=== PATIENT | male | born 1945 | race Caucasian/White ===

== ENCOUNTER 2017-06-05 05:41 | Outpatient (CLI) | payer MEDICARE ==
[~2017-06-05] VITALS: Ht 180.3 cm; Wt 142.9 kg
[2017-06-05] MEDS ORDERED: ALBU5SOL6 IH (14:58)
[2017-06-05] MEDS ORDERED: CYAN100088 PO (14:58)
[2017-06-05] MEDS ORDERED: ACET325T49 PO (14:58)
[2017-06-05] MEDS ORDERED: HYDR-3812 PO (14:58)
[2017-06-05] MEDS ORDERED: SENN8.6T68 PO (14:58)
[2017-06-05] MEDS ORDERED: FURO40TA4 PO (14:58)
[2017-06-05] MEDS ORDERED: AMLO1CAP PO (14:58)
[2017-06-05] MEDS ORDERED: FLUO10TA PO (14:58)
[2017-06-05] MEDS ORDERED: BISA10SU20 RC (14:58)
[2017-06-05] MEDS ORDERED: ATOR20TA66 PO (14:58)
[2017-06-05] MEDS ORDERED: GABA-488 PO (14:58)
[2017-06-05] MEDS ORDERED: METF1000 PO (14:58)
[2017-06-05] MEDS ORDERED: TAMS0.4C98 PO (14:58)
[2017-06-05] MEDS ORDERED: FINA5TAB6 PO (14:58)
[2017-06-05] MEDS ORDERED: GUAI600T43 PO (14:58)
[2017-06-05] MEDS ORDERED: FEXO-45 PO (14:58)
[2017-06-05] MEDS ORDERED: LUBI24CA6 PO (14:58)
[2017-06-05] MEDS ORDERED: BISA5TAB8 PO (14:58)
[2017-06-05] MEDS ORDERED: HYOS0.1281 PO (14:58)
== END 2017-06-05 14:59 ==
LOC: PREOP 05:41
PROVIDERS: ATTEND Urology
DX: Z01.818 Encounter for other preprocedural examination (principal); N40.1 Benign prostatic hyperplasia with lower urinary tract symptoms; R33.9 Retention of urine, unspecified

== ENCOUNTER 2017-06-10 07:20 | Day surgery (SDC) | payer MEDICARE, BC ==
[~2017-06-10] VITALS: Ht 180.3 cm; Wt 142.9 kg
[~2017-06-10 07:20] MED LIST: ACET325T49 PO; ALBU5SOL6 IH; AMLO1CAP PO; ATOR20TA66 PO; BISA10SU20 RC; BISA5TAB8 PO; CYAN100088 PO; FEXO-45 PO; FINA5TAB6 PO; FLUO10TA PO; FURO40TA4 PO; GABA-488 PO; GUAI600T43 PO; HYDR-3812 PO; HYOS0.1281 PO; LUBI24CA6 PO; METF1000 PO; SENN8.6T68 PO; TAMS0.4C98 PO
--- NOTE | 2017-06-10 07:20 | Progress Note-Pre Operative ---
Pre-Operative Progress Note H&P Reviewed The H&P was reviewed, patient examined and no changes noted. Date Seen by Provider: Jun 10, 2017 Time Seen by Provider: 08:30 Date H&P Reviewed: Jun 10, 2017 Time H&P Reviewed: :30 Pre-Operative Diagnosis: NEUROGENIC BLADDER WITH URINE RETENTION MICHELLE DU MD Jun 10, 2017 7:20 am
--- OUTSIDE RECORDS SUMMARY | 2017-06-10 07:24 | XMS REPORT | Clinical Summary ---
Demographics Home Phone Preferred Language Unknown Marital Status Unknown Baptism Affiliation Unknown Race Unknown Ethnic Group Unknown Author Author Admin, [facility] Organization [facility] Address Unknown Phone Unavailable Allergies, Adverse Reactions, Alerts Allergy Name Reaction Description Start Date Severity Status Provider No Known Allergies Allyson Curtis MA Conditions or Problems Problem Name Problem Code Onset Date Status Entry Date Provider Comment Standard Description Annotate Problems Unknown Active Medication List Medication Instructions Start Date Stop Date Generic Name NDC Status Provider Patient Instruction FLOMAX 0.4 MG ORAL CAPS BID per Dr. Mata. TAMSULOSIN HCL 07572991911 Active Allyson Curtis MA Active SENNOSIDES 8.6 MG ORAL TABS Take 1 tab orally daily at bedtime. SENNOSIDES 90115730144 Active Allyson Curtis MA Active FINASTERIDE 5 MG ORAL TABS Take 5 mg orally daily. FINASTERIDE 53455314494 Active Allyson Curtis MA Active [facility] VITAMIN B-12 1000 MCG ORAL TABS Take 1,000 mcg orally daily. CYANOCOBALAMIN 29224451246 Active Allyson Curtis MA Active ASPIRIN ADULT LOW STRENGTH CHEW Take 1 81 mg chewable Asprin daily. ASPIRIN CHEW 57875168774 Active Allyson Curtis MA Active GABAPENTIN 300 MG ORAL CAPS Take 1 capsule TID a day. GABAPENTIN 03234586491 Active Allyson Curtis MA Active AMITIZA 24 MCG ORAL CAPS Take 1 capsule twice a day with meals. LUBIPROSTONE 28884891538 Active Allyson Curtis MA Active METFORMIN HCL 1000 MG ORAL TABS Take 1 tab orally 2 times daily with meals. METFORMIN HCL 99679546534 Active Allyson Curtis MA Active AMLODIPINE BESY-BENAZEPRIL HCL 10-40 MG ORAL CAPS Take 1 capsule daily. 05/31 AMLODIPINE BESY-BENAZEPRIL HCL 27626193286 Active Allyson Curtis MA Active ATORVASTATIN CALCIUM 20 MG ORAL TABS Take 1 tab orally daily, LATE. ATORVASTATIN CALCIUM 64001041057 Active Allyson Curtis MA Active NAPROXEN 500 MG ORAL TABS Take 1 tab orally BID daily. NAPROXEN 49524736305 Active Allyson Curtis MA Active FUROSEMIDE 40 MG ORAL TABS Take 1 tab qd. FUROSEMIDE 66717071603 Active Allyson Curtis MA Active FEXOFENADINE HCL 60 MG ORAL TABS Take 2 tab in the am and in the pm. FEXOFENADINE HCL 85322325561 Active Allyson Curtis MA Active FLUTICASONE PROPIONATE 50 MCG/ACT NASAL SUSP Administer 2 sprays in each nostril daily. FLUTICASONE PROPIONATE 69056462295 Active Allyson Curtis MA Active
--- OUTSIDE RECORDS SUMMARY | 2017-06-10 07:24 | XMS REPORT | Continuity of Care Document ---
Demographics x Preferred Language Unknown Marital Status Unknown Quaker Affiliation Unknown Race Unknown Ethnic Group Unknown Author Author [facility] Organization [facility] Address Unknown Phone Unavailable Allergies There is no data. Medications There is no data. Problems There is no data. Procedures There is no data. Results There is no data. Encounters ACCT No. Visit Date/Time Discharge Status Pt. Type Provider Facility Loc./Unit Complaint [id number] 06/06/2016 17:54:00 ACT Unknown
--- OUTSIDE RECORDS SUMMARY | 2017-06-10 07:24 | XMS REPORT | Clinical Summary ---
Demographics Home Phone Preferred Language Unknown Marital Status Unknown Temple Affiliation Unknown Race Unknown Ethnic Group Unknown Author Author Admin, [facility] Organization [facility] Address Unknown Phone Unavailable Allergies, Adverse Reactions, [...] CAPS BID per Dr. Mata. TAMSULOSIN HCL 72417270010 Active Allyson Curtis MA Active SENNOSIDES 8.6 MG ORAL TABS Take 1 tab orally daily at bedtime. SENNOSIDES 17965603582 Active Allyson Curtis MA Active FINASTERIDE 5 MG ORAL TABS Take 5 mg orally daily. FINASTERIDE 17661478198 Active Allyson Curtis MA Active [facility] VITAMIN B-12 1000 MCG ORAL TABS Take 1,000 mcg orally daily. CYANOCOBALAMIN 46023799831 Active Allyson Curtis MA Active ASPIRIN ADULT LOW STRENGTH CHEW Take 1 81 mg chewable Asprin daily. ASPIRIN CHEW 90585867928 Active Allyson Curtis MA Active GABAPENTIN 300 MG ORAL CAPS Take 1 capsule TID a day. GABAPENTIN 69883793163 Active Allyson Curtis MA Active AMITIZA 24 MCG ORAL CAPS Take 1 capsule twice a day with meals. LUBIPROSTONE 70114319425 Active Allyson Curtis MA Active METFORMIN HCL 1000 MG ORAL TABS Take 1 tab orally 2 times daily with meals. METFORMIN HCL 21101119763 Active Allyson Crutis MA Active AMLODIPINE BESY-BENAZEPRIL HCL 10-40 MG ORAL CAPS Take 1 capsule daily. 05/31 AMLODIPINE BESY-BENAZEPRIL HCL 52866546566 Active Allyson Curtis MA Active ATORVASTATIN CALCIUM 20 MG ORAL TABS Take 1 tab orally daily, LATE. ATORVASTATIN CALCIUM 24741545540 Active Allyson Curtis MA Active NAPROXEN 500 MG ORAL TABS Take 1 tab orally BID daily. NAPROXEN 31240879793 Active Allyson Curtis MA Active FUROSEMIDE 40 MG ORAL TABS Take 1 tab qd. FUROSEMIDE 25672233741 Active Allyson Curtis MA Active FEXOFENADINE HCL 60 MG ORAL TABS Take 2 tab in the am and in the pm. FEXOFENADINE HCL 38904643006 Active Allyson Curtis MA Active FLUTICASONE PROPIONATE 50 MCG/ACT NASAL SUSP Administer 2 sprays in each nostril daily. FLUTICASONE PROPIONATE 71071530830 Active Allyson Curtis MA Active
[2017-06-10] MEDS ORDERED: cefTRIAXone INJECTION 1,000 MG in NS (IVPB) 50 ML IV ONE (07:30)
[2017-06-10] MEDS: LACTATED RINGERS 1,000 ML IV PRN ×2 (07:45→10:26)
[2017-06-10 07:58] VITALS: BP 122/77
[2017-06-10] MEDS ORDERED: FAMOTIDINE 20MG/2ML IV (PEPCID) IV ONE (08:00)
[2017-06-10] MEDS ORDERED: CATHETER FLUSH 10 ML SYR IV PRN (08:00)
[2017-06-10] MEDS ORDERED: MIDAZOLAM 2 MG/2 ML (VERSED) VIAL ONE (08:49)
[2017-06-10] MEDS ORDERED: LIDOCAINE JELLY 2% (XYLOCAINE) 5 ML TUBE ONE (08:49)
[2017-06-10] MEDS ORDERED: proPOfol 200 MG/20 ML (DIPRIVAN) VIAL IV ONE (08:49)
[2017-06-10] MEDS ORDERED: LIDOCAINE PF 2% 5 ML (XYLOCAINE) VIAL ONE (08:49)
[2017-06-10] MEDS ORDERED: ROCURONIUM 50 MG/5 ML (ZEMURON) VIAL IV ONE (08:49)
[2017-06-10] MEDS ORDERED: LACTATED RINGERS 0 ML IV ONE (08:49)
[2017-06-10] MEDS ORDERED: ONDANSETRON 4 MG/2 ML (SDV) Z0FRAN ONE (08:49)
[2017-06-10] MEDS ORDERED: fentaNYL INJECTION 100 MCG/2 ML AMP ONE (08:51)
[2017-06-10] MEDS ORDERED: GENTAMICIN 40 MG/ML 2 ML INJ SDV ONE (09:05)
[2017-06-10] MEDS ORDERED: LIDOCAINE 1% INJ 20 ML (XYLOCAINE) VIAL ONE (09:17)
--- NOTE | 2017-06-10 09:22 | Progress Note-Post Operative ---
Post-Operative Progess Note Surgeon (s)/Banjo Repairer (s) Surgeon MICHELLE DU MD Banjo Repairer: SADE Pre-Operative Diagnosis NEUROGENIC BLADDER WITH URINE RETENTION Post-Operative Diagnosis SAME Procedure & Operative Findings Date of Procedure 06/10/17 Procedure Performed/Findings SUPRAPUBIC CYSTOSTOMY TUBE PLACEMENT Anesthesia Type GENERAL Estimated Blood Loss Estimated blood loss (mL): NEGLIGIBLE Specimens/Packing Specimens Removed N/A Packing: N/A MICHELLE DU MD Jun 10, 2017 9:22 am
[2017-06-10] MEDS ORDERED: SUCCINYLCHOLINE INJ 100 MG/5 ML SYR ONE (10:24)
[2017-06-10] MEDS ORDERED: SEVOFLURANE (ULTANE) 15 ML INHAL SOLN ONE (10:31)
[2017-06-10] MEDS ORDERED: GLYCOPYRROLATE 0.2 MG/ML (ROBINUL) 2 ML VIAL ONE (10:37)
[2017-06-10] MEDS ORDERED: NEOSTIGMINE (BLOXIVERZ ) 1 MG/1ML 10 ML VIAL ONE (10:37)
--- NOTE | 2017-06-10 10:51 | Discharge Inst-Urology ---
Discharge Inst-Urology Discharge Medications New, Converted, or Re-newed RX: RX on Chart Patient Instructions/Follow Up Plan Patient to see me in [facility] 06/26 at 8:30am. Rest till then. DC shiraz and silk suture around SP tube in 2 weeks. Secure SP tube at all times Increase oral fluids for 48 hours and then as needed If questions or concerns contact your physician Or seek help at emergency department. MICHELLE DU MD Jun 10, 2017 10:51 am
[2017-06-10] MEDS ORDERED: morphine INJ 10 MG/ML 1ML (SYR OR VIAL) IVP PRN (11:00)
[2017-06-10] MEDS ORDERED: fentaNYL INJECTION 100 MCG/2 ML AMP IVP PRN (11:00)
[2017-06-10 11:55] VITALS: BP 130/79
[2017-06-10 12:25] VITALS: BP 163/96
[2017-06-10 12:34] VITALS: BP 163/96
--- NOTE | 2017-06-10 16:00 | OPERATIVE REPORT ---
DATE OF SERVICE: 06/10/2017 PREOPERATIVE DIAGNOSIS: Neurogenic bladder with retention. POSTOPERATIVE DIAGNOSIS: Neurogenic bladder with retention. OPERATION PERFORMED: Suprapubic cystostomy tube placement. SURGEON: Michelle Du MD ANESTHESIA: General. COMPLICATIONS: None. PROCEDURE: Under satisfactory general anesthesia, the patient in supine position, genitalia were prepped and draped in the usual sterile fashion including adequate abdominal prep. Before doing so, the bladder was filled with 500 mL of antibiotic solution through the ureteral catheter, which was clamped. An incision was made in the midline, carried from the symphysis pubis over the umbilicus for few centimeters. It was carried through skin, subcutaneous tissue and fascia. The fascia was incised. The midline was identified and retracted laterally. The retropubic space was developed. The bladder was identified and confirmed by suctioning fluids with a syringe and needle. Self-retaining retractor was applied. Stab wound was made in the anterior wall of the bladder through which a 22 Trinidadian 2-way 10 mL balloon catheter was inserted. The balloon was inflated with 15 mL. One stitch of 2-0 chromic was put to make the opening around the catheter watertight. There was no leakage, no need for drain. Closure was performed in layers, the fascia with interrupted 0 Vicryl, subcutaneous tissue and Celestino's fascia with an interrupted 3-0 plain and the skin with shiraz. The suprapubic tube was secured in position with a 0 silk suture. Needle, sponge, instrument counts were correct x2. Estimated blood loss was negligible, none of which was replaced. The patient tolerated the procedure and anesthesia well and was sent to recovery room in stable condition after applying the dressing. Job ID: [id number] DocumentID: [id number] Dictated Date: 06/10/2017 10:46:21 Vp Of Marketing Date: 06/10/2017 15:59:25 Dictated By: MICHELLE DU MD
== END 2017-06-10 12:34 | disposition home or self-care (01) ==
LOC: SDC 07:20
PROVIDERS: ATTEND Urology
DX: N31.9 Neuromuscular dysfunction of bladder, unspecified (principal); R33.9 Retention of urine, unspecified; I25.10 Atherosclerotic heart disease of native coronary artery without angina pectoris; I10 Essential (primary) hypertension; E11.9 Type 2 diabetes mellitus without complications; F17.210 Nicotine dependence, cigarettes, uncomplicated; G47.33 Obstructive sleep apnea (adult) (pediatric); F32.9 Major depressive disorder, single episode, unspecified; K21.9 Gastro-esophageal reflux disease without esophagitis; E66.01 Morbid (severe) obesity due to excess calories; Z68.41 Body mass index [BMI] 40.0-44.9, adult; Z79.84 Long term (current) use of oral hypoglycemic drugs; Z79.899 Other long term (current) drug therapy
CPT/HCPCS: 82962; 87081

== ENCOUNTER → 2018-10-19 | Outpatient (CLI) | payer MEDICARE, BC ==
[~2018-10-19] MED LIST changes: +BISA10SU RC; -BISA10SU20 RC; +METF-399 PO; -METF1000 PO
--- NOTE | 2018-10-19 11:25 | Diagnostic Imaging Report ---
INDICATION: Right hip pain. Three views were obtained. FINDINGS: There are moderate degenerative changes in the right hip. There is no definite fracture or dislocation. Soft tissues are unremarkable. IMPRESSION: Moderate degenerative changes in the right hip. No definite fracture or dislocation although the examination is somewhat limited due to underpenetration and lack of a frog-leg or lateral view. If clinical correlation warranted, followup with CT. Dictated by: Dictated on workstation # [id number]
== END ==
LOC: RAD FS 10:29
PROVIDERS: ATTEND Nurse Practitioner
DX: M16.11 Unilateral primary osteoarthritis, right hip (principal)
CPT/HCPCS: 73502

== ENCOUNTER → 2019-08-27 | Outpatient (CLI) | payer MEDICARE, BC ==
[~2019-08-27] MED LIST changes: +ACHD5005 PO; -HYDR-3812 PO; -TAMS0.4C98 PO; +TMSL.4C PO
[2019-08-27 21:12] LABS: CLARITY,URINE TURBID; COLOR,URINE YELLOW; GLUCOSE, URINE (UA) 2+ (NEGATIVE); PH,URINE 6.5 (5-9); PROTEIN,URINE 1+ (NEGATIVE)
[2019-08-27 21:13] LABS: BACTERIA,URINE LARGE /HPF; BILIRUBIN,URINE NEGATIVE (NEGATIVE); KETONES,URINE NEGATIVE (NEGATIVE); LEUKOCYTE ESTERASE ,URINE 3+ (NEGATIVE); NITRITE,URINE POSITIVE (NEGATIVE); RBC,URINE 25-50 /HPF; WBC,URINE >100 /HPF
== END ==
LOC: LAB FS 18:01
PROVIDERS: ATTEND Family Medicine
DX: N40.0 Benign prostatic hyperplasia without lower urinary tract symptoms (principal); R30.0 Dysuria
CPT/HCPCS: 81000; 87077; 87088

== ENCOUNTER → 2019-09-22 | Outpatient (CLI) | payer MEDICARE, BC | LOC: LAB FS 14:30 | PROVIDERS: ATTEND Family Medicine | DX: Z43.5 Encounter for attention to cystostomy (principal); N40.0 Benign prostatic hyperplasia without lower urinary tract symptoms | CPT/HCPCS: 87088 ==

== ENCOUNTER 2019-11-18 21:06 | Emergency (ER) | payer MEDICARE, BC ==
[~2019-11-18] VITALS: Ht 180.3 cm; Wt 153.3 kg
[2019-11-18 21:09] VITALS: BP 177/92
--- NOTE | 2019-11-18 21:38 | ED GU-Male ---
General Chief Complaint: - Urinary Stated Complaint: CATHETER ISSUES Nursing Triage Note: Patient arrived via POV due to his suprapubic catheter not draining. Home health changed the catheter at approximately 1400 todays date. No urine has drained since. Source: patient History of Present Illness Date Seen by Provider: Nov 18, 2019 Time Seen by Provider: 21:08 Initial Comments 74 yo male presenting with suprapubic catheter not draining since it was changed by home health around 1400 today. He has tried flushing the catheter at home without success. He has pain and pressure in his bladder. There is some pink and bloody colored drainage present in the tubing for his catheter and he has some clear and pink drainage from around his catheter coming from his suprapubic catheter site. Allergies and Home Medications Allergies Coded Allergies: No Known Drug Allergies (Unverified , 06/05/17) Home Medications Acetaminophen 325 Mg Tablet, 650 MG PO Q4H PRN for PAIN-MILD, (Reported) take 2 (325mg) tabs Albuterol Sulfate 5 Mg/1 Ml Solution, 5 MG IH Q4H PRN for SHORTNESS OF BREATH, (Reported) Amlodipine Besylate/Benazepril 1 Each Capsule, 1 EACH PO DAILY, (Reported) Atorvastatin Calcium 20 Mg Tablet, 20 MG PO DAILY, (Reported) Bisacodyl 5 Mg Tablet.dr, 5 MG PO DAILY, (Reported) Bisacodyl 10 Mg Supp.rect, 10 MG RC DAILY PRN for CONSTIPATION-1ST LINE, (Reported) Cyanocobalamin (Vitamin B-12) 1,000 Mcg Tablet, 1,000 MCG PO DAILY, (Reported) Fexofenadine HCl 60 Mg Tablet, 60 MG PO DAILY, (Reported) Fluoxetine HCl 10 Mg Tablet, 10 MG PO DAILY, (Reported) Furosemide 40 Mg Tablet, 40 MG PO DAILY, (Reported) Gabapentin 300 Mg Capsule, 300 MG PO TID, (Reported) Guaifenesin 600 Mg Tab.er.12h, 600 MG PO DAILY, (Reported) Hydrocodone Bit/Acetaminophen 1 Each Tablet, 1 EACH PO Q4H PRN for PAIN-MILD TO MODERATE, (Reported) Hyoscyamine Sulfate 0.125 Mg Tablet, 0.125 MG PO Q4H PRN for bladder spasms, (Reported) Lubiprostone 24 Mcg Capsule, 24 MCG PO BID, (Reported) Metformin HCl 1,000 Mg Tablet, 1,000 MG PO BID, (Reported) Sennosides 8.6 Mg Tablet, 8.6 MG PO DAILY, (Reported) Patient Home Medication List Home Medication List Reviewed: Yes Review of Systems Review of Systems Constitutional: No chills, No fever EENTM: no symptoms reported Respiratory: no symptoms reported Cardiovascular: no symptoms reported Gastrointestinal: no symptoms reported Genitourinary: see HPI Musculoskeletal: no symptoms reported Skin: no symptoms reported Past Fazxdhm-Ddwgwb-Szateq Hx Past Med/Social Hx: Reviewed Nursing Past Med/Soc Hx Patient Social History Alcohol Use: Regular Use Alcohol Beverage of Choice: Whiskey Recreational Drug Use: No Smoking Status: Current Everyday Smoker Type Used: Cigarettes Recent Foreign Travel: No Contact w/Someone Who Travel: No Recent Infectious Disease Expo: No Recent Hopitalizations: No Physical Abuse: No Sexual Abuse: No Mistreated: No Fear: No Immunizations Up To Date Date of Pneumonia Vaccine: Jun 05, 2014 Date of Influenza Vaccine: Feb 04, 2017 Seasonal Allergies Seasonal Allergies: No Past Medical History Surgeries: Yes (bilat CTR, oral sx) Eye Surgery Respiratory: No Cardiac: Yes High Cholesterol, Hypertension Neurological: No Benign Prostatic Hyperpl, Renal Failure Gastrointestinal: No Chronic Constipation Musculoskeletal: Yes (obese) Endocrine: Yes Cancer: No Psychosocial: Yes Depression Integumentary: No Blood Disorders: No Physical Exam Vital Signs Vital Signs - First Documented 11/18/19 21:09 Temp 36.7 Pulse 83 Resp 19 B/P (MAP) 177/92 (120) Pulse Ox 92 O2 Delivery Room Air Capillary Refill : Less Than 3 Seconds Height, Weight, BMI Height: 5'11.00" Weight: 315lbs. 0.0oz. 142.105819zy; 47.00 BMI Method: General Appearance: WD/WN, obese Gastrointestinal: normal bowel sounds, other (obese abdomen with tenderness over his suprapubic area and some clear to pink colored drainage from around the catheter in his suprapubic site) Neurologic/Psychiatric: alert, oriented x 3 Skin: normal color, warm/dry Progress/Results/Core Measures Suspected Sepsis Recent Fever Within 48 Hours: No Infection Criteria Present: None New/Unexplained Altered Menta: No Sepsis Screen: No Definite Risk SIRS Temperature: Pulse: 83 Respiratory Rate: 19 Blood Pressure 177 /92 Mean: 120 Results/Orders My Orders Orders - JAIR KNOTT MD Bladder Scan (11/18/19 21:32) Armstrong Cath (11/18/19 21:32) Urinary Catheter: Hand Irrigat (11/18/19 21:32) Vital Signs/I&O 11/18/19 21:09 Temp 36.7 Pulse 83 Resp 19 B/P (MAP) 177/92 (120) Pulse Ox 92 O2 Delivery Room Air Capillary Refill : Less Than 3 Seconds Blood Pressure Mean: 120 Progress Note : Progress Note the suprapubic catheter was changed out with a 20 Fr catheter and 10 mL of saline used to inflate the balloon of the new catheter. He had some clot and urine come out of the catheter. It was then attached to the existing tubing and armstrong bag he had. A bladder scan performed after placement of the new catheter confirmed he had only about 50-60 mL of urine present in the bladder. He was also more comfortable. Will monitor for a few minutes to confirm he is having no complications and then discharge to home. Departure Impression Primary Impression: Complication, suprapubic catheter obstruction Qualified Codes: T83.090A - Other mechanical complication of cystostomy catheter, initial encounter Disposition: 01 HOME, SELF-CARE Condition: Stable Departure-Patient Inst. Decision time for Depature: 21:55 Referrals: SELFLAINEY MD (PCP/Family) Primary Care Physician Patient Instructions: How to Care for Your Suprapubic Urinary Catheter Add. Discharge Instructions: Follow up with Clinic and Home health for continued concerns All discharge instructions reviewed with patient and/or family. Voiced understanding. JAIR KNOTT MD Nov 18, 2019 21:38
== END 2019-11-18 21:58 | disposition home or self-care (01) ==
LOC: EDUNIT# 21:06 → ER FS 21:07
DX: T83.090A Other mechanical complication of cystostomy catheter, initial encounter (principal); I10 Essential (primary) hypertension; E78.00 Pure hypercholesterolemia, unspecified; F32.9 Major depressive disorder, single episode, unspecified; K59.09 Other constipation; F17.210 Nicotine dependence, cigarettes, uncomplicated; Z79.84 Long term (current) use of oral hypoglycemic drugs
CPT/HCPCS: 51702

== ENCOUNTER → 2019-11-19 | Outpatient (CLI) | payer MEDICARE, BC ==
[~2019-11-19] MED LIST changes: +AMLO2.5T2 PO; +ASPI-999 PO; +BENA20TA7 PO; +CEFD300C3 PO; +FEXO-14 PO; +GABA300C PO; +HYDR-3812 PO; -HYOS0.1281 PO; +HYOS0.1281 SL; +RT-ALBUINH IH; +SENN1TAB33 PO; +TIZA4TAB4 PO; +TRAM50TA3 PO
[2019-11-19 21:09] LABS: CLARITY,URINE TURBID; COLOR,URINE YELLOW; GLUCOSE, URINE (UA) NEGATIVE (NEGATIVE); PROTEIN,URINE 3+ (NEGATIVE)
[2019-11-19 21:10] LABS: KETONES,URINE NEGATIVE (NEGATIVE); NITRITE,URINE POSITIVE (NEGATIVE)
[2019-11-19 21:11] LABS: BACTERIA,URINE MODERATE /HPF; BILIRUBIN,URINE 1+ (NEGATIVE); LEUKOCYTE ESTERASE ,URINE 3+ (NEGATIVE); WBC,URINE >100 /HPF
[2019-11-19 21:12] LABS: SQUAMOUS EPITHELIAL CELL,UR RARE /HPF
== END ==
LOC: LAB FS 20:34
PROVIDERS: ATTEND Family Medicine
DX: R30.0 Dysuria (principal)
CPT/HCPCS: 81000; 87077; 87088; 87186

== ENCOUNTER 2019-12-28 14:37 | Inpatient (IN) | payer BC, MEDICARE ==
[~2019-12-28] VITALS: Ht 181 cm; Wt 140.1 kg
[~2019-12-28 14:37] MED LIST changes: -HYDR-3812 PO
[2019-12-28] MEDS ORDERED: NS IV 1000 ML 1,000 ML IV SCH ×4 (14:44→16:11)
[2019-12-28] MEDS ORDERED: CEFEPIME INJECTION 1,000 MG in WATER (STERILE) FOR INJECTION 10 ML IV ONE (14:45)
--- NOTE | 2019-12-28 14:55 | ED General ---
General Chief Complaint: - Urinary Stated Complaint: URINARY INFECTION Source of Information: Patient Exam Limitations: No Limitations History of Present Illness Date Seen by Provider: Dec 28, 2019 Time Seen by Provider: 14:36 Initial Comments Patient presents ER by [facility] with chief complaint that he was being transferred from the [facility] back to his assisted living and could not get up out of the van to go in and so they called an ambulance. EMS said he had a fever 101 and milk chocolate-colored urine in his urinary catheter. He has finasteride on his med list but cannot tell me why he has a armstrong catheter. He is a poor historian. EMS started a liter of saline. Allergies and Home Medications Allergies Coded Allergies: No Known Drug Allergies (Unverified , 06/05/17) Home Medications Acetaminophen 325 Mg Tablet, 650 MG PO Q4H PRN for PAIN-MILD, (Reported) take 2 (325mg) tabs Albuterol Sulfate 1 Puff Puff, 2 PUFF IH Q6H PRN for WHEEZING, (Reported) Amlodipine Besylate 2.5 Mg Tablet, 2.5 MG PO HS, (Reported) Aspirin 81 Mg Tab.chew, 81 MG PO DAILY, (Reported) Atorvastatin Calcium 20 Mg Tablet, 20 MG PO 1700, (Reported) Benazepril HCl 20 Mg Tablet, 40 MG PO DAILY, (Reported) TAKES 2 (20MG) TABS - TAKE WITH AMLODIPINE Bisacodyl 10 Mg Supp.rect, 10 MG RC DAILY PRN for CONSTIPATION-4TH LINE, (Reported) Bisacodyl 5 Mg Tablet.dr, 5 MG PO DAILY PRN for CONSTIPATION-4TH LINE, (Reported) Cefdinir 300 Mg Capsule, 300 MG PO BID, (Reported) FILLED 11-20-2019 #14/ 7 DAYS SUPPLY Cyanocobalamin (Vitamin B-12) 1,000 Mcg Tablet, 1,000 MCG PO 1700, (Reported) Fexofenadine HCl 60 Mg Tablet, 60 MG PO 0800,1700, (Reported) Finasteride 5 Mg Tablet, 5 MG PO DAILY, (Reported) Fluoxetine HCl 10 Mg Tablet, 10 MG PO DAILY, (Reported) Furosemide 40 Mg Tablet, 40 MG PO DAILY, (Reported) Gabapentin 300 Mg Capsule, 300 MG PO 0800,1200,1700, (Reported) TAKES THREE TIMES DAILY (0800,1200,1700) Guaifenesin 600 Mg Tab.er.12h, 600 MG PO 1700, (Reported) Hydrocodone/Acetaminophen 1 Each Tablet, 1-2 EACH PO Q4H PRN for PAIN-MODERATE (5-7), (Reported) Hyoscyamine Sulfate 0.125 Mg Tablet, 0.125 MG SL Q4H PRN for SPASMS, (Reported) Lubiprostone 24 Mcg Capsule, 24 MCG PO 0800,1700, (Reported) Metformin HCl 1,000 Mg Tablet, 1,000 MG PO BID WITH MEALS, (Reported) Sennosides/Docusate Sodium 1 Each Tablet, 1 EACH PO DAILY, (Reported) Tamsulosin HCl 0.4 Mg Cap, 0.4 MG PO 0800,1700, (Reported) Tizanidine HCl 4 Mg Tablet, 4 MG PO 0800,1700, (Reported) Tramadol HCl 50 Mg Tablet, 50-100 MG PO Q6H PRN for PAIN-MODERATE (5-7), (Reported) Patient Home Medication List Home Medication List Reviewed: Yes Review of Systems Review of Systems Constitutional: see HPI (patient gives no meaningful review of symptoms because he is obtunded) Past Kfkkuep-Xzpchk-Lvmmpt Hx Patient Social History Alcohol Use: Occasionally Uses Alcohol Beverage of Choice: Whiskey Recreational Drug Use: No Smoking Status: Current Everyday Smoker Type Used: Cigarettes 2nd Hand Smoke Exposure: No Recent Hopitalizations: No Immunizations Up To Date Date of Pneumonia Vaccine: Jun 05, 2014 Date of Influenza Vaccine: Feb 04, 2017 Seasonal Allergies Seasonal Allergies: No Past Medical History Surgeries: Yes (bilat CTR, oral sx) Eye Surgery Respiratory: No Cardiac: Yes High Cholesterol, Hypertension Neurological: No Benign Prostatic Hyperpl, Renal Failure Gastrointestinal: No Chronic Constipation Musculoskeletal: Yes (obese) Endocrine: Yes Cancer: No Psychosocial: Yes Depression Integumentary: No Blood Disorders: No Family Medical History No Pertinent Family Hx Physical Exam-Suspected Sepsis Physical Exam Vital Signs Vital Signs - First Documented 12/28/19 14:46 Temp 39.1 Pulse 88 Resp 18 B/P (MAP) 93/56 (68) Pulse Ox 100 O2 Delivery Nasal Cannula O2 Flow Rate 2.00 Capillary Refill : Height, Weight, BMI Height: 5'11.00" Weight: 315lbs. 0.0oz. 142.026175to; 44.78 BMI Method: General Appearance: Chronically ill, Obese, Severe Distress Eyes: Bilateral Eye Normal Inspection, Bilateral Eye PERRL, Bilateral Eye EOMI HEENT: PERRL/EOMI, TMs Normal, Normal ENT Inspection; No Moist Mucous Membranes Neck: Full Range of Motion, Normal Inspection Respiratory: Lungs Clear, Normal Breath Sounds, No Accessory Muscle Use, No Respiratory Distress Cardiovascular: Regular Rate, Rhythm, No Edema, Normal Peripheral Pulses Gastrointestinal: Normal Bowel Sounds, Soft, Tenderness (suprapubic) Extremity: No Pedal Edema, Pedal Edema, Slow Capillary Refill, Other (dressed wound without significant erythema or discharge on the right lower extremity) Neurologic/Psychiatric: Alert, Other (oriented to person and place) Skin: normal color, warm/dry Focused Exam Lactate Level 12/28/19 14:45: Lactic Acid Level 2.08*H 12/28/19 16:45: Lactic Acid Level 0.95 Lactic Acid Level Laboratory Tests Test 12/28/19 16:45 Lactic Acid Level 0.95 MMOL/L (0.50-2.00) Procedures/Interventions Lumen: triple Central Line Procedure: betadine prep (chlorhexidine), sterile drapes applied, sterile dressing applied Position: internal jugular (R) Anesthesia: Lidocaine Volume Anesthetic (ccs): 3 Complications: none Post Position: sutured, good blood return, position confirmed w/ CXR Risks, benefits and alternatives were discussed with the patient and he was emergently consented to the procedure. He was positioned in the usual format and using the usual sterile garment and drapes the patient was dressed out. The skin was thoroughly cleaned with the supplied chlorhexidine prep. After the prep and dried a sterile drape was placed. The 20 cm 7 Serbian triple-lumen catheter was flushed with sterile saline. We used ultrasound guidance to pass the introducer needle into the right internal jugular without difficulty. A guidewire was placed easily without difficulty. No ectopy was seen on the monitor. The supplied 11 blade scalpel was used to make a 2 mm incision at the inferior portion of the introducer needle. The introducer needle was replaced with the dilator. The dilator was taken out and the patient had the central lumen of the triple lumen catheter threaded over the guidewire and placed at 14 cm. The guidewire was removed and the triple-lumen catheter was stitched in place using the supplied braided stitch at 2 different points. The catheter withdrew blood and flushed easily. A sterile dressing was placed over the catheter. The patient tolerated the procedure well. A chest x-ray was obtained that demonstrated no pneumothorax and a new interval central catheter over the shadow of the right internal jugular down the superior vena cava and terminating just proximal to the right atria. Progress/Results/Core Measures Suspected Sepsis SIRS Temperature: Pulse: Respiratory Rate: Laboratory Tests 12/28/19 14:45: White Blood Count 20.1H Blood Pressure / Mean: 12/28/19 14:45: Lactic Acid Level 2.08*H 12/28/19 16:45: Lactic Acid Level 0.95 Laboratory Tests 12/28/19 14:45: Creatinine 5.98H, INR Comment 1.4, Platelet Count 329, Total Bilirubin 0.4 Results/Orders Lab Results Laboratory Tests Test 12/28/19 14:44 12/28/19 14:45 12/28/19 16:45 Range/Units Urine Color YELLOW Urine Clarity CLOUDY Urine pH 6.0 5-9 Urine Specific Rossiter 1.015 L 1.016-1.022 Urine Protein 2+ H NEGATIVE Urine Glucose (UA) NEGATIVE NEGATIVE Urine Ketones NEGATIVE NEGATIVE Urine Nitrite NEGATIVE NEGATIVE Urine Bilirubin NEGATIVE NEGATIVE Urine Urobilinogen 0.2 < = 1.0 MG/DL Urine Leukocyte Esterase 3+ H NEGATIVE Urine RBC (Auto) 3+ H NEGATIVE Urine RBC 10-25 H /HPF Urine WBC >100 H /HPF Urine Crystals PRESENT H /LPF Urine Amorphous Sediment FEW CAROL URATES H /LPF Urine Bacteria TRACE /HPF Urine Casts NONE /LPF Urine Mucus NEGATIVE /LPF Urine Culture Indicated YES White Blood Count 20.1 H 4.3-11.0 10^3/uL Red Blood Count 3.39 L 4.35-5.85 10^6/uL Hemoglobin 9.3 L 13.3-17.7 G/DL Hematocrit 30 L 40-54 % Mean Corpuscular Volume 87 80-99 FL Mean Corpuscular Hemoglobin 27 25-34 PG Mean Corpuscular Hemoglobin Concent 32 32-36 G/DL Red Cell Distribution Width 17.5 H 10.0-14.5 % Platelet Count 329 130-400 10^3/uL Mean Platelet Volume 9.2 7.4-10.4 FL Neutrophils (%) (Auto) 87 H 42-75 % Lymphocytes (%) (Auto) 5 L 12-44 % Monocytes (%) (Auto) 8 0-12 % Eosinophils (%) (Auto) 0 0-10 % Basophils (%) (Auto) 0 0-10 % Neutrophils # (Auto) 17.4 H 1.8-7.8 X 10^3 Lymphocytes # (Auto) 1.0 1.0-4.0 X 10^3 Monocytes # (Auto) 1.7 H 0.0-1.0 X 10^3 Eosinophils # (Auto) 0.0 0.0-0.3 10^3/uL Basophils # (Auto) 0.0 0.0-0.1 10^3/uL Neutrophils % (Manual) 88 % Lymphocytes % (Manual) 4 % Monocytes % (Manual) 4 % Band Neutrophils 4 % Anisocytosis MODERATE Macrocytosis SLIGHT Prothrombin Time 17.7 H 12.2-14.7 SEC INR Comment 1.4 0.8-1.4 Activated Partial Thromboplast Time 44 H 24-35 SEC Sodium Level 136 135-145 MMOL/L Potassium Level 2.8 L 3.6-5.0 MMOL/L Chloride Level 105 98-107 MMOL/L Carbon Dioxide Level 19 L 21-32 MMOL/L Anion Gap 12 5-14 MMOL/L Blood Urea Nitrogen 53 H 7-18 MG/DL Creatinine 5.98 H 0.60-1.30 MG/DL Estimat Glomerular Filtration Rate 9 BUN/Creatinine Ratio 9 Glucose Level 173 H 70-105 MG/DL Lactic Acid Level 2.08 *H 0.95 0.50-2.00 MMOL/L Calcium Level 8.3 L 8.5-10.1 MG/DL Corrected Calcium 9.0 8.5-10.1 MG/DL Total Bilirubin 0.4 0.1-1.0 MG/DL Aspartate Amino Transf (AST/SGOT) 21 5-34 U/L Alanine Aminotransferase (ALT/SGPT) 13 0-55 U/L Alkaline Phosphatase 82 40-136 U/L Total Protein 6.7 6.4-8.2 GM/DL Albumin 3.1 L 3.2-4.5 GM/DL My Orders Orders - BETZAIDA BRENNER Cbc With Automated Diff (12/28/19 14:44) Comprehensive Metabolic Panel (12/28/19 14:44) Blood Culture (12/28/19 14:44) Sputum Culture (12/28/19 14:44) Urinalysis (12/28/19 14:44) Urine Culture (12/28/19 14:44) Protime With Inr (12/28/19 14:44) Partial Thromboplastin Time (12/28/19 14:44) Chest 1 View, Ap/Pa Only (12/28/19 14:44) Ed Iv/Invasive Line Start (12/28/19 14:44) Ed Iv/Invasive Line Start (12/28/19 14:44) Vital Signs Adult Sepsis Patie Q15M (12/28/19 14:44) O2 (12/28/19 14:44) Remove Rings In Anticipation O (12/28/19 14:44) Lactic Acid Analyzer (12/28/19 14:44) Ns Iv 1000 Ml (Sodium Chloride 0.9%) (12/28/19 14:44) Cefepime Injection (Maxipime Injection) (12/28/19 14:45) Ed Iv/Invasive Line Start (12/28/19 14:44) Ns Iv 1000 Ml (Sodium Chloride 0.9%) (12/28/19 14:44) Manual Differential (12/28/19 14:45) Acetaminophen Suppository (Tylenol Suppo (12/28/19 15:15) Ed Iv/Invasive Line Start (12/28/19 15:12) Ns Iv 1000 Ml (Sodium Chloride 0.9%) (12/28/19 15:12) Norepinephrine 4 Mg/250 Ml (Norepinephri (12/28/19 15:16) Norepinephrine 4 Mg/250 Ml (Norepinephri (12/28/19 15:45) Vancomycin Injection (Vancomycin Injecti (12/28/19 15:38) Potassium Cl 10meq/50ml Ivpb (Kcl 10 Meq (12/28/19 16:15) Ed Iv/Invasive Line Start (12/28/19 16:11) Ns Iv 1000 Ml (Sodium Chloride 0.9%) (12/28/19 16:11) Urine Culture (12/28/19 14:44) Medications Given in ED Current Medications Medications Dose Ordered Sig/Jacquie Route Start Time Stop Time Status Last Admin Dose Admin Acetaminophen 650 mg ONCE ONCE IA 12/28/19 15:15 12/28/19 15:16 DC 12/28/19 16:16 650 MG Cefepime HCl 1000 mg/Sterile Water 10 ml @ 200 mls/hr ONCE ONCE IV 12/28/19 14:45 12/28/19 14:51 DC 12/28/19 15:00 200 MLS/HR Vancomycin HCl 2000 mg/Sodium Chloride 500 ml @ 260 mls/hr 1538 ONCE IV 12/28/19 15:38 12/28/19 17:33 DC 12/28/19 16:33 260 MLS/HR Vital Signs/I&O 12/28/19 12/28/19 12/28/19 14:46 15:19 16:16 Temp 39.1 39.1 Pulse 88 80 Resp 18 B/P (MAP) 93/56 (68) 51/26 Pulse Ox 100 O2 Delivery Nasal Cannula O2 Flow Rate 2.00 Capillary Refill : Progress Note : Time: 16:13 Progress Note Patient's blood pressure can't. Suspect that perhaps he had bladder retention despite Armstrong catheter based on the creamy chocolatey appearance of his urine. We replaced the Armstrong catheter got a liter out and clamped. We'll continue draining the bladder. This is probably why he has a postobstructive kidney i njury with a creatinine of 5.9 and a profoundly low potassium. 40 mEq of potassium in and some more IV fluids have been ordered. Diagnostic Imaging Diagonstic Imaging: Xray Plain Films/CT/US/NM/MRI: chest Comments [facility], [place] NAME: ROBERT CARREON [facility] REC#: [id number] PT STATUS: REG ER : 1945 PHYSICIAN: BETZAIDA BRENNER MD ADMIT DATE: 12/28/19/ER Signed Date of Exam:12/28/19 CHEST 1 VIEW, AP/PA ONLY INDICATION: Sepsis, line placement. COMPARISON: November 23, 2019. TECHNIQUE: Single radiograph of the chest dated December 28, 2019. FINDINGS: Interval placement of a right IJ central venous catheter with the distal tip overlying the right upper chest, likely within the right jugular vein. The cardiac silhouette is significantly enlarged, though stable from the prior exam. Minimal central pulmonary vascular congestion. The lungs are clear of focal pulmonary opacity. No significant pleural effusion. No pneumothorax. No acute osseous abnormality. IMPRESSION: 1. Placement of a right IJ central venous catheter with the distal tip overlying the expected location of the inferior aspect of the right jugular vein. No pneumothorax. 2. Cardiomegaly with mild central pulmonary vascular congestion without significant pleural effusion. Dictated by: Dictated on workstation # [id number] Dict: 12/28/19 1615 Trans: 12/28/19 1713 [id number] [id number] Interpreted by: DILLON VALENZUELA MD Electronically signed by: DILLON VALENZUELA MD 12/28/19 1713 Reviewed: Reviewed by Vt Critical Care Note Critical Care Start Time: 14:36 Stop Time: 17:20 Total Time (minutes) 104 mins Progress Patient presents in septic shock with milky creamy urine. Armstrong catheter was replaced suspecting that possibly was plugged and this was causing bladder distention which was worsening his hypertension. He was fed was started peripherally as well as he received 4 L total IV fluids. His right internal jugular was plump by the time we got the central line placed. Broad-spectrum antibiotics of vancomycin and cefepime were initiated immediately without regard to blood cultures. Septic workup was done and the patient was dispositioned towards the ICU. His acute kidney injury due to obstructive process which is due to his urinary tract infection. Creatinine should improve after that he has some fluids in his bladder strain. He put out over 3 L of urine or wall he is in the ER and it is all milky white Departure Communication (Admissions) Time/Spoke to Admitting Phy: 18:00 Discussed the case with Dr. Marshall and she agrees with broad-spectrum antibiotics, fluids, pressors, consult to eICU and Dr. Wise. Time/Spoke to Consulting Phy: 17:45 Discussed the case with Dr. Wise and he agrees to consult on the patient. EICU counseled on arrival. Impression Primary Impression: Septic shock Additional Impressions: UTI (urinary tract infection) Qualified Codes: N30.01 - Acute cystitis with hematuria Electrolyte and fluid disorder Acute kidney injury Urinary outflow obstruction Disposition: ADMITTED INPATIENT Condition: Critical Admissions Decision to Admit Reason: Admit from ER (General) Decision to Admit/Date: Dec 28, 2019 Time/Decision to Admit Time: 15:00 Departure-Patient Inst. Referrals: LAINEY BLUE MD (PCP/Family) Primary Care Physician BETZAIDA BRENNER Dec 28, 2019 14:55
[2019-12-28 15:00] LABS: BASOPHILS % (AUTO) 0 % (0-10); EOSINOPHILS % (AUTO) 0 % (0-10); HEMATOCRIT 30 % (40-54); HEMOGLOBIN 9.3 G/DL (13.3-17.7); LYMPHOCYTES % (AUTO) 5 % (12-44); MEAN CORPUSCULAR HEMOGLOBIN 27 PG (25-34); MEAN CORPUSCULAR HGB CONC 32 G/DL (32-36); MEAN CORPUSCULAR VOLUME 87 FL (80-99); MEAN PLATELET VOLUME 9.2 FL (7.4-10.4); MONOCYTES # (AUTO) 1.7 X 10^3 (0.0-1.0); MONOCYTES % (AUTO) 8 % (0-12); NEUTROPHILS # (AUTO) 17.4 X 10^3 (1.8-7.8); NEUTROPHILS % (AUTO) 87 % (42-75); PLATELET COUNT 329 10^3/uL (130-400); WHITE BLOOD COUNT 20.1 10^3/uL (4.3-11.0)
[2019-12-28] MEDS ORDERED: ACETAMINOPHEN 500 MG TAB (TYLENOL) PO ONE (15:00)
[2019-12-28 15:15] LABS: ANISOCYTOSIS MODERATE; BAND NEUTROPHILS 4 %; INR 1.4 (0.8-1.4); LYMPHOCYTES % (MANUAL) 4 %; MONOCYTES % (MANUAL) 4 %; NEUTROPHILS % (MANUAL) 88 %; PROTHROMBIN TIME PATIENT 17.7 SEC (12.2-14.7)
[2019-12-28] MEDS ORDERED: ACETAMINOPHEN 650 MG SUPP (TYLENOL) PR ONE (15:15)
[2019-12-28] MEDS ORDERED: NOREPINEPHRINE 4 MG/250 ML 250 ML IV ONE (15:16)
[2019-12-28 15:17] LABS: ALBUMIN 3.1 GM/DL (3.2-4.5); BILIRUBIN,TOTAL 0.4 MG/DL (0.1-1.0); CALCIUM 8.3 MG/DL (8.5-10.1); CREATININE SERUM 5.98 MG/DL (0.60-1.30); POTASSIUM 2.8 MMOL/L (3.6-5.0); TOTAL PROTEIN 6.7 GM/DL (6.4-8.2)
[2019-12-28] MEDS: NOREPINEPHRINE 4 MG/250 ML 250 ML IV SCH ×2 (15:19→17:55)
--- NOTE | 2019-12-28 15:19 | NUR ---
B/P , DR. BRENNER ADVISES PT WILL NEED A CENTRAL LINE, PT NOT RESPONDING TO QUESTIONS. VERBAL ORDER FOR LEVOPHED STARTED AT .01 MCG/KG/MIN OR 51 MLS/HR
[2019-12-28] MEDS ORDERED: VANCOMYCIN INJECTION 2,000 MG in NS IV 500 ML 500 ML IV ONE (15:38)
--- NOTE | 2019-12-28 15:45 | NUR ---
1 LITER NS STARTED BY EMS IN AT THIS TIME.
--- NOTE | 2019-12-28 15:45 | NUR ---
VERBAL ORDER TO TITRATE LEVOPHED TO KEEP PT'S SYSTOLIC PRESSURE ABOVE 90 AND MAP OF 65
--- NOTE | 2019-12-28 16:21 | Diagnostic Imaging Report ---
INDICATION: Sepsis, line placement. COMPARISON: November 23, 2019. TECHNIQUE: Single radiograph of the chest dated December 28, 2019. FINDINGS: Interval placement of a right IJ central venous catheter with the distal tip overlying the right upper chest, likely within the right jugular vein. The cardiac silhouette is significantly enlarged, though stable from the prior exam. Minimal central pulmonary vascular congestion. The lungs are clear of focal pulmonary opacity. No significant pleural effusion. No pneumothorax. No acute osseous abnormality. IMPRESSION: 1. Placement of a right IJ central venous catheter with the distal tip overlying the expected location of the inferior aspect of the right jugular vein. No pneumothorax. 2. Cardiomegaly with mild central pulmonary vascular congestion without significant pleural effusion. Dictated by: Dictated on workstation # [id number]
[2019-12-28 16:31] LABS: BILIRUBIN,URINE NEGATIVE (NEGATIVE); CLARITY,URINE CLOUDY; COLOR,URINE YELLOW; GLUCOSE, URINE (UA) NEGATIVE (NEGATIVE); KETONES,URINE NEGATIVE (NEGATIVE); LEUKOCYTE ESTERASE ,URINE 3+ (NEGATIVE); NITRITE,URINE NEGATIVE (NEGATIVE); PROTEIN,URINE 2+ (NEGATIVE)
[2019-12-28 16:51] LABS: AMORPHOUS SEDIMENT,UR FEW AMOR URATES /LPF; BACTERIA,URINE TRACE /HPF; WBC,URINE >100 /HPF
[2019-12-28] MEDS: POTASSIUM CL 10MEQ/50ML IVPB 50 ML IV SCH ×4 (16:56→21:11)
--- NOTE | 2019-12-28 17:00 | NUR ---
CALLED DAUGHTER TRINITY TO UPDATE HER ON HER FATHER. TRINITY STATED THAT SHE HAD BEEN IN CONTACT WITH HER SIBLINGS ABOUT HER FATHERS HEALTH. TRINITY SAID THAT THE PT HAD BEEN IN FOR 14 DAYS GETTIING IV ABX FOR AN INFECTION THEN WAS SENT TO [facility] FOR REHAB FOR 20 DAYS. PT HAD BEEN TALKING ALMOST DAILY TO TRINITY AND SEEMED OK BUT RECENTLY HE SEEMED LESS COHERENT IN THE AFTERNOONS THE LAST COUPLE DAYS. TODAY PT WAS BEING TRANSFERED FROM [facility] TO [facility] L[facility] TODAY WHEN PT WAS TOO WEAK TO HELP HIMSELF AND WAS TRANSFERED TO [facility].
[2019-12-28] MEDS ORDERED: NS IV 1000 ML 1,000 ML ONE (19:29)
--- NOTE | 2019-12-28 19:32 | NUR ---
CONTACTED DAUGHTER TRINITY TO INFORM HER OF PT BEING MOVED UP TO [facility]- [phone]
[2019-12-28] MEDS ORDERED: NOREPINEPHRINE 4 MG/250 ML 250 ML IV SCH (19:33)
[2019-12-28] MEDS ORDERED: LACTATED RINGERS 1,000 ML IV SCH (19:33)
[2019-12-28 19:44] VITALS: BP 99/55
[2019-12-28] MEDS ORDERED: EPINEPHrine 1 MG INJECTION 4 MG in NS (IVPB) 248 ML IV SCH (19:45)
[2019-12-28] MEDS ORDERED: POTASSIUM CL 10MEQ/50ML IVPB 100 ML IV ONE (19:45)
--- NOTE | 2019-12-28 19:48 | NUR ---
ANTIBIOTIC DOSING: ADJ BW 99.9 KG, SCr 5.98, CrCl 16 ADJUSTED CEFEPIME TO 1 GM Q 12 HRS VANCOMYCIN DOSIN GM RECEIVED IN ED @ 16:33 MAIN DOSE: 2 GM Q24HR IF CLEARING VANCOMYCIN VANCOMYCIN TROUGH DUE 12/28/2019 @ 15:30 IF TROUGH > 20 HOLD 12/28/2019 16:30 DOSE
[2019-12-28 20:00] VITALS: BP 117/54
[2019-12-28] MEDS ORDERED: ACETAMINOPHEN 650 MG SUPP (TYLENOL) PR PRN ×2 (20:15→22:15)
[2019-12-28] MEDS ORDERED: ONDANSETRON 4 MG/2 ML (SDV) Z0FRAN IV PRN (20:15)
[2019-12-28] MEDS ORDERED: ACETAMINOPHEN 325 MG TABLET PO PRN (20:15)
[2019-12-28 20:33] VITALS: BP 93/56
[2019-12-28] MEDS ORDERED: RT-ALBUTEROL SULF 2.5 MG/3 ML PRE-MIX VIAL INH SCH (20:45)
[2019-12-28 21:00] VITALS: BP 94/49
[2019-12-28] MEDS ORDERED: KCL IV SCH (21:00)
[2019-12-28] MEDS: NOREPINEPHRINE 8 MG in NS (IVPB) 250 ML IV SCH (21:03)
[2019-12-28] MEDS: VASOPRESSIN INJECTION 20 UNIT in NORMAL SALINE 100 ML IV SCH (21:12)
[2019-12-28] MEDS: NS IV 1000 ML 1,000 ML IV SCH (21:13)
[2019-12-28] MEDS: inSUlin ASPART (NovoLOG) 1 UNIT/0.01 ML (CHARGE PER UNIT) SC SCH (21:22)
[2019-12-28 22:00] VITALS: BP 97/81
--- NOTE | 2019-12-28 22:04 | NUR ---
This nurse notified of patients temperature of 38.1, this nurse will administer tylenol suppository per EMAR
[2019-12-28 23:00] VITALS: BP 148/78
[2019-12-29] VITALS (23 sets, daily range): BP systolic 90–148; BP diastolic 59–103
--- NOTE | 2019-12-29 00:15 | NUR ---
0015 temperature is 38.4 degrees celcius tympanic. sheet removed from patient, ice packs placed under arm pits and at groin, cool washcloth to head, fan directed at patient. 0100- temperature is 37.8 degrees celcius, continuing with fan, ice and cool rags. 0225- temperature is 37.2 degrees celcius. Will continue to closely monitor.
[2019-12-29] MEDS: NS IV 1000 ML 1,000 ML IV SCH ×4 (01:15→03:32)
[2019-12-29 03:08] LABS: BASOPHILS % (AUTO) 0 % (0-10); EOSINOPHILS % (AUTO) 0 % (0-10); HEMATOCRIT 27 % (40-54); HEMOGLOBIN 8.6 G/DL (13.3-17.7); LYMPHOCYTES # (AUTO) 1.3 X 10^3 (1.0-4.0); LYMPHOCYTES % (AUTO) 8 % (12-44); MEAN CORPUSCULAR HEMOGLOBIN 28 PG (25-34); MEAN CORPUSCULAR HGB CONC 32 G/DL (32-36); MEAN CORPUSCULAR VOLUME 87 FL (80-99); MEAN PLATELET VOLUME 9.3 FL (7.4-10.4); MONOCYTES # (AUTO) 1.6 X 10^3 (0.0-1.0); MONOCYTES % (AUTO) 9 % (0-12); NEUTROPHILS # (AUTO) 13.8 X 10^3 (1.8-7.8); NEUTROPHILS % (AUTO) 83 % (42-75); PLATELET COUNT 281 10^3/uL (130-400); WHITE BLOOD COUNT 16.6 10^3/uL (4.3-11.0)
[2019-12-29 03:26] LABS: ALBUMIN 2.7 GM/DL (3.2-4.5); BILIRUBIN,TOTAL 0.3 MG/DL (0.1-1.0); CALCIUM 7.6 MG/DL (8.5-10.1); CREATININE SERUM 5.2 MG/DL (0.60-1.30); PHOSPHORUS 3.8 MG/DL (2.3-4.7); TOTAL PROTEIN 5.8 GM/DL (6.4-8.2)
[2019-12-29] MEDS: CEFEPIME INJECTION 1,000 MG in WATER (STERILE) FOR INJECTION 10 ML IV SCH ×2 (03:32→15:01)
[2019-12-29] MEDS: VASOPRESSIN INJECTION 20 UNIT in NORMAL SALINE 100 ML IV SCH ×3 (03:43→19:33)
[2019-12-29] MEDS: POTASSIUM CL 10MEQ/50ML IVPB 50 ML IV SCH ×6 (03:46→07:50)
[2019-12-29] MEDS: KCL 20 MEQ TAB (K-DUR) PO SCH (03:46)
[2019-12-29] MEDS: MAGNESIUM 1 GM/100 ML IVPB 100 ML IV SCH (03:46)
--- NOTE | 2019-12-29 03:47 | Pulmonary Consultation ---
JONY CHAVEZ MED STUDENT 12/29/19 0347: History of Present Illness History of Present Illness Date Seen by Provider: Dec 29, 2019 Time Seen by Provider: 03:45 Date of Admission History of Present Illness Deejay Sanderson is a 74 year old male seen today after being admitted from the ED 12/27, where he was seen due to fever and AMS. ED report states that he was being transferred from the alf back to his assisted living and could not get up out of the van, and that EMS said he had a fever 101 and milk chocolate-colored urine in his urinary catheter. Daughter informed nursing he had been in [facility] For 14 days getting IV antibiotics for an infection and was sent to [facility] for rehab for [address] Valle but is not sure why, past note from Dr. Valle shows he was consulted due to suprapubic tube that was not draining, apparently placed due to severe phimosis and difficult catheterization at his alf. When seen this morning he had no complaints, was falling asleep frequently during history and exam. Allergies and Home Medications Allergies Coded Allergies: No Known Drug Allergies (Unverified , 06/05/17) Home Medications Acetaminophen 325 Mg Tablet, 650 MG PO Q4H PRN for PAIN-MILD, (Reported) take 2 (325mg) tabs Albuterol Sulfate 1 Puff Puff, 2 PUFF IH Q6H PRN for WHEEZING, (Reported) Amlodipine Besylate 2.5 Mg Tablet, 2.5 MG PO HS, (Reported) Aspirin 81 Mg Tab.chew, 81 MG PO DAILY, (Reported) Atorvastatin Calcium 20 Mg Tablet, 20 MG PO 1700, (Reported) Benazepril HCl 20 Mg Tablet, 40 MG PO DAILY, (Reported) TAKES 2 (20MG) TABS - TAKE WITH AMLODIPINE Bisacodyl 10 Mg Supp.rect, 10 MG RC DAILY PRN for CONSTIPATION-4TH LINE, (Rep orted) Bisacodyl 5 Mg Tablet.dr, 5 MG PO DAILY PRN for CONSTIPATION-4TH LINE, (Reported) Cefdinir 300 Mg Capsule, 300 MG PO BID, (Reported) FILLED 11-20-2019 #14/ 7 DAYS SUPPLY Cyanocobalamin (Vitamin B-12) 1,000 Mcg Tablet, 1,000 MCG PO 1700, (Reported) Fexofenadine HCl 60 Mg Tablet, 60 MG PO 0800,1700, (Reported) Finasteride 5 Mg Tablet, 5 MG PO DAILY, (Reported) Fluoxetine HCl 10 Mg Tablet, 10 MG PO DAILY, (Reported) Furosemide 40 Mg Tablet, 40 MG PO DAILY, (Reported) Gabapentin 300 Mg Capsule, 300 MG PO 0800,1200,1700, (Reported) TAKES THREE TIMES DAILY (0800,1200,1700) Guaifenesin 600 Mg Tab.er.12h, 600 MG PO 1700, (Reported) Hydrocodone/Acetaminophen 1 Each Tablet, 1-2 EACH PO Q4H PRN for PAIN-MODERATE (5-7), (Reported) Hyoscyamine Sulfate 0.125 Mg Tablet, 0.125 MG SL Q4H PRN for SPASMS, (Reported) Lubiprostone 24 Mcg Capsule, 24 MCG PO 0800,1700, (Reported) Metformin HCl 1,000 Mg Tablet, 1,000 MG PO BID WITH MEALS, (Reported) Sennosides/Docusate Sodium 1 Each Tablet, 1 EACH PO DAILY, (Reported) Tamsulosin HCl 0.4 Mg Cap, 0.4 MG PO 0800,1700, (Reported) Tizanidine HCl 4 Mg Tablet, 4 MG PO 0800,1700, (Reported) Tramadol HCl 50 Mg Tablet, 50-100 MG PO Q6H PRN for PAIN-MODERATE (5-7), (Reported) Past Famgccv-Kyqxjh-Txlidn Hx Patient Social History Alcohol Use: Occasionally Uses Number of Drinks Today: GG Alcohol Beverage of Choice: Whiskey Recreational Drug Use: No Smoking Status: Current Everyday Smoker Type Used: Cigarettes 2nd Hand Smoke Exposure: No Recent Foreign Travel: No Contact w/Someone Who Travel: No Recent Infectious Disease Expo: No Recent Hopitalizations: No Physical Abuse: No Sexual Abuse: No Mistreated: No Fear: No Immunizations Up To Date Date of Pneumonia Vaccine: Jun 05, 2014 Date of Influenza Vaccine: Feb 04, 2017 Seasonal Allergies Seasonal Allergies: No Past Medical History Surgeries: Yes (bilat CTR, oral sx) Eye Surgery Respiratory: No Cardiac: Yes High Cholesterol, Hypertension Neurological: No Benign Prostatic Hyperpl, Renal Failure Gastrointestinal: No Chronic Constipation Musculoskeletal: Yes (obese) Endocrine: Yes Cancer: No Psychosocial: Yes Depression Integumentary: No Blood Disorders: No Family Medical History No Pertinent Family Hx Review of Systems Constitutional: No: Fever, Chills ENT: No: Nose congestion, Throat pain Respiratory: No: Cough, Shortness of breath Cardiovascular: No: Chest Pain, Palpitations, Edema Gastrointestinal: No: Nausea, Vomiting, Abdominal Pain, Diarrhea, Constipation Genitourinary: No Dysuria, No Frequency, No Retention Neurological: No: Weakness, Numbness Sepsis Event Evaluation Height, Weight, BMI Height: 5'11.00" Weight: 315lbs. 0.0oz. 142.232113yd; 41.00 BMI Method: Exam Exam Vital Signs Date Time Temp Pulse Resp B/P (MAP) Pulse Ox O2 Delivery O2 Flow Rate FiO2 12/29/19 02:25 37.2 12/29/19 01:00 37.8 12/29/19 00:15 38.4 12/29/19 00:00 99 Room Air 12/29/19 00:00 90 17 120/73 (89) 100 Room Air 12/28/19 23:40 99 Room Air 12/28/19 23:00 99 148/78 (101) 100 Nasal Cannula 2.00 12/28/19 22:08 38.1 12/28/19 22:05 38.1 12/28/19 22:00 110 18 97/81 (86) 100 Nasal Cannula 2.00 12/28/19 21:00 98 24 94/49 (64) 97 Nasal Cannula 2.00 12/28/19 20:33 39.1 88 98 28 12/28/19 20:00 96 12 117/54 (75) 95 Nasal Cannula 2.00 12/28/19 19:44 37.6 100 22 99/55 (70) 95 Nasal Cannula 2.00 12/28/19 19:40 105 91/60 12/28/19 19:32 98 12/28/19 19:22 95 Room Air 12/28/19 19:15 39.1 105 18 91/60 (50) 98 Nasal Cannula 2.00 12/28/19 17:55 99 61/44 12/28/19 16:16 39.1 12/28/19 15:19 80 51/26 12/28/19 14:46 39.1 88 18 93/56 (68) 100 Nasal Cannula 2.00 12/28/19 14:40 96 Nasal Cannula 2.00 I & O 12/29/19 07:00 Intake Total 2400 ml Output Total 4950 ml Balance -2550 ml Height & Weight Height: 5'11.00" Weight: 315lbs. 0.0oz. 142.154670id; 41.00 BMI Method: General Appearance: Chronically ill, Obese HEENT: PERRL/EOMI; No Scleral Icterus (L), No Scleral Icterus (R) Neck: Full Range of Motion, Normal Inspection, Non Tender, Supple Respiratory: Lungs Clear, Normal Breath Sounds, No Accessory Muscle Use, No Respiratory Distress Cardiovascular: Regular Rate, Rhythm, No Edema, Normal Peripheral Pulses, Systolic Murmur Extremity: Non Tender, No Calf Tenderness, No Pedal Edema Neurologic/Psychiatric: Alert, Other (oriented to person and place) Results Lab Laboratory Tests 12/28/19 14:45 12/29/19 02:58 Assessment/Plan Assessment/Plan Sepsis - continue IV Fluids, off levophed - vanc and cefepime - T 37.2, HR 90, BP 120/73 Hypokalemia - potassium up to 3.0, continue replacement Renal Failure - BUN 54, Cr 5.2, continue to monitor GAYATRI WISE DO 12/29/19 0556: History of Present Illness History of Present Illness Time Seen by Provider: 05:48 Allergies and Home Medications Allergies Coded Allergies: No Known Drug Allergies (Unverified , 06/05/17) Home Medications Acetaminophen 325 Mg Tablet, 650 MG PO Q4H PRN for PAIN-MILD, (Reported) take 2 (325mg) tabs Albuterol Sulfate 1 Puff Puff, 2 PUFF IH Q6H PRN for WHEEZING, (Reported) Amlodipine Besylate 2.5 Mg Tablet, 2.5 MG PO HS, (Reported) Aspirin 81 Mg Tab.chew, 81 MG PO DAILY, (Reported) Atorvastatin Calcium 20 Mg Tablet, 20 MG PO 1700, (Reported) Benazepril HCl 20 Mg Tablet, 40 MG PO DAILY, (Reported) TAKES 2 (20MG) TABS - TAKE WITH AMLODIPINE Bisacodyl 10 Mg Supp.rect, 10 MG RC DAILY PRN for CONSTIPATION-4TH LINE, (Reported) Bisacodyl 5 Mg Tablet.dr, 5 MG PO DAILY PRN for CONSTIPATION-4TH LINE, (Reported) Cefdinir 300 Mg Capsule, 300 MG PO BID, (Reported) FILLED 11-20-2019 #14/ 7 DAYS SUPPLY Cyanocobalamin (Vitamin B-12) 1,000 Mcg Tablet, 1,000 MCG PO 1700, (Reported) Fexofenadine HCl 60 Mg Tablet, 60 MG PO 0800,1700, (Reported) Finasteride 5 Mg Tablet, 5 MG PO DAILY, (Reported) Fluoxetine HCl 10 Mg Tablet, 10 MG PO DAILY, (Reported) Furosemide 40 Mg Tablet, 40 MG PO DAILY, (Reported) Gabapentin 300 Mg Capsule, 300 MG PO 0800,1200,1700, (Reported) TAKES THREE TIMES DAILY (0800,1200,1700) Guaifenesin 600 Mg Tab.er.12h, 600 MG PO 1700, (Reported) Hydrocodone/Acetaminophen 1 Each Tablet, 1-2 EACH PO Q4H PRN for PAIN-MODERATE (5-7), (Reported) Hyoscyamine Sulfate 0.125 Mg Tablet, 0.125 MG SL Q4H PRN for SPASMS, (Reported) Lubiprostone 24 Mcg Capsule, 24 MCG PO 0800,1700, (Reported) Metformin HCl 1,000 Mg Tablet, 1,000 MG PO BID WITH MEALS, (Reported) Sennosides/Docusate Sodium 1 Each Tablet, 1 EACH PO DAILY, (Reported) Tamsulosin HCl 0.4 Mg Cap, 0.4 MG PO 0800,1700, (Reported) Tizanidine HCl 4 Mg Tablet, 4 MG PO 0800,1700, (Reported) Tramadol HCl 50 Mg Tablet, 50-100 MG PO Q6H PRN for PAIN-MODERATE (5-7), (Reported) Review of Systems Time Seen by Provider: 06:00 Assessment/Plan Assessment/Plan Severe Sepsis with UTI -- hx of pseudomonus UTIs -Continue Vanco and cefepime -LR at 150 -Chonic armstrong -- Was obstructed upon admission. Armstrong was changed while in the ED -Hx of suprapubic catheter. Anemia -Monitor close -Hold anticoagulation for now -Continue SCDs Acute on chronic renal failure -IVF and monitor Supervisory-Addendum Brief Verification & Attestation Participated in pt care: history, MDM, physical Personally performed: exam, history, MDM Care discussed with: Medical Student Procedures: n/a Verification and Attestation of Medical Student E/M Service A medical student performed and documented this service in my presence. I reviewed and verified all information documented by the medical student and made modifications to such information, when appropriate. I personally performed the physical exam and medical decision making. Gayatri Wise, Dec 29, 2019,05:48 JONY CHAVEZ MED STUDENT Dec 29, 2019 03:47 GAYATRI WISE DO Dec 29, 2019 05:56
[2019-12-29] MEDS: NOREPINEPHRINE 8 MG in NS (IVPB) 250 ML IV SCH ×2 (06:10→15:41)
[2019-12-29] MEDS: inSUlin ASPART (NovoLOG) 1 UNIT/0.01 ML (CHARGE PER UNIT) SC SCH ×4 (06:10→20:53)
[2019-12-29] MEDS: LACTATED RINGERS 1,000 ML IV SCH ×4 (06:12→23:52)
[2019-12-29] MEDS: PANTOPRAZOLE 40 MG (PROTONIX) VIAL IV SCH (08:01)
[2019-12-29 10:43] LABS: CALCIUM 7.8 MG/DL (8.5-10.1); CREATININE SERUM 4.77 MG/DL (0.60-1.30); POTASSIUM 3.1 MMOL/L (3.6-5.0)
--- NOTE | 2019-12-29 10:46 | History & Physical-Hospitalist ---
TRINO PIZANO MED STUDENT 12/29/19 1046: History of Present Illness HPI/Chief Complaint CC: UTI, Sepsis HPI: Deejay is a 74yo male admitted for UTI and sepsis. He was taken to the ER when he was unable to get out of the vehicle when transferring from his residential to his assisted living facility. An ambulance was called and he was found to have "milk-chocolate" colored urine in his armstrong bag and a fever of 101. At the time, he complained of profound weakness. Poor historian. Currently, he complains of nausea w/o emesis and "not feeling well". He started feeling weak 2wks ago. He states that the IV line on his neck causes him pain. Source: patient, RN notes reviewed (ER documentation) Exam Limitations: clinical condition (delirium, weakness) Date Seen 12/29/19 Time Seen by a Provider: 11:15 Attending Physician Becka Nails DO PCP Self,Harmeet JONES Referring Physician Date of Admission Dec 28, 2019 at 18:41 Home Medications & Allergies Home Medications Reviewed patient Home Medication Reconciliation performed by pharmacy medication reconciliations machine packaging technician and/or nursing. Patients Allergies have been reviewed. Allergies Allergies Coded Allergies No Known Drug Allergies (Unverified06/05/17) Past Gqzfmxp-Rjttgh-Nojjcj Hx Patient Social History Marrital Status: Number of Children: 5 Number of living children: 5 Living Status: Living facility Employed/Student: retired ([employer]) Alcohol Use: Occasionally Uses Alcohol Beverage of Choice: Whiskey Recreational Drug Use: No Smoking Status: Current Everyday Smoker Cigaretts per day: 15 Type Used: Cigarettes 2nd Hand Smoke Exposure: No Recent Foreign Travel: No Contact w/other who traveled: No Recent Hopitalizations: No Recent Infectious Disease Expo: No Immunizations Up To Date Tetanus Booster (TDap): More than 5yrs Pediatric: Yes Date of Pneumonia Vaccine: Jun 05, 2014 Date of Influenza Vaccine: Feb 04, 2017 Seasonal Allergies Seasonal Allergies: No Past Medical History Surgeries: Adenoidectomy, Eye Surgery, Tonsillectomy Carpal tunnel bilateral Currently Using CPAP: Yes Currently Using BIPAP: No Cardiac: High Cholesterol, Hypertension Reproductive: No Sexually Transmitted Disease: Yes (Hx of unknown STI) HIV/AIDS: No Genitourinary: Benign Prostatic Hyperpl, Renal Failure Gastrointestinal: Chronic Constipation Musculoskeletal: Fractures (Hx of fractured fingers) Endocrine: Diabetes, Insulin dep Are Your Blood Sugars Over 250: No HEENT: Macular Degeneration Loss of Vision: Bilateral Hearing Impairment: Denies Psychosocial: Depression History of Blood Disorders: No Family History No Pertinent Family Hx Denies significant family medical hx Review of Systems Constitutional: chills, fever, weakness Respiratory: cough, orthopnea, phlegm; No short of breath Cardiovascular: No chest pain Gastrointestinal: constipation, nausea Genitourinary: other (Armstrong catheter in place) Musculoskeletal: neck pain (Due to central line placement) Skin: no symptoms reported Psychiatric/Neurological: Depressed Physical Exam Physical Exam Vital Signs Vital Signs - First Documented 12/28/19 12/28/19 12/28/19 14:40 14:46 20:33 Temp 39.1 Pulse 88 Resp 18 B/P (MAP) 93/56 (68) Pulse Ox 96 O2 Delivery Nasal Cannula O2 Flow Rate 2.00 FiO2 28 Capillary Refill : NONE Height, Weight, BMI Height: 5'11.00" Weight: 315lbs. 0.0oz. 142.869658pb; 41.00 BMI Method: General Appearance: Chronically ill, Moderate Distress, Obese Eyes: Bilateral Eye Normal Inspection, Bilateral Eye PERRL, Bilateral Eye EOMI, Bilateral Eye Other (Slow movements) HEENT: PERRL/EOMI, Pharynx Normal Neck: Normal Inspection, Non Tender, Supple, Limited Range of Motion Respiratory: Chest Non Tender, Lungs Clear, Normal Breath Sounds, No Accessory Muscle Use, No Respiratory Distress Cardiovascular: Regular Rate, Rhythm, No Gallop, No Murmur, Normal Peripheral Pulses Gastrointestinal: No Organomegaly, No Pulsatile Mass, Non Tender, Soft, Abnormal Bowel Sounds (Hyperactive), Distended Back: Normal Inspection, No CVA Tenderness, No Vertebral Tenderness Extremity: Normal Capillary Refill, Normal Inspection, Non Tender, No Calf Tenderness, Pedal Edema, Swelling Neurologic/Psychiatric: Alert, No Motor/Sensory Deficits, Normal Mood/Affect, Disoriented (Unable to provide location) Reflexes: 2+ Bicep (R) (tested brachioradialis), 2+ Bicep (L) (tested brachioradialis) Skin: Cool, Ecchymosis Lymphatic: Other (no cervical lymphadenopathy) Comments Reflexes: unable to assess LE reflexes Results Results/Procedures Labs Laboratory Tests 12/28/19 14:45 12/29/19 02:58 12/29/19 10:15 Patient resulted labs reviewed. Assessment/Plan Assessment and Plan ASSESSMENT: 1) Sepsis 2) UTI 3) Diabetes 4) Acute on chronic renal failure 5) Anemia 6) Hypokalemia 7) Hyperchloremia 8) Hypocalcemia 9) Obese 10) Urinary retention 11) Chronic indwelling catheter 12) Depression 13) Smoker 14) Hypercholesterolemia 15) BPH 16) Chronic constipation 17) Edema 18) Impaired mobility 19) Altered mental status 20) Hematurea 21) Cardiomegaly 22) Mild central pulmonary vascular congestion PLAN: Antibiotics Advance diet as tolerated Stabilize electrolytes PT/ OT consult Monitor labs Glucose monitoring Monitor bowel movements Pain management Smoking cessation Clinical Quality Measures DVT/VTE Risk/Contraindication: Risk Factor Score Per Nursin RFS Level Per Nursing on Admit: 4+=Very High BECKA NAILS DO 12/29/192044: History of Present Illness HPI/Chief Complaint CC: Septic shock due to UTI HPI: This is a 74yoWM that had recently discharged from and a few hours later came back into the ER with hypotension and septic shock from UTI, he was admitted to the ICU, placed on broad-spectrum antibiotics and aggressive IV fluid resuscitation, at this current time he denies any pain and overall he has a very poor prognosis given the fact his creatinine is 5.2. Past Gyoozbe-Biyyls-Wujcdq Hx Past Med/Social Hx: Reviewed Nursing Past Med/Soc Hx, Reviewed and Corrections made Review of Systems Constitutional: see HPI Physical Exam Physical Exam General Appearance: No Apparent Distress, Anxious, Chronically ill Respiratory: Lungs Clear Cardiovascular: Regular Rate, Rhythm Neurologic/Psychiatric: Disoriented (Unable to provide location) Assessment/Plan Admission Diagnosis Assessment: Septic shock UTI recurrent and resistant presumed Delirium Debility ARF Plan: ICU Monitor closely DNR Admission Status: Inpatient Order (span 2 midnights) Reason for Inpatient Admission: septic shock Supervisory-Addendum Brief Verification & Attestation Participated in pt care: history, MDM, physical Personally performed: exam, history, MDM, supervision of care Care discussed with: Medical Student Procedures: n/a Results interpretation: Verified all documentation Verification and Attestation of Medical Student E/M Service A medical student performed and documented this service in my presence. I reviewed and verified all information documented by the medical student and made modifications to such information, when appropriate. I personally performed the physical exam and medical decision making. Becka Nails, Dec 29, 2019,20:45 TRINO PIZANO MED STUDENT Dec 29, 2019 10:46 BECKA NAILS DO Dec 29, 2019 20:45
[2019-12-29] MEDS ORDERED: HYDR-3924 PO (11:28)
[2019-12-29] MEDS ORDERED: SIME80TA16 PO (11:28)
[2019-12-29] MEDS ORDERED: MELA3TAB39 PO (11:28)
[2019-12-29] MEDS ORDERED: ONDN4T PO (11:28)
[2019-12-29] MEDS ORDERED: POLY17PO6 PO (11:28)
[2019-12-29] MEDS ORDERED: FEXO-46 PO (11:28)
[2019-12-29] MEDS ORDERED: SNN187T PO (11:28)
[2019-12-29] MEDS ORDERED: POTA-51 PO (11:34)
--- NOTE | 2019-12-29 11:35 | NUR ---
Pastoral care visit.
--- NOTE | 2019-12-29 13:32 | NUR ---
I ENTERED THE MED REC USING THE MAR FROM [facility]. I CAN TELL BY THE NOTES DURING THIS VISIT AND PREVIOUS VISITS THAT HE IS A RESIDENT AT [facility] IN [place] BUT HAS BEEN RESIDING AT [facility] AND WAS PLANNING ON TRANSFERRING BACK TO [facility] YESTERDAY. THERE WERE DISCREPANCIES BETWEEN THE [facility] MED LIST AND THE [facility] MED LIST AND THE FOLLOWING ARE MEDICATIONS THE PT TOOK PRIOR TO [facility] BUT ARE NOT LISTED ON THE MAR FROM [facility]: METFORMIN 1,000MG BID TIZANIDINE 4MG BID TRAMADOL 50MG-100MG Q 6 H PRN NORCO 5/325MG 1-2 TABS Q 4 H PRN THE FOLLOWING MEDICATIONS HAVE BEEN CHANGED FROM [facility] TO [facility]: [facility] FLOMAX 0.4MG- 1 TAB BID1 TAB DAILY ARISTIDES 60MG- 1 TAB [id number] 1 TAB DAILY MUCINEX ER 600MG- 1 TAB [id number] (1 & 600MG) BID AMLODIPINE 2.5MG- 1 TAB HS1 TAB DAILY ATORVASTATIN 20MG- 1 TAB HS1 TAB DAILY MEDICATIONS THAT [facility] HAS ADDED AND THE PT WASNT ON PRIOR TO [facility]: MELATONIN 3MG ZOFRAN 4 MG HYDRALAZINE 50MG SIMETHICONE 80MG MIRALAX POTASSIUM CL ER 20 MEQ
[2019-12-29] MEDS ORDERED: TROUGH ORDER-PHARMACY XX NR (15:30)
[2019-12-29] MEDS ORDERED: VANCOMYCIN 2000 MG/NS 500 ML IVPB IV SCH ×2 (16:30)
--- NOTE | 2019-12-29 22:36 | NUR ---
PT SAID HE CAUGHT HIS CENTRAL LINE WHEN MOVING AND ACCIDENTALLY PULLED IT OUT. CATHETER TIP INTACT, SUTURES REMOVED AND DRESSING PLACED AT THIS TIME.
[2019-12-30] VITALS (24 sets, daily range): BP systolic 103–156; BP diastolic 58–91
[2019-12-30] MEDS: NOREPINEPHRINE 8 MG in NS (IVPB) 250 ML IV SCH ×3 (01:43→20:32)
[2019-12-30] MEDS: CEFEPIME INJECTION 1,000 MG in WATER (STERILE) FOR INJECTION 10 ML IV SCH ×2 (01:49→17:08)
[2019-12-30] MEDS: VASOPRESSIN INJECTION 20 UNIT in NORMAL SALINE 100 ML IV SCH (03:35)
--- NOTE | 2019-12-30 04:09 | NUR ---
THIS RN AND BLACKJACK PIT BOSS WENT IN TO DO AM XRAY. PT REFUSED XRAY. THIS RN EDUCATED PT ON IMPORTANCE OF DAILY XRAY AND ASKED AGAIN AND PT STILL REFUSED.
--- NOTE | 2019-12-30 05:20 | Pulmonary Progress Note ---
JONY CHAVEZ MED STUDENT 12/30/19 0520: Subjective Date Seen by a Provider: Dec 30, 2019 Time Seen by a Provider: 05:05 Subjective/Events-last exam Deejay Sanderson is a 74 year old male seen for sepsis and UTI. Reports feeling improved overall, but has no complaints. Reports having less pain in his feet, and having five or six bowel movements yesterday, denies diarrhea. Denies abdominal pain, n/v, fevers, chills. Review of Systems General: No Chills, No Night Sweats (not feverish) HEENT: No Sinus Congestion, No Sore Throat Pulmonary: No Dyspnea, No Cough Cardiovascular: No: Chest Pain, Palpitations Gastrointestinal: No: Nausea, Vomiting, Abdominal Pain, Diarrhea, Constipation Genitourinary: No Dysuria Sepsis Event Evaluation Height, Weight, BMI Height: 5'11.00" Weight: 315lbs. 0.0oz. 142.928370oy; 41.00 BMI Method: Focused Exam Lactate Level 12/28/19 14:45: Lactic Acid Level 2.08*H 12/28/19 16:45: Lactic Acid Level 0.95 Exam Exam Vital Signs Date Time Temp Pulse Resp B/P (MAP) Pulse Ox O2 Delivery O2 Flow Rate FiO2 12/30/19 03:34 37.3 12/30/19 03:32 99 Room Air 12/30/19 03:00 81 15 124/86 (99) 100 Room Air 12/30/19 02:00 82 16 131/81 (98) 100 Room Air 12/30/19 01:00 84 12/30/19 01:00 84 15 122/58 (79) 100 Room Air 12/30/19 00:00 86 16 140/80 (100) 100 Room Air 12/29/19 23:45 37.4 12/29/19 23:36 99 Room Air 12/29/19 23:00 84 16 90/59 (69) 100 Room Air 12/29/19 22:00 72 16 117/103 (108) 100 Room Air 12/29/19 21:00 83 15 142/74 (96) 100 Room Air 12/29/19 20:00 37.1 12/29/19 20:00 79 14 133/70 (91) 100 Room Air 12/29/19 20:00 99 Room Air 12/29/19 19:00 80 15 124/66 (85) 100 Room Air 12/29/19 19:00 80 12/29/19 18:00 36.7 82 13 107/61 (76) 100 Room Air 2.00 2.00 12/29/19 16:15 82 13 107/61 (76) 100 Room Air 12/29/19 16:00 99 Room Air 12/29/19 16:00 36.7 12/29/19 15:00 87 16 123/66 (85) 100 Room Air 12/29/19 14:00 84 15 129/71 (90) 99 Room Air 12/29/19 13:00 79 7 114/67 (83) 100 Room Air 12/29/19 12:42 80 12/29/19 12:00 100 Room Air 12/29/19 12:00 84 14 130/75 (93) 98 Room Air 12/29/19 11:00 82 11 142/84 (103) 100 Room Air 12/29/19 10:00 75 15 148/72 (97) 100 Room Air 12/29/19 09:00 79 14 125/70 (88) 100 Room Air 12/29/19 08:00 100 Room Air 12/29/19 08:00 80 19 119/77 (91) 99 Room Air 12/29/19 07:00 80 13 103/68 (80) 100 Room Air 12/29/19 06:37 80 12/29/19 06:00 76 12 130/73 (92) 100 Room Air I & O 12/30/19 07:00 Intake Total 4770 ml Output Total 3200 ml Balance 1570 ml Height & Weight Height: 5'11.00" Weight: 315lbs. 0.0oz. 142.122926zr; 41.00 BMI Method: General Appearance: No Apparent Distress, Chronically ill, Obese HEENT: PERRL/EOMI; No Scleral Icterus (L), No Scleral Icterus (R) Neck: Normal Inspection, Supple, Tender Lateral Respiratory: Lungs Clear, Normal Breath Sounds, No Accessory Muscle Use, No Respiratory Distress Cardiovascular: Regular Rate, Rhythm, No Murmur, Normal Peripheral Pulses Capillary Refill: Less Than 3 Seconds Peripheral Pulses: 2+ Dorsalis Pedis (R), 2+ Left Dors-Pedis (L), 2+ Radial Pulses (R), 2+ Radial Pulses (L) Gastrointestinal: normal bowel sounds, non tender, no organomegaly Extremity: Normal Capillary Refill, Normal Inspection, Non Tender, No Calf Tenderness, Pedal Edema Neurologic/Psychiatric: Alert Skin: Normal Color, Cool Lymphatic: Other (no cervical lymphadenopathy) Results Lab Laboratory Tests 12/28/19 14:45 12/29/19 02:58 12/29/19 10:15 Assessment/Plan Assessment/Plan Severe Sepsis with UTI -- hx of pseudomonus UTIs - Continue cefepime - LR at 150 - Chonic armstrong -- Was obstructed upon admission. Armstrong was changed while in the ED - Hx of suprapubic catheter. - C. Diff toxin pending Anemia - Monitor - Hold anticoagulation for now, continue SCDs Acute on chronic renal failure - IVF and monitor Hypokalemia - continue potassium replacement GAYATRI WEINBERG DO 12/30/19 0552: Subjective Time Seen by a Provider: 05:51 Assessment/Plan Assessment/Plan Severe Sepsis with UTI -- hx of pseudomonus UTIs - Continue cefepime - LR at 150 - Chonic armstrong -- Was obstructed upon admission. Armstrong was changed while in the ED - Hx of suprapubic catheter. - C. Diff toxin pending Anemia - Monitor - Hold anticoagulation for now, continue SCDs Acute on chronic renal failure - IVF and monitor Hypokalemia - continue potassium replacement JONY CHAVEZ MED STUDENT Dec 30, 2019 05:20 GAYATRI WEINBERG DO Dec 30, 2019 05:52
[2019-12-30 05:32] LABS: BASOPHILS % (AUTO) 0 % (0-10); EOSINOPHILS # (AUTO) 0.1 10^3/uL (0.0-0.3); EOSINOPHILS % (AUTO) 0 % (0-10); HEMATOCRIT 28 % (40-54); HEMOGLOBIN 8.8 G/DL (13.3-17.7); LYMPHOCYTES # (AUTO) 1.3 X 10^3 (1.0-4.0); LYMPHOCYTES % (AUTO) 9 % (12-44); MEAN CORPUSCULAR HEMOGLOBIN 27 PG (25-34); MEAN CORPUSCULAR HGB CONC 32 G/DL (32-36); MEAN CORPUSCULAR VOLUME 85 FL (80-99); MEAN PLATELET VOLUME 9.6 FL (7.4-10.4); MONOCYTES % (AUTO) 7 % (0-12); NEUTROPHILS # (AUTO) 12.4 X 10^3 (1.8-7.8); NEUTROPHILS % (AUTO) 84 % (42-75); PLATELET COUNT 314 10^3/uL (130-400); WHITE BLOOD COUNT 14.8 10^3/uL (4.3-11.0)
[2019-12-30 05:56] LABS: CREATININE SERUM 3.96 MG/DL (0.60-1.30); MAGNESIUM 1.9 MG/DL (1.6-2.4); PHOSPHORUS 3.3 MG/DL (2.3-4.7)
[2019-12-30 06:01] LABS: POTASSIUM 2.5 MMOL/L (3.6-5.0)
[2019-12-30] MEDS: POTASSIUM CL 10MEQ/50ML IVPB 50 ML IV SCH ×5 (06:06→09:11)
[2019-12-30] MEDS: KCL 20 MEQ TAB (K-DUR) PO SCH (06:06)
[2019-12-30] MEDS: MAGNESIUM 1 GM/100 ML IVPB 100 ML IV SCH (06:06)
[2019-12-30] MEDS: inSUlin ASPART (NovoLOG) 1 UNIT/0.01 ML (CHARGE PER UNIT) SC SCH ×4 (06:07→20:32)
[2019-12-30] MEDS: LACTATED RINGERS 1,000 ML IV SCH ×3 (06:19→20:32)
[2019-12-30] MEDS ORDERED: KCL 20 MEQ TAB (K-DUR) PO ONE (09:00)
[2019-12-30] MEDS: PANTOPRAZOLE 40 MG (PROTONIX) VIAL IV SCH (09:10)
--- NOTE | 2019-12-30 10:55 | Progress Note ---
Progress Note Patient seen at 8:30 am (12/29) by medical students Anthony Jaime and Rafael Pizano Patient was awake/ alert when entering room, but disoriented more than previous visit (12/28). Patient took several seconds to respond following our questions and at times would not respond at all. Denies any pain, headache, nor complains of other symptoms. Patient asks for "directions on how to get to [unintelligible]." Overall difficult to communicate with. Nurse reports that after 3 bowel movements the previous night (12/28) he was tested for C. diff colitis. Test came back positive. Patient is now in isolation protocol. Nurse also describes patient to be more orientated earlier in the morning (~7:30am) and in a "grumpy" mood. RAFAEL PIZANO MED STUDENT Dec 30, 2019 10:55
[2019-12-30] MEDS: VANCOMYCIN 50 MG/ML ORAL SOLN 150 ML PO SCH ×3 (11:07→21:38)
--- NOTE | 2019-12-30 11:08 | Progress Note - Hospitalist ---
RAFAEL PIZANO MED STUDENT 12/30/19 1108: Subjective HPI/CC On Admission Date Seen by Provider: Dec 30, 2019 Time Seen by Provider: 08:55 CC: Septic shock due to UTI HPI: This is a 74yoWM that had recently discharged from and a few hours later came back into the ER with hypotension and septic shock from UTI, he was admitted to the ICU, placed on broad-spectrum antibiotics and aggressive IV fluid resuscitation, at this current time he denies any pain and overall he has a very poor prognosis given the fact his creatinine is 5.2. Subjective/Events-last exam Patient seen at 8:30 am (12/29) by medical students Anthony Jaime and Rafael Pizano * Patient wake/ alert * Acute increase in mental disorientation * Denies pain/ headache/ other symptoms * New diagnosis of C. diff colitis * Nurse states he was more coherent earlier in the morning Review of Systems General: No Chills, No Night Sweats, No Fatigue, No Malaise, No Appetite, No Other HEENT: No Head Aches, No Visual Changes, No Eye Pain, No Ear Pain, No Dysphasia, No Sinus Congestion, No Post Nasal Drip, No Sore Throat, No Other Pulmonary: No Dyspnea, No Cough, No Pleuritic Chest Pain, No Other Cardiovascular: No: Chest Pain, Palpitations, Orthopnea, Paroxysmal Noc. Dyspnea, Edema, Lt Headedness, Other Gastrointestinal: No: Nausea, Vomiting, Abdominal Pain, Diarrhea, Constipation, Melena, Hematochezia, Other Genitourinary: No Dysuria, No Frequency, No Incontinence, No Hematuria, No Retention, No Other Musculoskeletal: No: other, neck pain, shoulder pain, arm pain, back pain, hand pain, leg pain, foot pain Neurological: No: Weakness, Numbness, Incoordination, Change in speech, Confusion, Seizures, Other Focused Exam Lactate Level 12/28/19 14:45: Lactic Acid Level 2.08*H 12/28/19 16:45: Lactic Acid Level 0.95 Respiratory: Chest Non Tender, Lungs Clear, Normal Breath Sounds, No Accessory Muscle Use, No Respiratory Distress Cardiovascular: Regular Rate, Rhythm, No Gallop, No JVD, No Murmur, Other (Edema) Peripheral Pulses: 2+ Radial Pulses (R), 2+ Radial Pulses (L) Objective Exam Vital Signs Vital Signs Date Time Temp Pulse Resp B/P (MAP) Pulse Ox O2 Delivery O2 Flow Rate FiO2 12/30/19 12:00 99 Room Air 12/30/19 11:00 75 10 139/73 (95) 12/30/19 03:34 37.3 12/29/19 18:00 2.00 2.00 12/28/19 20:33 28 Capillary Refill : Less Than 3 Seconds General Appearance: Chronically ill, Mild Distress, Obese Neurologic/Psychiatric: Alert; No Oriented x3 Skin: Normal Color, Warm/Dry Results/Procedures Lab Laboratory Tests 12/30/19 05:15 Patient resulted labs reviewed. Assessment/Plan Assessment and Plan Assess & Plan/Chief Complaint ASSESSMENT: 1) Septic shock 2) UTI 3) C. diff colitis 4) Diabetes 5) Acute on chronic renal failure 6) Altered mental status 7) Hypokalemia 8) Hyperchloremia 9) Hypocalcemia 10) Obese 11) Urinary retention 12) Chronic indwelling catheter 13) Depression 14) Smoker 15) Hypercholesterolemia 16) BPH 17) Chronic constipation 18) Edema 19) Impaired mobility 20) Anemia 21) Hematurea 22) Cardiomegaly 23) Mild central pulmonary vascular congestion PLAN: Start vancomycin for C. diff Advance diet as tolerated Replenish potassium levels Maintain supportive care PT/ OT consult Monitor labs Glucose monitoring Monitor bowel movements Pain management Smoking cessation Clinical Quality Measures DVT/VTE Risk/Contraindication: Risk Factor Score Per Nursin RFS Level Per Nursing on Admit: 4+=Very High BECKA NAILS DO 12/31/19 0522: Subjective Subjective/Events-last exam Pt a bit disoriented today C-diff Colitis diagnosed so treating it with oral Vancomycin Maintained on UTI treatment Creatinine improved at 2.39 but potassium 2.5 Pulled out his central line yesterday and now he has a peripheral line Reviewed the rest of his labs and medications Refused to have a chest X-ray today Supervisory-Addendum Brief Verification & Attestation Participated in pt care: history, MDM, physical Personally performed: exam, history, MDM, supervision of care Care discussed with: Medical Student Procedures: n/a Results interpretation: Verified all documentation Verification and Attestation of Medical Student E/M Service A medical student performed and documented this service in my presence. I reviewed and verified all information documented by the medical student and made modifications to such information, when appropriate. I personally performed the physical exam and medical decision making. Becka Nails, Dec 31, 2019,05:21 RAFAEL PIZANO MED STUDENT Dec 30, 2019 11:08 BECKA NAILS DO Dec 31, 2019 05:22
[2019-12-31] VITALS (16 sets, daily range): BP systolic 111–163; BP diastolic 60–91
[2019-12-31] MEDS: CEFEPIME INJECTION 1,000 MG in WATER (STERILE) FOR INJECTION 10 ML IV SCH ×2 (01:53→14:45)
[2019-12-31] MEDS: VANCOMYCIN 50 MG/ML ORAL SOLN 150 ML PO SCH ×3 (03:00→17:53)
[2019-12-31 03:56] LABS: BASOPHILS % (AUTO) 0 % (0-10); EOSINOPHILS # (AUTO) 0.1 10^3/uL (0.0-0.3); EOSINOPHILS % (AUTO) 1 % (0-10); HEMATOCRIT 27 % (40-54); HEMOGLOBIN 8.7 G/DL (13.3-17.7); LYMPHOCYTES # (AUTO) 1.4 X 10^3 (1.0-4.0); LYMPHOCYTES % (AUTO) 11 % (12-44); MEAN CORPUSCULAR HEMOGLOBIN 27 PG (25-34); MEAN CORPUSCULAR HGB CONC 32 G/DL (32-36); MEAN CORPUSCULAR VOLUME 84 FL (80-99); MEAN PLATELET VOLUME 9.6 FL (7.4-10.4); MONOCYTES # (AUTO) 0.7 X 10^3 (0.0-1.0); MONOCYTES % (AUTO) 5 % (0-12); NEUTROPHILS # (AUTO) 10.5 X 10^3 (1.8-7.8); NEUTROPHILS % (AUTO) 83 % (42-75); PLATELET COUNT 282 10^3/uL (130-400); WHITE BLOOD COUNT 12.7 10^3/uL (4.3-11.0)
[2019-12-31 04:13] LABS: CALCIUM 8.1 MG/DL (8.5-10.1)
[2019-12-31 04:17] LABS: PHOSPHORUS 3.4 MG/DL (2.3-4.7)
[2019-12-31 04:18] LABS: CREATININE SERUM 3.43 MG/DL (0.60-1.30)
[2019-12-31 04:20] LABS: MAGNESIUM 1.8 MG/DL (1.6-2.4)
[2019-12-31 04:32] LABS: POTASSIUM 2.4 MMOL/L (3.6-5.0)
[2019-12-31] MEDS: LACTATED RINGERS 1,000 ML IV SCH ×3 (04:38→18:01)
[2019-12-31] MEDS: POTASSIUM CL 10MEQ/50ML IVPB 50 ML IV SCH ×4 (04:38→08:56)
[2019-12-31] MEDS: MAGNESIUM 1 GM/100 ML IVPB 100 ML IV SCH (04:38)
[2019-12-31] MEDS: KCL 20 MEQ TAB (K-DUR) PO SCH ×3 (04:38→17:52)
[2019-12-31] MEDS ORDERED: KCL 20 MEQ TAB (K-DUR) PO ONE (04:45)
--- NOTE | 2019-12-31 04:49 | Pulmonary Progress Note ---
JONY CHAVEZ MED STUDENT 12/31/19 0449: Subjective Date Seen by a Provider: Dec 31, 2019 Time Seen by a Provider: 04:35 Subjective/Events-last exam Deejay Sanderson is a 74 year old male being seen due to sepsis and UTI, tested positive for C-diff colitis yesterday 12/29 and started PO vancomycin. When seen today he reports feeling much better, has more energy. Denies any abdominal pain, n/v, fevers or chills. Review of Systems General: No Chills; Fatigue (improving) HEENT: No Head Aches, No Sinus Congestion, No Sore Throat Pulmonary: No Dyspnea, No Cough Cardiovascular: No: Chest Pain, Palpitations, Lt Headedness Gastrointestinal: Diarrhea; No: Nausea, Vomiting, Abdominal Pain, Constipation Genitourinary: No Dysuria Neurological: No: Weakness, Numbness Sepsis Event Evaluation Height, Weight, BMI Height: 5'11.00" Weight: 315lbs. 0.0oz. 142.575937hl; 41.00 BMI Method: Focused Exam Lactate Level 12/28/19 14:45: Lactic Acid Level 2.08*H 12/28/19 16:45: Lactic Acid Level 0.95 Exam Exam Vital Signs Date Time Temp Pulse Resp B/P (MAP) Pulse Ox O2 Delivery O2 Flow Rate FiO2 12/31/19 03:03 99 Room Air 12/31/19 03:02 37.3 12/31/19 01:00 80 12/31/19 00:00 79 20 111/62 (78) 96 Room Air 12/30/19 23:26 Room Air 12/30/19 23:12 99 Room Air 12/30/19 23:11 37.5 12/30/19 23:00 75 14 111/72 (85) 97 Room Air 12/30/19 22:00 82 15 111/61 (78) 99 Room Air 12/30/19 21:00 76 20 118/67 (84) 100 Room Air 12/30/19 20:00 99 Room Air 12/30/19 20:00 77 16 133/66 (88) 99 Room Air 12/30/19 19:30 36.8 12/30/19 19:00 80 12/30/19 19:00 78 13 123/77 (92) 99 Room Air 12/30/19 18:00 83 14 125/79 (94) 100 Room Air 12/30/19 17:00 76 23 127/70 (89) 98 Room Air 12/30/19 16:00 75 12 114/67 (83) 92 Room Air 12/30/19 16:00 99 Room Air 12/30/19 15:50 35.9 12/30/19 15:00 75 14 103/64 (77) 95 Room Air 12/30/19 14:00 75 13 129/85 (100) 96 Room Air 12/30/19 13:00 78 21 127/75 (92) 92 Room Air 12/30/19 12:38 78 12/30/19 12:00 99 Room Air 12/30/19 12:00 81 17 120/72 (88) 94 Room Air 12/30/19 11:00 75 10 139/73 (95) 92 Room Air 12/30/19 10:00 80 21 148/80 (102) 100 Room Air 12/30/19 09:00 78 18 145/82 (103) 99 Room Air 12/30/19 08:00 76 8 128/62 (84) 89 Room Air 12/30/19 08:00 100 Room Air 12/30/19 07:00 78 10 113/67 (82) 94 Room Air 12/30/19 06:34 80 12/30/19 06:00 81 16 113/58 (76) 96 Room Air 12/30/19 05:00 82 21 139/91 (107) 100 Room Air I & O 12/31/19 07:00 Intake Total 3200 ml Output Total 2775 ml Balance 425 ml Height & Weight Height: 5'11.00" Weight: 315lbs. 0.0oz. 142.356043fz; 41.00 BMI Method: General Appearance: No Apparent Distress, Chronically ill, Obese HEENT: PERRL/EOMI; No Scleral Icterus (L), No Scleral Icterus (R) Neck: Normal Inspection, Supple, Tender Lateral Respiratory: Chest Non Tender, Lungs Clear, Normal Breath Sounds, No Accessory Muscle Use, No Respiratory Distress Cardiovascular: Regular Rate, Rhythm, No Gallop, No JVD, No Murmur, Normal Peripheral Pulses Capillary Refill: Less Than 3 Seconds Peripheral Pulses: 2+ Dorsalis Pedis (R), 2+ Left Dors-Pedis (L), 2+ Radial P ulses (R), 2+ Radial Pulses (L) Gastrointestinal: normal bowel sounds, non tender, no organomegaly Extremity: Normal Capillary Refill, Normal Inspection, Non Tender, No Calf Tenderness, Pedal Edema Neurologic/Psychiatric: Alert Skin: Normal Color, Warm/Dry Lymphatic: Other (no cervical lymphadenopathy) Results Lab Laboratory Tests 12/29/19 10:15 12/30/19 05:15 12/31/19 03:45 Assessment/Plan Assessment/Plan Severe Sepsis with UTI -- hx of pseudomonus UTIs - Continue cefepime - LR at 150 - Chonic armstrong -- Was obstructed upon admission. Armstrong was changed while in the ED - Hx of suprapubic catheter. CDiff - on Vanc 125 mg PO q6h - IVF Anemia - Monitor - Hold anticoagulation for now, continue SCDs Acute on chronic renal failure - IVF and monitor Hypokalemia - continue potassium replacement DM - continue sliding scale insulin GAYATRI WEINBERG DO 12/31/19 0654: Subjective Time Seen by a Provider: 06:52 Assessment/Plan Assessment/Plan Severe Sepsis with UTI -- hx of pseudomonus UTIs - Continue cefepime - IVF - Chonic armstrong -- Was obstructed upon admission. Armstrong was changed while in the ED - Hx of suprapubic catheter. CDiff - on Vanc 125 mg PO q6h - IVF Anemia - Monitor - Hold anticoagulation for now, continue SCDs Acute on chronic renal failure - IVF and monitor Hypokalemia - continue potassium replacement DM - continue sliding scale insulin JONY CHAVEZ MED STUDENT Dec 31, 2019 04:49 GAYATRI WEINBERG DO Dec 31, 2019 06:54
[2019-12-31] MEDS: inSUlin ASPART (NovoLOG) 1 UNIT/0.01 ML (CHARGE PER UNIT) SC SCH ×4 (05:45→20:23)
[2019-12-31] MEDS: NOREPINEPHRINE 8 MG in NS (IVPB) 250 ML IV SCH (06:53)
[2019-12-31] MEDS: PANTOPRAZOLE 40 MG (PROTONIX) VIAL IV SCH (08:56)
[2019-12-31] MEDS ORDERED: BISACODYL 10 MG SUPP (DULCOLAX) RC PRN (11:00)
[2019-12-31] MEDS ORDERED: BISACODYL 5 MG (DULCOLAX) TABLET PO PRN (11:00)
[2019-12-31] MEDS ORDERED: MELATONIN 3 MG TABLET PO PRN (11:00)
--- NOTE | 2019-12-31 11:35 | NUR ---
PALLIATIVE CARE RN consulted on this patient. I have gone to visit the patient. He is a very large mange. Very round abdomen with report that it has been this way for 7 or 8 months. He is in a gown not from this hospital and it has dried brown stuff all over it. Patient is alert and able to answer questions. He reports that he like it at [facility] and is planning to return to them. He reports that he is able to ambulate with a walker. He is not able to or does not want to talk about his medical history. He reports he had a catheter and agreed he has prostate problems. He has a daughter he says but never gave this RN her name and refused to talk about filling out DPOA paperwork. I have looked through his record and am not finding a clear hospice diagnosis and therefore have not discussed hospice with him as of yet.
--- NOTE | 2019-12-31 11:59 | Progress Note - Hospitalist ---
RAFAEL PIZANO MED STUDENT 12/31/19 1159: Subjective HPI/CC On Admission CC: Septic shock due to UTI HPI: This is a 74yoWM that had recently discharged from and a few hours later came back into the ER with hypotension and septic shock from UTI, he was admitted to the ICU, placed on broad-spectrum antibiotics and aggressive IV fluid resuscitation, at this current time he denies any pain and overall he has a very poor prognosis given the fact his creatinine is 5.2. Subjective/Events-last exam Patient seen at 9:00 am (12/30) by medical student Rafael Pizano * Patient awake/ alert * Sustained mental disorientation * Denies other symptoms * Refused breakfast, not hungry * Nurse reports he refused medication until convinced last night Review of Systems General: No Chills, No Night Sweats, No Fatigue, No Malaise, No Appetite, No Other HEENT: No Head Aches, No Visual Changes, No Eye Pain, No Ear Pain, No Dysphasia, No Sinus Congestion, No Post Nasal Drip, No Sore Throat, No Other Pulmonary: No Dyspnea, No Cough, No Pleuritic Chest Pain, No Other Cardiovascular: No: Chest Pain, Palpitations, Orthopnea, Paroxysmal Noc. Dys pnea, Edema, Lt Headedness, Other Gastrointestinal: No: Nausea, Vomiting, Abdominal Pain, Diarrhea, Constipation, Melena, Hematochezia, Other Genitourinary: No Dysuria, No Frequency, No Incontinence, No Hematuria, No Retention, No Other Musculoskeletal: No: other, neck pain, shoulder pain, arm pain, back pain, hand pain, leg pain, foot pain Neurological: No: Weakness, Numbness, Incoordination, Change in speech, Confusion, Seizures, Other Focused Exam Lactate Level 12/28/19 14:45: Lactic Acid Level 2.08*H 12/28/19 16:45: Lactic Acid Level 0.95 Objective Exam Vital Signs Vital Signs Date Time Temp Pulse Resp B/P (MAP) Pulse Ox O2 Delivery O2 Flow Rate FiO2 12/31/19 10:36 97 Room Air 12/31/19 10:00 78 10 152/91 (111) 12/31/19 08:00 36.2 12/29/19 18:00 2.00 2.00 12/28/19 20:33 28 Capillary Refill : Less Than 3 Seconds General Appearance: No Apparent Distress, Obese Respiratory: Chest Non Tender, Lungs Clear, Normal Breath Sounds, No Accessory Muscle Use, No Respiratory Distress Cardiovascular: Regular Rate, Rhythm, No Gallop, No Murmur, Other (Edematous) Extremity: Pedal Edema Skin: Normal Color, Warm/Dry Results/Procedures Lab Laboratory Tests 12/31/19 03:45 Patient resulted labs reviewed. Assessment/Plan Assessment and Plan Assess & Plan/Chief Complaint ASSESSMENT: 1) Septic shock 2) UTI 3) C. diff colitis 4) Diabetes 5) Acute on chronic renal failure 6) Altered mental status 7) Hypokalemia 8) Hyperchloremia 9) Hypocalcemia 10) Obese 11) Urinary retention 12) Chronic indwelling catheter 13) Depression 14) Smoker 15) Hypercholesterolemia 16) BPH 17) Chronic constipation 18) Edema 19) Impaired mobility 20) Anemia 21) Hematurea 22) Cardiomegaly 23) Mild central pulmonary vascular congestion PLAN: Comfort care Continue vancomycin for C. diff Advance diet as tolerated Replenish potassium levels Maintain supportive care PT/ OT consult Monitor labs Glucose monitoring Monitor bowel movements Pain management Smoking cessation Clinical Quality Measures DVT/VTE Risk/Contraindication: Risk Factor Score Per Nursin RFS Level Per Nursing on Admit: 4+=Very High IDALIA NAILS DO 12/31/192119: Subjective HPI/CC On Admission Date Seen by Provider: Dec 31, 2019 Time Seen by Provider: 10:00 Subjective/Events-last exam Pt more coherent but refusing to eat or take medications I transferred him to fourth floor Palliative care consult Overall prognosis dismal Assessment/Plan Assessment and Plan Assess & Plan/Chief Complaint Tx to 4th Supervisory-Addendum Brief Verification & Attestation Participated in pt care: history, MDM, physical Personally performed: exam, history, MDM, supervision of care Care discussed with: Medical Student Procedures: n/a Results interpretation: Verified all documentation Verification and Attestation of Medical Student E/M Service A medical student performed and documented this service in my presence. I review ed and verified all information documented by the medical student and made modifications to such information, when appropriate. I personally performed the physical exam and medical decision making. Idalia Nails, Dec 31, 2019,21:19 RAFAEL PIZANO MED STUDENT Dec 31, 2019 11:59 IDALIA NAILS DO Dec 31, 2019 21:20
[2019-12-31] MEDS ORDERED: RT-ALBUTEROL SULF 2.5 MG/3 ML PRE-MIX VIAL INH PRN (12:15)
[2019-12-31] MEDS ORDERED: NON-FORMULARY MEDICATION 1 EA EA (Hydralazine HCl 50 MG) PO SCH (13:00)
--- NOTE | 2019-12-31 14:21 | NUR ---
RD ASSESSMENT PMHx: hypercholesterolemia; HTN; BPH; renal failure; chronic diarrhea; DM; c-diff PT INTERACTION: Pt was awake and pleasant during nutrition assessment. Note pt is a poor historian, per chart review. Pt states current appetite is "so-so." Note avg PO intake 25% x2d, per chart review. Pt states following a regular diet at home, and has no issues with chewing/swallowing food. Pt states recent issues with constipation and diarrhea. Note last BM was 12/29 and pt currently on bowel regimen of senna BID; and miralax BID, per chart review. Pt states recent wt gain, but unsure of amount/timeframe. Note recent 7# wt gain x1mon, per chart review. Pt states current DM management is good. Note unable to determine recent HbA1c, per chart review. ABNORMAL NUTRITION-RELATED LAB VALUES LOW: K 2.4; Ca 8.1; HIGH: BUN 42; cr 3.43 Est. kcal needs: 1950 kcal | 25 kcal/kg IBW, based on IBW of 78.2 kg (172#) Est. Pro needs: 78 g Pro | 1.0 g Pro/kg IBW, based on IBW of 78.2 kg (172#) PES STATEMENT: Inadequate oral intake (NI-2.1) related to loss of appetite | constipation | diarrhea as evidenced by pt interview | avg PO intake 25% x2d INTERVENTION: Continue with current diet order of Clear Liquid diet. Pt may benefit from nutrition supplementation if PO intake remains low. Did not offer DM education at this time d/t pt's confused during assessment. May attempt to offer again when family is present. Will continue to follow and reassess as pt needs, intake, and status change. MONITOR/EVALUATE: PO Intake; Plan of Care; Hydration Status; Weight Status; Lab Values Ramirez Bansal, MS, RD, LD
[2019-12-31] MEDS: hydrALAZINE (APRESOLINE) 25 MG TAB PO SCH ×2 (14:44→20:44)
[2019-12-31] MEDS: GABAPENTIN 300 MG (NEURONTIN) CAP PO SCH ×2 (14:44→17:52)
[2019-12-31] MEDS: SIMETHICONE 80 MG (MYLICON) CHEW PO SCH ×3 (14:45→20:44)
[2019-12-31] MEDS: CYANOCOBALAMIN 1,000 MCG (VITAMIN B-12) TABLET PO SCH (17:52)
[2019-12-31] MEDS: LUBIPROSTONE 24 MCG CAP (AMITIZA) NON-FORMULARY PO SCH (19:18)
[2019-12-31] MEDS: polyethylene glycoL POWDER 17 GM (MIRALAX) PACK PO SCH (19:23)
[2019-12-31] MEDS: SENNA W/DOCUSATE (SENOKOT S) TABLET PO SCH (19:24)
[2019-12-31] MEDS: guaiFENesin (MUCINEX) 600 MG TAB PO SCH (20:42)
[2020-01-01] MEDS: VANCOMYCIN 50 MG/ML ORAL SOLN 150 ML PO SCH ×5 (00:30→21:54)
[2020-01-01] MEDS: LACTATED RINGERS 1,000 ML IV SCH ×5 (01:04→15:44)
[2020-01-01] MEDS: CEFEPIME INJECTION 1,000 MG in WATER (STERILE) FOR INJECTION 10 ML IV SCH ×2 (03:39→15:44)
[2020-01-01 04:00] VITALS: BP 146/74
[2020-01-01 05:39] LABS: BASOPHILS % (AUTO) 0 % (0-10); EOSINOPHILS # (AUTO) 0.1 10^3/uL (0.0-0.3); EOSINOPHILS % (AUTO) 1 % (0-10); HEMATOCRIT 28 % (40-54); HEMOGLOBIN 8.8 G/DL (13.3-17.7); LYMPHOCYTES # (AUTO) 1.2 X 10^3 (1.0-4.0); LYMPHOCYTES % (AUTO) 11 % (12-44); MEAN CORPUSCULAR HEMOGLOBIN 27 PG (25-34); MEAN CORPUSCULAR HGB CONC 32 G/DL (32-36); MEAN CORPUSCULAR VOLUME 84 FL (80-99); MEAN PLATELET VOLUME 9.5 FL (7.4-10.4); MONOCYTES # (AUTO) 0.7 X 10^3 (0.0-1.0); MONOCYTES % (AUTO) 7 % (0-12); NEUTROPHILS # (AUTO) 8.8 X 10^3 (1.8-7.8); NEUTROPHILS % (AUTO) 81 % (42-75); PLATELET COUNT 288 10^3/uL (130-400); WHITE BLOOD COUNT 10.9 10^3/uL (4.3-11.0)
[2020-01-01 05:49] LABS: ALBUMIN 2.8 GM/DL (3.2-4.5)
[2020-01-01 05:51] LABS: CALCIUM 8.1 MG/DL (8.5-10.1)
[2020-01-01 05:52] LABS: TOTAL PROTEIN 6.1 GM/DL (6.4-8.2)
[2020-01-01 05:54] LABS: BILIRUBIN,TOTAL 0.3 MG/DL (0.1-1.0)
[2020-01-01 05:55] LABS: CREATININE SERUM 2.9 MG/DL (0.60-1.30)
[2020-01-01] MEDS: inSUlin ASPART (NovoLOG) 1 UNIT/0.01 ML (CHARGE PER UNIT) SC SCH ×4 (06:03→20:43)
[2020-01-01 06:28] LABS: POTASSIUM 2.3 MMOL/L (3.6-5.0)
[2020-01-01 07:50] VITALS: BP 138/78
[2020-01-01] MEDS: KCL 20 MEQ TAB (K-DUR) PO SCH ×5 (08:15→17:31)
[2020-01-01] MEDS: amLODIPine 2.5MG (NORVASC) TAB PO SCH (08:36)
[2020-01-01] MEDS: polyethylene glycoL POWDER 17 GM (MIRALAX) PACK PO SCH ×2 (08:36→20:31)
[2020-01-01] MEDS: GABAPENTIN 300 MG (NEURONTIN) CAP PO SCH ×3 (08:36→17:28)
[2020-01-01] MEDS: PANTOPRAZOLE 40 MG (PROTONIX) VIAL IV SCH (08:36)
[2020-01-01] MEDS: LUBIPROSTONE 24 MCG CAP (AMITIZA) NON-FORMULARY PO SCH ×2 (08:36→17:28)
[2020-01-01] MEDS: ASPIRIN 81 MG CHEW (CHILDREN'S ASA) PO SCH (08:37)
[2020-01-01] MEDS: SIMETHICONE 80 MG (MYLICON) CHEW PO SCH ×4 (08:37→20:31)
[2020-01-01] MEDS: hydrALAZINE (APRESOLINE) 25 MG TAB PO SCH ×3 (08:37→20:32)
[2020-01-01] MEDS: FLUoxetine HCL 10 MG (PROzac) CAPSULE/TABLET PO SCH (08:37)
[2020-01-01] MEDS: LORATADINE (CLARITIN) 10 MG TAB PO SCH (08:37)
[2020-01-01] MEDS: FINASTERIDE (PROSCAR) 5 MG TAB PO SCH (08:37)
[2020-01-01] MEDS: TAMSULOSIN 0.4 MG (FLOMAX) CAP PO SCH (08:37)
[2020-01-01] MEDS: guaiFENesin (MUCINEX) 600 MG TAB PO SCH ×2 (08:38→20:31)
[2020-01-01] MEDS: SENNA W/DOCUSATE (SENOKOT S) TABLET PO SCH ×2 (08:38→20:31)
[2020-01-01] MEDS ORDERED: NON-FORMULARY MEDICATION 1 EA EA (Fexofenadine HCl 180 MG) PO SCH (09:00)
[2020-01-01] MEDS: ACETAMINOPHEN 325 MG TABLET PO PRN ×2 (10:47→15:44)
[2020-01-01 11:17] VITALS: BP 135/72
--- NOTE | 2020-01-01 11:35 | Progress Note - Hospitalist ---
Subjective HPI/CC On Admission Date Seen by Provider: Jan 01, 2020 Time Seen by Provider: 11:30 CC: Septic shock due to UTI HPI: This is a 74yoWM that had recently discharged from and a few hours later came back into the ER with hypotension and septic shock from UTI, he was admitted to the ICU, placed on broad-spectrum antibiotics and aggressive IV fluid resuscitation, at this current time he denies any pain and overall he has a very poor prognosis given the fact his creatinine is 5.2. Subjective/Events-last exam A she reports buttock pain voices no No diarrhea has been documented he but reports minimal appetite with minimal by mouth intake. He denies nausea. Nurse reports a buttock sore from description possible stage II decubitus. Objective Exam Vital Signs Vital Signs Date Time Temp Pulse Resp B/P (MAP) Pulse Ox O2 Delivery O2 Flow Rate FiO2 01/01/20 11:17 37.2 73 18 135/72 (93) 96 Room Air 12/31/19 10:36 21 12/29/19 18:00 2.00 2.00 Capillary Refill : Less Than 3 Seconds General Appearance: Chronically ill, Obese (morbid) Respiratory: Chest Non Tender, Lungs Clear, Normal Breath Sounds, No Accessory Muscle Use, No Respiratory Distress Cardiovascular: Regular Rate, Rhythm, No Edema, No Gallop, No JVD, No Murmur Gastrointestinal: Non Tender, Abnormal Bowel Sounds (high-pitched compatible with borborygmi), Distended Extremity: Other (2-3+ symmetrical upper and lower extr) Results/Procedures Lab Laboratory Tests 01/01/20 05:30 Patient resulted labs reviewed. Assessment/Plan Assessment and Plan Assess & Plan/Chief Complaint 1. Severe sepsis secondary to Pseudomonas urinary tract infection poor underlying performance status multiorgan failure well improving patient condition remains critical.continue current antibiotics we will decrease IV fluids Critical Care Critically Ill Patient Clinical Quality Measures DVT/VTE Risk/Contraindication: Risk Factor Score Per Nursin RFS Level Per Nursing on Admit: 4+=Very High EBER VANG MD Jan 01, 2020 11:35
[2020-01-01 15:35] VITALS: BP 129/74
[2020-01-01] MEDS: CYANOCOBALAMIN 1,000 MCG (VITAMIN B-12) TABLET PO SCH (17:28)
[2020-01-01 19:05] VITALS: BP 118/76
[2020-01-01 23:59] VITALS: BP 142/77
[2020-01-02] MEDS: LACTATED RINGERS 1,000 ML IV SCH ×3 (00:55→19:13)
[2020-01-02] MEDS: CEFEPIME INJECTION 1,000 MG in WATER (STERILE) FOR INJECTION 10 ML IV SCH ×2 (02:58→15:59)
[2020-01-02 03:00] VITALS: BP 133/73
[2020-01-02] MEDS: VANCOMYCIN 50 MG/ML ORAL SOLN 150 ML PO SCH ×4 (04:18→22:24)
[2020-01-02 05:17] LABS: CALCIUM 8.1 MG/DL (8.5-10.1)
[2020-01-02] MEDS: inSUlin ASPART (NovoLOG) 1 UNIT/0.01 ML (CHARGE PER UNIT) SC SCH ×4 (05:19→20:20)
[2020-01-02 05:22] LABS: CREATININE SERUM 2.67 MG/DL (0.60-1.30)
[2020-01-02 05:27] LABS: POTASSIUM 2.2 MMOL/L (3.6-5.0)
[2020-01-02] MEDS: POTASSIUM CL 10MEQ/50ML IVPB 50 ML IV SCH ×7 (06:37→19:13)
[2020-01-02 08:09] VITALS: BP 146/78
[2020-01-02] MEDS: polyethylene glycoL POWDER 17 GM (MIRALAX) PACK PO SCH ×2 (09:56→20:36)
[2020-01-02] MEDS: GABAPENTIN 300 MG (NEURONTIN) CAP PO SCH ×3 (09:57→17:55)
[2020-01-02] MEDS: hydrALAZINE (APRESOLINE) 25 MG TAB PO SCH ×3 (09:58→20:35)
[2020-01-02] MEDS: SENNA W/DOCUSATE (SENOKOT S) TABLET PO SCH ×2 (09:58→20:35)
[2020-01-02] MEDS: guaiFENesin (MUCINEX) 600 MG TAB PO SCH ×2 (09:58→20:35)
[2020-01-02] MEDS: KCL 20 MEQ TAB (K-DUR) PO SCH ×3 (09:59→17:56)
[2020-01-02] MEDS: LUBIPROSTONE 24 MCG CAP (AMITIZA) NON-FORMULARY PO SCH ×2 (09:59→17:56)
[2020-01-02] MEDS: TAMSULOSIN 0.4 MG (FLOMAX) CAP PO SCH (09:59)
[2020-01-02] MEDS: SIMETHICONE 80 MG (MYLICON) CHEW PO SCH ×4 (10:00→20:35)
[2020-01-02] MEDS: LORATADINE (CLARITIN) 10 MG TAB PO SCH (10:00)
[2020-01-02] MEDS: FINASTERIDE (PROSCAR) 5 MG TAB PO SCH (10:00)
[2020-01-02] MEDS: FLUoxetine HCL 10 MG (PROzac) CAPSULE/TABLET PO SCH (10:00)
[2020-01-02] MEDS: PANTOPRAZOLE 40 MG (PROTONIX) VIAL IV SCH (10:01)
[2020-01-02] MEDS: amLODIPine 2.5MG (NORVASC) TAB PO SCH (10:01)
[2020-01-02] MEDS: ASPIRIN 81 MG CHEW (CHILDREN'S ASA) PO SCH (10:01)
--- NOTE | 2020-01-02 12:07 | Diagnostic Imaging Report ---
INDICATION: Abdominal distention. Time of exam 11 0 8:00 AM There is significant gaseous distention of bowel loops throughout the abdomen. No definite bowel wall thickening or pneumatosis is identified. There are scattered air-fluid levels present. No definite free air is seen. Bilateral double-J nephroureteral stents are noted. IMPRESSION: There is significant gaseous distention of bowel loops throughout the abdomen with scattered air-fluid levels. This is similar to supervisor powdered sugar radiograph from CT performed 11/23/2019. Dictated by: Dictated on workstation # [id number]
[2020-01-02 12:15] LABS: POTASSIUM 2.3 MMOL/L (3.6-5.0)
[2020-01-02 12:16] VITALS: BP 127/65
[2020-01-02 12:16] LABS: CREATININE SERUM 2.63 MG/DL (0.60-1.30)
--- NOTE | 2020-01-02 12:35 | Progress Note - Hospitalist ---
Subjective HPI/CC On Admission Date Seen by Provider: Jan 02, 2020 Time Seen by Provider: 08:30 CC: Septic shock due to UTI HPI: This is a 74yoWM that had recently discharged from and a few hours later came back into the ER with hypotension and septic shock from UTI, he was admitted to the ICU, placed on broad-spectrum antibiotics and aggressive IV fluid resuscitation, at this current time he denies any pain and overall he has a very poor prognosis given the fact his creatinine is 5.2. Subjective/Events-last exam unlike yesterday the patient reports some mild generalized abdominal discomfort. He reports no stool output despite reported history of being C. difficile toxin positive. No chills or fever noted poor by mouth intake no nausea or vomiting reported Objective Exam Vital Signs Vital Signs Date Time Temp Pulse Resp B/P (MAP) Pulse Ox O2 Delivery O2 Flow Rate FiO2 01/02/20 12:16 36.8 77 22 127/65 (85) 94 Room Air 12/31/19 10:36 21 12/29/19 18:00 2.00 2.00 Capillary Refill : Less Than 3 Seconds General Appearance: Mild Distress, Obese Respiratory: Chest Non Tender, Lungs Clear, Normal Breath Sounds, No Accessory Muscle Use, No Respiratory Distress Cardiovascular: Regular Rate, Rhythm, No Edema, No Gallop, No JVD, No Murmur, Other (extremities warm and edematous) Gastrointestinal: Other (marked distention of the abdomen borborygmi again noted mild generalized discomfort no rebound or guarding abdomen firm) Results/Procedures Lab Laboratory Tests 01/02/20 04:45 01/02/20 11:50 Patient resulted labs reviewed. Assessment/Plan Assessment and Plan Assess & Plan/Chief Complaint 1. Severe sepsis secondary to Pseudomonas urinary tract infection poor underlying performance status multiorgan failure well improving patient condition remains critical.continue current antibiotics we will decrease IV fluids 2. Ileus versus bowel obstructionflat plate of the abdomen reveals reported air and air fluid levels throughout. Dr. HOLCOMB has been consulted prognosis extremely poor. 3. Hypokalemia continue IV replacement will also give a dose of magnesium as he is been rather refractory to IV replacement so far even though his magnesium was low or end of the normal range at 1.8 several days ago this is notoriously poor due to the fact that it is predominantly intracellular in regards to ruling out magnesium deficiency. Critical Care Critically Ill Patient Clinical Quality Measures DVT/VTE Risk/Contraindication: Risk Factor Score Per Nursin RFS Level Per Nursing on Admit: 4+=Very High EBER VANG MD Jan 02, 2020 12:35
[2020-01-02] MEDS ORDERED: BISACODYL 10 MG SUPP (DULCOLAX) PR SCH (13:45)
[2020-01-02] MEDS: MAGNESIUM 1 GM/100 ML IVPB 100 ML IV SCH ×2 (14:04→15:43)
--- NOTE | 2020-01-02 14:17 | CONSULTATION REPORT ---
DATE OF SERVICE: 01/02/2020 ADMITTING PHYSICIAN: Becka Marshall DO ATTENDING PRIMARY CARE PHYSICIAN: Dr. Harmeet Valente. HISTORY OF PRESENT ILLNESS: The patient is a 74-year-old male, who was admitted for UTI, sepsis. He was recently admitted to [facility] for what sounds to be a complicated urinary tract infection and does have bilateral ureteral stents in place. He had improved and was taken by ambulance to an assisted living facility; however, he had significant weakness as well as what sounds to be pyuria. He was admitted for UTI sepsis and resuscitated and placed on broad spectrum antibiotics. He does have a number of medical comorbidities including renal failure, diabetes. He is currently a do not resuscitate; however, we were consulted for abdominal distention. An abdominal x-ray was performed, which did show diffuse gaseous distention of the colon and small bowel. This may indicate hypomotility due to his illness as well as hypokalemia. He does not report any nausea nor vomiting and is tolerating a regular diet at this time. PAST MEDICAL HISTORY: Insulin-dependent diabetes, macular degeneration, hypercholesterolemia, hypertension, renal failure, urinary tract infection, sleep apnea. PAST SURGICAL HISTORY: Carpal tunnel release, tonsillectomy. ALLERGIES: No known drug allergies. MEDICATIONS: Albuterol 2 puffs q.6 hours p.r.n., amlodipine 2.5 mg daily, aspirin 81 mg daily, atorvastatin 20 mg daily, benazepril 20 mg daily, fexofenadine 180 mg daily, finasteride 5 mg daily, fluoxetine 10 mg daily, furosemide 40 mg daily, gabapentin 900 mg b.i.d., hydralazine 50 mg daily, hyoscyamine 0.125 mg p.r.n., Amitiza 24 mcg daily, melatonin daily, tamsulosin 0.4 mg daily, simethicone q.i.d. SOCIAL HISTORY: Positive smoke 60 pack years, does drink alcohol daily as well. FAMILY HISTORY: Noncontributory. VITAL SIGNS: Temperature 36.8, blood pressure 127/65, pulse 77, respirations 22, pulse ox 94% on room air. REVIEW OF SYSTEMS: Obese male who is awake and alert, does answer majority of questions appropriately. He does not report any shortness of breath or difficulty in breathing; however, does appear to use accessory muscles for respiration. No chest pain, palpitations, diaphoresis. No nausea, vomiting. He states that he has not had a bowel movement in many days. No fever or chills, no recent inadvertent weight loss. ABDOMEN: Distended with bowel sounds. All other review of systems negative. PHYSICAL EXAMINATION: CHEST: Distant breath sounds and scattered wheezes bilaterally. HEART: Regular, no murmurs. EXTREMITIES: +2/3 bilateral lower extremity edema, negative Homans sign. HEENT: No scleral icterus or cervical lymphadenopathy. ABDOMEN: Distended and tympanitic with positive bowel sounds. No hernias, no peritoneal signs. LABORATORY DATA: WBC 10.9, hemoglobin 8.8, hematocrit 28, platelets 288. Potassium 2.3. ASSESSMENT AND PLAN: A 74-year-old male with multiple medical comorbidities including two recent hospitalizations as well as a UTI sepsis. Due to his medical comorbidities as well as recent events as well as hypokalemia, he likely has a gastrointestinal hypermotility and we will proceed with conservative measures. He is a do not resuscitate and we are unsure of how invasive he would like to proceed. At this time, we will have him continue with his oral stool softeners and laxatives; however, also start rectal suppositories. Job ID: [id number] DocumentID: [id number] Dictated Date: 01/02/2020 13:18:10 Glassine Machine Tender Date: 01/02/2020 14:16:58 Dictated By: CHERIE HOLCOMB MD
[2020-01-02 16:23] VITALS: BP 122/61
[2020-01-02] MEDS: CYANOCOBALAMIN 1,000 MCG (VITAMIN B-12) TABLET PO SCH (17:55)
[2020-01-02 19:50] VITALS: BP 125/76
[2020-01-02] MEDS: BISACODYL 10 MG SUPP (DULCOLAX) PR SCH (20:36)
[2020-01-02 23:59] VITALS: BP 162/78
[2020-01-03 04:00] VITALS: BP 152/78
[2020-01-03 05:05] LABS: BASOPHILS % (AUTO) 0 % (0-10); EOSINOPHILS # (AUTO) 0.2 10^3/uL (0.0-0.3); EOSINOPHILS % (AUTO) 2 % (0-10); HEMATOCRIT 28 % (40-54); HEMOGLOBIN 8.9 G/DL (13.3-17.7); LYMPHOCYTES # (AUTO) 1.5 X 10^3 (1.0-4.0); LYMPHOCYTES % (AUTO) 14 % (12-44); MEAN CORPUSCULAR HEMOGLOBIN 27 PG (25-34); MEAN CORPUSCULAR HGB CONC 32 G/DL (32-36); MEAN CORPUSCULAR VOLUME 85 FL (80-99); MEAN PLATELET VOLUME 8.9 FL (7.4-10.4); MONOCYTES # (AUTO) 0.7 X 10^3 (0.0-1.0); MONOCYTES % (AUTO) 6 % (0-12); NEUTROPHILS # (AUTO) 8.7 X 10^3 (1.8-7.8); NEUTROPHILS % (AUTO) 78 % (42-75); PLATELET COUNT 355 10^3/uL (130-400); WHITE BLOOD COUNT 11.2 10^3/uL (4.3-11.0)
[2020-01-03] MEDS: VANCOMYCIN 50 MG/ML ORAL SOLN 150 ML PO SCH ×4 (05:08→22:36)
[2020-01-03 05:26] LABS: CREATININE SERUM 2.58 MG/DL (0.60-1.30)
[2020-01-03 05:31] LABS: POTASSIUM 2.4 MMOL/L (3.6-5.0)
[2020-01-03] MEDS: inSUlin ASPART (NovoLOG) 1 UNIT/0.01 ML (CHARGE PER UNIT) SC SCH ×4 (06:01→20:14)
[2020-01-03] MEDS: POTASSIUM CL 10MEQ/50ML IVPB 50 ML IV SCH ×10 (07:29→20:17)
[2020-01-03 08:00] VITALS: BP 170/82
[2020-01-03] MEDS: LACTATED RINGERS 1,000 ML IV SCH ×2 (08:46→20:15)
[2020-01-03] MEDS: PANTOPRAZOLE 40 MG (PROTONIX) VIAL IV SCH (08:46)
[2020-01-03] MEDS: GABAPENTIN 300 MG (NEURONTIN) CAP PO SCH ×3 (08:50→16:12)
[2020-01-03] MEDS: FLUoxetine HCL 10 MG (PROzac) CAPSULE/TABLET PO SCH (08:50)
[2020-01-03] MEDS: ASPIRIN 81 MG CHEW (CHILDREN'S ASA) PO SCH (08:50)
[2020-01-03] MEDS: FINASTERIDE (PROSCAR) 5 MG TAB PO SCH (08:50)
[2020-01-03] MEDS: TAMSULOSIN 0.4 MG (FLOMAX) CAP PO SCH (08:50)
[2020-01-03] MEDS: amLODIPine 2.5MG (NORVASC) TAB PO SCH (08:51)
[2020-01-03] MEDS: polyethylene glycoL POWDER 17 GM (MIRALAX) PACK PO SCH ×2 (08:51→20:16)
[2020-01-03] MEDS: KCL 20 MEQ TAB (K-DUR) PO SCH ×3 (08:51→17:53)
[2020-01-03] MEDS: LUBIPROSTONE 24 MCG CAP (AMITIZA) NON-FORMULARY PO SCH ×2 (08:51→16:12)
[2020-01-03] MEDS: BISACODYL 10 MG SUPP (DULCOLAX) PR SCH ×2 (08:51→20:16)
[2020-01-03] MEDS: LORATADINE (CLARITIN) 10 MG TAB PO SCH (08:51)
[2020-01-03] MEDS: SIMETHICONE 80 MG (MYLICON) CHEW PO SCH ×4 (08:51→20:21)
[2020-01-03] MEDS: guaiFENesin (MUCINEX) 600 MG TAB PO SCH ×2 (09:01→20:15)
[2020-01-03] MEDS: SENNOSIDES 8.6 MG (SENOKOT) TAB PO PRN (09:01)
[2020-01-03] MEDS: SENNA W/DOCUSATE (SENOKOT S) TABLET PO SCH ×2 (09:02→20:16)
[2020-01-03] MEDS: hydrALAZINE (APRESOLINE) 25 MG TAB PO SCH ×3 (09:02→20:21)
--- NOTE | 2020-01-03 11:56 | Physician Query Clarification ---
PQ-Link Infection to Dev/Proc Admission/Discharge Admission Date: Dec 28, 2019 at 18:41 Discharge Date: The medical record reflects the following clinical scenario: History/Risk Factors: Sepsis/Septic Shock due to UTI Chronic indwelling armstrong catheter Clinical Findings: Positive urine culture showing >100,000/ML Pseudomonas aeruginosa. Treatment:Replaced armstrong catheter got a liter out and clamped in ED. IV Rocephin and IV Vancomycin HCI. Question: Can you specify if the Sepsis/Septic Shock/UTI is due to/associated with Chronic indwelling armstrong catheter? Please document a response in Progress Note or Discharge Summary. 1. Yes - Sepsis/septic shock/UTI is due to/associated with chronic indwelling armstrong catheter. 2. No - Sepsis/septic shock/UTI is not due to/associated with Chronic indwelling armstrong catheter. 3. Other, with explanation of the clinical findings. 4. Clinically undetermined, no explanation for the clinical findings. PHYSICIAN RESPONSE Specify if infection: 1 Please remember a lack of response to the above will prompt a phone page by CDI/Coding staff. In responding to this query, please exercise your independent professional judgment. The purpose of this communication is to more accurately reflect the complexity of your patients condition. The fact that a question is asked does not imply that any particular answer is desired or expected. Thank you for your timely response to this clarification. Requestors name: Malissa Candelaria [facility] Phone # ext [phone] or [phone] THIS PHYSICIAN QUERY FORM IS A PERMANENT PART OF THE MEDICAL RECORD MALISSA CANDELARIA Jan 03, 2020 11:56 VALENTINA BOWIE MD Jan 03, 2020 12:25 IDALIA NAILS DO Jan 03, 2020 21:24
[2020-01-03 12:00] VITALS: BP 169/89
[2020-01-03] MEDS ORDERED: amLODIPine 2.5MG (NORVASC) TAB PO NR (12:15)
--- NOTE | 2020-01-03 12:17 | Progress Note ---
Subjective Subjective/Events-last exam Afebrile, continues to have marked abdominal distension, states he is tired. Denies other complaints. 1 bowel movement reported in last 24 hours. Objective Exam Last Set of Vital Signs Vital Signs Date Time Temp Pulse Resp B/P (MAP) Pulse Ox O2 Delivery O2 Flow Rate FiO2 01/03/20 08:00 36.2 74 20 170/82 (111) 96 Room Air 12/31/19 10:36 21 12/29/19 18:00 2.00 2.00 Capillary Refill : Less Than 3 Seconds I&O Intake and Output 01/03/20 00:00 Intake Total 3550 ml Output Total 3325 ml Balance 225 ml Intake Oral 1980 ml IV Total 1570 ml Output Urine Total 3325 ml # Bowel Movements 2 General: Other (drowsy, falling asleep between questions) Lungs: Clear to Auscultation, Normal Air Movement Heart: Regular Rate, No Murmurs Abdomen: Other (distended, decreased but present bowel sounds, non-tender) Extremities: Other (1+ pitting edema ankles) Neuro: Other (drowsy but arousable, oriented to self and year, but not date or location- knows hospital but stated in [place]) Results/Procedures Lab Laboratory Tests 01/02/20 15:43: Glucometer 121H 01/02/20 20:11: Glucometer 128H 01/03/20 04:55: White Blood Count 11.2H, Red Blood Count 3.27L, Hemoglobin 8.9L, Hematocrit 28L, Mean Corpuscular Volume 85, Mean Corpuscular Hemoglobin 27, Mean Corpuscular Hemoglobin Concent 32, Red Cell Distribution Width 17.2H, Platelet Count 355, Mean Platelet Volume 8.9, Neutrophils (%) (Auto) 78H, Lymphocytes (%) (Auto) 14, Monocytes (%) (Auto) 6, Eosinophils (%) (Auto) 2, Basophils (%) (Auto) 0, Neutrophils # (Auto) 8.7H, Lymphocytes # (Auto) 1.5, Monocytes # (Auto) 0.7, Eosinophils # (Auto) 0.2, Basophils # (Auto) 0.0, Sodium Level 142, Potassium Level 2.4*L, Chloride Level 115H, Carbon Dioxide Level 16L, Anion Gap 11, Blood Urea Nitrogen 26H, Creatinine 2.58H, Estimat Glomerular Filtration Rate 25, BUN/Creatinine Ratio 10, Glucose Level 106H, Calcium Level 8.0L, Magnesium Level 2.1 01/03/20 11:45: Glucometer 149H Microbiology 12/30/19 C. difficile GDH Antigen & Toxins - Final, Complete 12/28/19 MRSA Screen - Final, Complete MRSA not isolated 12/28/19 Urine Culture - Final, Complete Pseudomonas aeruginosa Pseudomonas aeruginosa#2 12/28/19 Blood Culture - Final, Complete No growth Radiology ABD x-ray 01/01: IMPRESSION: There is significant gaseous distention of bowel loops throughout the abdomen with scattered air-fluid levels. This is similar to child care centre manager radiograph from CT performed 11/23/2019. Assessment/Plan Assessment/Plan Admission Status: Inpatient Order (span 2 midnights) (1) Sepsis Status: Resolved Assessment & Plan: Secondary to pseudomonas UTI, treated with course of cef epime, fluid resuscitation. Qualifiers: Qualified Codes: A41.52 - Sepsis due to Pseudomonas; R65.21 - Severe sepsis with septic shock; N17.9 - Acute kidney failure, unspecified (2) UTI (urinary tract infection) Status: Resolved Assessment & Plan: Pseudomonas with indwelling catheter, treated with course of cefepime. Qualifiers: Qualified Codes: N30.01 - Acute cystitis with hematuria (3) Acute kidney injury Status: Acute Assessment & Plan: Secondary to combination of septic shock and urinary obstruction. Obstruction relieved with armstrong cathter, sepsis essentially resolved at this point, renal function continuing to slowly improve. Continue LR at 75 mls/hr, hold ACEI and renal dose medications. (4) Ileus Status: Acute Assessment & Plan: Dr. Ashby consulted, appreciate recommendations. Uncertain etiology, C diff positive but not having diarrhea. Continue stool softeners and suppositories and supportive care, monitor closely given marked distension. Replace potassium. (5) C. difficile colitis Status: Acute Assessment & Plan: Secondary to extensive antibiotic use since Nov for UTI/sepsis. On oral vancomycin. (6) Hypokalemia Status: Acute Assessment & Plan: Severe, refractory, continue aggressive IV replacement. (7) HTN (hypertension) Status: Chronic (8) Urinary outflow obstruction Status: Resolved Assessment & Plan: Indwelling armstrong replaced in ER, s/p ureteral stenting at in admission just prior to this. (9) DVT prophylaxis Status: Acute Assessment & Plan: enoxaparin renally dosed. Clinical Quality Measures DVT/VTE Risk/Contraindication: Risk Factor Score Per Nursin RFS Level Per Nursing on Admit: 4+=Very High VALENTINA BOWIE MD Jan 03, 2020 12:17
[2020-01-03] MEDS: ENOXAPARIN 40 MG/0.4 ML (LOVENOX) SYR SC SCH (13:25)
--- NOTE | 2020-01-03 13:43 | NUR ---
"RD ASSESSMENT PMHx: hypercholesterolemia; HTN; BPH; renal failure; chronic diarrhea; DM; c-diff PT INTERACTION: Pt was awake and pleasant during nutrition follow-up. Pt states he has been eating poorly since last assessment. Note avg PO intake <25% meals, per chart review. Pt states some issues with constipation and diarrhea since last assessment. Note last BM was 01/01, and pt currently on bowel regimen of senna BID; miralax BID; and bisacodyl BID, per chart review. ABNORMAL NUTRITION-RELATED LAB VALUES LOW: K 2.4; Ca 8.0 HIGH: Cl 115; BUN 26; cr 2.58; glu 106 Est. kcal needs: 1950 kcal | 25 kcal/kg IBW, based on IBW of 78.2 kg (172#) Est. Pro needs: 78 g Pro | 1.0 g Pro/kg IBW, based on IBW of 78.2 kg (172#) PES STATEMENT: Inadequate oral intake (NI-2.1) related to loss of appetite | constipation | diarrhea as evidenced by pt interview INTERVENTION: Continue with current diet order of DYS2 Mechanically Altered diet. Pt may benefit from diet advancement to regular consistency diet, for pt tolerance. Add Glucerna (vary) to meals TID, for increased kcal intake. Provides 220 kcal and 10 g Pro per serving. Encouraged pt to eat when able. Will continue to follow and reassess as pt needs, intake, and status change. MONITOR/EVALUATE: PO Intake; Plan of Care; Hydration Status; Weight Status; Lab Values Ramirez Bansal, MS, RD, LD"
[2020-01-03 14:27] LABS: CREATININE SERUM 2.44 MG/DL (0.60-1.30)
[2020-01-03 14:42] LABS: POTASSIUM 2.5 MMOL/L (3.6-5.0)
--- NOTE | 2020-01-03 15:21 | Physical Therapy Evaluation ---
PT Evaluation-General Medical Diagnosis Admission Date Dec 28, 2019 at 18:41 Medical Diagnosis: septic shock/UTI Onset Date: Dec 28, 2019 Therapy Diagnosis Therapy Diagnosis: severe weakness/debility Height/Weight Height (Feet): 5 Height (Inches): 11.00 Weight (Pounds): 315 Weight (Ounces): 0.0 Precautions Precautions/Isolations: Fall Prevention, Contact/Enteric Isolation, Pressure U lcer Referral Physician: Barry Reason for Referral: Evaluation/Treatment Medical History Pertinent Medical History: Alcoholism, HTN, Renal Insufficiency, Smoking Additional Medical History morbid obesity Current History EMS secondary to was transferring back to [place] from [place] and was unable to transfer self Reviewed History: Yes Social History Home: Detention Prior Prior Level of Function SCALE: Activities may be completed with or without assistive devices. 5-Ucalzvyoze-bajowdy completes the activity by him/herself with no assistance from a helper. 5-Set-up or Clean-up Assistance-helper sets up or cleans up; patient completes activity. [place] assists only prior to or following the activity. 4-Supervision or Touching Assistance-helper provides verbal cues and/or touching/steadying and/or contact guard assistance as patient completes activity. Assistance may be provided throughout the activity or intermittently. 3-Partial/Moderate Assistance-helper does LESS THAN HALF the effort. [place] lifts, holds or supports trunk or limbs, but provides less than half the effort. 2-Substantial/Maximal Assistance-helper does MORE THAN HALF the effort. [place] lifts or holds trunk or limbs and provides more than half the effort. 6-Btdvuckcp-eywxwh does ALL the effort. Patient does none of the effort to complete the activity. Or, the assistance of 2 or more helpers is required for the patient to complete the activity. If activity was not attempted, code reason: 7-Patient Refused. 9-Not Applicable-not attempted and the patient did not perform the activity before the current illness, exacerbation or injury. 10-Not Attempted due to Environmental Limitations-(lack of equipment, weather restraints, etc.). 88-Not Attempted due to Medical Conditions or Safety Concerns. Bed Mobility: 2 Transfers (B,C,W/C): 2 Gait: 2 Stairs: 9 Indoor Mobility (Ambulation): Needed Some Help Stairs: Not Applicalbe Prior Devices Use: Walker Prior Device Use: 4WW PT Evaluation-Current Subjective Patient is in bed and aspirated on H2O from straw. RN notified. Patient is very slow to respond to verbal and tactile cues. Pain Numeric Pain Scale: 0-No Pain Location: No Pain Reported Objective Patient Orientation: Confused Attachments: Sotelo Catheter, IV ROM/Strength ROM Lower Extremities bilateral LE limited due to obesity and edema Strength Lower Extremities 3-/5 grossly bilateral LE Integumentary/Posture Integumentary refer to nursing notes Bladder Incontinence: Soteol Cath Posture WFL Neuromuscular (Tone, Coordination, Reflexes) severely diminished coordination due to inactivity and morbid obesity Sensory Vision: Functional Hearing: Impaired Sensation Right Lower Extremit: Impaired Sensation Left Lower Extremity: Impaired Transfers Roll Left to Right (QC): 1 (x 2) Sit to Lying (QC): 1 (x 2) Lying to Sitting/Side of Bed(Q: 1 (x 2) Sit to Stand (QC): 88 Chair/Bwr-jz-Svpai Xfer(QC): 88 Toilet Transfer (QC): 88 patient unable to sit EOB without dependent assist x 2 Gait Does the Patient Walk?: No and Walking Goal IS indicated Balance Sitting Static: Poor Sitting Dynamic: Poor Assessment/Needs 74 y.o. male, will require Annemarie Lift for safe transfers bed to chair. Patient is very limited due to morbid obesity, inactivity, weakness and edema. Rehab Potential: Guarded PT Design Cell Engineer Goals Prison Goals PT Design Cell Engineer Goals Time Frame: Jan 19, 2020 Roll Left & Right (QC): 2 Sit to Lying (QC): 2 Lying-Sitting on Side/Bed(QC): 2 Sit to Stand (QC): 2 Chair/Uzw-jf-Oqich Xfer(QC): 2 Does the Patient Walk: No and Walking Goal IS indicated Walk 10 feet (QC): 2 PT Plan Problem List Problem List: Activity Tolerance, Functional Strength, Safety, Balance, Gait, Transfer, Bed Mobility, ROM Treatment/Plan Treatment Plan: Continue Plan of Care Treatment Plan: Bed Mobility, Education, Functional Activity Alondra, Functional Strength, Gait, Safety, Therapeutic Exercise, Transfers Treatment Duration: Jan 19, 2020 Frequency: 6 times per week Estimated Hrs Per Day: .25 hour per day Patient and/or Family Agrees t: Yes Time/GCodes Time In: 1450 Time Out: 1510 Total Billed Treatment Time: 20 [facility] ABDULLAHI Sargent PT Jan 03, 2020 15:20
--- NOTE | 2020-01-03 15:27 | NUR ---
CM/SS: Visited with pt as to plan for discharge Plan: Undetermined at this time Summary: Pt is unable to give this worker very much information - he does agree that he is from [facility] and he will go back there. He is unable to identify his daughters names and the names that he gives do not match with what the facesheet indicates. Telephone Call to [facility] [place] - [phone] - unable to leave a voicemail Telephone Call to [facility] [place] - [place] - cell phone # [phone] - left message for her to call this worker Fax to [phone] - Requesting that the facility give this worker a call to discuss discharge This worker will follow up
--- NOTE | 2020-01-03 15:36 | Progress Note ---
Subjective Date Seen by a Provider: Jan 03, 2020 Time Seen by a Provider: 15:00 Subjective/Events-last exam overall status gaurded however no change. had 2 BM's with slight decrease abd distention. Objective Exam Vital Signs Date Time Temp Pulse Resp B/P (MAP) Pulse Ox O2 Delivery O2 Flow Rate FiO2 01/03/20 12:00 36.4 83 18 169/89 (115) 94 Room Air 01/03/20 08:00 36.2 74 20 170/82 (111) 96 Room Air 01/03/20 08:00 Room Air 01/03/20 07:25 Room Air 01/03/20 04:00 37.0 70 17 152/78 (102) 96 Room Air 01/02/20 23:59 36.5 77 17 162/78 (106) 96 Room Air 01/02/20 21:00 Room Air 01/02/20 19:50 37.0 81 17 125/76 (92) 94 Room Air 01/02/20 18:42 95 Room Air 01/02/20 16:23 36.5 79 18 122/61 (81) 97 Room Air I & O 01/03/20 07:00 Intake Total 3750 ml Output Total 3125 ml Balance 625 ml Capillary Refill : Less Than 3 Seconds General Appearance: No Apparent Distress HEENT: PERRL/EOMI Neck: Full Range of Motion Respiratory: Decreased Breath Sounds, Rhonci Cardiovascular: Regular Rate, Rhythm Gastrointestinal: normal bowel sounds, soft, distended Extremity: Normal Capillary Refill Neurologic/Psychiatric: Alert, Oriented x3 Skin: Normal Color Lymphatic: No Adenopathy Results Lab Laboratory Tests 01/02/20 15:43: Glucometer 121H 01/02/20 20:11: Glucometer 128H 01/03/20 04:55: White Blood Count 11.2H, Red Blood Count 3.27L, Hemoglobin 8.9L, Hematocrit 28L, Mean Corpuscular Volume 85, Mean Corpuscular Hemoglobin 27, Mean Corpuscular Hemoglobin Concent 32, Red Cell Distribution Width 17.2H, Platelet Count 355, Mean Platelet Volume 8.9, Neutrophils (%) (Auto) 78H, Lymphocytes (%) (Auto) 14, Monocytes (%) (Auto) 6, Eosinophils (%) (Auto) 2, Basophils (%) (Auto) 0, Neutrophils # (Auto) 8.7H, Lymphocytes # (Auto) 1.5, Monocytes # (Auto) 0.7, Eosinophils # (Auto) 0.2, Basophils # (Auto) 0.0, Sodium Level 142, Potassium Level 2.4*L, Chloride Level 115H, Carbon Dioxide Level 16L, Anion Gap 11, Blood Urea Nitrogen 26H, Creatinine 2.58H, Estimat Glomerular Filtration Rate 25, BUN/Creatinine Ratio 10, Glucose Level 106H, Calcium Level 8.0L, Magnesium Level 2.1 01/03/20 11:45: Glucometer 149H 01/03/20 14:00: Sodium Level 140, Potassium Level 2.5*L, Chloride Level 114H, Carbon Dioxide Level 17L, Anion Gap 9, Blood Urea Nitrogen 26H, Creatinine 2.44H, Estimat Glomerular Filtration Rate 26, BUN/Creatinine Ratio 11, Glucose Level 118H, Calcium Level 8.0L Microbiology 12/30/19 C. difficile GDH Antigen & Toxins - Final, Complete 12/28/19 MRSA Screen - Final, Complete MRSA not isolated 12/28/19 Urine Culture - Final, Complete Pseudomonas aeruginosa Pseudomonas aeruginosa#2 12/28/19 Blood Culture - Final, Complete No growth Assessment/Plan Assessment/Plan Assess & Plan/Chief Complaint ileus s/p UTI and septic shock. continue PO laxatives and TX supp as needed. Clinical Quality Measures DVT/VTE Risk/Contraindication: Risk Factor Score Per Nursin RFS Level Per Nursing on Admit: 4+=Very High CHERIE HOLCOMB MD Jan 03, 2020 15:36
--- NOTE | 2020-01-03 15:44 | Occupational Therapy Eval ---
OT Evaluation-General/PLF Medical Diagnosis Admission Date Dec 28, 2019 at 18:41 Medical Diagnosis: septic shock/UTI Onset Date: Dec 28, 2019 Therapy Diagnosis Therapy Diagnosis: Decreased ADL status Height/Weight Height (Feet): 5 Height (Inches): 11.00 Weight (Pounds): 315 Weight (Ounces): 0.0 Precautions Precautions/Isolations: Fall Prevention, Contact/Enteric Isolation, Pressure U lcer Referral Physician: Barry Referral Reason: Activity Tolerance, Self Care, Evaluation/Treatment, Strengthening/ROM Medical History Pertinent Medical History: Alcoholism, HTN, Renal Insufficiency, Smoking Additional Medical History eye surgery, bilateral CTS, HTN, benign prostatic renal failure, DM. Current History Pt in [facility] for ~20 days for rehab, on way back to [facility] (permanent living situation) pt unable to get out of vehicle. 12/27 UTI/ sepsis with "chocolate milk colored urine" Reviewed History: Yes Social History Home: Assisted Living ADL-Prior Level of Function SCALE: Activities may be completed with or without assistive devices. 6-Fbcfzpeaeo-jryizze completes the activity by him/herself with no assistance from a helper. 5-Set-up or Clean-up Assistance-helper sets up or cleans up; patient completes activity. [place] assists only prior to or following the activity. 4-Supervision or Touching Assistance-helper provides verbal cues and/or touching/steadying and/or contact guard assistance as patient completes activity . Assistance may be provided throughout the activity or intermittently. 3-Partial/Moderate Assistance-helper does LESS THAN HALF the effort. [place] lifts, holds or supports trunk or limbs, but provides less than half the effort. 2-Substantial/Maximal Assistance-helper does MORE THAN HALF the effort. [place] lifts or holds trunk or limbs and provides more than half the effort. 7-Fkmycyouq-dbjlag does ALL the effort. Patient does none of the effort to complete the activity. Or, the assistance of 2 or more helpers is required for the patient to complete the activity. If activity was not attempted, code reason: 7-Patient Refused. 9-Not Applicable-not attempted and the patient did not perform the activity before the current illness, exacerbation or injury. 10-Not Attempted due to Environmental Limitations-(lack of equipment, weather restraints, etc.). 88-Not Attempted due to Medical Conditions or Safety Concerns. ADL PLOF Comments Pt oriented to person only. States fatigue/ requires cues to maintain attention throughout-- decreased PLOF accuracy. Self Care: Needed Some Help Functional Cognition: Unknown DME/Equipment Comments [employer] Occupation: retired. Drive Self: No OT Current Status Subjective Pt seen in bed. Pt 0x1. Pt reoriented to place/ situation- unable to state place/ situation after tx. Pt requires cues to maintain eyes open/ attention. Pt agrees to OT, very pleasant, increased response time. Mental Status/Objective Patient Orientation: Person Attachments: Sotelo Catheter, IV, Oxygen Current Hearing Aids: No Dentures/Partials: Yes Hand Dominance: Right Upper Extremity ROM WFL BUE Upper Extremity Coordination WFL BUE Upper Extremity Sensation WFL BUE Upper Extremity Strength WFL BUE (4/5) Edema: pitting edema BLE with slight weeping from wound ADL-Treatment Eating (QC): 3 (Pt requires min A to bring cup to hand, pt able to bring cup/ straw to mouth for drink.) Upper Body Dressing (QC): 1 (based on clinical judgment and pt's mobility/ strength ) Lower Body Dressing (QC): 1 (based on clinical judgment and pt's mobility/ strength ) On/Off Footwear (QC): 1 (based on clinical judgment and pt's mobility/ strength ) Toileting Hygiene (QC): 1 (based on clinical judgment and pt's mobility/ strength ) Other Treatments Pt states he received assist at prior living facility ([facility])- pt states was ambulatory with walker, required assist with bathing and LE dressing, though was IND with UB dressing and feeding. Pt completes face hygiene/ drinking activity with s/u and min A. Pt requires increased cues for attention/ maintaining eyes open. Pt able to track all planes with slow saccade, requires increased cues for diagonal planes. pt states a decrease in eye sight. Pt able to complete BUE MMT/ ROM screening, pitting edema BLE. Pt educated on 2 UE ex to complete when higher energy obtained this evening with demonstration and education for purpose and 1 LE ex for edema management. Pt able to reach with L hand to R bed rail and roll to side with max A for pillow placement for pressure relief. Pillow placed between legs for comfort. All needs met, call light in reach, nursing present. Education OT Patient Education: Correct positioning, Exercise program, Home exercise program, Purpose of tx/functional activities, Safety issues, Transfer techniques Teaching Recipient: Patient Teaching Methods: Demonstration, Discussion Response to Teaching: Verbalize Understanding, Return Demonstration OT Kitchen Steward/Stewardess Goals [facility] Goals Time Frame: Jan 10, 2020 Eating (QC): 6 Oral Hygiene (QC): 5 Toileting Hygiene (QC): 2 Shower/Bathe Self (QC): 2 Upper Body Dressing (QC): 5 Lower Body Dressing (QC): 2 On/Off Footwear (QC): 2 Additional Goals: 1-Demonstrate ADL Tasks, 2-Verbalize Understanding, 3-I mproveStrength/Alondra 1=Demonstrate adherence to instructed precautions during ADL tasks. 2=Patient will verbalize/demonstrate understanding of assistive devices/modifications for ADL. 3=Patient will improve strength/tolerance for activity to enable patient to perform ADL's. OT Education/Plan Problem List/Assessment Assessment: Decreased Activ Tolerance, Decreased UE Strength, Dependent Transfers, Edema, Impaired Bed Mobility, Impaired Cognition, Impaired Funct B alance, Impaired I ADL's, Impaired Self-Care Skills Discharge Recommendations Plan/Recommendations: Continue POC Therapy Discharge Recommendati: 24 Hour Supervision Treatment Plan/Plan of Care Treatment,Training & Education: Yes Patient would benefit from OT for education, treatment and training to promote independence in ADL's, mobility, safety and/or upper extremity function for ADL's. Plan of Care: ADL Retraining, Functional Mobility, UE Funct Exercise/Act, W/C Management Training Treatment Duration: Jan 10, 2020 Frequency: 5 times per week Estimated Hrs Per Day: .25 hour per day Agreement: Yes Rehab Potential: Guarded Time/GCodes Start Time: 15:16 Stop Time: 15:32 Total Time Billed (hr/min): 16 Billed Treatment Time JOHN Rapp (16) KAYLIE SIMONS OTR Jan 03, 2020 15:44
--- NOTE | 2020-01-03 15:59 | NUR ---
DR. VANG NOTIFIED OF ELEVATED B/P OF 170/106 (AUTO) AND RECHECKED WITH A MANUAL CUFF AND B/P WAS 150/94. NO NEW ORDERS AT THIS TIME.
[2020-01-03 16:02] VITALS: BP 123/60
[2020-01-03] MEDS: CYANOCOBALAMIN 1,000 MCG (VITAMIN B-12) TABLET PO SCH (16:12)
--- NOTE | 2020-01-03 17:30 | NUR ---
Ramiro Score 13, related to multiple healing wounds et fragile skin. Pt moved to air mattress after large incontinent. BM episode. pt noted to have skin breakdown on gluteal folds. barrier cream applied and allevyn placed at this time. will con't to monitor.
[2020-01-03 19:51] VITALS: BP 140/75
[2020-01-04] VITALS (8 sets, daily range): BP systolic 128–150; BP diastolic 67–87
[2020-01-04] MEDS: ENOXAPARIN 40 MG/0.4 ML (LOVENOX) SYR SC SCH ×2 (01:58→14:27)
[2020-01-04] MEDS: VANCOMYCIN 50 MG/ML ORAL SOLN 150 ML PO SCH ×4 (04:19→23:03)
[2020-01-04 05:25] LABS: BASOPHILS % (AUTO) 0 % (0-10); EOSINOPHILS # (AUTO) 0.2 10^3/uL (0.0-0.3); EOSINOPHILS % (AUTO) 1 % (0-10); HEMATOCRIT 29 % (40-54); HEMOGLOBIN 9.1 G/DL (13.3-17.7); LYMPHOCYTES # (AUTO) 1.8 X 10^3 (1.0-4.0); LYMPHOCYTES % (AUTO) 14 % (12-44); MEAN CORPUSCULAR HEMOGLOBIN 27 PG (25-34); MEAN CORPUSCULAR HGB CONC 32 G/DL (32-36); MEAN CORPUSCULAR VOLUME 85 FL (80-99); MEAN PLATELET VOLUME 9.2 FL (7.4-10.4); MONOCYTES # (AUTO) 0.8 X 10^3 (0.0-1.0); MONOCYTES % (AUTO) 6 % (0-12); NEUTROPHILS # (AUTO) 9.7 X 10^3 (1.8-7.8); NEUTROPHILS % (AUTO) 78 % (42-75); PLATELET COUNT 386 10^3/uL (130-400); WHITE BLOOD COUNT 12.5 10^3/uL (4.3-11.0)
[2020-01-04] MEDS: inSUlin ASPART (NovoLOG) 1 UNIT/0.01 ML (CHARGE PER UNIT) SC SCH ×4 (05:44→21:00)
[2020-01-04 05:45] LABS: POTASSIUM 2.6 MMOL/L (3.6-5.0)
[2020-01-04 05:47] LABS: CALCIUM 8.2 MG/DL (8.5-10.1)
[2020-01-04 05:51] LABS: CREATININE SERUM 2.44 MG/DL (0.60-1.30)
[2020-01-04] MEDS: BISACODYL 10 MG SUPP (DULCOLAX) PR SCH ×2 (07:34→22:17)
[2020-01-04] MEDS: FLUoxetine HCL 10 MG (PROzac) CAPSULE/TABLET PO SCH (09:14)
[2020-01-04] MEDS: SIMETHICONE 80 MG (MYLICON) CHEW PO SCH ×4 (09:14→20:40)
[2020-01-04] MEDS: LACTATED RINGERS 1,000 ML IV SCH ×2 (09:14→22:10)
[2020-01-04] MEDS: TAMSULOSIN 0.4 MG (FLOMAX) CAP PO SCH (09:14)
[2020-01-04] MEDS: hydrALAZINE (APRESOLINE) 25 MG TAB PO SCH ×3 (09:15→20:19)
[2020-01-04] MEDS: FINASTERIDE (PROSCAR) 5 MG TAB PO SCH (09:15)
[2020-01-04] MEDS: polyethylene glycoL POWDER 17 GM (MIRALAX) PACK PO SCH ×2 (09:15→21:00)
[2020-01-04] MEDS: KCL 20 MEQ TAB (K-DUR) PO SCH ×3 (09:15→17:45)
[2020-01-04] MEDS: amLODIPine 5 MG (NORVASC) TAB PO SCH (09:16)
[2020-01-04] MEDS: LORATADINE (CLARITIN) 10 MG TAB PO SCH (09:16)
[2020-01-04] MEDS: ACETAMINOPHEN 325 MG TABLET PO PRN (09:16)
--- NOTE | 2020-01-04 09:16 | Physical Therapy Daily Note ---
PT Daily Note-Current Subjective Patient is in bed and confused. Nursing in to address bed damon need. Mental Status Patient Orientation: Confused Attachments: Sotelo Catheter, IV Transfers SCALE: Activities may be completed with or without assistive devices. 9-Gkpmvxerlm-fzhdowb completes the activity by him/herself with no assistance from a helper. 5-Set-up or Clean-up Assistance-helper sets up or cleans up; patient completes activity. [place] assists only prior to or following the activity. 4-Supervision or Touching Assistance-helper provides verbal cues and/or touching/steadying and/or contact guard assistance as patient completes activity. Assistance may be provided throughout the activity or intermittently. 3-Partial/Moderate Assistance-helper does LESS THAN HALF the effort. [place] lifts, holds or supports trunk or limbs, but provides less than half the effort. 2-Substantial/Maximal Assistance-helper does MORE THAN HALF the effort. [place] lifts or holds trunk or limbs and provides more than half the effort. 5-Iouvnymqt-peclog does ALL the effort. Patient does none of the effort to complete the activity. Or, the assistance of 2 or more helpers is required for the patient to complete the activity. If activity was not attempted, code reason: 7-Patient Refused. 9-Not Applicable-not attempted and the patient did not perform the activity before the current illness, exacerbation or injury. 10-Not Attempted due to Environmental Limitations-(lack of equipment, weather restraints, etc.). 88-Not Attempted due to Medical Conditions or Safety Concerns. Roll Left & Right (QC): 1 (x 3) Sit to Lying (QC): 1 (x 3) Lying to Sitting/Side of Bed(Q: 1 (x 3) Patient sat EOB x 10 min SBA to CGA. Patient unable to perform bed mobility activity without assistance. Assessment Patient has total body edema and continues to have difficulty with mobility. Patient requires dependent assist x 3 with all bed mobility and sit EOB. PT Rn Social Work Goals Rn Social Work Goals PT Rn Social Work Goals Time Frame: Jan 19, 2020 Roll Left & Right (QC): 2 Sit to Lying (QC): 2 Lying-Sitting on Side/Bed(QC): 2 Sit to Stand (QC): 2 Chair/Uyw-ym-Eidje Xfer(QC): 2 Does the Patient Walk: No and Walking Goal IS indicated Walk 10 feet (QC): 2 PT Plan Treatment/Plan Treatment Plan: Continue Plan of Care Treatment Plan: Bed Mobility, Education, Functional Activity Alondra, Functional Strength, Gait, Safety, Therapeutic Exercise, Transfers Treatment Duration: Jan 19, 2020 Frequency: 6 times per week Estimated Hrs Per Day: .25 hour per day Patient and/or Family Agrees t: Yes Time/GCodes Time In: 841 Time Out: 904 Total Billed Treatment Time: 23 Total Billed Treatment 1 visit FA x 2 23 min ABDULLAHI TAPIA PT Jan 04, 2020 09:16
[2020-01-04] MEDS: PANTOPRAZOLE 40 MG (PROTONIX) VIAL IV SCH (09:17)
[2020-01-04] MEDS: LUBIPROSTONE 24 MCG CAP (AMITIZA) NON-FORMULARY PO SCH ×2 (09:17→17:45)
[2020-01-04] MEDS: POTASSIUM CL 10MEQ/50ML IVPB 50 ML IV SCH ×8 (09:22→23:24)
[2020-01-04] MEDS: ASPIRIN 81 MG CHEW (CHILDREN'S ASA) PO SCH (09:31)
[2020-01-04] MEDS: GABAPENTIN 300 MG (NEURONTIN) CAP PO SCH ×3 (09:31→17:45)
[2020-01-04] MEDS: guaiFENesin (MUCINEX) 600 MG TAB PO SCH ×2 (09:31→20:19)
[2020-01-04] MEDS: SENNOSIDES 8.6 MG (SENOKOT) TAB PO PRN (09:35)
[2020-01-04] MEDS: SENNA W/DOCUSATE (SENOKOT S) TABLET PO SCH ×2 (09:36→21:00)
--- NOTE | 2020-01-04 10:05 | Progress Note ---
Subjective Subjective/Events-last exam Afebrile, states he is feeling okay. Denies abdominal pain. Had one bowel movement last 24 hours. Objective Exam Last Set of Vital Signs Vital Signs Date Time Temp Pulse Resp B/P (MAP) Pulse Ox O2 Delivery O2 Flow Rate FiO2 01/04/20 08:00 36.8 79 18 132/82 (99) 97 Room Air 12/31/19 10:36 21 12/29/19 18:00 2.00 2.00 Capillary Refill : Less Than 3 Seconds I&O Intake and Output 01/04/20 00:00 Intake Total 2640 ml Output Total 2150 ml Balance 490 ml Intake Oral 1240 ml IV Total 1400 ml Output Urine Total 2150 ml # Bowel Movements 1 General: Alert, No Acute Distress Lungs: Clear to Auscultation, Normal Air Movement Heart: Regular Rate Abdomen: Other (Distended, non-tender, decreased bowel sounds) Extremities: Other (1+ pitting edema in legs) Psych/Mental Status: Other (alert, oriented to self and year only) Results/Procedures Lab Laboratory Tests 01/03/20 11:45: Glucometer 149H 01/03/20 14:00: Sodium Level 140, Potassium Level 2.5*L, Chloride Level 114H, Carbon Dioxide Level 17L, Anion Gap 9, Blood Urea Nitrogen 26H, Creatinine 2.44H, Estimat Glomerular Filtration Rate 26, BUN/Creatinine Ratio 11, Glucose Level 118H, Calcium Level 8.0L 01/03/20 15:50: Glucometer 132H 01/03/20 20:09: Glucometer 150H 01/03/20 23:00: Potassium Level 2.7L 01/04/20 05:10: Potassium Level 2.6L, White Blood Count 12.5H, Red Blood Count 3.38L, Hemoglobin 9.1L, Hematocrit 29L, Mean Corpuscular Volume 85, Mean Corpuscular Hemoglobin 27, Mean Corpuscular Hemoglobin Concent 32, Red Cell Distribution Width 17.3H, Platelet Count 386, Mean Platelet Volume 9.2, Neutrophils (%) (Auto) 78H, Lymphocytes (%) (Auto) 14, Monocytes (%) (Auto) 6, Eosinophils (%) (Auto) 1, Basophils (%) (Auto) 0, Neutrophils # (Auto) 9.7H, Lymphocytes # (Auto) 1.8, Monocytes # (Auto) 0.8, Eosinophils # (Auto) 0.2, Basophils # (Auto) 0.0, Sodium Level 141, Chloride Level 115H, Carbon Dioxide Level 16L, Anion Gap 10, Blood Urea Nitrogen 25H, Creatinine 2.44H, Estimat Glomerular Filtration Rate 26, BUN/Creatinine Ratio 10, Glucose Level 104, Calcium Level 8.2L, Magnesium Level 2.0 01/04/20 05:38: Glucometer 106 Microbiology 12/30/19 C. difficile GDH Antigen & Toxins - Final, Complete 12/28/19 MRSA Screen - Final, Complete MRSA not isolated 12/28/19 Urine Culture - Final, Complete Pseudomonas aeruginosa Pseudomonas aeruginosa#2 12/28/19 Blood Culture - Final, Complete No growth Radiology ABD x-ray 01/01: IMPRESSION: There is significant gaseous distention of bowel loops throughout the abdomen with scattered air-fluid levels. This is similar to technical maintenance specialist radiograph from CT performed 11/23/2019. Assessment/Plan Assessment/Plan (1) Sepsis Status: Resolved Assessment & Plan: Secondary to pseudomonas UTI, treated with course of cefepime, fluid resuscitation. Qualifiers: Qualified Codes: A41.52 - Sepsis due to Pseudomonas; R65.21 - Severe sepsis with septic shock; N17.9 - Acute kidney failure, unspecified (2) UTI (urinary tract infection) Status: Resolved Assessment & Plan: Pseudomonas with indwelling catheter, treated with course of cefepime. Qualifiers: Qualified Codes: N30.01 - Acute cystitis with hematuria (3) Acute kidney injury Status: Acute Assessment & Plan: Secondary to combination of septic shock and urinary obs truction. Obstruction relieved with armstrong cathter, sepsis essentially resolved at this point, renal function continuing to slowly improve. Continue LR at 75 mls/hr, hold ACEI and renal dose medications. (4) Ileus Status: Acute Assessment & Plan: Dr. Ashby consulted, appreciate recommendations. Uncertain etiology, C diff positive but not having diarrhea. Continue stool softeners and suppositories and supportive care, monitor closely given marked distension. Replace potassium. (5) C. difficile colitis Status: Acute Assessment & Plan: Secondary to extensive antibiotic use since Nov for UTI/sepsis. On oral vancomycin. (6) Hypokalemia Status: Acute Assessment & Plan: Severe, refractory, continue aggressive IV replacement. (7) HTN (hypertension) Status: Chronic (8) Urinary outflow obstruction Status: Resolved Assessment & Plan: Indwelling armstrong replaced in ER, s/p ureteral stenting at in admission just prior to this. (9) DVT prophylaxis Status: Acute Assessment & Plan: enoxaparin renally dosed. Clinical Quality Measures DVT/VTE Risk/Contraindication: Risk Factor Score Per Nursin RFS Level Per Nursing on Admit: 4+=Very High VALENTINA BOWIE MD Jan 04, 2020 10:05
--- NOTE | 2020-01-04 10:19 | Occupational Ther Daily Note ---
OT Current Status-Daily Note Subjective Pt seen in bed/ supine. Pt alert/ oriented to person, year, situation. Pt agrees to OT, denies pain until movement and states pain in back. Pt continues to have increased response time. Mental Status/Objective Patient Orientation: Person, Situation Attachments: Sotelo Catheter, IV, Oxygen ADL-Treatment Therapy Code Descriptions/Definitions Functional [place] Measure: 0=Not Assessed/NA 4=Minimal Assistance 1=Total Assistance 5=Supervision or Setup 2=Maximal Assistance 6=Modified [place] 3=Moderate Assistance 7=Complete IndependenceSCALE: Activities may be completed with or without assistive devices. 7-Xhlrnenroe-igntjgo completes the activity by him/herself with no assistance from a helper. 5-Set-up or Clean-up Assistance-helper sets up or cleans up; patient completes activity. [place] assists only prior to or following the activity. 4-Supervision or Touching Assistance-helper provides verbal cues and/or touching/steadying and/or contact guard assistance as patient completes activity. Assistance may be provided throughout the activity or intermittently. 3-Partial/Moderate Assistance-helper does LESS THAN HALF the effort. [place] l ifts, holds or supports trunk or limbs, but provides less than half the effort. 2-Substantial/Maximal Assistance-helper does MORE THAN HALF the effort. [place] lifts or holds trunk or limbs and provides more than half the effort. 7-Fksjtjpmw-kkxjqs does ALL the effort. Patient does none of the effort to complete the activity. Or, the assistance of 2 or more helpers is required for t he patient to complete the activity. If activity was not attempted, code reason: 7-Patient Refused. 9-Not Applicable-not attempted and the patient did not perform the activity before the current illness, exacerbation or injury. 10-Not Attempted due to Environmental Limitations-(lack of equipment, weather restraints, etc.). 88-Not Attempted due to Medical Conditions or Safety Concerns. Eating (QC): 5 (when handed cup, pt able to bring to mouth and sip with IND.) On/Off Footwear: 1 Other Treatment Pt seen in bed. Pt continues to have BLE pitting edema and distended abdomen. Pt denies pain. Pt completes UE theraband ex with cues for positioning, completes 5-10 bilaterally according to ability. Pt educated on diaphragmatic breathing techniques and SCDs are re-donned and plugged in for edema management. Pt able to return demonstrate diaphragmatic breathing only during ther ex; when no activity presented to pt, pt breathes only with accessory muscles. Pt requires max cues for this breathing technique. Pt repositioned for safety/ pressure and edema management with pillows under BLE's (heels exposed) and under R side for pressure relief. Pt denies needs, call light in reach, nursing present. Education OT Patient Education: Correct positioning, Energy conservation, Exercise program, Home exercise program, Purpose of tx/functional activities, Safety issues, Other Teaching Recipient: Patient Teaching Methods: Demonstration, Discussion Response to Teaching: Verbalize Understanding, Return Demonstration, Reinforcement Needed OT Fpc Goals Fpc Goals Time Frame: Jan 10, 2020 Eating (QC): 6 Oral Hygiene (QC): 5 Toileting Hygiene (QC): 2 Shower/Bathe Self (QC): 2 Upper Body Dressing (QC): 5 Lower Body Dressing (QC): 2 On/Off Footwear (QC): 2 Additional Goals: 1-Demonstrate ADL Tasks, 2-Verbalize Understanding, 3- ImproveStrength/Alondra 1=Demonstrate adherence to instructed precautions during ADL tasks. 2=Patient will verbalize/demonstrate understanding of assistive devices/modifications for ADL. 3=Patient will improve strength/tolerance for activity to enable patient to perform ADL's. OT Education/Plan Problem List/Assessment Assessment: Decreased Activ Tolerance, Decreased UE Strength, Dependent Transfers, Edema, Impaired Bed Mobility, Impaired Cognition, Impaired Funct Balance, Impaired I ADL's, Impaired Self-Care Skills Discharge Recommendations Plan/Recommendations: Continue POC Therapy Discharge Recommendati: 24 Hour Supervision Treatment Plan/Plan of Care Treatment,Training & Education: Yes Patient would benefit from OT for education, treatment and training to promote independence in ADL's, mobility, safety and/or upper extremity function for ADL's. Plan of Care: ADL Retraining, Functional Mobility, UE Funct Exercise/Act, W/C Management Training Treatment Duration: Jan 10, 2020 Frequency: 5 times per week Estimated Hrs Per Day: .25 hour per day Agreement: Yes Rehab Potential: Guarded Time/GCodes Start Time: 09:20 Stop Time: 09:47 Total Time Billed (hr/min): 27 Billed Treatment Time 1, EX (15), FA (12)= 27 KAYLIE SIMONS OTR Jan 04, 2020 10:19
--- NOTE | 2020-01-04 10:37 | NUR ---
CM/SS: Telephone call from Lawanda at [facility] [phone]. She reports that pt was functioning using the walker and able to toilet himself and did have Physical Therapy perviously. She request to speak to pt. This worker walks down to the room to allow pt to talk to Lawanda. Pt does recognize her voice and is able to identify other residents in the home that he lives with. He seems to be more alert in talking with her. He is encouraged to work with physical therapy and get stronger. Lawanda shares with pt she looks forward to him being able to return. Daughter's phone number (Christina) [phone]. Lawanda reports she communicates with her on a regular basis. This worker will follow up.
[2020-01-04] MEDS ORDERED: RT-ALBUTEROL SULF 2.5 MG/3 ML PRE-MIX VIAL INH PRN (14:00)
[2020-01-04 16:46] LABS: POTASSIUM 3.1 MMOL/L (3.6-5.0)
[2020-01-04 16:47] LABS: CALCIUM 8.5 MG/DL (8.5-10.1)
[2020-01-04 16:52] LABS: CREATININE SERUM 2.41 MG/DL (0.60-1.30)
[2020-01-04] MEDS: CYANOCOBALAMIN 1,000 MCG (VITAMIN B-12) TABLET PO SCH (17:45)
--- NOTE | 2020-01-04 18:15 | Progress Note ---
Subjective Date Seen by a Provider: Jan 04, 2020 Time Seen by a Provider: 12:00 Subjective/Events-last exam doing ok. no complaints. did have one BM. abd distention about the same. no abd pain. Objective Exam Vital Signs Date Time Temp Pulse Resp B/P (MAP) Pulse Ox O2 Delivery O2 Flow Rate FiO2 01/04/20 16:07 36.7 81 20 128/74 (92) 96 Room Air 01/04/20 12:00 36.2 82 22 133/67 (89) 96 Room Air 01/04/20 10:52 36.8 84 95 21 01/04/20 10:52 95 Room Air 01/04/20 09:00 Room Air 01/04/20 08:00 36.8 79 18 132/82 (99) 97 Room Air 01/04/20 04:14 36.5 75 16 142/87 (105) 96 Room Air 01/04/20 00:00 36.6 75 18 150/82 (104) 97 Room Air 01/03/20 21:00 Room Air 01/03/20 19:51 36.4 83 20 140/75 (96) 99 Room Air I & O 01/04/20 07:00 Intake Total 2190 ml Output Total 1850 ml Balance 340 ml Capillary Refill : Less Than 3 SecondsLess Than 3 Seconds General Appearance: No Apparent Distress HEENT: PERRL/EOMI Neck: Full Range of Motion Respiratory: Chest Non Tender, Rhonci, Wheezing Cardiovascular: Regular Rate, Rhythm Gastrointestinal: normal bowel sounds, non tender, soft, distended Extremity: Normal Capillary Refill Neurologic/Psychiatric: Alert, Oriented x3 Skin: Normal Color Lymphatic: No Adenopathy Results Lab Laboratory Tests 01/03/20 20:09: Glucometer 150H 01/03/20 23:00: Potassium Level 2.7L 01/04/20 05:10: Potassium Level 2.6L, White Blood Count 12.5H, Red Blood Count 3.38L, Hemoglobin 9.1L, Hematocrit 29L, Mean Corpuscular Volume 85, Mean Corpuscular Hemoglobin 27, Mean Corpuscular Hemoglobin Concent 32, Red Cell Distribution Width 17.3H, Platelet Count 386, Mean Platelet Volume 9.2, Neutrophils (%) (Auto) 78H, Lymphocytes (%) (Auto) 14, Monocytes (%) (Auto) 6, Eosinophils (%) (Auto) 1, Basophils (%) (Auto) 0, Neutrophils # (Auto) 9.7H, Lymphocytes # (Auto) 1.8, Monocytes # (Auto) 0.8, Eosinophils # (Auto) 0.2, Basophils # (Auto) 0.0, Sodium Level 141, Chloride Level 115H, Carbon Dioxide Level 16L, Anion Gap 10, Blood Urea Nitrogen 25H, Creatinine 2.44H, Estimat Glomerular Filtration Rate 26, BUN/Creatinine Ratio 10, Glucose Level 104, Calcium Level 8.2L, Magnesium Level 2.0 01/04/20 05:38: Glucometer 106 01/04/20 11:30: Glucometer 133H 01/04/20 16:00: Glucometer 112H 01/04/20 16:28: Sodium Level 140, Potassium Level 3.1L, Chloride Level 115H, Carbon Dioxide Level 17L, Anion Gap 8, Blood Urea Nitrogen 25H, Creatinine 2.41H, Estimat Glomerular Filtration Rate 27, BUN/Creatinine Ratio 10, Glucose Level 111H, Calcium Level 8.5 Microbiology 12/30/19 C. difficile GDH Antigen & Toxins - Final, Complete 12/28/19 MRSA Screen - Final, Complete MRSA not isolated 12/28/19 Urine Culture - Final, Complete Pseudomonas aeruginosa Pseudomonas aeruginosa#2 12/28/19 Blood Culture - Final, Complete No growth Assessment/Plan Assessment/Plan Assess & Plan/Chief Complaint ileus s/p UTI and septic shock. continue PO laxatives and MN supp as needed. Clinical Quality Measures DVT/VTE Risk/Contraindication: Risk Factor Score Per Nursin RFS Level Per Nursing on Admit: 4+=Very High CHERIE HOLCOMB MD Jan 04, 2020 18:15
[2020-01-05] MEDS: POTASSIUM CL 10MEQ/50ML IVPB 50 ML IV SCH ×12 (00:27→21:04)
[2020-01-05] MEDS: ENOXAPARIN 40 MG/0.4 ML (LOVENOX) SYR SC SCH ×2 (00:30→12:31)
[2020-01-05 05:11] LABS: BASOPHILS % (AUTO) 0 % (0-10); EOSINOPHILS # (AUTO) 0.2 10^3/uL (0.0-0.3); EOSINOPHILS % (AUTO) 2 % (0-10); HEMATOCRIT 29 % (40-54); HEMOGLOBIN 9.2 G/DL (13.3-17.7); LYMPHOCYTES # (AUTO) 1.8 X 10^3 (1.0-4.0); LYMPHOCYTES % (AUTO) 16 % (12-44); MEAN CORPUSCULAR HEMOGLOBIN 27 PG (25-34); MEAN CORPUSCULAR HGB CONC 31 G/DL (32-36); MEAN CORPUSCULAR VOLUME 86 FL (80-99); MEAN PLATELET VOLUME 9.2 FL (7.4-10.4); MONOCYTES # (AUTO) 0.7 X 10^3 (0.0-1.0); MONOCYTES % (AUTO) 6 % (0-12); NEUTROPHILS # (AUTO) 8.6 X 10^3 (1.8-7.8); NEUTROPHILS % (AUTO) 77 % (42-75); PLATELET COUNT 409 10^3/uL (130-400); WHITE BLOOD COUNT 11.3 10^3/uL (4.3-11.0)
[2020-01-05] MEDS: VANCOMYCIN 50 MG/ML ORAL SOLN 150 ML PO SCH ×4 (05:33→23:23)
[2020-01-05 05:39] LABS: POTASSIUM 3.1 MMOL/L (3.6-5.0)
[2020-01-05 05:40] LABS: CALCIUM 8.2 MG/DL (8.5-10.1)
[2020-01-05 05:44] LABS: CREATININE SERUM 2.35 MG/DL (0.60-1.30)
[2020-01-05] MEDS: inSUlin ASPART (NovoLOG) 1 UNIT/0.01 ML (CHARGE PER UNIT) SC SCH ×4 (05:45→20:09)
--- NOTE | 2020-01-05 06:04 | Progress Note ---
Subjective Date Seen by a Provider: Jan 05, 2020 Time Seen by a Provider: 06:00 Subjective/Events-last exam doing ok. tolerating diet with no nausea/vomiting. abd distended however patient states baseline. will recommend continued PO and GA stimulants for BM's. Objective Exam Vital Signs Date Time Temp Pulse Resp B/P (MAP) Pulse Ox O2 Delivery O2 Flow Rate FiO2 01/04/20 23:05 36.6 80 16 149/75 (99) 97 Room Air 01/04/20 21:00 Room Air 01/04/20 19:38 36.8 84 22 134/68 (90) 96 Room Air 01/04/20 19:23 94 Room Air 01/04/20 16:07 36.7 81 20 128/74 (92) 96 Room Air 01/04/20 12:00 36.2 82 22 133/67 (89) 96 Room Air 01/04/20 10:52 36.8 84 95 21 01/04/20 10:52 95 Room Air 01/04/20 09:00 Room Air 01/04/20 08:00 36.8 79 18 132/82 (99) 97 Room Air I & O 01/05/20 07:00 Intake Total 4650 ml Output Total 1225 ml Balance 3425 ml Capillary Refill : Less Than 3 SecondsLess Than 3 Seconds General Appearance: No Apparent Distress HEENT: PERRL/EOMI Neck: Full Range of Motion Respiratory: Chest Non Tender, Decreased Breath Sounds, Rhonci Cardiovascular: Regular Rate, Rhythm Gastrointestinal: normal bowel sounds, non tender, soft, distended Extremity: Normal Capillary Refill Neurologic/Psychiatric: Alert, Oriented x3 Skin: Normal Color Lymphatic: No Adenopathy Results Lab Laboratory Tests 01/04/20 11:30: Glucometer 133H 01/04/20 16:00: Glucometer 112H 01/04/20 16:28: Sodium Level 140, Potassium Level 3.1L, Chloride Level 115H, Carbon Dioxide Level 17L, Anion Gap 8, Blood Urea Nitrogen 25H, Creatinine 2.41H, Estimat Glomerular Filtration Rate 27, BUN/Creatinine Ratio 10, Glucose Level 111H, Calcium Level 8.5 01/04/20 20:26: Glucometer 110 01/05/20 04:55: White Blood Count 11.3H, Red Blood Count 3.42L, Hemoglobin 9.2L, Hematocrit 29L, Mean Corpuscular Volume 86, Mean Corpuscular Hemoglobin 27, Mean Corpuscular Hemoglobin Concent 31L, Red Cell Distribution Width 17.9H, Platelet Count 409H, Mean Platelet Volume 9.2, Neutrophils (%) (Auto) 77H, Lymphocytes (%) (Auto) 16, Monocytes (%) (Auto) 6, Eosinophils (%) (Auto) 2, Basophils (%) (Auto) 0, Neutrophils # (Auto) 8.6H, Lymphocytes # (Auto) 1.8, Monocytes # (Auto) 0.7, Eosinophils # (Auto) 0.2, Basophils # (Auto) 0.0, Sodium Level 140, Potassium Level 3.1L, Chloride Level 115H, Carbon Dioxide Level 16L, Anion Gap 9, Blood Urea Nitrogen 23H, Creatinine 2.35H, Estimat Glomerular Filtration Rate 27, BUN/Creatinine Ratio 10, Glucose Level 97, Calcium Level 8.2L Microbiology 12/30/19 C. difficile GDH Antigen & Toxins - Final, Complete 12/28/19 MRSA Screen - Final, Complete MRSA not isolated 12/28/19 Urine Culture - Final, Complete Pseudomonas aeruginosa Pseudomonas aeruginosa#2 12/28/19 Blood Culture - Final, Complete No growth Assessment/Plan Assessment/Plan Assess & Plan/Chief Complaint ileus s/p UTI and septic shock. continue PO laxatives and GA supp as needed. if worsens and if patient amenable, will next do colonoscopic decompression. Clinical Quality Measures DVT/VTE Risk/Contraindication: Risk Factor Score Per Nursin RFS Level Per Nursing on Admit: 4+=Very High CHERIE HOLCOMB MD Jan 05, 2020 06:04
[2020-01-05] MEDS: GABAPENTIN 300 MG (NEURONTIN) CAP PO SCH ×3 (09:10→17:46)
[2020-01-05] MEDS: SIMETHICONE 80 MG (MYLICON) CHEW PO SCH ×4 (09:10→21:04)
[2020-01-05] MEDS: FLUoxetine HCL 10 MG (PROzac) CAPSULE/TABLET PO SCH (09:10)
[2020-01-05] MEDS: ASPIRIN 81 MG CHEW (CHILDREN'S ASA) PO SCH (09:10)
[2020-01-05] MEDS: hydrALAZINE (APRESOLINE) 25 MG TAB PO SCH ×3 (09:11→21:04)
[2020-01-05] MEDS: TAMSULOSIN 0.4 MG (FLOMAX) CAP PO SCH (09:11)
[2020-01-05] MEDS: PANTOPRAZOLE 40 MG (PROTONIX) VIAL IV SCH (09:11)
[2020-01-05] MEDS: LORATADINE (CLARITIN) 10 MG TAB PO SCH (09:11)
[2020-01-05] MEDS: amLODIPine 5 MG (NORVASC) TAB PO SCH (09:11)
[2020-01-05] MEDS: KCL 20 MEQ TAB (K-DUR) PO SCH ×3 (09:11→17:46)
[2020-01-05] MEDS: FINASTERIDE (PROSCAR) 5 MG TAB PO SCH (09:11)
[2020-01-05] MEDS: guaiFENesin (MUCINEX) 600 MG TAB PO SCH ×2 (09:12→21:03)
[2020-01-05] MEDS: LUBIPROSTONE 24 MCG CAP (AMITIZA) NON-FORMULARY PO SCH ×2 (09:25→17:46)
[2020-01-05] MEDS: polyethylene glycoL POWDER 17 GM (MIRALAX) PACK PO SCH ×2 (09:26→19:43)
[2020-01-05] MEDS: BISACODYL 10 MG SUPP (DULCOLAX) PR SCH ×2 (09:26→19:44)
[2020-01-05] MEDS: SENNA W/DOCUSATE (SENOKOT S) TABLET PO SCH ×2 (09:26→19:43)
--- NOTE | 2020-01-05 10:28 | Physical Therapy Daily Note ---
PT Daily Note-Current Subjective Patient in bed pre tx, agrees to PT, has unrated pain in belly. Appearance Patient in bed post tx, has nurse call, phone, tray, all needs met. Patient is on bedpan, has nurse call to call when done, nurse notified. Mental Status Patient Orientation: Person, Eyes Open, [place] Transfers SCALE: Activities may be completed with or without assistive devices. 7-Nkhztmpaoe-ncvijbp completes the activity by him/herself with no assistance from a helper. 5-Set-up or Clean-up Assistance-helper sets up or cleans up; patient completes activity. [place] assists only prior to or following the activity. 4-Supervision or Touching Assistance-helper provides verbal cues and/or touching/steadying and/or contact guard assistance as patient completes activity. Assistance may be provided throughout the activity or intermittently. 3-Partial/Moderate Assistance-helper does LESS THAN HALF the effort. [place] lifts, holds or supports trunk or limbs, but provides less than half the effort. 2-Substantial/Maximal Assistance-helper does MORE THAN HALF the effort. [place] lifts or holds trunk or limbs and provides more than half the effort. 0-Yhvlyjsuh-uiaxyo does ALL the effort. Patient does none of the effort to complete the activity. Or, the assistance of 2 or more helpers is required for the patient to complete the activity. If activity was not attempted, code reason: 7-Patient Refused. 9-Not Applicable-not attempted and the patient did not perform the activity before the current illness, exacerbation or injury. 10-Not Attempted due to Environmental Limitations-(lack of equipment, weather restraints, etc.). 88-Not Attempted due to Medical Conditions or Safety Concerns. Roll Left & Right (QC): 1 Sit to Lying (QC): 1 Lying to Sitting/Side of Bed(Q: 1 Dependent, assist of 4 for supine <-> sit, patient sat on the edge of the bed for about 10 min, performed LE exercises and cleaned his face. Exercises Seated Therapy Exercises: Ankle pumps, Long arc quads Seated Reps: 15 Treatments bed mobility, LE exercise Assessment Current Status: Poor Progress Patient has significant swelling in BLE, trouble breathing when sitting PT Apparel Manager Goals Apparel Manager Goals PT Skilled Nursing Goals Time Frame: Jan 19, 2020 Roll Left & Right (QC): 2 Sit to Lying (QC): 2 Lying-Sitting on Side/Bed(QC): 2 Sit to Stand (QC): 2 Chair/Pbx-yl-Twxuz Xfer(QC): 2 Does the Patient Walk: No and Walking Goal IS indicated Walk 10 feet (QC): 2 PT Plan Problem List Problem List: Activity Tolerance, Functional Strength, Safety, Balance, Gait, Transfer, Bed Mobility, ROM Treatment/Plan Treatment Plan: Continue Plan of Care Treatment Plan: Bed Mobility, Education, Functional Activity Alondra, Functional Strength, Gait, Safety, Therapeutic Exercise, Transfers Treatment Duration: Jan 19, 2020 Frequency: 6 times per week Estimated Hrs Per Day: .25 hour per day Patient and/or Family Agrees t: Yes Safety Risks/Education Patient Education: Correct Positioning, Safety Issues Teaching Recipient: Patient Teaching Methods: Demonstration, Discussion Response to Teaching: Reinforcement Needed Time/GCodes Time In: 1001 Time Out: 1018 Total Billed Treatment Time: 17 Total Billed Treatment 1 visit FA Mega' AUTUMN AVENDANO PT Jan 05, 2020 10:28
--- NOTE | 2020-01-05 10:30 | Occupational Ther Daily Note ---
OT Current Status-Daily Note Subjective Pt alert laying in bed when OT entered. No c/o pain reported when treatment first started. Once pt was EOB, pt reported pain in abdomen. Mental Status/Objective Patient Orientation: Person, Place, Time, Situation Attachments: Sotelo Catheter, IV ADL-Treatment After set up, pt cleansed face using bath wipe. Skilled instruction of why he should do the task. Therapy Code Descriptions/Definitions Functional [place] Measure: 0=Not Assessed/NA 4=Minimal Assistance 1=Total Assistance 5=Supervision or Setup 2=Maximal Assistance 6=Modified [place] 3=Moderate Assistance 7=Complete IndependenceSCALE: Activities may be completed with or without assistive devices. 6-Tdxsrwptfd-rphdcmw completes the activity by him/herself with no assistance from a helper. 5-Set-up or Clean-up Assistance-helper sets up or cleans up; patient completes activity. [place] assists only prior to or following the activity. 4-Supervision or Touching Assistance-helper provides verbal cues and/or touching/steadying and/or contact guard assistance as patient completes activity. Assistance may be provided throughout the activity or intermittently. 3-Partial/Moderate Assistance-helper does LESS THAN HALF the effort. [place] lifts, holds or supports trunk or limbs, but provides less than half the effort. 2-Substantial/Maximal Assistance-helper does MORE THAN HALF the effort. [place] lifts or holds trunk or limbs and provides more than half the effort. 2-Lxjsltpss-zrpaxk does ALL the effort. Patient does none of the effort to complete the activity. Or, the assistance of 2 or more helpers is required for the patient to complete the activity. If activity was not attempted, code reason: 7-Patient Refused. 9-Not Applicable-not attempted and the patient did not perform the activity before the current illness, exacerbation or injury. 10-Not Attempted due to Environmental Limitations-(lack of equipment, weather restraints, etc.). 88-Not Attempted due to Medical Conditions or Safety Concerns. Other Treatment Co-treat with PT ([id number]), skills of 2 clinicians required for skilled instruction and physical assistance required to complete bed mobility and sitting EOB. PT focusing LE exercises and bed mobility, while OT focusing on ADL completion and functional bed mobility. Pt completed 2 sets x15 reps of 2 B LE exercises. Skilled instruction were required and extra encouragement provided for pt to finish last set. Pt required verbal cues to wash face sitting EOB and CGA to maintain upright posture. Pt educated on diaphragmatic breathing techniques and stated "you will get what you get." Assist x3 for supine <--> EOB, EOB with min A to CGA. Fluctuates due to decreased activity tolerance. Pt stated he needs to use the restroom, bed damon was placed under pt, assist x3 to roll toward L side and place bedpan. After therapy, pt laying in bed. Call light/phone in reach. Nursing notified of position. All needs met. Education OT Patient Education: Exercise program Teaching Recipient: Patient Teaching Methods: Demonstration Response to Teaching: Verbalize Understanding, Return Demonstration, Reinforcement Needed OT Websphere Administrator Goals [facility] Goals Time Frame: Jan 10, 2020 Eating (QC): 6 Oral Hygiene (QC): 5 Toileting Hygiene (QC): 2 Shower/Bathe Self (QC): 2 Upper Body Dressing (QC): 5 Lower Body Dressing (QC): 2 On/Off Footwear (QC): 2 Additional Goals: 1-Demonstrate ADL Tasks, 2-Verbalize Understanding, 3- ImproveStrength/Alondra 1=Demonstrate adherence to instructed precautions during ADL tasks. 2=Patient will verbalize/demonstrate understanding of assistive devices/modifications for ADL. 3=Patient will improve strength/tolerance for activity to enable patient to perform ADL's. OT Education/Plan Problem List/Assessment Assessment: Decreased Activ Tolerance, Edema, Impaired Bed Mobility, Impaired Coordination, Impaired Funct Balance, Impaired I ADL's, Impaired Self-Care Skills Discharge Recommendations Plan/Recommendations: Continue POC Treatment Plan/Plan of Care Patient would benefit from OT for education, treatment and training to promote independence in ADL's, mobility, safety and/or upper extremity function for ADL's. Plan of Care: ADL Retraining, Functional Mobility, UE Funct Exercise/Act, W/C Management Training Treatment Duration: Jan 10, 2020 Frequency: 5 times per week Estimated Hrs Per Day: .25 hour per day Agreement: Yes Rehab Potential: Guarded Time/GCodes Start Time: 10:01 Stop Time: 10:18 Total Time Billed (hr/min): 17 Billed Treatment Time 1 visit-1 EX Co-treat:[id number] (17 mins) YANELIS GOODMAN Jan 05, 2020 10:30
[2020-01-05] MEDS: LACTATED RINGERS 1,000 ML IV SCH ×2 (11:55→23:27)
--- NOTE | 2020-01-05 12:10 | Progress Note ---
Subjective Subjective/Events-last exam Afebrile, states he is feeling okay. Continues to be distended, but denies pain. He states he does not recall if he has had bowel movements, but documentation notes diarrhea/loose stools. Objective Exam Last Set of Vital Signs Vital Signs Date Time Temp Pulse Resp B/P (MAP) Pulse Ox O2 Delivery O2 Flow Rate FiO2 01/04/20 23:05 36.6 80 16 149/75 (99) 97 Room Air 01/04/20 10:52 21 Capillary Refill : Less Than 3 SecondsLess Than 3 Seconds I&O Intake and Output 01/05/20 00:00 Intake Total 4550 ml Output Total 1625 ml Balance 2925 ml Intake Oral 2250 ml IV Total 2300 ml Output Urine Total 1625 ml # Bowel Movements 3 General: Alert, No Acute Distress Lungs: Clear to Auscultation, Normal Air Movement Heart: Regular Rate, No Murmurs Abdomen: Normal Bowel Sounds, Other (distended, nontender) Extremities: Other Neuro: Normal Speech Psych/Mental Status: Mood NL Results/Procedures Lab Laboratory Tests 01/04/20 16:00: Glucometer 112H 01/04/20 16:28: Sodium Level 140, Potassium Level 3.1L, Chloride Level 115H, Carbon Dioxide Level 17L, Anion Gap 8, Blood Urea Nitrogen 25H, Creatinine 2.41H, Estimat Glomerular Filtration Rate 27, BUN/Creatinine Ratio 10, Glucose Level 111H, Calcium Level 8.5 01/04/20 20:26: Glucometer 110 01/05/20 04:55: Sodium Level 140, Potassium Level 3.1L, Chloride Level 115H, Carbon Dioxide Level 16L, Anion Gap 9, Blood Urea Nitrogen 23H, Creatinine 2.35H, Estimat Glomerular Filtration Rate 27, BUN/Creatinine Ratio 10, Glucose Level 97, Calcium Level 8.2L, White Blood Count 11.3H, Red Blood Count 3.42L, Hemoglobin 9.2L, Hematocrit 29L, Mean Corpuscular Volume 86, Mean Corpuscular Hemoglobin 27, Mean Corpuscular Hemoglobin Concent 31L, Red Cell Distribution Width 17.9H, Platelet Count 409H, Mean Platelet Volume 9.2, Neutrophils (%) (Auto) 77H, Lymphocytes (%) (Auto) 16, Monocytes (%) (Auto) 6, Eosinophils (%) (Auto) 2, Basophils (%) (Auto) 0, Neutrophils # (Auto) 8.6H, Lymphocytes # (Auto) 1.8, Monocytes # (Auto) 0.7, Eosinophils # (Auto) 0.2, Basophils # (Auto) 0.0 Microbiology 12/30/19 C. difficile GDH Antigen & Toxins - Final, Complete 12/28/19 MRSA Screen - Final, Complete MRSA not isolated 12/28/19 Urine Culture - Final, Complete Pseudomonas aeruginosa Pseudomonas aeruginosa#2 12/28/19 Blood Culture - Final, Complete No growth Radiology ABD x-ray 01/01: IMPRESSION: There is significant gaseous distention of bowel loops throughout the abdomen with scattered air-fluid levels. 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 Assessment/Plan Assessment/Plan (1) Sepsis Status: Resolved Assessment & Plan: Secondary to pseudomonas UTI, treated with course of cefepime, fluid resuscitation. Qualifiers: Qualified Codes: A41.52 - Sepsis due to Pseudomonas; R65.21 - Severe sepsis with septic shock; N17.9 - Acute kidney failure, unspecified (2) UTI (urinary tract infection) Status: Resolved Assessment & Plan: Pseudomonas with indwelling catheter, treated with course of cefepime. Qualifiers: Qualified Codes: N30.01 - Acute cystitis with hematuria (3) Acute kidney injury Status: Acute Assessment & Plan: Secondary to combination of septic shock and urinary obstru ction. Obstruction relieved with armstrong cathter, sepsis essentially resolved at this point, renal function continuing to slowly improve. Continue LR at 75 mls/hr, hold ACEI and renal dose medications. (4) Ileus Status: Acute Assessment & Plan: Dr. Ashby consulted, appreciate recommendations. Uncertain etiology, C diff positive but not having diarrhea. Continue stool softeners and suppositories and supportive care, monitor closely given marked distension. Replace potassium. (5) C. difficile colitis Status: Acute Assessment & Plan: Secondary to extensive antibiotic use since Nov for UTI/sepsis. On oral vancomycin. (6) Hypokalemia Status: Acute Assessment & Plan: Severe, refractory, continue aggressive IV replacement. (7) HTN (hypertension) Status: Chronic Qualifiers: Qualified Codes: I10 - Essential (primary) hypertension (8) Urinary outflow obstruction Status: Resolved Assessment & Plan: Indwelling armstrong replaced in ER, s/p ureteral stenting at [facility] in admission just prior to this. (9) DVT prophylaxis Status: Acute Assessment & Plan: enoxaparin renally dosed. Clinical Quality Measures DVT/VTE Risk/Contraindication: Risk Factor Score Per Nursin RFS Level Per Nursing on Admit: 4+=Very High VALENTINA BOWIE MD Jan 05, 2020 12:10
--- NOTE | 2020-01-05 15:03 | NUR ---
Called and spoke with the patient's daughter Christina and she indicated that the patient's insurance is [employer] Le[employer] as the primary insurance. If this is the primary insurance then swing bed will likely not be a covered service. I have contacted registration for them to investigate if the insurance is listed incorrectly and needs to be updated.
[2020-01-05 16:01] LABS: POTASSIUM 3.6 MMOL/L (3.6-5.0)
[2020-01-05 16:03] LABS: CALCIUM 8.2 MG/DL (8.5-10.1)
[2020-01-05 16:07] LABS: CREATININE SERUM 2.3 MG/DL (0.60-1.30)
[2020-01-05] MEDS ORDERED: POTASSIUM CL 10MEQ/50ML IVPB 200 ML IV ONE (17:30)
[2020-01-05] MEDS: CYANOCOBALAMIN 1,000 MCG (VITAMIN B-12) TABLET PO SCH (17:46)
[2020-01-05] MEDS: ACETAMINOPHEN 325 MG TABLET PO PRN (18:06)
[2020-01-05] MEDS: HYOSCYAMINE 0.125 MG (LEVSIN) TAB SL PRN (18:06)
[2020-01-05 23:56] VITALS: BP 132/81
[2020-01-06] MEDS: ENOXAPARIN 40 MG/0.4 ML (LOVENOX) SYR SC SCH ×2 (00:35→12:43)
[2020-01-06] MEDS: VANCOMYCIN 50 MG/ML ORAL SOLN 150 ML PO SCH ×4 (04:39→22:29)
[2020-01-06 05:14] LABS: HEMOGLOBIN 9.4 G/DL (13.3-17.7); MEAN PLATELET VOLUME 9.1 FL (7.4-10.4); WHITE BLOOD COUNT 10.6 10^3/uL (4.3-11.0)
[2020-01-06 05:27] LABS: CALCIUM 8.3 MG/DL (8.5-10.1); CREATININE SERUM 2.31 MG/DL (0.60-1.30); POTASSIUM 3.5 MMOL/L (3.6-5.0)
[2020-01-06] MEDS: inSUlin ASPART (NovoLOG) 1 UNIT/0.01 ML (CHARGE PER UNIT) SC SCH ×4 (06:02→20:24)
[2020-01-06] MEDS: SENNA W/DOCUSATE (SENOKOT S) TABLET PO SCH (08:50)
[2020-01-06] MEDS: GABAPENTIN 300 MG (NEURONTIN) CAP PO SCH ×3 (08:50→17:10)
[2020-01-06] MEDS: FLUoxetine HCL 10 MG (PROzac) CAPSULE/TABLET PO SCH (08:50)
[2020-01-06] MEDS: PANTOPRAZOLE 40 MG (PROTONIX) VIAL IV SCH (08:50)
[2020-01-06] MEDS: KCL 20 MEQ TAB (K-DUR) PO SCH ×3 (08:50→17:10)
[2020-01-06] MEDS: TAMSULOSIN 0.4 MG (FLOMAX) CAP PO SCH (08:51)
[2020-01-06] MEDS: guaiFENesin (MUCINEX) 600 MG TAB PO SCH ×2 (08:51→20:32)
[2020-01-06] MEDS: polyethylene glycoL POWDER 17 GM (MIRALAX) PACK PO SCH (08:51)
[2020-01-06] MEDS: ASPIRIN 81 MG CHEW (CHILDREN'S ASA) PO SCH (08:51)
[2020-01-06] MEDS: hydrALAZINE (APRESOLINE) 25 MG TAB PO SCH ×3 (08:51→20:32)
[2020-01-06] MEDS: amLODIPine 5 MG (NORVASC) TAB PO SCH (08:51)
[2020-01-06] MEDS: SIMETHICONE 80 MG (MYLICON) CHEW PO SCH ×4 (08:51→20:32)
[2020-01-06] MEDS: FINASTERIDE (PROSCAR) 5 MG TAB PO SCH (08:51)
[2020-01-06] MEDS: LORATADINE (CLARITIN) 10 MG TAB PO SCH (08:51)
[2020-01-06] MEDS: BISACODYL 10 MG SUPP (DULCOLAX) PR SCH (08:55)
[2020-01-06] MEDS: LUBIPROSTONE 24 MCG CAP (AMITIZA) NON-FORMULARY PO SCH (08:55)
[2020-01-06] MEDS: POTASSIUM CL 10MEQ/50ML IVPB 50 ML IV SCH ×10 (09:54→20:21)
--- NOTE | 2020-01-06 10:41 | Physical Therapy Daily Note ---
PT Daily Note-Current Subjective Patient is in bed and agrees to PT. Mental Status Patient Orientation: Person, Time Attachments: Sotelo Catheter, IV Transfers SCALE: Activities may be completed with or without assistive devices. 7-Cglziqmzix-ktnfexm completes the activity by him/herself with no assistance from a helper. 5-Set-up or Clean-up Assistance-helper sets up or cleans up; patient completes activity. [place] assists only prior to or following the activity. 4-Supervision or Touching Assistance-helper provides verbal cues and/or touching/steadying and/or contact guard assistance as patient completes activity. Assistance may be provided throughout the activity or intermittently. 3-Partial/Moderate Assistance-helper does LESS THAN HALF the effort. [place] lifts, holds or supports trunk or limbs, but provides less than half the effort. 2-Substantial/Maximal Assistance-helper does MORE THAN HALF the effort. [place] lifts or holds trunk or limbs and provides more than half the effort. 7-Jkrhrduec-npgoxc does ALL the effort. Patient does none of the effort to complete the activity. Or, the assistance of 2 or more helpers is required for the patient to complete the activity. If activity was not attempted, code reason: 7-Patient Refused. 9-Not Applicable-not attempted and the patient did not perform the activity before the current illness, exacerbation or injury. 10-Not Attempted due to Environmental Limitations-(lack of equipment, weather restraints, etc.). 88-Not Attempted due to Medical Conditions or Safety Concerns. Roll Left & Right (QC): 1 (x 4) Sit to Lying (QC): 1 (x 4) Lying to Sitting/Side of Bed(Q: 1 (x 4) dependent assist with all mobility due to weakness and total body edema Treatments Patient extremely incontinent BM during treatment session requiring dependent assist x 4 to cleanse, change, roll, etc. Assessment Current Status: Poor Progress Patient sat EOB x 10 min prior to incontinence. Patient continues to require dependent assist x 3-5 due to immobility and size. PT Long-Term Goals Long-Term Goals PT Long-Term Goals Time Frame: Jan 19, 2020 Roll Left & Right (QC): 2 Sit to Lying (QC): 2 Lying-Sitting on Side/Bed(QC): 2 Sit to Stand (QC): 2 Chair/Ftn-bb-Umulb Xfer(QC): 2 Does the Patient Walk: No and Walking Goal IS indicated Walk 10 feet (QC): 2 PT Plan Treatment/Plan Treatment Plan: Continue Plan of Care Treatment Plan: Bed Mobility, Education, Functional Activity Alondra, Functional Strength, Gait, Safety, Therapeutic Exercise, Transfers Treatment Duration: Jan 19, 2020 Frequency: 6 times per week Estimated Hrs Per Day: .25 hour per day Patient and/or Family Agrees t: Yes Time/GCodes Time In: 911 Time Out: 1000 Total Billed Treatment Time: 49 Total Billed Treatment 1 visit FA x 3 49 min ABDULLAHI TAPIA PT Jan 06, 2020 10:41
--- NOTE | 2020-01-06 12:28 | Progress Note ---
Subjective Subjective/Events-last exam Began having markedly loose stools this morning, to the point of needing flexseal. He states his belly is hurting some today. Afebrile. Objective Exam Last Set of Vital Signs Vital Signs Date Time Temp Pulse Resp B/P (MAP) Pulse Ox O2 Delivery O2 Flow Rate FiO2 01/05/20 23:56 36.7 80 18 132/81 (98) 98 Room Air 01/04/20 10:52 21 Capillary Refill : Less Than 3 SecondsLess Than 3 Seconds I&O Intake and Output 01/06/20 00:00 Intake Total 4550 ml Output Total 1700 ml Balance 2850 ml Intake Oral 1950 ml IV Total 2600 ml Output Urine Total 1700 ml # Bowel Movements 5 General: Alert, No Acute Distress Abdomen: Other (markedly distended, but somewhat softer than yesterday, NABS) Extremities: Other (1+ pitting edema) Psych/Mental Status: Mood NL Results/Procedures Lab Laboratory Tests 01/05/20 15:45: Sodium Level 139, Potassium Level 3.6, Chloride Level 115H, Carbon Dioxide Level 15L, Anion Gap 9, Blood Urea Nitrogen 22H, Creatinine 2.30H, Estimat Glomerular Filtration Rate 28, BUN/Creatinine Ratio 10, Glucose Level 101, Calcium Level 8.2L 01/05/20 16:31: Glucometer 95 01/05/20 19:52: Glucometer 129H 01/06/20 04:00: Sodium Level 140, Potassium Level 3.5L, Chloride Level 116H, Carbon Dioxide Level 15L, Anion Gap 9, Blood Urea Nitrogen 22H, Creatinine 2.31H, Estimat Glomerular Filtration Rate 28, BUN/Creatinine Ratio 10, Glucose Level 96, Calcium Level 8.3L, White Blood Count 10.6, Red Blood Count 3.49L, Hemoglobin 9.4L, Hematocrit 30L, Mean Corpuscular Volume 87, Mean Corpuscular Hemoglobin 27, Mean Corpuscular Hemoglobin Concent 31L, Red Cell Distribution Width 17.9H, Platelet Count 424H, Mean Platelet Volume 9.1 01/06/20 12:14: Microbiology 12/30/19 C. difficile GDH Antigen & Toxins - Final, Complete 12/28/19 MRSA Screen - Final, Complete MRSA not isolated 12/28/19 Urine Culture - Final, Complete Pseudomonas aeruginosa Pseudomonas aeruginosa#2 12/28/19 Blood Culture - Final, Complete No growth Radiology ABD x-ray 01/01: IMPRESSION: There is significant gaseous distention of bowel loops throughout the abdomen with scattered air-fluid levels. 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 Assessment/Plan Assessment/Plan (1) Sepsis Status: Resolved Assessment & Plan: Secondary to pseudomonas UTI, treated with course of cefepime, fluid resuscitation. Qualifiers: Qualified Codes: A41.52 - Sepsis due to Pseudomonas; R65.21 - Severe sepsis with septic shock; N17.9 - Acute kidney failure, unspecified (2) UTI (urinary tract infection) Status: Resolved Assessment & Plan: Pseudomonas with indwelling catheter, treated with course of cefepime. Qualifiers: Qualified Codes: N30.01 - Acute cystitis with hematuria (3) Acute kidney injury Status: Acute Assessment & Plan: Secondary to combination of septic shock and urinary obst ruction. Obstruction relieved with armstrong cathter, sepsis essentially resolved at this point, renal function continuing to slowly improve. Continue LR at 75 mls/hr, hold ACEI and renal dose medications. (4) Ileus Status: Resolved Assessment & Plan: Dr. Ashby consulted, appreciate recommendations. Uncertain etiology, C diff positive but not having diarrhea. Continue stool softeners and suppositories and supportive care, monitor closely given marked distension. Replace potassium. 01/05 having multiple loose stools, hold softeners and suppositories (5) C. difficile colitis Status: Acute Assessment & Plan: Secondary to extensive antibiotic use since Nov for UTI/sepsis. On oral vancomycin. (6) Hypokalemia Status: Acute Assessment & Plan: Severe, refractory, continue aggressive IV replacement. (7) HTN (hypertension) Status: Chronic Qualifiers: Qualified Codes: I10 - Essential (primary) hypertension (8) Urinary outflow obstruction Status: Resolved Assessment & Plan: Indwelling armstrong replaced in ER, s/p ureteral stenting at in admission just prior to this. (9) DVT prophylaxis Status: Acute Assessment & Plan: enoxaparin renally dosed. Clinical Quality Measures DVT/VTE Risk/Contraindication: Risk Factor Score Per Nursin RFS Level Per Nursing on Admit: 4+=Very High VALENTINA BOWIE MD Jan 06, 2020 12:28
[2020-01-06] MEDS: HYOSCYAMINE 0.125 MG (LEVSIN) TAB SL PRN (12:43)
[2020-01-06] MEDS: ACETAMINOPHEN 325 MG TABLET PO PRN (12:44)
--- NOTE | 2020-01-06 14:20 | NUR ---
CM/SS: Telephone Call from daughter Christina Belle - [phone] - She wants to ensure that pt does not end up going to a half-way from here. Discuss swing bed and plan for pt once he is discharged. Daughter would like for pt to to return to [facility]. She reports that pt is scared and does not want to return to a facility. He has been at [facility] in the past and it was not a good experience. Daughter is asked to encourage pt to work with physical therapy and staff so that he can get stronger to be able to return to the assisted living. This worker will follow up.
[2020-01-06 14:39] LABS: CALCIUM 8.1 MG/DL (8.5-10.1); CREATININE SERUM 2.24 MG/DL (0.60-1.30); POTASSIUM 3.7 MMOL/L (3.6-5.0)
--- NOTE | 2020-01-06 15:09 | Occupational Ther Daily Note ---
OT Current Status-Daily Note Subjective Pt alert, lying in bed. Pt agrees to therapy. Pt stated that he needed to use the bathroom. Mental Status/Objective Patient Orientation: Person, Place, Time, Situation Attachments: Sotelo Catheter, IV ADL-Treatment Pt completed a few B UE exercises prior to stating that he needed to use the bathroom. Max A x2 to roll and place bed damon. Gave pt call light and reported to [facility] pt's position. All needs met in room. Therapy Code Descriptions/Definitions Functional [place] Measure: 0=Not Assessed/NA 4=Minimal Assistance 1=Total Assistance 5=Supervision or Setup 2=Maximal Assistance 6=Modified [place] 3=Moderate Assistance 7=Complete IndependenceSCALE: Activities may be completed with or without assistive devices. 7-Khbzydcfov-mnpfbbs completes the activity by him/herself with no assistance from a helper. 5-Set-up or Clean-up Assistance-helper sets up or cleans up; patient completes activity. [place] assists only prior to or following the activity. 4-Supervision or Touching Assistance-helper provides verbal cues and/or touching/steadying and/or contact guard assistance as patient completes activity. Assistance may be provided throughout the activity or intermittently. 3-Partial/Moderate Assistance-helper does LESS THAN HALF the effort. [place] li fts, holds or supports trunk or limbs, but provides less than half the effort. 2-Substantial/Maximal Assistance-helper does MORE THAN HALF the effort. [place] lifts or holds trunk or limbs and provides more than half the effort. 9-[place]-lwonbu does ALL the effort. Patient does none of the effort to complete the activity. Or, the assistance of 2 or more helpers is required for the patient to complete the activity. If activity was not attempted, code reason: 7-Patient Refused. 9-Not Applicable-not attempted and the patient did not perform the activity before the current illness, exacerbation or injury. 10-Not Attempted due to Environmental Limitations-(lack of equipment, weather restraints, etc.). 88-Not Attempted due to Medical Conditions or Safety Concerns. OT Residential Goals Building Construction Engineer Goals Time Frame: Jan 10, 2020 Eating (QC): 6 Oral Hygiene (QC): 5 Toileting Hygiene (QC): 2 Shower/Bathe Self (QC): 2 Upper Body Dressing (QC): 5 Lower Body Dressing (QC): 2 On/Off Footwear (QC): 2 Additional Goals: 1-Demonstrate ADL Tasks, 2-Verbalize Understanding, 3- ImproveStrength/Alondra 1=Demonstrate adherence to instructed precautions during ADL tasks. 2=Patient will verbalize/demonstrate understanding of assistive devices/modifications for ADL. 3=Patient will improve strength/tolerance for activity to enable patient to perform ADL's. OT Education/Plan Discharge Recommendations Plan/Recommendations: Continue POC Treatment Plan/Plan of Care Patient would benefit from OT for education, treatment and training to promote independence in ADL's, mobility, safety and/or upper extremity function for ADL's. Plan of Care: ADL Retraining, Functional Mobility, UE Funct Exercise/Act, W/C Management Training Treatment Duration: Jan 10, 2020 Frequency: 5 times per week Estimated Hrs Per Day: .25 hour per day Agreement: Yes Rehab Potential: Guarded Time/GCodes Start Time: 14:38 Stop Time: 14:52 Total Time Billed (hr/min): 14 Billed Treatment Time 1 visit-ADL 1 (14 min) YANELIS GOODMAN Jan 06, 2020 15:09
[2020-01-06 16:00] VITALS: BP 130/76
[2020-01-06] MEDS: CYANOCOBALAMIN 1,000 MCG (VITAMIN B-12) TABLET PO SCH (17:10)
[2020-01-06 20:00] VITALS: BP 132/60
[2020-01-06 23:59] VITALS: BP 134/68
[2020-01-07] MEDS: LACTATED RINGERS 1,000 ML IV SCH ×2 (00:35→15:53)
[2020-01-07] MEDS: ENOXAPARIN 40 MG/0.4 ML (LOVENOX) SYR SC SCH ×2 (00:35→12:14)
[2020-01-07] MEDS: VANCOMYCIN 50 MG/ML ORAL SOLN 150 ML PO SCH ×4 (04:54→22:41)
[2020-01-07] MEDS: inSUlin ASPART (NovoLOG) 1 UNIT/0.01 ML (CHARGE PER UNIT) SC SCH ×4 (05:16→20:39)
[2020-01-07 06:10] LABS: MEAN PLATELET VOLUME 9.2 FL (7.4-10.4)
[2020-01-07 06:22] LABS: CREATININE SERUM 2.19 MG/DL (0.60-1.30)
[2020-01-07] MEDS: PANTOPRAZOLE 40 MG (PROTONIX) VIAL IV SCH (08:38)
[2020-01-07] MEDS: GABAPENTIN 300 MG (NEURONTIN) CAP PO SCH ×3 (08:38→16:43)
[2020-01-07] MEDS: TAMSULOSIN 0.4 MG (FLOMAX) CAP PO SCH (08:38)
[2020-01-07] MEDS: FINASTERIDE (PROSCAR) 5 MG TAB PO SCH (08:38)
[2020-01-07] MEDS: LORATADINE (CLARITIN) 10 MG TAB PO SCH (08:38)
[2020-01-07] MEDS: FLUoxetine HCL 10 MG (PROzac) CAPSULE/TABLET PO SCH (08:38)
[2020-01-07] MEDS: SIMETHICONE 80 MG (MYLICON) CHEW PO SCH ×4 (08:38→19:58)
[2020-01-07] MEDS: amLODIPine 5 MG (NORVASC) TAB PO SCH (08:39)
[2020-01-07] MEDS: KCL 20 MEQ TAB (K-DUR) PO SCH ×3 (08:39→18:24)
[2020-01-07] MEDS: hydrALAZINE (APRESOLINE) 25 MG TAB PO SCH ×3 (08:39→19:58)
[2020-01-07] MEDS: ASPIRIN 81 MG CHEW (CHILDREN'S ASA) PO SCH (08:39)
[2020-01-07] MEDS: guaiFENesin (MUCINEX) 600 MG TAB PO SCH ×2 (08:39→19:59)
--- NOTE | 2020-01-07 09:37 | Occupational Ther Daily Note ---
OT Current Status-Daily Note Subjective Pt alert, lying in bed. Pt more talkative today. Pt agrees to therapy. Pt c/o pain around buttocks, nrsg aware. Mental Status/Objective Patient Orientation: Person, Place, Time, Situation Attachments: Sotelo Catheter, IV (midline), Other-See Comments (anal catheter) ADL-Treatment Co-treat with PT ([id number]), skills of 2 clinicians and nrsg required due to pt's decreased overall weakness and mobility. PT and OT are focusing on bed mobility. PT focusing on movement of extremities during bed mobility. OT focusing on hygiene and functional bed mobility. Nrsg assisting with hygiene, skin care and changing linens due to pt's bowel incontinence. Pt requires assist x3 to complete bed mobility and hygiene after bowel incontinence. Pt able to assist with rolling and staying on R side today. Pt positioned on R side for pressure relief. Call light/phone in reach. Nrsg present in room. Therapy Code Descriptions/Definitions Functional [place] Measure: 0=Not Assessed/NA 4=Minimal Assistance 1=Total Assistance 5=Supervision or Setup 2=Maximal Assistance 6=Modified [place] 3=Moderate Assistance 7=Complete IndependenceSCALE: Activities may be completed with or without assistive devices. 5-Dobvwzkkxz-ojrpvyx completes the activity by him/herself with no assistance from a helper. 5-Set-up or Clean-up Assistance-helper sets up or cleans up; patient completes activity. [place] assists only prior to or following the activity. 4-Supervision or Touching Assistance-helper provides verbal cues and/or touching/steadying and/or contact guard assistance as patient completes activity. Assistance may be provided throughout the activity or intermittently. 3-Partial/Moderate Assistance-helper does LESS THAN HALF the effort. [place] lifts, holds or supports trunk or limbs, but provides less than half the effort. 2-Substantial/Maximal Assistance-helper does MORE THAN HALF the effort. [place] lifts or holds trunk or limbs and provides more than half the effort. 9-Rxftyyows-rfumog does ALL the effort. Patient does none of the effort to complete the activity. Or, the assistance of 2 or more helpers is required for the patient to complete the activity. If activity was not attempted, code reason: 7-Patient Refused. 9-Not Applicable-not attempted and the patient did not perform the activity before the current illness, exacerbation or injury. 10-Not Attempted due to Environmental Limitations-(lack of equipment, weather restraints, etc.). 88-Not Attempted due to Medical Conditions or Safety Concerns. Toileting Hygiene (QC): 1 OT Mobile Home Technician Goals [place] Goals Time Frame: Jan 10, 2020 Eating (QC): 6 Oral Hygiene (QC): 5 Toileting Hygiene (QC): 2 Shower/Bathe Self (QC): 2 Upper Body Dressing (QC): 5 Lower Body Dressing (QC): 2 On/Off Footwear (QC): 2 Additional Goals: 1-Demonstrate ADL Tasks, 2-Verbalize Understanding, 3- ImproveStrength/Alondra 1=Demonstrate adherence to instructed precautions during ADL tasks. 2=Patient will verbalize/demonstrate understanding of assistive devices/modifications for ADL. 3=Patient will improve strength/tolerance for activity to enable patient to perform ADL's. OT Education/Plan Problem List/Assessment Assessment: Decreased Activ Tolerance, Decreased UE Strength, Dependent Transfers, Impaired Bed Mobility, Impaired I ADL's, Impaired Self-Care Skills Discharge Recommendations Plan/Recommendations: Continue POC Treatment Plan/Plan of Care Patient would benefit from OT for education, treatment and training to promote independence in ADL's, mobility, safety and/or upper extremity function for ADL's. Plan of Care: ADL Retraining, Functional Mobility, UE Funct Exercise/Act, W/C Management Training Treatment Duration: Jan 10, 2020 Frequency: 5 times per week Estimated Hrs Per Day: .25 hour per day Agreement: Yes Rehab Potential: Guarded Time/GCodes Start Time: 08:30 Stop Time: 08:53 Total Time Billed (hr/min): 23 Billed Treatment Time 1 visit-ADL 2 (23 min) YANELIS GOODMAN Jan 07, 2020 09:37
[2020-01-07] MEDS: POTASSIUM CL 10MEQ/50ML IVPB 50 ML IV SCH ×13 (10:03→22:03)
--- NOTE | 2020-01-07 10:17 | Physical Therapy Daily Note ---
PT Daily Note-Current Subjective Patient incontinent BM requiring dependent assist to cleanse and change. Patient agrees. Mental Status Patient Orientation: Person, Time Attachments: Sotelo Catheter, Other-See Comments (rectal tube), IV Transfers SCALE: Activities may be completed with or without assistive devices. 5-Nuaukqlsmu-wpdlwnl completes the activity by him/herself with no assistance from a helper. 5-Set-up or Clean-up Assistance-helper sets up or cleans up; patient completes activity. [place] assists only prior to or following the activity. 4-Supervision or Touching Assistance-helper provides verbal cues and/or touching/steadying and/or contact guard assistance as patient completes activity. Assistance may be provided throughout the activity or intermittently. 3-Partial/Moderate Assistance-helper does LESS THAN HALF the effort. [place] lifts, holds or supports trunk or limbs, but provides less than half the effort. 2-Substantial/Maximal Assistance-helper does MORE THAN HALF the effort. [place] l ifts or holds trunk or limbs and provides more than half the effort. 4-Yjzxqgdmy-ugyzhn does ALL the effort. Patient does none of the effort to complete the activity. Or, the assistance of 2 or more helpers is required for the patient to complete the activity. If activity was not attempted, code reason: 7-Patient Refused. 9-Not Applicable-not attempted and the patient did not perform the activity before the current illness, exacerbation or injury. 10-Not Attempted due to Environmental Limitations-(lack of equipment, weather restraints, etc.). 88-Not Attempted due to Medical Conditions or Safety Concerns. Roll Left & Right (QC): 1 (x 3) Exercises Supine Ex: Ankle pumps, Heel Slides, Hip abd/add Supine Reps: 12 (AAROM) Assessment Current Status: Poor Progress PT Penitentiary Goals Associate Professor Of Literature Goals PT Associate Professor Of Literature Goals Time Frame: Jan 19, 2020 Roll Left & Right (QC): 2 Sit to Lying (QC): 2 Lying-Sitting on Side/Bed(QC): 2 Sit to Stand (QC): 2 Chair/Slw-hl-Chqpl Xfer(QC): 2 Does the Patient Walk: No and Walking Goal IS indicated Walk 10 feet (QC): 2 PT Plan Treatment/Plan Treatment Plan: Continue Plan of Care Treatment Plan: Bed Mobility, Education, Functional Activity Alondra, Functional Strength, Gait, Safety, Therapeutic Exercise, Transfers Treatment Duration: Jan 19, 2020 Frequency: 6 times per week Estimated Hrs Per Day: .25 hour per day Patient and/or Family Agrees t: Yes Time/GCodes Time In: 830 Time Out: 853 Total Billed Treatment Time: 23 Total Billed Treatment 1 visit FA x 2 23 min ABDULLAHI TAPIA PT Jan 07, 2020 10:17
--- NOTE | 2020-01-07 15:04 | Progress Note ---
Subjective Subjective/Events-last exam Afebrile, continues to have frequent loose bowel movements, but states he is feeling okay. Objective Exam Last Set of Vital Signs Vital Signs Date Time Temp Pulse Resp B/P (MAP) Pulse Ox O2 Delivery O2 Flow Rate FiO2 01/07/20 09:00 98 Room Air 2.00 01/06/20 23:59 36.0 72 20 134/68 (90) 01/04/20 10:52 21 Capillary Refill : Less Than 3 SecondsLess Than 3 Seconds I&O Intake and Output 01/07/20 00:00 Intake Total 2451 ml Output Total 1650 ml Balance 801 ml Intake Oral 2350 ml IV Total 101 ml Output Urine Total 1650 ml # Bowel Movements 10 General: Alert, No Acute Distress Heart: Regular Rate, No Murmurs Abdomen: Normal Bowel Sounds, Other (distended, but softer than prior) Psych/Mental Status: Mood NL Results/Procedures Lab Laboratory Tests 01/06/20 16:07: Glucometer 155H 01/06/20 20:12: Glucometer 102 01/07/20 05:14: Glucometer 91 01/07/20 05:49: White Blood Count 11.0, Red Blood Count 3.35L, Hemoglobin 9.0L, Hematocrit 29L, Mean Corpuscular Volume 87, Mean Corpuscular Hemoglobin 27, Mean Corpuscular Hemoglobin Concent 31L, Red Cell Distribution Width 17.9H, Platelet Count 416H, Mean Platelet Volume 9.2, Sodium Level 140, Potassium Level 3.0L, Chloride Level 116H, Carbon Dioxide Level 15L, Anion Gap 9, Blood Urea Nitrogen 18, Creatinine 2.19H, Estimat Glomerular Filtration Rate 30, BUN/Creatinine Ratio 8, Glucose Level 95, Calcium Level 8.0L 01/07/20 11:02: Glucometer 148H Microbiology 12/30/19 C. difficile GDH Antigen & Toxins - Final, Complete 12/28/19 MRSA Screen - Final, Complete MRSA not isolated 12/28/19 Urine Culture - Final, Complete Pseudomonas aeruginosa Pseudomonas aeruginosa#2 12/28/19 Blood Culture - Final, Complete No growth Radiology ABD x-ray 01/01: IMPRESSION: There is significant gaseous distention of bowel loops throughout the abdomen with scattered air-fluid levels. This is similar to gem technician radiograph from CT performed 11/23/2019. Assessment/Plan Assessment/Plan (1) Sepsis Status: Resolved Assessment & Plan: Secondary to pseudomonas UTI, treated with course of cefepime, fluid resuscitation. Qualifiers: Qualified Codes: A41.52 - Sepsis due to Pseudomonas; R65.21 - Severe sepsis with septic shock; N17.9 - Acute kidney failure, unspecified (2) UTI (urinary tract infection) Status: Resolved Assessment & Plan: Pseudomonas with indwelling catheter, treated with course of cefepime. Qualifiers: Qualified Codes: N30.01 - Acute cystitis with hematuria (3) Acute kidney injury Status: Acute Assessment & Plan: Secondary to combination of septic shock and urinary obstruction. Obstruction relieved with armstrong cathter, sepsis essentially resolved at this point, renal function continuing to slowly improve. Continue LR at 75 mls/hr, hold ACEI and renal dose medications. (4) Ileus Status: Resolved Assessment & Plan: Dr. Ashby consulted, appreciate recommendations. Uncertain et iology, C diff positive but not having diarrhea. Continue stool softeners and suppositories and supportive care, monitor closely given marked distension. Replace potassium. 01/05 having multiple loose stools, hold softeners and suppositories (5) C. difficile colitis Status: Acute Assessment & Plan: Secondary to extensive antibiotic use since Nov for UTI/sepsis. On oral vancomycin. (6) Hypokalemia Status: Acute Assessment & Plan: Severe, refractory, continue aggressive IV replacement. (7) HTN (hypertension) Status: Chronic Qualifiers: Qualified Codes: I10 - Essential (primary) hypertension (8) Urinary outflow obstruction Status: Resolved Assessment & Plan: Indwelling armstrong replaced in ER, s/p ureteral stenting at in admission just prior to this. (9) DVT prophylaxis Status: Acute Assessment & Plan: enoxaparin renally dosed. Clinical Quality Measures DVT/VTE Risk/Contraindication: Risk Factor Score Per Nursin RFS Level Per Nursing on Admit: 4+=Very High VALENTINA BOWIE MD Jan 07, 2020 15:04
[2020-01-07 15:32] LABS: POTASSIUM 3.2 MMOL/L (3.6-5.0)
[2020-01-07 15:37] LABS: CREATININE SERUM 2.12 MG/DL (0.60-1.30)
[2020-01-07 16:00] VITALS: BP 129/77
[2020-01-07] MEDS: CYANOCOBALAMIN 1,000 MCG (VITAMIN B-12) TABLET PO SCH (16:42)
[2020-01-08 00:15] VITALS: BP 147/84
[2020-01-08] MEDS: ENOXAPARIN 40 MG/0.4 ML (LOVENOX) SYR SC SCH ×2 (00:17→14:00)
[2020-01-08] MEDS: VANCOMYCIN 50 MG/ML ORAL SOLN 150 ML PO SCH ×4 (05:18→22:14)
[2020-01-08] MEDS: LACTATED RINGERS 1,000 ML IV SCH ×3 (05:25→17:30)
[2020-01-08 06:18] LABS: HEMOGLOBIN 8.7 G/DL (13.3-17.7); MEAN PLATELET VOLUME 9.3 FL (7.4-10.4); WHITE BLOOD COUNT 9.7 10^3/uL (4.3-11.0)
[2020-01-08 06:36] LABS: POTASSIUM 2.9 MMOL/L (3.6-5.0)
[2020-01-08 06:42] LABS: CREATININE SERUM 2.01 MG/DL (0.60-1.30)
[2020-01-08] MEDS: inSUlin ASPART (NovoLOG) 1 UNIT/0.01 ML (CHARGE PER UNIT) SC SCH ×4 (06:44→21:22)
[2020-01-08 08:48] VITALS: BP 121/56
[2020-01-08] MEDS: PANTOPRAZOLE 40 MG (PROTONIX) VIAL IV SCH (09:45)
[2020-01-08] MEDS: FLUoxetine HCL 10 MG (PROzac) CAPSULE/TABLET PO SCH (09:47)
[2020-01-08] MEDS: ASPIRIN 81 MG CHEW (CHILDREN'S ASA) PO SCH (09:47)
[2020-01-08] MEDS: SIMETHICONE 80 MG (MYLICON) CHEW PO SCH ×4 (09:47→19:44)
[2020-01-08] MEDS: guaiFENesin (MUCINEX) 600 MG TAB PO SCH ×2 (09:47→19:44)
[2020-01-08] MEDS: LORATADINE (CLARITIN) 10 MG TAB PO SCH (09:48)
[2020-01-08] MEDS: FINASTERIDE (PROSCAR) 5 MG TAB PO SCH (09:48)
[2020-01-08] MEDS: GABAPENTIN 300 MG (NEURONTIN) CAP PO SCH ×3 (09:48→17:15)
[2020-01-08] MEDS: TAMSULOSIN 0.4 MG (FLOMAX) CAP PO SCH (09:48)
[2020-01-08] MEDS: KCL 20 MEQ TAB (K-DUR) PO SCH ×3 (09:49→17:15)
[2020-01-08] MEDS: hydrALAZINE (APRESOLINE) 25 MG TAB PO SCH ×3 (09:49→19:46)
[2020-01-08] MEDS: amLODIPine 5 MG (NORVASC) TAB PO SCH (09:49)
--- NOTE | 2020-01-08 13:48 | Physical Therapy Daily Note ---
PT Daily Note-Current Subjective Pt. agrees to bed exercises only. Nursing requests no out of bed activity or sitting at EOB due to rectal tube. Mental Status Patient Orientation: Person Transfers SCALE: Activities may be completed with or without assistive devices. 3-Bzfzdefsxt-vvdgywp completes the activity by him/herself with no assistance from a helper. 5-Set-up or Clean-up Assistance-helper sets up or cleans up; patient completes activity. [place] assists only prior to or following the activity. 4-Supervision or Touching Assistance-helper provides verbal cues and/or touching/steadying and/or contact guard assistance as patient completes activity. Assistance may be provided throughout the activity or intermittently. 3-Partial/Moderate Assistance-helper does LESS THAN HALF the effort. [place] lifts, holds or supports trunk or limbs, but provides less than half the effort. 2-Substantial/Maximal Assistance-helper does MORE THAN HALF the effort. [place] lifts or holds trunk or limbs and provides more than half the effort. 8-Nsnkhtrxv-ntgibm does ALL the effort. Patient does none of the effort to complete the activity. Or, the assistance of 2 or more helpers is required for the patient to complete the activity. If activity was not attempted, code reason: 7-Patient Refused. 9-Not Applicable-not attempted and the patient did not perform the activity before the current illness, exacerbation or injury. 10-Not Attempted due to Environmental Limitations-(lack of equipment, weather restraints, etc.). 88-Not Attempted due to Medical Conditions or Safety Concerns. Exercises Supine Ex: Ankle pumps, Quad Set, Short Arc Quads, Straight leg raise, Hip abd/add Supine Reps: 20 Treatments LE exercises Assessment Current Status: Fair Progress Pt. needed mod A for several LE exercises. He frequently closed his eyes during session but did participate. Pt. with all needs met post session, call light in reach. PT Group Home Goals Group Home Goals PT Payroll And Benefits Manager Goals Time Frame: Jan 19, 2020 Roll Left & Right (QC): 2 Sit to Lying (QC): 2 Lying-Sitting on Side/Bed(QC): 2 Sit to Stand (QC): 2 Chair/Ctw-dw-Yeifb Xfer(QC): 2 Does the Patient Walk: No and Walking Goal IS indicated Walk 10 feet (QC): 2 PT Plan Treatment/Plan Treatment Plan: Continue Plan of Care Treatment Plan: Bed Mobility, Education, Functional Activity Alondra, Functional Strength, Gait, Safety, Therapeutic Exercise, Transfers Treatment Duration: Jan 19, 2020 Frequency: 6 times per week Estimated Hrs Per Day: .25 hour per day Patient and/or Family Agrees t: Yes Time/GCodes Time In: 1027 Time Out: 1038 Total Billed Treatment Time: 11 Total Billed Treatment 1, Ex 11' UARELIANO CRUZ PT Jan 08, 2020 13:48
--- NOTE | 2020-01-08 14:01 | Progress Note - Hospitalist ---
Subjective HPI/CC On Admission Date Seen by Provider: Jan 08, 2020 Time Seen by Provider: 13:00 CC: Septic shock due to UTI HPI: This is a 74yoWM that had recently discharged from and a few hours later came back into the ER with hypotension and septic shock from UTI, he was admitted to the ICU, placed on broad-spectrum antibiotics and aggressive IV fluid resuscitation, at this current time he denies any pain and overall he has a very poor prognosis given the fact his creatinine is 5.2. Subjective/Events-last exam patient is awake and alert denies complaint potassium remains low with this low serum bicarbonate. Hemoglobin remained stable. Review of Systems Neurological: Weakness Objective Exam Vital Signs Vital Signs Date Time Temp Pulse Resp B/P (MAP) Pulse Ox O2 Delivery O2 Flow Rate FiO2 01/08/20 08:48 36.9 73 12 121/56 (77) 100 Room Air 01/07/20 09:00 2.00 01/04/20 10:52 21 Capillary Refill : Less Than 3 SecondsLess Than 3 Seconds General Appearance: Chronically ill Respiratory: Lungs Clear, Normal Breath Sounds, No Accessory Muscle Use, No Respiratory Distress Cardiovascular: Regular Rate, Rhythm, No Gallop Gastrointestinal: Abnormal Bowel Sounds, Distended Extremity: Swelling Neurologic/Psychiatric: Alert, Normal Mood/Affect Skin: Pallor Results/Procedures Lab Laboratory Tests 01/07/20 15:15 01/08/20 05:44 Patient resulted labs reviewed. Assessment/Plan Assessment and Plan Assess & Plan/Chief Complaint history of pseudomonas UTI with sepsis-resolved Ileus with C. difficile now with diarrhea-on oral vancomycin Profound hypokalemia we'll start spironolactone watch potassium Metabolic acidosis secondary to chronic renal insufficiency and diarrhea most likely Anasarca with protein calorie malnutrition Critical Care Critically Ill Patient Clinical Quality Measures DVT/VTE Risk/Contraindication: Risk Factor Score Per Nursin RFS Level Per Nursing on Admit: 4+=Very High CICI MORENO MD Jan 08, 2020 14:01
[2020-01-08] MEDS ORDERED: FLU QUAD HIGH DOSE 240 MCG/0.7 ML 2020-21 (FLUZONE) IM ONE (15:30)
[2020-01-08 16:00] VITALS: BP 135/60
[2020-01-08] MEDS: CYANOCOBALAMIN 1,000 MCG (VITAMIN B-12) TABLET PO SCH (17:15)
[2020-01-09] MEDS: ENOXAPARIN 40 MG/0.4 ML (LOVENOX) SYR SC SCH ×2 (00:25→13:40)
[2020-01-09 00:52] VITALS: BP 139/65
[2020-01-09] MEDS: VANCOMYCIN 50 MG/ML ORAL SOLN 150 ML PO SCH (04:05)
[2020-01-09 05:47] LABS: BASOPHILS % (AUTO) 0 % (0-10); EOSINOPHILS # (AUTO) 0.2 10^3/uL (0.0-0.3); EOSINOPHILS % (AUTO) 2 % (0-10); HEMATOCRIT 27 % (40-54); HEMOGLOBIN 8.4 G/DL (13.3-17.7); LYMPHOCYTES # (AUTO) 1.5 X 10^3 (1.0-4.0); LYMPHOCYTES % (AUTO) 17 % (12-44); MEAN CORPUSCULAR HEMOGLOBIN 27 PG (25-34); MEAN CORPUSCULAR HGB CONC 31 G/DL (32-36); MEAN CORPUSCULAR VOLUME 87 FL (80-99); MEAN PLATELET VOLUME 9.2 FL (7.4-10.4); MONOCYTES # (AUTO) 0.5 X 10^3 (0.0-1.0); MONOCYTES % (AUTO) 6 % (0-12); NEUTROPHILS # (AUTO) 6.8 X 10^3 (1.8-7.8); NEUTROPHILS % (AUTO) 76 % (42-75); PLATELET COUNT 388 10^3/uL (130-400)
[2020-01-09 06:08] LABS: ALBUMIN 2.7 GM/DL (3.2-4.5)
[2020-01-09 06:09] LABS: POTASSIUM 2.9 MMOL/L (3.6-5.0)
[2020-01-09 06:10] LABS: CALCIUM 7.9 MG/DL (8.5-10.1)
[2020-01-09 06:11] LABS: TOTAL PROTEIN 5.4 GM/DL (6.4-8.2)
[2020-01-09 06:13] LABS: BILIRUBIN,TOTAL 0.2 MG/DL (0.1-1.0)
[2020-01-09 06:15] LABS: CREATININE SERUM 2.02 MG/DL (0.60-1.30)
[2020-01-09] MEDS: inSUlin ASPART (NovoLOG) 1 UNIT/0.01 ML (CHARGE PER UNIT) SC SCH ×4 (06:22→21:08)
[2020-01-09] MEDS: LACTATED RINGERS 1,000 ML IV SCH (06:26)
[2020-01-09 08:00] VITALS: BP 158/67
[2020-01-09] MEDS: PANTOPRAZOLE 40 MG (PROTONIX) VIAL IV SCH (09:18)
[2020-01-09] MEDS: GABAPENTIN 300 MG (NEURONTIN) CAP PO SCH ×3 (09:18→17:05)
[2020-01-09] MEDS: guaiFENesin (MUCINEX) 600 MG TAB PO SCH ×2 (09:18→19:48)
[2020-01-09] MEDS: amLODIPine 5 MG (NORVASC) TAB PO SCH (09:19)
[2020-01-09] MEDS: FINASTERIDE (PROSCAR) 5 MG TAB PO SCH (09:19)
[2020-01-09] MEDS: FLUoxetine HCL 10 MG (PROzac) CAPSULE/TABLET PO SCH (09:19)
[2020-01-09] MEDS: KCL 20 MEQ TAB (K-DUR) PO SCH ×3 (09:20→17:05)
[2020-01-09] MEDS: SIMETHICONE 80 MG (MYLICON) CHEW PO SCH ×4 (09:20→19:47)
[2020-01-09] MEDS: SPIRONOLACTONE 25 MG (ALDACTONE) TAB PO SCH (09:20)
[2020-01-09] MEDS: ASPIRIN 81 MG CHEW (CHILDREN'S ASA) PO SCH (09:20)
[2020-01-09] MEDS: LORATADINE (CLARITIN) 10 MG TAB PO SCH (09:21)
[2020-01-09] MEDS: hydrALAZINE (APRESOLINE) 25 MG TAB PO SCH ×3 (09:21→19:48)
[2020-01-09] MEDS: TAMSULOSIN 0.4 MG (FLOMAX) CAP PO SCH (09:21)
--- NOTE | 2020-01-09 11:50 | Progress Note - Hospitalist ---
Subjective HPI/CC On Admission Date Seen by Provider: Jan 09, 2020 Time Seen by Provider: 11:15 CC: Septic shock due to UTI HPI: This is a 74yoWM that had recently discharged from and a few hours later came back into the ER with hypotension and septic shock from UTI, he was admitted to the ICU, placed on broad-spectrum antibiotics and aggressive IV fluid resuscitation, at this current time he denies any pain and overall he has a very poor prognosis given the fact his creatinine is 5.2. Subjective/Events-last exam patient wants a Sprite today. Otherwise he has no complaints and seems rather annoyed by me Objective Exam Vital Signs Vital Signs Date Time Temp Pulse Resp B/P (MAP) Pulse Ox O2 Delivery O2 Flow Rate FiO2 01/09/20 08:18 Room Air 01/09/20 08:00 36.9 71 18 158/67 (97) 01/09/20 00:52 98 01/07/20 09:00 2.00 01/04/20 10:52 21 Capillary Refill : Less Than 3 SecondsLess Than 3 Seconds General Appearance: No Apparent Distress, Obese Neck: Limited Range of Motion Respiratory: Lungs Clear, Normal Breath Sounds, No Accessory Muscle Use, No Respiratory Distress, Decreased Breath Sounds Cardiovascular: Regular Rate, Rhythm, Other (distant) Gastrointestinal: Abnormal Bowel Sounds, Distended Extremity: Pedal Edema Neurologic/Psychiatric: Alert, Oriented x3, Normal Mood/Affect Results/Procedures Lab Laboratory Tests 01/09/20 05:10 Patient resulted labs reviewed. Assessment/Plan Assessment and Plan Assess & Plan/Chief Complaint history of pseudomonas UTI with sepsis-resolved Ileus with C. difficile now with diarrhea-vancomycin day 10 of completed-still with diarrhea we'll start Questran light and recheck C. difficile toxins Profound hypokalemia we'll start spironolactone watch potassium-2.9 today Metabolic acidosis secondary to chronic renal insufficiency and diarrhea most likely Anasarca with protein calorie malnutrition-will Hep-Lock IV fluids and start wrapping legs because of the anasarca Critical Care Critically Ill Patient Clinical Quality Measures DVT/VTE Risk/Contraindication: Risk Factor Score Per Nursin RFS Level Per Nursing on Admit: 4+=Very High CICI MORENO MD Jan 09, 2020 11:50
[2020-01-09 16:00] VITALS: BP 114/53
[2020-01-09] MEDS: CYANOCOBALAMIN 1,000 MCG (VITAMIN B-12) TABLET PO SCH (17:05)
[2020-01-09] MEDS: CHOLESTYRAMINE 4 GM (QUESTRAN LITE, PREVALITE) PKT PO SCH (19:47)
[2020-01-10] MEDS: ENOXAPARIN 40 MG/0.4 ML (LOVENOX) SYR SC SCH ×2 (00:48→12:35)
[2020-01-10 00:59] VITALS: BP 127/58
[2020-01-10] MEDS: inSUlin ASPART (NovoLOG) 1 UNIT/0.01 ML (CHARGE PER UNIT) SC SCH ×4 (05:37→21:00)
[2020-01-10 08:00] VITALS: BP 124/57
[2020-01-10] MEDS: LORATADINE (CLARITIN) 10 MG TAB PO SCH (08:33)
[2020-01-10] MEDS: CHOLESTYRAMINE 4 GM (QUESTRAN LITE, PREVALITE) PKT PO SCH ×2 (08:33→21:55)
[2020-01-10] MEDS: FLUoxetine HCL 10 MG (PROzac) CAPSULE/TABLET PO SCH (08:33)
[2020-01-10] MEDS: guaiFENesin (MUCINEX) 600 MG TAB PO SCH ×2 (08:33→20:56)
[2020-01-10] MEDS: KCL 20 MEQ TAB (K-DUR) PO SCH ×3 (08:34→17:44)
[2020-01-10] MEDS: ASPIRIN 81 MG CHEW (CHILDREN'S ASA) PO SCH (08:34)
[2020-01-10] MEDS: amLODIPine 5 MG (NORVASC) TAB PO SCH (08:34)
[2020-01-10] MEDS: GABAPENTIN 300 MG (NEURONTIN) CAP PO SCH ×3 (08:34→17:44)
[2020-01-10] MEDS: SIMETHICONE 80 MG (MYLICON) CHEW PO SCH ×4 (08:34→20:57)
[2020-01-10] MEDS: hydrALAZINE (APRESOLINE) 25 MG TAB PO SCH ×3 (08:34→20:56)
[2020-01-10] MEDS: PANTOPRAZOLE 40 MG (PROTONIX) VIAL IV SCH (08:34)
[2020-01-10] MEDS: SPIRONOLACTONE 25 MG (ALDACTONE) TAB PO SCH (08:34)
[2020-01-10] MEDS: TAMSULOSIN 0.4 MG (FLOMAX) CAP PO SCH (08:34)
[2020-01-10] MEDS: FINASTERIDE (PROSCAR) 5 MG TAB PO SCH (08:35)
--- NOTE | 2020-01-10 10:19 | NUR ---
Explored benefits and coverage for the patient for swing bed/long term home benefits. Patient has a [employer] MCR replacement plan. Skilled Days 1-20 $0 co-pay; Days 21-100 $65.00. Patient has a Max Out of Pocket of $2000.00 and has met $275.00 of that amount. If patient meets $2000.00 then he will be 100% covered. He will have likely met that requirement with this hospital stay. Currently he is max assist x4 staff for transfers. He has a rectal tube in place and continues to be incontinent of bowel. Recommend consideration for long term home placement to continue to slowly make progress back to his baseline of using a walker for ambulation and max ambulation of 70ft prior to this hospitalization. ANKUR Mitchell discussed possible need of long term home placement with patient's daughter Christina. Christina is very resistant to Shelter Home placement. She continues to voice that the patient needs to get up and use the toilet and not be allowed to be incontinent vs. utilize bed damon. She has been encouraged by myself and Ashia that while we continue to attempt to increase his strength by utilizing PT, OT, et out of bed as tolerated. He continues to be very weak and will likely not be able to tolerate his previous home of [facility] until he has regained more strength.
--- NOTE | 2020-01-10 10:34 | Progress Note - Hospitalist ---
Subjective HPI/CC On Admission Date Seen by Provider: Jan 10, 2020 Time Seen by Provider: 08:00 CC: Septic shock due to UTI HPI: This is a 74yoWM that had recently discharged from and a few hours later came back into the ER with hypotension and septic shock from UTI, he was admitted to the ICU, placed on broad-spectrum antibiotics and aggressive IV fluid resuscitation, at this current time he denies any pain and overall he has a very poor prognosis given the fact his creatinine is 5.2. Subjective/Events-last exam Pt sleeping soundly Questionable recurrent C-diff colitis Potassium 2.9 Creatinine 2.32 Overall severely decline status Review of Systems General: Fatigue, Malaise Gastrointestinal: Diarrhea Neurological: Weakness Objective Exam Vital Signs Vital Signs Date Time Temp Pulse Resp B/P (MAP) Pulse Ox O2 Delivery O2 Flow Rate FiO2 01/10/20 16:00 36.8 64 16 143/71 (95) 97 Room Air 01/10/20 14:18 21 01/07/20 09:00 2.00 Capillary Refill : Less Than 3 SecondsLess Than 3 Seconds General Appearance: No Apparent Distress, WD/WN, Chronically ill HEENT: PERRL/EOMI, Normal ENT Inspection, Pharynx Normal, Moist Mucous Membranes Neck: Full Range of Motion, Normal Inspection, Non Tender, Supple, Carotid Bruit Respiratory: Chest Non Tender, Lungs Clear, Normal Breath Sounds, No Accessory Muscle Use, No Respiratory Distress Cardiovascular: Regular Rate, Rhythm, No Edema, No Gallop, No JVD, No Murmur, Normal Peripheral Pulses Gastrointestinal: Normal Bowel Sounds, No Organomegaly, No Pulsatile Mass, Non Tender, Soft Back: Normal Inspection, No CVA Tenderness, No Vertebral Tenderness Extremity: Normal Capillary Refill, Normal Inspection, Normal Range of Motion, Non Tender, No Calf Tenderness, No Pedal Edema Neurologic/Psychiatric: Alert, Oriented x3, No Motor/Sensory Deficits, grave cleaner II- XII Norm as Tested, Depressed Affect, Disoriented Skin: Normal Color, Warm/Dry Lymphatic: No Adenopathy Results/Procedures Lab Patient resulted labs reviewed. Assessment/Plan Assessment and Plan Assess & Plan/Chief Complaint Tx to 4th Assessment: Septic shock UTI Hypokalemia Acute renal failure C diff Plan: Await repeat C diff Supportive care Monitor kidneys Overall prognosis appears to be extremely poor Critical Care Critically Ill Patient Clinical Quality Measures DVT/VTE Risk/Contraindication: Risk Factor Score Per Nursin RFS Level Per Nursing on Admit: 4+=Very High IDALIA NAILS DO Jan 10, 2020 10:34
--- NOTE | 2020-01-10 12:00 | Occupational Ther Daily Note ---
OT Current Status-Daily Note Subjective Pt alert, lying in bed. Nrsg stated that due to anal catheter being placed it would be better for pt to stay lying in bed. Pt did not verbalize during therapy. Mental Status/Objective Patient Orientation: Person, Place, Time, Situation Attachments: Sotelo Catheter (urine and anal), IV ADL-Treatment Therapy Code Descriptions/Definitions Functional [place] Measure: 0=Not Assessed/NA 4=Minimal Assistance 1=Total Assistance 5=Supervision or Setup 2=Maximal Assistance 6=Modified [place] 3=Moderate Assistance 7=Complete IndependenceSCALE: Activities may be completed with or without assistive devices. 1-Mmjkwudqab-ovakhdg completes the activity by him/herself with no assistance from a helper. 5-Set-up or Clean-up Assistance-helper sets up or cleans up; patient completes activity. [place] assists only prior to or following the activity. 4-Supervision or Touching Assistance-helper provides verbal cues and/or touching/steadying and/or contact guard assistance as patient completes activity. Assistance may be provided throughout the activity or intermittently. 3-Partial/Moderate Assistance-helper does LESS THAN HALF the effort. [place] lif ts, holds or supports trunk or limbs, but provides less than half the effort. 2-Substantial/Maximal Assistance-helper does MORE THAN HALF the effort. [place] lifts or holds trunk or limbs and provides more than half the effort. 6-Ejluxivbk-fccxtf does ALL the effort. Patient does none of the effort to complete the activity. Or, the assistance of 2 or more helpers is required for the patient to complete the activity. If activity was not attempted, code reason: 7-Patient Refused. 9-Not Applicable-not attempted and the patient did not perform the activity before the current illness, exacerbation or injury. 10-Not Attempted due to Environmental Limitations-(lack of equipment, weather restraints, etc.). 88-Not Attempted due to Medical Conditions or Safety Concerns. Other Treatment OT/PT co-treat ([id number]), skills of 2 clinicians required for skilled care and instruction for bed mobility and UE/LE exercises to decrease edema and increase strength. Pt was able to pull self up in bed after being positioned, bed positioned in trendelenburg position and pt's hands guided to bed rails at HOB to pull then positioned B LE to push. Pt requires max A x2 to roll side to side to position self and linens. Pt completed B LE exercises with PT, APROM. Wrapping B LE in CLAUDE wraps to decrease edema. After therapy, pt lying in bed on R side to decrease pressure avoiding pressure sores. Call light/phone in reach. All needs met in room. OT Divisional Human Resources Director Goals Snf Goals Time Frame: Jan 10, 2020 Eating (QC): 6 Oral Hygiene (QC): 5 Toileting Hygiene (QC): 2 Shower/Bathe Self (QC): 2 Upper Body Dressing (QC): 5 Lower Body Dressing (QC): 2 On/Off Footwear (QC): 2 Additional Goals: 1-Demonstrate ADL Tasks, 2-Verbalize Understanding, 3- ImproveStrength/Alondra 1=Demonstrate adherence to instructed precautions during ADL tasks. 2=Patient will verbalize/demonstrate understanding of assistive devices/modifications for ADL. 3=Patient will improve strength/tolerance for activity to enable patient to perform ADL's. OT Education/Plan Problem List/Assessment Assessment: Decreased Activ Tolerance, Decreased Safety Aware, Decreased UE Strength, Dependent Transfers, Impaired Bed Mobility, Impaired Coordination, Impaired Funct Balance, Impaired I ADL's, Impaired Self-Care Skills, Restricted Funct UE ROM Discharge Recommendations Plan/Recommendations: Continue POC Treatment Plan/Plan of Care Patient would benefit from OT for education, treatment and training to promote independence in ADL's, mobility, safety and/or upper extremity function for ADL's. Plan of Care: ADL Retraining, Functional Mobility, UE Funct Exercise/Act, W/C Management Training Treatment Duration: Jan 10, 2020 Frequency: 5 times per week Estimated Hrs Per Day: .25 hour per day Agreement: Yes Rehab Potential: Guarded Time/GCodes Start Time: 11:30 Stop Time: 11:53 Total Time Billed (hr/min): 23 Billed Treatment Time 1 visit-FA 2 (23 min) YANELIS GOODMAN Jan 10, 2020 12:00
--- NOTE | 2020-01-10 12:11 | Physical Therapy Daily Note ---
PT Daily Note-Current Subjective Patient is more alert and cooperative on this date. Mental Status Patient Orientation: Person, Time, Situation Attachments: Sotelo Catheter, IV rectal tube Transfers SCALE: Activities may be completed with or without assistive devices. 2-Leeulksqom-cthcsgh completes the activity by him/herself with no assistance from a helper. 5-Set-up or Clean-up Assistance-helper sets up or cleans up; patient completes activity. [place] assists only prior to or following the activity. 4-Supervision or Touching Assistance-helper provides verbal cues and/or touching/steadying and/or contact guard assistance as patient completes activity. Assistance may be provided throughout the activity or intermittently. 3-Partial/Moderate Assistance-helper does LESS THAN HALF the effort. [place] lifts, holds or supports trunk or limbs, but provides less than half the effort. 2-Substantial/Maximal Assistance-helper does MORE THAN HALF the effort. [place] lifts or holds trunk or limbs and provides more than half the effort. 2-Fwqfxoxhx-czeejh does ALL the effort. Patient does none of the effort to complete the activity. Or, the assistance of 2 or more helpers is required for the patient to complete the activity. If activity was not attempted, code reason: 7-Patient Refused. 9-Not Applicable-not attempted and the patient did not perform the activity before the current illness, exacerbation or injury. 10-Not Attempted due to Environmental Limitations-(lack of equipment, weather restraints, etc.). 88-Not Attempted due to Medical Conditions or Safety Concerns. Roll Left & Right (QC): 1 (x 2) trendelenburg for repositioning max assist x 2 (patient was able to assist in this position by bending bilateral LE and utilizing UE's) Exercises Supine Ex: Ankle pumps, Heel Slides, Straight leg raise Supine Reps: 12 (AAROM) Assessment Current Status: Poor Progress PT/OT cotreat due to dependency. OT rewrapped bilateral LE's with tian wrap while PT assisted with ROM and bilateral LE positioning. PT Railroad Brake Repairer Goals Mcc Goals PT Mcc Goals Time Frame: Jan 19, 2020 Roll Left & Right (QC): 2 Sit to Lying (QC): 2 Lying-Sitting on Side/Bed(QC): 2 Sit to Stand (QC): 2 Chair/Ieq-pj-Nkcen Xfer(QC): 2 Does the Patient Walk: No and Walking Goal IS indicated Walk 10 feet (QC): 2 PT Plan Treatment/Plan Treatment Plan: Continue Plan of Care Treatment Plan: Bed Mobility, Education, Functional Activity Alondra, Functional Strength, Gait, Safety, Therapeutic Exercise, Transfers Treatment Duration: Jan 19, 2020 Frequency: 6 times per week Estimated Hrs Per Day: .25 hour per day Patient and/or Family Agrees t: Yes Time/GCodes Time In: 1130 Time Out: 1153 Total Billed Treatment Time: 23 Total Billed Treatment 1 visit FA x 2 23 min ABDULLAHI TAPIA PT Jan 10, 2020 12:11
--- NOTE | 2020-01-10 14:01 | NUR ---
"RD ASSESSMENT PMHx: hypercholesterolemia; HTN; BPH; renal failure; chronic diarrhea; c-diff; DM PT INTERACTION: Pt was semi-awake and pleasant during nutrition follow-up. Pt states he has been eating fair since last assessment. Note avg PO intake 43% x3d, per chart review. Pt states some issues with constipation and diarrhea since last assessment. Note last BM was 01/09, and pt currently on bowel regimen of bisacodyl PRN, per chart review. ABNORMAL NUTRITION-RELATED LAB VALUES LOW: K 2.9; Ca 7.9; Pro 5.9; alb 2.7 HIGH: Cl 117; cr 2.02 Est. kcal needs: 1950 kcal | 25 kcal/kg IBW, based on IBW of 78.1 kg (172#) Est. Pro needs: 78 g Pro | 1.0 g Pro/kg PES STATEMENT: Inadequate oral intake (NI-2.1) related to loss of appetite | constipation | diarrhea as evidenced by pt interview | avg PO intake 43% x3d INTERVENTION: Continue with current diet order of DYS2 Mechanically Altered diet. Pt may benefit from diet advancement to consistent CHO diet, if blood glucose levels become elevated. Add Glucerna (vary) to meals TID, for increased kcal intake. Provides 220 kcal and 10 g Pro per serving. Will continue to follow and reassess as pt needs, intake, and status change. Ramirez Bansal, MS, RD, LD"
[2020-01-10 14:18] VITALS: BP 124/57
[2020-01-10 16:00] VITALS: BP 143/71
[2020-01-10] MEDS: CYANOCOBALAMIN 1,000 MCG (VITAMIN B-12) TABLET PO SCH (17:44)
[2020-01-11 00:18] VITALS: BP 145/67
[2020-01-11] MEDS: ENOXAPARIN 40 MG/0.4 ML (LOVENOX) SYR SC SCH ×2 (01:46→12:16)
[2020-01-11 05:05] LABS: BASOPHILS % (AUTO) 0 % (0-10); EOSINOPHILS # (AUTO) 0.1 10^3/uL (0.0-0.3); EOSINOPHILS % (AUTO) 2 % (0-10); HEMATOCRIT 29 % (40-54); LYMPHOCYTES # (AUTO) 1.5 X 10^3 (1.0-4.0); LYMPHOCYTES % (AUTO) 19 % (12-44); MEAN CORPUSCULAR HEMOGLOBIN 27 PG (25-34); MEAN CORPUSCULAR HGB CONC 31 G/DL (32-36); MEAN CORPUSCULAR VOLUME 86 FL (80-99); MEAN PLATELET VOLUME 8.7 FL (7.4-10.4); MONOCYTES # (AUTO) 0.5 X 10^3 (0.0-1.0); MONOCYTES % (AUTO) 6 % (0-12); NEUTROPHILS # (AUTO) 5.9 X 10^3 (1.8-7.8); NEUTROPHILS % (AUTO) 74 % (42-75); PLATELET COUNT 343 10^3/uL (130-400)
[2020-01-11 05:21] LABS: ALBUMIN 2.8 GM/DL (3.2-4.5); POTASSIUM 2.7 MMOL/L (3.6-5.0)
[2020-01-11 05:22] LABS: CALCIUM 8.1 MG/DL (8.5-10.1)
[2020-01-11 05:25] LABS: BILIRUBIN,TOTAL 0.2 MG/DL (0.1-1.0)
[2020-01-11 05:27] LABS: CREATININE SERUM 1.99 MG/DL (0.60-1.30)
[2020-01-11] MEDS: inSUlin ASPART (NovoLOG) 1 UNIT/0.01 ML (CHARGE PER UNIT) SC SCH ×4 (06:18→21:04)
[2020-01-11] MEDS: KCL 20 MEQ TAB (K-DUR) PO SCH ×3 (07:52→17:12)
[2020-01-11] MEDS: GABAPENTIN 300 MG (NEURONTIN) CAP PO SCH ×3 (07:52→16:50)
[2020-01-11 08:00] VITALS: BP 136/77
[2020-01-11] MEDS: PANTOPRAZOLE 40 MG (PROTONIX) VIAL IV SCH (08:53)
[2020-01-11] MEDS: FLUoxetine HCL 10 MG (PROzac) CAPSULE/TABLET PO SCH (08:56)
[2020-01-11] MEDS: SIMETHICONE 80 MG (MYLICON) CHEW PO SCH ×4 (08:56→21:04)
[2020-01-11] MEDS: FINASTERIDE (PROSCAR) 5 MG TAB PO SCH (08:56)
[2020-01-11] MEDS: guaiFENesin (MUCINEX) 600 MG TAB PO SCH ×2 (08:56→21:04)
[2020-01-11] MEDS: SPIRONOLACTONE 25 MG (ALDACTONE) TAB PO SCH (08:57)
[2020-01-11] MEDS: hydrALAZINE (APRESOLINE) 25 MG TAB PO SCH ×3 (08:57→21:04)
[2020-01-11] MEDS: amLODIPine 5 MG (NORVASC) TAB PO SCH (08:57)
[2020-01-11] MEDS: LORATADINE (CLARITIN) 10 MG TAB PO SCH (08:57)
[2020-01-11] MEDS: TAMSULOSIN 0.4 MG (FLOMAX) CAP PO SCH (08:57)
[2020-01-11] MEDS: CHOLESTYRAMINE 4 GM (QUESTRAN LITE, PREVALITE) PKT PO SCH ×2 (08:57→21:04)
[2020-01-11] MEDS: ASPIRIN 81 MG CHEW (CHILDREN'S ASA) PO SCH (08:57)
--- NOTE | 2020-01-11 09:31 | Progress Note - Hospitalist ---
Subjective HPI/CC On Admission Date Seen by Provider: Jan 11, 2020 Time Seen by Provider: 09:00 CC: Septic shock due to UTI HPI: This is a 74yoWM that had recently discharged from and a few hours later came back into the ER with hypotension and septic shock from UTI, he was admitted to the ICU, placed on broad-spectrum antibiotics and aggressive IV fluid resuscitation, at this current time he denies any pain and overall he has a very poor prognosis given the fact his creatinine is 5.2. Subjective/Events-last exam Pt is awake and alert and on commode from PT Rectal tube discontinued Creatinine 1.99 Hgb 9 Overall dependent for every aspect of activity Review of Systems General: Fatigue, Malaise Neurological: Weakness Objective Exam Vital Signs Vital Signs Date Time Temp Pulse Resp B/P (MAP) Pulse Ox O2 Delivery O2 Flow Rate FiO2 01/11/20 15:14 36.5 75 22 126/58 (80) 97 Room Air 01/10/20 14:18 21 01/07/20 09:00 2.00 Capillary Refill : Less Than 3 SecondsLess Than 3 Seconds General Appearance: No Apparent Distress, WD/WN HEENT: PERRL/EOMI, TMs Normal, Normal ENT Inspection, Pharynx Normal, Moist Mu cous Membranes Neck: Full Range of Motion, Normal Inspection, Non Tender, Supple, Carotid Bruit Respiratory: Chest Non Tender, Lungs Clear, Normal Breath Sounds, No Accessory Muscle Use, No Respiratory Distress Cardiovascular: Regular Rate, Rhythm, No Edema, No Gallop, No JVD, No Murmur, Normal Peripheral Pulses Gastrointestinal: Normal Bowel Sounds, No Organomegaly, No Pulsatile Mass, Non Tender, Soft Back: Normal Inspection, No CVA Tenderness, No Vertebral Tenderness Extremity: Normal Capillary Refill, Normal Inspection, Normal Range of Motion, Non Tender, No Calf Tenderness, No Pedal Edema Neurologic/Psychiatric: Alert, Oriented x3, No Motor/Sensory Deficits, Normal Mood/Affect Skin: Normal Color, Warm/Dry Lymphatic: No Adenopathy Results/Procedures Lab Laboratory Tests 01/11/20 04:50 Patient resulted labs reviewed. Assessment/Plan Assessment and Plan Assess & Plan/Chief Complaint Tx to 4th Assessment: Septic shock UTI Hypokalemia Acute renal failure C diff Plan: Await repeat C diff Supportive care Monitor kidneys Overall prognosis appears to be extremely poor 01/11/20: Monitor creatinine Needs longterm Poor prognosis Needs hospice Critical Care Critically Ill Patient Clinical Quality Measures DVT/VTE Risk/Contraindication: Risk Factor Score Per Nursin RFS Level Per Nursing on Admit: 4+=Very High IDALIA NAILS DO Jan 11, 2020 09:31
--- NOTE | 2020-01-11 10:00 | NUR ---
Rectal tube discontinued at this time per verbal orders from Dr. Marshall.
--- NOTE | 2020-01-11 10:33 | Physical Therapy Daily Note ---
PT Daily Note-Current Subjective Patient agrees to PT. Agrees to attempt to stand on this date. Mental Status Patient Orientation: Normal For Age Attachments: Sotelo Catheter rectal tube Transfers SCALE: Activities may be completed with or without assistive devices. 3-Auqfdkvldk-qbvxprh completes the activity by him/herself with no assistance from a helper. 5-Set-up or Clean-up Assistance-helper sets up or cleans up; patient completes activity. [place] assists only prior to or following the activity. 4-Supervision or Touching Assistance-helper provides verbal cues and/or touching/steadying and/or contact guard assistance as patient completes activity. Assistance may be provided throughout the activity or intermittently. 3-Partial/Moderate Assistance-helper does LESS THAN HALF the effort. [place] lifts, holds or supports trunk or limbs, but provides less than half the effort. 2-Substantial/Maximal Assistance-helper does MORE THAN HALF the effort. [place] lifts or holds trunk or limbs and provides more than half the effort. 3-Bsfxvlobp-ujljqe does ALL the effort. Patient does none of the effort to complete the activity. Or, the assistance of 2 or more helpers is required for the patient to complete the activity. If activity was not attempted, code reason: 7-Patient Refused. 9-Not Applicable-not attempted and the patient did not perform the activity before the current illness, exacerbation or injury. 10-Not Attempted due to Environmental Limitations-(lack of equipment, weather restraints, etc.). 88-Not Attempted due to Medical Conditions or Safety Concerns. Roll Left & Right (QC): 2 Lying to Sitting/Side of Bed(Q: 2 Sit to Stand (QC): 3 Chair/Clo-lz-Glfrh Xfer(QC): 2 Toilet Transfer (QC): 2 sit to stand from elevated bed x 4 sets with transfer to commode with use of FWW/patient has difficulty with lifting bilateral feet to advance LE's for transfer. Assessment Patient requires much time to complete all functional tasks. Patient cleansed and changed x 3 due to incontinence BM with rectal tube removed. Patient is motivated with progress. PT Retirement Goals Laundry Machine Tender Goals PT Laundry Machine Tender Goals Time Frame: Jan 19, 2020 Roll Left & Right (QC): 2 Sit to Lying (QC): 2 Lying-Sitting on Side/Bed(QC): 2 Sit to Stand (QC): 2 Chair/Wfr-od-Ecfsf Xfer(QC): 2 Does the Patient Walk: No and Walking Goal IS indicated Walk 10 feet (QC): 2 PT Plan Treatment/Plan Treatment Plan: Continue Plan of Care Treatment Plan: Bed Mobility, Education, Functional Activity Alondra, Functional Strength, Gait, Safety, Therapeutic Exercise, Transfers Treatment Duration: Jan 19, 2020 Frequency: 6 times per week Estimated Hrs Per Day: .25 hour per day Patient and/or Family Agrees t: Yes Time/GCodes Time In: 930 Time Out: 1010 Total Billed Treatment Time: 40 Total Billed Treatment 1 visit FA x 3 40 min ABDULLAHI TAPIA PT Jan 11, 2020 10:33
--- NOTE | 2020-01-11 10:49 | Occupational Ther Daily Note ---
OT Current Status-Daily Note Subjective Pt seated on BSC, agreeable to OT Tx. Pt did not verbalize pain during tx. ADL-Treatment Therapy Code Descriptions/Definitions Functional [place] Measure: 0=Not Assessed/NA 4=Minimal Assistance 1=Total Assistance 5=Supervision or Setup 2=Maximal Assistance 6=Modified [place] 3=Moderate Assistance 7=Complete IndependenceSCALE: Activities may be completed with or without assistive devices. 0-Nflraszpxu-uguqraf completes the activity by him/herself with no assistance from a helper. 5-Set-up or Clean-up Assistance-helper sets up or cleans up; patient completes activity. [place] assists only prior to or following the activity. 4-Supervision or Touching Assistance-helper provides verbal cues and/or touching/steadying and/or contact guard assistance as patient completes activity. Assistance may be provided throughout the activity or intermittently. 3-Partial/Moderate Assistance-helper does LESS THAN HALF the effort. [place] lifts, holds or supports trunk or limbs, but provides less than half the effort. 2-Substantial/Maximal Assistance-helper does MORE THAN HALF the effort. [place] lifts or holds trunk or limbs and provides more than half the effort. 2-Gomlmjisd-ciasbg does ALL the effort. Patient does none of the effort to complete the activity. Or, the assistance of 2 or more helpers is required for the patient to complete the activity. If activity was not attempted, code reason: 7-Patient Refused. 9-Not Applicable-not attempted and the patient did not perform the activity before the current illness, exacerbation or injury. 10-Not Attempted due to Environmental Limitations-(lack of equipment, weather restraints, etc.). 88-Not Attempted due to Medical Conditions or Safety Concerns. Eating (QC): 6 (pt able to eat ice cream out of dish independently.) Toileting Hygiene (QC): 1 (Assist x2 to stand from commode and complete hygiene. Pt unable to complete hygiene.) Toilet Transfer (QC): 1 (Assist x3 off of commode, 2 to assist with stand and 1 person to move BSC and place chair under pt.) Other Treatment Pt seated on BSC, stood with assist x2 as staff performed hygiene for pt. Pt then attempted to side step towards the R side where recliner was placed, pt unable to side step over to chair. BSC removed from behind pt and recliner yee betty, pt then able to sit. Pt requests ice cream off of his tray table, pt able to use spoon and get ice cream out of dish and bring to mouth without difficulty. OT handed pt hair brush, he was able to brush all of hair, required min A due to tangles in the back of his head. OT elevated leg rest for pt and assisted with positioning, pillow placed on pt's right side due to pt leaning towards the right side of chair. Pt reports comfort. Post OT tx, pt seated in recliner, call light in reach and all needs met. Education OT Patient Education: Correct positioning, Modified ADL techniques, Progress toward Goal/Update tx plan, Purpose of tx/functional activities, Transfer techniques Teaching Recipient: Patient Teaching Methods: Discussion Response to Teaching: Verbalize Understanding OT Cytology Manager Goals Halfway Goals Time Frame: Jan 10, 2020 Eating (QC): 6 Oral Hygiene (QC): 5 Toileting Hygiene (QC): 2 Shower/Bathe Self (QC): 2 Upper Body Dressing (QC): 5 Lower Body Dressing (QC): 2 On/Off Footwear (QC): 2 Additional Goals: 1-Demonstrate ADL Tasks, 2-Verbalize Understanding, 3- ImproveStrength/Alondra 1=Demonstrate adherence to instructed precautions during ADL tasks. 2=Patient will verbalize/demonstrate understanding of assistive devices/modifications for ADL. 3=Patient will improve strength/tolerance for activity to enable patient to perform ADL's. OT Education/Plan Problem List/Assessment Assessment: Decreased Activ Tolerance, Decreased UE Strength, Dependent Transfers, Impaired Funct Balance, Impaired I ADL's, Impaired Self-Care Skills Discharge Recommendations Plan/Recommendations: Continue POC Treatment Plan/Plan of Care Patient would benefit from OT for education, treatment and training to promote independence in ADL's, mobility, safety and/or upper extremity function for ADL's. Plan of Care: ADL Retraining, Functional Mobility, UE Funct Exercise/Act, W/C Management Training Treatment Duration: Jan 10, 2020 Frequency: 5 times per week Estimated Hrs Per Day: .25 hour per day Agreement: Yes Rehab Potential: Guarded Time/GCodes Start Time: 10:15 Stop Time: 10:30 Total Time Billed (hr/min): 15 Billed Treatment Time 1, ADL ROMEO BASS OT Jan 11, 2020 10:49
[2020-01-11 15:14] VITALS: BP 126/58
[2020-01-11] MEDS: CYANOCOBALAMIN 1,000 MCG (VITAMIN B-12) TABLET PO SCH (16:50)
[2020-01-11 20:45] VITALS: BP 135/76
[2020-01-12 00:20] VITALS: BP 138/78
[2020-01-12] MEDS: ENOXAPARIN 40 MG/0.4 ML (LOVENOX) SYR SC SCH ×2 (02:50→13:21)
[2020-01-12] MEDS: inSUlin ASPART (NovoLOG) 1 UNIT/0.01 ML (CHARGE PER UNIT) SC SCH ×4 (06:03→21:00)
[2020-01-12 06:13] LABS: BASOPHILS % (AUTO) 1 % (0-10); EOSINOPHILS # (AUTO) 0.2 10^3/uL (0.0-0.3); EOSINOPHILS % (AUTO) 2 % (0-10); HEMATOCRIT 28 % (40-54); HEMOGLOBIN 8.6 g/dL (13.3-17.7); LYMPHOCYTES # (AUTO) 1.5 10^3/uL (1.0-4.0); LYMPHOCYTES % (AUTO) 20 % (12-44); MEAN CORPUSCULAR HEMOGLOBIN 27 pg (25-34); MEAN CORPUSCULAR HGB CONC 30 g/dL (32-36); MEAN CORPUSCULAR VOLUME 88 fL (80-99); MEAN PLATELET VOLUME 9.6 fL (9.0-12.2); MONOCYTES # (AUTO) 0.5 10^3/uL (0.0-1.0); MONOCYTES % (AUTO) 6 % (0-12); NEUTROPHILS # (AUTO) 5.5 10^3/uL (1.8-7.8); NEUTROPHILS % (AUTO) 70 % (42-75); PLATELET COUNT 319 10^3/uL (130-400); WHITE BLOOD COUNT 7.8 10^3/uL (4.3-11.0)
[2020-01-12 06:35] LABS: ALBUMIN 2.6 GM/DL (3.2-4.5); BILIRUBIN,TOTAL 0.2 MG/DL (0.1-1.0); CREATININE SERUM 1.9 MG/DL (0.60-1.30); POTASSIUM 2.8 MMOL/L (3.6-5.0); TOTAL PROTEIN 5.5 GM/DL (6.4-8.2)
[2020-01-12 08:00] VITALS: BP 136/73
[2020-01-12] MEDS: ASPIRIN 81 MG CHEW (CHILDREN'S ASA) PO SCH (08:29)
[2020-01-12] MEDS: FLUoxetine HCL 10 MG (PROzac) CAPSULE/TABLET PO SCH (08:29)
[2020-01-12] MEDS: hydrALAZINE (APRESOLINE) 25 MG TAB PO SCH ×3 (08:29→19:52)
[2020-01-12] MEDS: CHOLESTYRAMINE 4 GM (QUESTRAN LITE, PREVALITE) PKT PO SCH ×2 (08:29→22:06)
[2020-01-12] MEDS: GABAPENTIN 300 MG (NEURONTIN) CAP PO SCH ×3 (08:29→17:06)
[2020-01-12] MEDS: SIMETHICONE 80 MG (MYLICON) CHEW PO SCH ×4 (08:29→19:53)
[2020-01-12] MEDS: FINASTERIDE (PROSCAR) 5 MG TAB PO SCH (08:29)
[2020-01-12] MEDS: amLODIPine 5 MG (NORVASC) TAB PO SCH (08:29)
[2020-01-12] MEDS: SPIRONOLACTONE 25 MG (ALDACTONE) TAB PO SCH (08:30)
[2020-01-12] MEDS: KCL 20 MEQ TAB (K-DUR) PO SCH ×3 (08:30→17:06)
[2020-01-12] MEDS: PANTOPRAZOLE 40 MG (PROTONIX) VIAL IV SCH (08:30)
[2020-01-12] MEDS: guaiFENesin (MUCINEX) 600 MG TAB PO SCH ×2 (08:30→19:52)
[2020-01-12] MEDS: TAMSULOSIN 0.4 MG (FLOMAX) CAP PO SCH (08:30)
[2020-01-12] MEDS: LORATADINE (CLARITIN) 10 MG TAB PO SCH (08:30)
--- NOTE | 2020-01-12 09:32 | Occupational Ther Daily Note ---
OT Current Status-Daily Note Subjective Pt laying in bed, required moderate encouragement to participate in therapy. Pt indicates he is eating ice cream and would prefer therapy come back later. ADL-Treatment Therapy Code Descriptions/Definitions Functional [place] Measure: 0=Not Assessed/NA 4=Minimal Assistance 1=Total Assistance 5=Supervision or Setup 2=Maximal Assistance 6=Modified [place] 3=Moderate Assistance 7=Complete IndependenceSCALE: Activities may be completed with or without assistive devices. 5-Ibrbnpzppj-lwtropz completes the activity by him/herself with no assistance from a helper. 5-Set-up or Clean-up Assistance-helper sets up or cleans up; patient completes activity. [place] assists only prior to or following the activity. 4-Supervision or Touching Assistance-helper provides verbal cues and/or touching/steadying and/or contact guard assistance as patient completes activity. Assistance may be provided throughout the activity or intermittently. 3-Partial/Moderate Assistance-helper does LESS THAN HALF the effort. [place] lifts, holds or supports trunk or limbs, but provides less than half the effort. 2-Substantial/Maximal Assistance-helper does MORE THAN HALF the effort. [place] lifts or holds trunk or limbs and provides more than half the effort. 8-Lpatofrle-oqanpu does ALL the effort. Patient does none of the effort to complete the activity. Or, the assistance of 2 or more helpers is required for the patient to complete the activity. If activity was not attempted, code reason: 7-Patient Refused. 9-Not Applicable-not attempted and the patient did not perform the activity before the current illness, exacerbation or injury. 10-Not Attempted due to Environmental Limitations-(lack of equipment, weather restraints, etc.). 88-Not Attempted due to Medical Conditions or Safety Concerns. Eating (QC): 6 (Pt able to eat ice cream without difficulty,) Other Treatment OT/PT co-treat ([id number]), skills of 2 clinicians required for skilled care and instruction for bed mobility and UE/LE exercises to decrease edema and increase strength. Pt laying in bed, transferred supine to sit EOB. Pt then stood at FWW, transferring to recliner right beside bed. Annemarie lift placed in recliner under pt if nursing needs to use annemarie lift to return pt to bed later. Pt immediately asked for ice cream once in chair, stating he did not want to complete any arm exercises because it is "ice cream time". Pt able to complete LE exercises while eating. OT assisted pt with positioning of upper body, pillow behind back and under R arm due to pt leaning towards R side. Post tx, pt seated in recliner, call light in reach and all needs met. Education OT Patient Education: Correct positioning, Modified ADL techniques, Progress toward Goal/Update tx plan, Purpose of tx/functional activities, Safety issues, Transfer techniques Teaching Recipient: Patient Teaching Methods: Discussion Response to Teaching: Verbalize Understanding, Reinforcement Needed OT Residential Goals Rag Boiler Goals Time Frame: Jan 10, 2020 Eating (QC): 6 Oral Hygiene (QC): 5 Toileting Hygiene (QC): 2 Shower/Bathe Self (QC): 2 Upper Body Dressing (QC): 5 Lower Body Dressing (QC): 2 On/Off Footwear (QC): 2 Additional Goals: 1-Demonstrate ADL Tasks, 2-Verbalize Understanding, 3- ImproveStrength/Aolndra 1=Demonstrate adherence to instructed precautions during ADL tasks. 2=Patient will verbalize/demonstrate understanding of assistive device s/modifications for ADL. 3=Patient will improve strength/tolerance for activity to enable patient to perform ADL's. OT Education/Plan Problem List/Assessment Assessment: Decreased Activ Tolerance, Decreased UE Strength, Impaired Bed Mobility, Impaired Funct Balance, Impaired I ADL's, Impaired Self-Care Skills Discharge Recommendations Plan/Recommendations: Continue POC Treatment Plan/Plan of Care Patient would benefit from OT for education, treatment and training to promote independence in ADL's, mobility, safety and/or upper extremity function for ADL's. Plan of Care: ADL Retraining, Functional Mobility, UE Funct Exercise/Act, W/C Management Training Treatment Duration: Jan 10, 2020 Frequency: 5 times per week Estimated Hrs Per Day: .25 hour per day Agreement: Yes Rehab Potential: Guarded Time/GCodes Start Time: 09:05 Stop Time: 09:18 Total Time Billed (hr/min): 13 Billed Treatment Time 1, ROMEO CASAS OT Jan 12, 2020 09:32
--- NOTE | 2020-01-12 09:38 | Physical Therapy Daily Note ---
PT Daily Note-Current Subjective Patient in bed pre tx, agrees reluctantly to PT, voices no complaints of pain, will be co-treating with OT due to poor patient mobility, strength, endurance, poor sitting and standing balance, the need to coordinate UE and LE during activity. Appearance Patient in recliner post tx with nurse call, phone, tray, all needs met, sonya under him if nursing needs to use it to get him back to bed. Mental Status Patient Orientation: Person, [place] Attachments: Sotelo Catheter Transfers SCALE: Activities may be completed with or without assistive devices. 0-Advaoxatzu-xyyswad completes the activity by him/herself with no assistance from a helper. 5-Set-up or Clean-up Assistance-helper sets up or cleans up; patient completes activity. [place] assists only prior to or following the activity. 4-Supervision or Touching Assistance-helper provides verbal cues and/or touching/steadying and/or contact guard assistance as patient completes activity. Assistance may be provided throughout the activity or intermittently. 3-Partial/Moderate Assistance-helper does LESS THAN HALF the effort. [place] lifts, holds or supports trunk or limbs, but provides less than half the effort. 2-Substantial/Maximal Assistance-helper does MORE THAN HALF the effort. [place] lifts or holds trunk or limbs and provides more than half the effort. 5-Aotukgvct-gxgklu does ALL the effort. Patient does none of the effort to complete the activity. Or, the assistance of 2 or more helpers is required for the patient to complete the activity. If activity was not attempted, code reason: 7-Patient Refused. 9-Not Applicable-not attempted and the patient did not perform the activity before the current illness, exacerbation or injury. 10-Not Attempted due to Environmental Limitations-(lack of equipment, weather restraints, etc.). 88-Not Attempted due to Medical Conditions or Safety Concerns. Roll Left & Right (QC): 3 Lying to Sitting/Side of Bed(Q: 2 Sit to Stand (QC): 3 Chair/Clc-vm-Jluyl Xfer(QC): 3 Gait Training Distance: 3' Gait Persons Needed: 1 Gait Assistive Device: FWW After standing, patient was able to make several steps to the recliner and move the walker on his own, slow and unsteady Exercises Seated Therapy Exercises: Ankle pumps, Long arc quads, Hip abd/add Seated Reps: 20 Treatments bed mobility and transfers, ambulation, LE exercise Assessment Current Status: Fair Progress improved general mobility but still needs assistance PT Long-Term Goals Salesperson [employer] Goals PT Salesperson [employer] Goals Time Frame: Jan 19, 2020 Roll Left & Right (QC): 2 Sit to Lying (QC): 2 Lying-Sitting on Side/Bed(QC): 2 Sit to Stand (QC): 2 Chair/Ygb-yt-Pxgal Xfer(QC): 2 Does the Patient Walk: No and Walking Goal IS indicated Walk 10 feet (QC): 2 PT Plan Problem List Problem List: Activity Tolerance, Functional Strength, Safety, Balance, Gait, Transfer, Bed Mobility, ROM Treatment/Plan Treatment Plan: Continue Plan of Care Treatment Plan: Bed Mobility, Education, Functional Activity Alondra, Functional Strength, Gait, Safety, Therapeutic Exercise, Transfers Treatment Duration: Jan 19, 2020 Frequency: 6 times per week Estimated Hrs Per Day: .25 hour per day Patient and/or Family Agrees t: Yes Safety Risks/Education Patient Education: Gait Training, Transfer Techniques, Correct Positioning, Safety Issues Teaching Recipient: Patient Teaching Methods: Demonstration, Discussion Response to Teaching: Reinforcement Needed Time/GCodes Time In: 904 Time Out: 817 Total Billed Treatment Time: 13 Total Billed Treatment 1 visit FA AUTUMN MONDRAGON PT Jan 12, 2020 09:38
--- NOTE | 2020-01-12 10:40 | Progress Note - Hospitalist ---
Subjective HPI/CC On Admission Date Seen by Provider: Jan 12, 2020 Time Seen by Provider: 10:00 CC: Septic shock due to UTI HPI: This is a 74yoWM that had recently discharged from and a few hours later came back into the ER with hypotension and septic shock from UTI, he was admitted to the ICU, placed on broad-spectrum antibiotics and aggressive IV fluid resuscitation, at this current time he denies any pain and overall he has a very poor prognosis given the fact his creatinine is 5.2. Subjective/Events-last exam Poor prognosis remains Will need to go to skilled If he fails skilled he needs hospice Creatinine 1.9 Potassium 2.8 will address that with more supplements Review of Systems General: Fatigue, Malaise Neurological: Weakness Objective Exam Vital Signs Vital Signs Date Time Temp Pulse Resp B/P (MAP) Pulse Ox O2 Delivery O2 Flow Rate FiO2 01/12/20 16:51 36.6 72 16 142/76 (98) 97 Room Air 01/10/20 14:18 21 01/07/20 09:00 2.00 Capillary Refill : Less Than 3 SecondsLess Than 3 Seconds General Appearance: No Apparent Distress, WD/WN, Chronically ill, Obese HEENT: PERRL/EOMI, Normal ENT Inspection, Pharynx Normal, Moist Mucous Membranes Neck: Full Range of Motion, Normal Inspection, Non Tender, Supple, Carotid Bruit Respiratory: Chest Non Tender, Lungs Clear, Normal Breath Sounds, No Accessory Muscle Use, No Respiratory Distress Cardiovascular: Regular Rate, Rhythm, No Edema, No Gallop, No JVD, No Murmur, Normal Peripheral Pulses Gastrointestinal: Normal Bowel Sounds, No Organomegaly, No Pulsatile Mass, Non Tender, Soft Back: Normal Inspection, No CVA Tenderness, No Vertebral Tenderness Extremity: Normal Capillary Refill, Normal Inspection, Normal Range of Motion, Non Tender, No Calf Tenderness, No Pedal Edema Neurologic/Psychiatric: Alert, No Motor/Sensory Deficits, Normal Mood/Affect, drum operator II-XII Norm as Tested, Abnormal Gait, Disoriented Skin: Normal Color, Warm/Dry Lymphatic: No Adenopathy Results/Procedures Lab Laboratory Tests 01/12/20 05:39 Patient resulted labs reviewed. Assessment/Plan Assessment and Plan Assess & Plan/Chief Complaint Tx to 4th Assessment: Septic shock UTI Hypokalemia Acute renal failure C diff Plan: Await repeat C diff Supportive care Monitor kidneys Overall prognosis appears to be extremely poor 01/11/20: Monitor creatinine Needs longterm Poor prognosis Needs hospice 01/12/20: Monitor creatinine Awaiting longterm placement May recover but poor prognosis manager intermediate Critical Care Critically Ill Patient Clinical Quality Measures DVT/VTE Risk/Contraindication: Risk Factor Score Per Nursin RFS Level Per Nursing on Admit: 4+=Very High IDALIA NAILS DO Jan 12, 2020 10:40
--- NOTE | 2020-01-12 16:22 | NUR ---
CM/SS: Telephone call to [facility] ([facility]) she reports they can not take pt back if he is a sonya lift due to the staffing that they currently have. This worker will follow up with daughter as she wants pt to return to [facility].
[2020-01-12 16:51] VITALS: BP 142/76
[2020-01-12] MEDS: CYANOCOBALAMIN 1,000 MCG (VITAMIN B-12) TABLET PO SCH (17:06)
[2020-01-12 23:40] VITALS: BP 136/67
[2020-01-13] MEDS: ENOXAPARIN 40 MG/0.4 ML (LOVENOX) SYR SC SCH ×2 (00:47→13:18)
--- NOTE | 2020-01-13 05:27 | Progress Note - Hospitalist ---
Subjective HPI/CC On Admission Date Seen by Provider: Jan 13, 2020 Time Seen by Provider: 10:00 CC: Septic shock due to UTI HPI: This is a 74yoWM that had recently discharged from and a few hours later came back into the ER with hypotension and septic shock from UTI, he was admitted to the ICU, placed on broad-spectrum antibiotics and aggressive IV fluid resuscitation, at this current time he denies any pain and overall he has a very poor prognosis given the fact his creatinine is 5.2. Subjective/Events-last exam Spoke with PT who thinks he can go to assisted living and not to a residential Pt doing pretty well Creatinine remains stable at 1.9 Will plan for discharge tomorrow with home health Review of Systems General: Fatigue, Malaise Objective Exam Vital Signs Vital Signs Date Time Temp Pulse Resp B/P (MAP) Pulse Ox O2 Delivery O2 Flow Rate FiO2 01/14/20 00:16 36.8 62 16 138/69 (92) 97 Room Air 01/10/20 14:18 21 Capillary Refill : Less Than 3 SecondsLess Than 3 Seconds General Appearance: No Apparent Distress, WD/WN, Chronically ill, Obese Respiratory: Chest Non Tender, Lungs Clear, Normal Breath Sounds, No Accessory Muscle Use, No Respiratory Distress Cardiovascular: Regular Rate, Rhythm, No Edema, No Gallop, No JVD, No Murmur, Normal Peripheral Pulses Results/Procedures Lab Laboratory Tests 01/13/20 05:45 Patient resulted labs reviewed. 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
[2020-01-13 05:50] LABS: BASOPHILS % (AUTO) 0 % (0-10); EOSINOPHILS # (AUTO) 0.2 10^3/uL (0.0-0.3); EOSINOPHILS % (AUTO) 2 % (0-10); HEMATOCRIT 27 % (40-54); HEMOGLOBIN 8.1 g/dL (13.3-17.7); LYMPHOCYTES % (AUTO) 26 % (12-44); MEAN CORPUSCULAR HEMOGLOBIN 27 pg (25-34); MEAN CORPUSCULAR HGB CONC 31 g/dL (32-36); MEAN CORPUSCULAR VOLUME 87 fL (80-99); MEAN PLATELET VOLUME 8.8 fL (9.0-12.2); MONOCYTES # (AUTO) 0.5 10^3/uL (0.0-1.0); MONOCYTES % (AUTO) 7 % (0-12); NEUTROPHILS # (AUTO) 4.9 10^3/uL (1.8-7.8); NEUTROPHILS % (AUTO) 64 % (42-75); PLATELET COUNT 290 10^3/uL (130-400); WHITE BLOOD COUNT 7.7 10^3/uL (4.3-11.0)
[2020-01-13 06:00] LABS: ALBUMIN 2.8 GM/DL (3.2-4.5)
[2020-01-13 06:01] LABS: POTASSIUM 2.9 MMOL/L (3.6-5.0)
[2020-01-13 06:03] LABS: TOTAL PROTEIN 5.8 GM/DL (6.4-8.2)
[2020-01-13 06:05] LABS: BILIRUBIN,TOTAL 0.2 MG/DL (0.1-1.0)
[2020-01-13 06:07] LABS: CREATININE SERUM 1.9 MG/DL (0.60-1.30)
[2020-01-13] MEDS: inSUlin ASPART (NovoLOG) 1 UNIT/0.01 ML (CHARGE PER UNIT) SC SCH ×4 (06:30→21:29)
[2020-01-13 08:00] VITALS: BP 130/66
[2020-01-13] MEDS: FLUoxetine HCL 10 MG (PROzac) CAPSULE/TABLET PO SCH (08:46)
[2020-01-13] MEDS: GABAPENTIN 300 MG (NEURONTIN) CAP PO SCH ×3 (08:46→17:22)
[2020-01-13] MEDS: ASPIRIN 81 MG CHEW (CHILDREN'S ASA) PO SCH (08:46)
[2020-01-13] MEDS: KCL 20 MEQ TAB (K-DUR) PO SCH ×3 (08:46→17:22)
[2020-01-13] MEDS: guaiFENesin (MUCINEX) 600 MG TAB PO SCH ×2 (08:46→20:46)
[2020-01-13] MEDS: FINASTERIDE (PROSCAR) 5 MG TAB PO SCH (08:46)
[2020-01-13] MEDS: SPIRONOLACTONE 25 MG (ALDACTONE) TAB PO SCH (08:46)
[2020-01-13] MEDS: TAMSULOSIN 0.4 MG (FLOMAX) CAP PO SCH (08:47)
[2020-01-13] MEDS: PANTOPRAZOLE 40 MG (PROTONIX) VIAL IV SCH (08:47)
[2020-01-13] MEDS: hydrALAZINE (APRESOLINE) 25 MG TAB PO SCH ×3 (08:47→20:48)
[2020-01-13] MEDS: LORATADINE (CLARITIN) 10 MG TAB PO SCH (08:47)
[2020-01-13] MEDS: CHOLESTYRAMINE 4 GM (QUESTRAN LITE, PREVALITE) PKT PO SCH ×2 (08:47→21:39)
[2020-01-13] MEDS: amLODIPine 5 MG (NORVASC) TAB PO SCH (08:47)
[2020-01-13] MEDS: SIMETHICONE 80 MG (MYLICON) CHEW PO SCH ×4 (08:47→20:48)
--- NOTE | 2020-01-13 10:14 | Physical Therapy Daily Note ---
PT Daily Note-Current Subjective Patient is in bed and agrees to PT. He c/o of his stomach "cramping". RN notified. Pain Numeric Pain Scale: 5-Moderate Pain Location: Medial, Lower Location Body Site: Abdomen Pain Description: Cramping Mental Status Patient Orientation: Normal For Age Transfers SCALE: Activities may be completed with or without assistive devices. 7-Lxazndpsfn-rnxikji completes the activity by him/herself with no assistance from a helper. 5-Set-up or Clean-up Assistance-helper sets up or cleans up; patient completes activity. [place] assists only prior to or following the activity. 4-Supervision or Touching Assistance-helper provides verbal cues and/or touching/steadying and/or contact guard assistance as patient completes activity. Assistance may be provided throughout the activity or intermittently. 3-Partial/Moderate Assistance-helper does LESS THAN HALF the effort. [place] lifts, holds or supports trunk or limbs, but provides less than half the effort. 2-Substantial/Maximal Assistance-helper does MORE THAN HALF the effort. [place] lifts or holds trunk or limbs and provides more than half the effort. 5-Gkeesvfbc-duqlqj does ALL the effort. Patient does none of the effort to complete the activity. Or, the assistance of 2 or more helpers is required for the patient to complete the activity. If activity was not attempted, code reason: 7-Patient Refused. 9-Not Applicable-not attempted and the patient did not perform the activity before the current illness, exacerbation or injury. 10-Not Attempted due to Environmental Limitations-(lack of equipment, weather restraints, etc.). 88-Not Attempted due to Medical Conditions or Safety Concerns. Lying to Sitting/Side of Bed(Q: 2 Sit to Stand (QC): 4 Chair/Ifk-ja-Dbjkc Xfer(QC): 4 continues to have difficulty with bed mobility, however, much improved with sit to stand transfers to FWW. Gait Training Does the Patient Walk?: Yes Distance: 30' Walk 10 feet (QC): 3 (min assist for safety with gait/slight trunk flexed posture in stand with FWW) Gait Assistive Device: FWW steady gait sequence/leans heavily on FWW with UE's Exercises Supine Ex: Ankle pumps, Quad Set, Straight leg raise Supine Reps: 8 Seated Therapy Exercises: Ankle pumps, Long arc quads, Hip flexion Seated Reps: 15 Assessment Patient requires time to complete all functional tasks and is up in recliner with needs met. PT to increase activity as tolerated by patient. PT Assisted Goals Assisted Goals PT Assisted Goals Time Frame: Jan 19, 2020 Roll Left & Right (QC): 2 Sit to Lying (QC): 2 Lying-Sitting on Side/Bed(QC): 2 Sit to Stand (QC): 2 Chair/Lvv-de-Pvnck Xfer(QC): 2 Does the Patient Walk: No and Walking Goal IS indicated Walk 10 feet (QC): 2 PT Plan Treatment/Plan Treatment Plan: Continue Plan of Care Treatment Plan: Bed Mobility, Education, Functional Activity Alondra, Functional Strength, Gait, Safety, Therapeutic Exercise, Transfers Treatment Duration: Jan 19, 2020 Frequency: 6 times per week Estimated Hrs Per Day: .25 hour per day Patient and/or Family Agrees t: Yes Time/GCodes Time In: 930 Time Out: 953 Total Billed Treatment Time: 23 Total Billed Treatment 1 visit EX 10 min GT 13 min ABDULLAHI TAPIA PT Jan 13, 2020 10:14
--- NOTE | 2020-01-13 12:05 | NUR ---
CM/SS: Visited with staff from [facility] letting them know that it will be likely pt will be able to discharge on tomorrow. They prefer it to be in the morning. They will pharmacy picking tech pt. They are ok with home care orders as well for physical therapy. Plan: Pt to discharge to [facility] on tomorrow Summary: Pt will return to [facility] tomorrow with Home Care - physical therapy in place. Telephone Call to Laura Vasquez - [phone]. Letting her know that pt will be discharged to [place] on tomorrow. She is ok with the plan and aware about Home Care - physical therapy. She prefers for [facility] to transport. She thanks this worker for calling and letting her know of the plan.
--- NOTE | 2020-01-13 14:19 | Occupational Ther Daily Note ---
OT Current Status-Daily Note Subjective Pt sleeping in bed. Shook pt's shldr, stated pt's name then pt opened eyes. Had attempted earlier in day and pt would not wake. Nrsg stated that pt did not feel well today. Mental Status/Objective Patient Orientation: Person, Place, Time, Situation Attachments: Sotelo Catheter, IV ADL-Treatment Pt declined OOB activity even with encouragement. Pt agrees to complete denture care. Would not sit on EOB to complete task. Pt required set up and handed toothbrush. Pt able to take dentures out of mouth then cleanse though not thoroughly, [place] cleansed thoroughly. Pt placed dentures back in. After therapy, pt lying in bed with call light/phone in reach. All needs met in room. Therapy Code Descriptions/Definitions Functional [place] Measure: 0=Not Assessed/NA 4=Minimal Assistance 1=Total Assistance 5=Supervision or Setup 2=Maximal Assistance 6=Modified [place] 3=Moderate Assistance 7=Complete IndependenceSCALE: Activities may be completed with or without assistive devices. 8-Whvqpschgc-dbaqfsi completes the activity by him/herself with no assistance from a helper. 5-Set-up or Clean-up Assistance-helper sets up or cleans up; patient completes activity. [place] assists only prior to or following the activity. 4-Supervision or Touching Assistance-helper provides verbal cues and/or touching/steadying and/or contact guard assistance as patient completes activity. Assistance may be provided throughout the activity or intermittently. 3-Partial/Moderate Assistance-helper does LESS THAN HALF the effort. [place] lifts, holds or supports trunk or limbs, but provides less than half the effort. 2-Substantial/Maximal Assistance-helper does MORE THAN HALF the effort. [place] lifts or holds trunk or limbs and provides more than half the effort. 6-Vlavondkg-bajong does ALL the effort. Patient does none of the effort to complete the activity. Or, the assistance of 2 or more helpers is required for the patient to complete the activity. If activity was not attempted, code reason: 7-Patient Refused. 9-Not Applicable-not attempted and the patient did not perform the activity before the current illness, exacerbation or injury. 10-Not Attempted due to Environmental Limitations-(lack of equipment, weather restraints, etc.). 88-Not Attempted due to Medical Conditions or Safety Concerns. Oral Hygiene (QC): 4 OT Differential Tester Goals Differential Tester Goals Time Frame: Jan 10, 2020 Eating (QC): 6 Oral Hygiene (QC): 5 Toileting Hygiene (QC): 2 Shower/Bathe Self (QC): 2 Upper Body Dressing (QC): 5 Lower Body Dressing (QC): 2 On/Off Footwear (QC): 2 Additional Goals: 1-Demonstrate ADL Tasks, 2-Verbalize Understanding, 3- ImproveStrength/Alondra 1=Demonstrate adherence to instructed precautions during ADL tasks. 2=Patient will verbalize/demonstrate understanding of assistive devices/modifications for ADL. 3=Patient will improve strength/tolerance for activity to enable patient to perform ADL's. OT Education/Plan Problem List/Assessment Assessment: Decreased Activ Tolerance, Decreased UE Strength Discharge Recommendations Plan/Recommendations: Continue POC Treatment Plan/Plan of Care Patient would benefit from OT for education, treatment and training to promote independence in ADL's, mobility, safety and/or upper extremity function for ADL's. Plan of Care: ADL Retraining, Functional Mobility, UE Funct Exercise/Act, W/C Management Training Treatment Duration: Jan 10, 2020 Frequency: 5 times per week Estimated Hrs Per Day: .25 hour per day Agreement: Yes Rehab Potential: Guarded Time/GCodes Start Time: 14:00 Stop Time: 14:10 Total Time Billed (hr/min): 10 Billed Treatment Time 1 visit-ADL 1 (10 min) YANELIS GOODMAN Jan 13, 2020 14:19
--- NOTE | 2020-01-13 14:26 | NUR ---
CM/SS: Referral to [facility]. Information faxed to [phone]
[2020-01-13 16:00] VITALS: BP 135/63
[2020-01-13] MEDS: CYANOCOBALAMIN 1,000 MCG (VITAMIN B-12) TABLET PO SCH (17:22)
[2020-01-14] MEDS: ENOXAPARIN 40 MG/0.4 ML (LOVENOX) SYR SC SCH (00:15)
[2020-01-14 00:16] VITALS: BP 138/69
[2020-01-14] MEDS ORDERED: CHOL4PAC3 PO (04:41)
[2020-01-14] MEDS ORDERED: FURO40TA4 PO (04:41)
[2020-01-14] MEDS ORDERED: PANT40TA2 PO (04:41)
[2020-01-14] MEDS ORDERED: AMLO5TAB9 PO (04:41)
[2020-01-14] MEDS ORDERED: SPIR25TA5 PO (04:41)
[2020-01-14] MEDS ORDERED: POTA20TA8 PO (04:41)
--- NOTE | 2020-01-14 04:43 | D/C HH Face to Face Order ---
D/C Face to Face Orders Reconcile Patient Problems Problems Reviewed?: Yes Instructions for Patient Home Health Patient Instructions/FollowUp: [facility] 1 week Physician to follow Patient: [facility] Discharge Diet for Home: No Restrictions Patient Problems: UTI Valarie failure Hypokalemia Goals for Patient: [place] Patient Data-Allergies,Ht & Wt Patient Allergies: Coded Allergies: No Known Drug Allergies (Unverified , 06/05/17) Height (Feet): 5 Height (Inches): 11.00 Weight (Pounds): 315 Weight (Ounces): 0.0 Home Health Need/Face to Face Date of Face to Face: Jan 14, 2020 Clinical Findings: Generalized weakness and fatigue, Muscle weakness, Unsteady gait I have seen Pt thku-si-kmmc: Yes Discharged To: Home Diagnosis/Conditions: UTI Valarie failure Hypokalemia Patient is Homebound due to: CognItive deficits, Muscle weakness Homebound Status Due to the above stated illness, injury or surgical procedure (medical condition or diagnosis) and associated clinical findings, the patient is homebound because of his/her inability to leave home except with aid of a supportive device and/or person AND leaving the home requires a considerable and taxing effort or is medically contraindicated. Pt req the following assistanc: Walker Home Health Nursing Orders Home Health Services Order: Nursing Services, Blow Moulding Machine Operator-Evaluate & Treat, Physical Therapy-Evaluate & Treat Home Health Infusion Therapy Line Start Date: Jan 02, 2020 Certify Stmt I certify that this patient is under my care and that I, a nurse practitioner or a physician; a assistant customer service manager working with me, had a face to face encounter that - meets the physician face to face encounter requirements with this patient as dated. IDALIA NAILS DO Jan 14, 2020 04:43
--- NOTE | 2020-01-14 04:44 | Discharge Summary ---
Discharge Summary Hospital Course Was the Problem List Reviewed?: Yes Problems/Dx: (1) Severe sepsis Status: Acute (2) Anemia Qualifiers: Qualified Codes: D64.9 - Anemia, unspecified (3) HTN (hypertension) Status: Chronic Qualifiers: Qualified Codes: I10 - Essential (primary) hypertension (4) Hydronephrosis of left kidney Status: Acute (5) Non-insulin treated type 2 diabetes mellitus Status: Chronic (6) C. difficile colitis Status: Acute (7) DVT prophylaxis Status: Acute (8) Hypokalemia Status: Acute (9) Septic shock Status: Acute (10) Urinary outflow obstruction Status: Resolved Hospital Course Date of Admission: Dec 28, 2019 at 18:41 Admission Diagnosis : Family Physician/Provider: Harmeet Valente MD Date of Discharge: 01/14/20 Discharge Diagnosis: Septic shock, UTI, c diff, severe debility, CRF, anemia, hypokalemia Hospital Course: Patient had a lengthy hospital course after arriving to ER 3 hours after DC from rehab 3 hours before and dx with septic shock placed in ICU and given aggressive IVF and abx. Patient remained in ICU for several days. Renal failure was complex requiring close monitoring and IVF support but ultimately remained at 1.9 at DC. C diff occured and was treated and PT OT were able to work with patient and increase mobility and regain enough function to DC back to [place]. Overall prognosis poor but hopefully he will be able to regain more function and improve his quality of life Labs and Pending Lab Test: Laboratory Tests 01/13/20 05:45: White Blood Count 7.7, Red Blood Count 3.04L, Hemoglobin 8.1L, Hematocrit 27L, Mean Corpuscular Volume 87, Mean Corpuscular Hemoglobin 27, Mean Corpuscular Hemoglobin Concent 31L, Red Cell Distribution Width 17.6H, Platelet Count 290, Mean Platelet Volume 8.8L, Immature Granulocyte % (Auto) 1, Neutrophils (%) (Auto) 64, Lymphocytes (%) (Auto) 26, Monocytes (%) (Auto) 7, Eosinophils (%) (Auto) 2, Basophils (%) (Auto) 0, Neutrophils # (Auto) 4.9, Lymphocytes # (Auto) 2.0, Monocytes # (Auto) 0.5, Eosinophils # (Auto) 0.2, Basophils # (Auto) 0.0, Immature Granulocyte # (Auto) 0.1, Sodium Level 140, Potassium Level 2.9L, Chloride Level 113H, Carbon Dioxide Level 19L, Anion Gap 8, Blood Urea Nitrogen 11, Creatinine 1.90H, Estimat Glomerular Filtration Rate 35, BUN/Creatinine Ratio 6, Glucose Level 96, Calcium Level 8.0L, Corrected Calcium 9.0, Total Bilirubin 0.2, Aspartate Amino Transf (AST/SGOT) 15, Alanine Aminotransferase (ALT/SGPT) 13, Alkaline Phosphatase 72, Total Protein 5.8L, Albumin 2.8L 01/13/20 05:51: Glucometer 95 01/13/20 11:37: Glucometer 120H 01/13/20 15:50: Glucometer 133H 01/13/20 20:28: Glucometer 119H 01/13/20 20:44: Glucometer 104 Microbiology 01/11/20 C. difficile GDH Antigen & Toxins - Final, Complete 12/28/19 MRSA Screen - Final, Complete MRSA not isolated 12/28/19 Urine Culture - Final, Complete Pseudomonas aeruginosa Pseudomonas aeruginosa#2 12/28/19 Blood Culture - Final, Complete No growth Home Meds Active Protonix (Pantoprazole Sodium) 40 Mg Tablet.dr 40 Mg PO DAILY Klor-Con M20 (Potassium Chloride) 20 Meq Tab.er.prt 40 Meq PO TIDWM Spironolactone 25 Mg Tablet 25 Mg PO DAILY Amlodipine Besylate 5 Mg Tablet 5 Mg PO DAILY Prevalite Packet (Cholestyramine/Aspartame) 4 Gm Powd.pack 4 Gm PO BID PRN Furosemide 40 Mg Tablet 40 Mg PO DAILY PRN Reported Potassium Chloride 20 Meq Tablet.er 20 Meq PO DAILY Senna Lax (Sennosides) 8.6 Mg Tablet 8.6 Mg PO HS PRN Zofran (Ondansetron HCl) 4 Mg Tab 4 Mg PO Q6H PRN Melatonin 3 Mg Tablet 3 Mg PO HS PRN Simethicone 80 Mg Tab.chew 80 Mg PO QID Hydralazine HCl 50 Mg Tablet 50 Mg PO TID Miralax (Polyethylene Glycol 3350) 17 Gm Powd.pack 17 Gm PO BID Fexofenadine HCl 180 Mg Tablet 180 Mg PO DAILY Norvasc (Amlodipine Besylate) 2.5 Mg Tablet 2.5 Mg PO DAILY Flomax (Tamsulosin HCl) 0.4 Mg Cap 0.4 Mg PO DAILY Finasteride 5 Mg Tablet 5 Mg PO DAILY Benazepril HCl 20 Mg Tablet 40 Mg PO DAILY TAKES 2 (20MG) TABS Aspirin 81 Mg Tab.chew 81 Mg PO DAILY Proair Hfa (Albuterol Sulfate) 1 Puff Puff 2 Puff IH Q6H PRN Bisacodyl 5 Mg Tablet.dr 5 Mg PO DAILY PRN Sennosides-Docusate Sodium Tab (Sennosides/Docusate Sodium) 1 Each Tablet 1 Each PO BID Neurontin (Gabapentin) 300 Mg Capsule 300 Mg PO 0800,1200,1700 B-12 (Cyanocobalamin (Vitamin B-12)) 1,000 Mcg Tablet 1,000 Mcg PO 1700 Fluoxetine HCl 10 Mg Tablet 10 Mg PO DAILY Mucinex (Guaifenesin) 600 Mg Tab.er.12h 900 Mg PO BID TAKES 1 & (600MG) TABS Levsin (Hyoscyamine Sulfate) 0.125 Mg Tablet 0.125 Mg SL Q4H PRN Laxative Suppository (Bisacodyl) 10 Mg Supp.rect 10 Mg RC DAILY PRN Atorvastatin Calcium 20 Mg Tablet 20 Mg PO DAILY Amitiza (Lubiprostone) 24 Mcg Capsule 24 Mcg PO 0800,1700 Acetaminophen 325 Mg Tablet 650 Mg PO Q4H PRN take 2 (325mg) tabs Assessment/Pt Instructions [facility] 1 week Discharge Planning: <30 minutes discharge planning Discharge Instructions Discharge Diet: No Restrictions Activity as Tolerated: Yes Discharge Physical Examination Vital Signs Vital Signs Date Time Temp Pulse Resp B/P (MAP) Pulse Ox O2 Delivery O2 Flow Rate FiO2 01/14/20 00:16 36.8 62 16 138/69 (92) 97 Room Air 01/10/20 14:18 21 General Appearance: No Apparent Distress, WD/WN, Chronically ill, Obese Allergies: Coded Allergies: No Known Drug Allergies (Unverified , 06/05/17) Discharge Summary Date of Admission Dec 28, 2019 at 18:41 Date of Discharge Discharge Date: Jan 14, 2020 Admission Diagnosis Assessment: Septic shock UTI recurrent and resistant presumed Delirium Debility ARF Plan: ICU Monitor closely DNR Discharge Diagnosis Tx to 4th Assessment: Septic shock UTI Hypokalemia Acute renal failure C diff Plan: Await repeat C diff Supportive care Monitor kidneys Overall prognosis appears to be extremely poor 01/11/20: Monitor creatinine Needs long term Poor prognosis Needs hospice 01/12/20: Monitor creatinine Awaiting long term placement May recover but poor prognosis casing fluid tender Clinical Quality Measures DVT/VTE Risk/Contraindication: Risk Factor Score Per Nursin RFS Level Per Nursing on Admit: 4+=Very High IDALIA NAILS DO Jan 14, 2020 04:44
[2020-01-14] MEDS: inSUlin ASPART (NovoLOG) 1 UNIT/0.01 ML (CHARGE PER UNIT) SC SCH (05:21)
[2020-01-14 08:00] VITALS: BP 138/67
[2020-01-14] MEDS: SPIRONOLACTONE 25 MG (ALDACTONE) TAB PO SCH (08:39)
[2020-01-14] MEDS: CHOLESTYRAMINE 4 GM (QUESTRAN LITE, PREVALITE) PKT PO SCH (08:39)
[2020-01-14] MEDS: ASPIRIN 81 MG CHEW (CHILDREN'S ASA) PO SCH (08:39)
[2020-01-14] MEDS: amLODIPine 5 MG (NORVASC) TAB PO SCH (08:39)
[2020-01-14] MEDS: TAMSULOSIN 0.4 MG (FLOMAX) CAP PO SCH (08:39)
[2020-01-14] MEDS: FINASTERIDE (PROSCAR) 5 MG TAB PO SCH (08:39)
[2020-01-14] MEDS: LORATADINE (CLARITIN) 10 MG TAB PO SCH (08:39)
[2020-01-14] MEDS: GABAPENTIN 300 MG (NEURONTIN) CAP PO SCH (08:39)
[2020-01-14] MEDS: KCL 20 MEQ TAB (K-DUR) PO SCH (08:39)
[2020-01-14] MEDS: hydrALAZINE (APRESOLINE) 25 MG TAB PO SCH (08:39)
[2020-01-14] MEDS: guaiFENesin (MUCINEX) 600 MG TAB PO SCH (08:40)
[2020-01-14] MEDS: PANTOPRAZOLE 40 MG (PROTONIX) VIAL IV SCH (08:40)
[2020-01-14] MEDS: SIMETHICONE 80 MG (MYLICON) CHEW PO SCH (08:43)
[2020-01-14] MEDS: FLUoxetine HCL 10 MG (PROzac) CAPSULE/TABLET PO SCH (09:22)
--- NOTE | 2020-01-14 11:27 | NUR ---
CM/SS: [facility] is notified that pt is ready for discharge Plan: Pt to return to [facility] in [place], [place]- With [facility] Service Summary: Discharge information is faxed to [facility]. 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 She will plan to bring pt some clothes. Staff have already gathered some clothes for pt to wear back to the facility. Pt is aware that he will be going back to [facility] on today. Pt is wished well. Information - discharge orders/ paperwork faxed to [facility] at [phone]
== END 2020-01-14 12:20 | disposition home health service (06) | DRG 698 ==
LOC: EDUNIT# 14:37 → ER 14:38 → ICU 18:41 → 4TH 12-31 11:25
PROVIDERS: ADMIT Internal Medicine; ATTEND Internal Medicine
PROC: 02HV33Z Insertion of Infusion Device into Superior Vena Cava, Percutaneous Approach (ICD-10-PCS; principal; 2019-12-28)
DX: T83.518A Infection and inflammatory reaction due to other urinary catheter, initial encounter (principal); A41.52 Sepsis due to Pseudomonas; R65.21 Severe sepsis with septic shock; N39.0 Urinary tract infection, site not specified; N17.9 Acute kidney failure, unspecified; A04.72 Enterocolitis due to Clostridium difficile, not specified as recurrent; Z68.42 Body mass index [BMI] 45.0-49.9, adult; R41.0 Disorientation, unspecified; R53.81 Other malaise; Z66 Do not resuscitate; E66.01 Morbid (severe) obesity due to excess calories; I12.9 Hypertensive chronic kidney disease with stage 1 through stage 4 chronic kidney disease, or unspecified chronic kidney disease; N18.9 Chronic kidney disease, unspecified; N40.1 Benign prostatic hyperplasia with lower urinary tract symptoms; R33.9 Retention of urine, unspecified; F17.210 Nicotine dependence, cigarettes, uncomplicated; E78.00 Pure hypercholesterolemia, unspecified; D64.9 Anemia, unspecified; F32.9 Major depressive disorder, single episode, unspecified; R26.2 Difficulty in walking, not elsewhere classified; R31.9 Hematuria, unspecified; I51.7 Cardiomegaly; R09.89 Other specified symptoms and signs involving the circulatory and respiratory systems; E87.6 Hypokalemia; L89.312 Pressure ulcer of right buttock, stage 2; K31.89 Other diseases of stomach and duodenum; H35.30 Unspecified macular degeneration; E83.51 Hypocalcemia; E87.8 Other disorders of electrolyte and fluid balance, not elsewhere classified; Z79.4 Long term (current) use of insulin
CPT/HCPCS: 36415; 51702; 71045; 74019; 80048; 80053; 81000; 82962; 83605; 83735; 84100; 84132; 85007; 85025; 85027; 85610; 85730; 87040; 87077; 87081; 87088; 87186; 87324; 87449; 90662; 94760; 96361; 96365; 96366; 96367; 96375

== ENCOUNTER 2020-01-24 14:54 | Emergency (ER) | payer BC ==
[~2020-01-24 14:54] MED LIST changes: +AMLO5TAB9 PO; +CHOL4PAC3 PO; +FEXO-46 PO; +HYDR-3924 PO; +MELA3TAB39 PO; +ONDN4T PO; +PANT40TA2 PO; +POLY17PO6 PO; +POTA-51 PO; +POTA20TA8 PO; +SIME80TA16 PO; +SNN187T PO; +SPIR25TA5 PO
[2020-01-24 15:19] LABS: WHITE BLOOD COUNT 8.7 10^3/uL (4.3-11.0)
[2020-01-24 15:20] LABS: BASOPHILS # (AUTO) 0.1 10^3/uL (0.0-0.1); BASOPHILS % (AUTO) 1 % (0-10); EOSINOPHILS # (AUTO) 0.6 10^3/uL (0.0-0.3); EOSINOPHILS % (AUTO) 7 % (0-10); HEMATOCRIT 35 % (40-54); HEMOGLOBIN 10.5 G/DL (13.3-17.7); LYMPHOCYTES # (AUTO) 2.5 X 10^3 (1.0-4.0); LYMPHOCYTES % (AUTO) 29 % (12-44); MEAN CORPUSCULAR HEMOGLOBIN 27 PG (25-34); MEAN CORPUSCULAR HGB CONC 30 G/DL (32-36); MEAN CORPUSCULAR VOLUME 91 FL (80-99); MEAN PLATELET VOLUME 9.1 FL (7.4-10.4); MONOCYTES # (AUTO) 0.7 X 10^3 (0.0-1.0); MONOCYTES % (AUTO) 7 % (0-12); NEUTROPHILS # (AUTO) 4.8 X 10^3 (1.8-7.8); NEUTROPHILS % (AUTO) 55 % (42-75); PLATELET COUNT 346 10^3/uL (130-400)
[2020-01-24 15:25] LABS: BACTERIA,URINE MODERATE /HPF; BILIRUBIN,URINE NEGATIVE (NEGATIVE); CLARITY,URINE SLIGHTLY CLOUDY; COLOR,URINE YELLOW; GLUCOSE, URINE (UA) NEGATIVE (NEGATIVE); KETONES,URINE NEGATIVE (NEGATIVE); LEUKOCYTE ESTERASE ,URINE 3+ (NEGATIVE); NITRITE,URINE POSITIVE (NEGATIVE); PH,URINE 5.5 (5-9); PROTEIN,URINE TRACE (NEGATIVE); RBC,URINE 25-50 /HPF; WBC,URINE >100 /HPF
[2020-01-24 15:36] LABS: CREATININE SERUM 2.2 MG/DL (0.60-1.30); POTASSIUM 4.4 MMOL/L (3.6-5.0)
[2020-01-24 15:37] LABS: ALBUMIN 3.9 GM/DL (3.2-4.5); BILIRUBIN,TOTAL 0.3 MG/DL (0.1-1.0); CALCIUM 9.5 MG/DL (8.5-10.1); TOTAL PROTEIN 7.8 GM/DL (6.4-8.2)
--- NOTE | 2020-01-24 15:37 | ED General ---
General Chief Complaint: - Urinary Stated Complaint: LETHARGY; AMS Nursing Triage Note: PT HAS BEEN FIGHTING UROSEPSIS FOR THE LAST FEW MONTHS OFF AND ON AND STARTED ACTING LETHARGIC AND JUST OFF TODAY. URINE HAS BEEN CLOUDY. Nursing Sepsis Screen: No Definite Risk History of Present Illness Date Seen by Provider: Jan 24, 2020 Time Seen by Provider: 15:36 Initial Comments 74-year-old male with indwelling Sotelo catheter He was seen in early November and then again in December and was released on January 13 has been at [facility] in assisted living since then Understanding is he had an obstructing stone in the left ureter with hydronephrosis on the left and became uroseptic in the midst of that there was difficulty getting the Sotelo catheter and he actually went and had a suprapubic place but that's since healed over and now he again has just a regular Sotelo personnel from [facility] state he seemed to be doing okay yesterday acting normal up and around today he's not doing normal activities never got up and around sort of lethargic no fever documented no vomiting no specific complaints but they feel like he very likely has a urinary infection again Allergies and Home Medications Allergies Coded Allergies: No Known Drug Allergies (Unverified , 06/05/17) Home Medications Acetaminophen 325 Mg Tablet, 650 MG PO Q4H PRN for PAIN-MILD, (Reported) take 2 (325mg) tabs Albuterol Sulfate 1 Puff Puff, 2 PUFF IH Q6H PRN for WHEEZING, (Reported) Amlodipine Besylate 5 Mg Tablet, 5 MG PO DAILY Prescribed by: IDALIA NAILS on 01/14/20440 Aspirin 81 Mg Tab.chew, 81 MG PO DAILY, (Reported) Atorvastatin Calcium 20 Mg Tablet, 20 MG PO DAILY, (Reported) Bisacodyl 10 Mg Supp.rect, 10 MG RC DAILY PRN for CONSTIPATION-4TH LINE, (Reported) Bisacodyl 5 Mg Tablet.dr, 5 MG PO DAILY PRN for CONSTIPATION-4TH LINE, (Reported) Cholestyramine/Aspartame 4 Gm Powd.pack, 4 GM PO BID PRN for DIARRHEA Prescribed by: IDALIA NAILS on 01/14/20440 Cyanocobalamin (Vitamin B-12) 1,000 Mcg Tablet, 1,000 MCG PO 1700, (Reported) Fexofenadine HCl 180 Mg Tablet, 180 MG PO DAILY, (Reported) Finasteride 5 Mg Tablet, 5 MG PO DAILY, (Reported) Fluoxetine HCl 10 Mg Tablet, 10 MG PO DAILY, (Reported) Furosemide 40 Mg Tablet, 40 MG PO DAILY PRN for swelling Prescribed by: IDALIA NAILS on 01/14/20440 Gabapentin 300 Mg Capsule, 300 MG PO 0800,1200,1700, (Reported) Guaifenesin 600 Mg Tab.er.12h, 900 MG PO BID, (Reported) TAKES 1 & (600MG) TABS Hydralazine HCl 50 Mg Tablet, 50 MG PO TID, (Reported) Hyoscyamine Sulfate 0.125 Mg Tablet, 0.125 MG SL Q4H PRN for SPASMS, (Reported) Lubiprostone 24 Mcg Capsule, 24 MCG PO 0800,1700, (Reported) Melatonin 3 Mg Tablet, 3 MG PO HS PRN for SLEEP, (Reported) Ondansetron HCl 4 Mg Tab, 4 MG PO Q6H PRN for NAUSEA/VOMITING-1ST LINE, (Reported) Pantoprazole Sodium 40 Mg Tablet.dr, 40 MG PO DAILY Prescribed by: IDALIA NAILS on 01/14/20440 Polyethylene Glycol 3350 17 Gm Powd.pack, 17 GM PO BID, (Reported) Potassium Chloride 20 Meq Tab.er.prt, 40 MEQ PO TIDWM Prescribed by: IDALIA NAILS on 01/14/20440 Sennosides 8.6 Mg Tablet, 8.6 MG PO HS PRN for CONSTIPATION-6TH LINE, (Reported) Sennosides/Docusate Sodium 1 Each Tablet, 1 EACH PO BID, (Reported) Simethicone 80 Mg Tab.chew, 80 MG PO QID, (Reported) Spironolactone 25 Mg Tablet, 25 MG PO DAILY Prescribed by: IDALIA NAILS on 01/14/20440 Tamsulosin HCl 0.4 Mg Cap, 0.4 MG PO DAILY, (Reported) Patient Home Medication List Home Medication List Reviewed: Yes Review of Systems Review of Systems Constitutional: no symptoms reported EENTM: no symptoms reported Respiratory: no symptoms reported; No short of breath Cardiovascular: no symptoms reported; No chest pain Gastrointestinal: No abdominal pain, No nausea, No vomiting Genitourinary: no symptoms reported Musculoskeletal: no symptoms reported Past Vgzqmsw-Dwuajk-Vjfygm Hx Patient Social History Alcohol Use: Denies Use Number of Drinks Today: GG Alcohol Beverage of Choice: Whiskey Recreational Drug Use: No Smoking Status: Current Everyday Smoker Type Used: Cigarettes 2nd Hand Smoke Exposure: No Recent Foreign Travel: No Contact w/Someone Who Travel: No Recent Infectious Disease Expo: No Recent Hopitalizations: No Physical Abuse: No Sexual Abuse: No Mistreated: No Fear: No Immunizations Up To Date Tetanus Booster (TDap): More than 5yrs PED Vaccines UTD: Yes Date of Pneumonia Vaccine: Jun 05, 2014 Date of Influenza Vaccine: Feb 04, 2017 Seasonal Allergies Seasonal Allergies: No Past Medical History Surgeries: Yes (bilat CTR, oral sx) Adenoidectomy, Eye Surgery, Tonsillectomy Respiratory: No Currently Using CPAP: Yes Currently Using BIPAP: No Cardiac: Yes High Cholesterol, Hypertension Neurological: No Reproductive Disorders: No Sexually Transmitted Disease: Yes (Hx of unknown STI) HIV/AIDS: No Benign Prostatic Hyperpl, Renal Failure Gastrointestinal: No Chronic Constipation Musculoskeletal: Yes (obese) Fractures Endocrine: Yes Diabetes, Insulin dep Macular Degeneration Loss of Vision: Bilateral Hearing Impairment: Denies Cancer: No Psychosocial: Yes Depression Integumentary: No Blood Disorders: No Family Medical History No Pertinent Family Hx Denies significant family medical hx Physical Exam Vital Signs Vital Signs - First Documented 01/24/20 15:09 Temp 36.3 Pulse 80 Resp 16 B/P (MAP) 165/93 (117) Pulse Ox 97 O2 Delivery Room Air Capillary Refill : Less Than 3 Seconds Height, Weight, BMI Height: 5'11.00" Weight: 315lbs. 0.0oz. 142.906442wt; 41.00 BMI Method: General Appearance: Chronically ill Eyes: Bilateral Eye PERRL, Bilateral Eye Other (disconjugate gaze but then awakened and that resolved) HEENT: Normal ENT Inspection Neck: Supple Respiratory: Lungs Clear Cardiovascular: Regular Rate, Rhythm Gastrointestinal: Non Tender, Soft; No Tenderness; Other (very full & distended suprapubic site has healed cather in urethra) Extremity: Pedal Edema, Other (bilat edema R>L reddened warm areas diffusely RLE below knee prbable cellulitis) Focused Exam Lactate Level 01/24/20 15:05: Lactic Acid Level 1.15 Lactic Acid Level Laboratory Tests Test 01/24/20 15:05 Lactic Acid Level 1.15 MMOL/L (0.50-2.00) Progress/Results/Core Measures Suspected Sepsis Recent Fever Within 48 Hours: No Infection Criteria Present: Suspected New Infection New/Unexplained Altered Menta: Yes Sepsis Screen: No Definite Risk SIRS Temperature: Pulse: 80 Respiratory Rate: 16 Laboratory Tests 01/24/20 15:05: White Blood Count 8.7 Blood Pressure 165 /93 Mean: 117 01/24/20 15:05: Lactic Acid Level 1.15 Laboratory Tests 01/24/20 15:05: Creatinine 2.20H, Platelet Count 346, Total Bilirubin 0.3 Results/Orders Lab Results Laboratory Tests Test 01/24/20 15:05 Range/Units White Blood Count 8.7 4.3-11.0 10^3/uL Red Blood Count 3.83 L 4.35-5.85 10^6/uL Hemoglobin 10.5 L 13.3-17.7 G/DL Hematocrit 35 L 40-54 % Mean Corpuscular Volume 91 80-99 FL Mean Corpuscular Hemoglobin 27 25-34 PG Mean Corpuscular Hemoglobin Concent 30 L 32-36 G/DL Red Cell Distribution Width 18.9 H 10.0-14.5 % Platelet Count 346 130-400 10^3/uL Mean Platelet Volume 9.1 7.4-10.4 FL Immature Granulocyte % (Auto) 1 % Neutrophils (%) (Auto) 55 42-75 % Lymphocytes (%) (Auto) 29 12-44 % Monocytes (%) (Auto) 7 0-12 % Eosinophils (%) (Auto) 7 0-10 % Basophils (%) (Auto) 1 0-10 % Neutrophils # (Auto) 4.8 1.8-7.8 X 10^3 Lymphocytes # (Auto) 2.5 1.0-4.0 X 10^3 Monocytes # (Auto) 0.7 0.0-1.0 X 10^3 Eosinophils # (Auto) 0.6 H 0.0-0.3 10^3/uL Basophils # (Auto) 0.1 0.0-0.1 10^3/uL Immature Granulocyte # (Auto) 0.1 0.0-0.1 10^3/uL Urine Color YELLOW Urine Clarity SLIGHTLY CLOUDY Urine pH 5.5 5-9 Urine Specific [place] 1.02 1.016-1.022 Urine Protein TRACE H NEGATIVE Urine Glucose (UA) NEGATIVE NEGATIVE Urine Ketones NEGATIVE NEGATIVE Urine Nitrite POSITIVE H NEGATIVE Urine Bilirubin NEGATIVE NEGATIVE Urine Urobilinogen 0.2 < = 1.0 MG/DL Urine Leukocyte Esterase 3+ H NEGATIVE Urine RBC (Auto) 2+ H NEGATIVE Urine RBC 25-50 H /HPF Urine WBC >100 H /HPF Urine Crystals NONE /LPF Urine Bacteria MODERATE H /HPF Urine Casts NONE /LPF Urine Mucus NEGATIVE /LPF Urine Culture Indicated YES Sodium Level 141 135-145 MMOL/L Potassium Level 4.4 3.6-5.0 MMOL/L Chloride Level 106 98-107 MMOL/L Carbon Dioxide Level 23 21-32 MMOL/L Anion Gap 12 5-14 MMOL/L Blood Urea Nitrogen 20 H 7-18 MG/DL Creatinine 2.20 H 0.60-1.30 MG/DL Estimat Glomerular Filtration Rate 29 BUN/Creatinine Ratio 9 Glucose Level 112 H 70-105 MG/DL Lactic Acid Level 1.15 0.50-2.00 MMOL/L Calcium Level 9.5 8.5-10.1 MG/DL Corrected Calcium 9.6 8.5-10.1 MG/DL Total Bilirubin 0.3 0.1-1.0 MG/DL Aspartate Amino Transf (AST/SGOT) 16 5-34 U/L Alanine Aminotransferase (ALT/SGPT) 16 0-55 U/L Alkaline Phosphatase 101 40-136 U/L Total Protein 7.8 6.4-8.2 GM/DL Albumin 3.9 3.2-4.5 GM/DL My Orders Orders - LACIE KIM MD Blood Culture (01/24/20 15:12) Lactic Acid Analyzer (01/24/20 15:12) Cbc With Automated Diff (01/24/20 15:12) Comprehensive Metabolic Panel (01/24/20 15:12) Urinalysis (01/24/20 15:12) Chest 1 View Ap/Pa Only (01/24/20 15:12) Monitor-Rhythm Ecg Trace Only (01/24/20 15:14) Urine Culture (01/24/20 15:05) Vancomycin Injection (Vancomycin Injecti (01/24/20 16:15) Ekg Tracing (01/24/20 16:12) Meropenem 1000 Mg Iv (1x Dose) (01/24/20 16:30) Ns 1l Iv (01/24/20 16:30) Medications Given in ED Current Medications Medications Dose Ordered Sig/Jacquie Route Start Time Stop Time Status Last Admin Dose Admin Vancomycin HCl 1500 mg/Sodium Chloride 500 ml @ 257.5 mls/ hr ONCE ONCE IV 01/24/20 16:15 01/24/20 18:11 01/24/20 16:24 257.5 MLS/HR Vital Signs/I&O 01/24/20 15:09 Temp 36.3 Pulse 80 Resp 16 B/P (MAP) 165/93 (117) Pulse Ox 97 O2 Delivery Room Air Capillary Refill : Less Than 3 Seconds Blood Pressure Mean: 117 Progress Note : Progress Note Hb 10.5 white blood count 8700 CMP is negative lactic acid 1.15 UA shows moderate bacteria 25-50 reds 100 white cells chest x-ray shows cardiomegaly with no acute process asses - recurrent UTI cellulitis right leg plan - currently no beds in [place], they have suggested [facility] call placed to Dr. Nails she took care of this pt on last admission IV Vanc started meropenem 1g IV and IV NS @100/hr pt accepted to transfer to [facility] ECG EKG : Comment Sinus rhythm rate 72 right bundle branch block not new no acute changes Departure Impression Primary Impression: Urinary tract infection Qualified Codes: T83.511D - Infection and inflammatory reaction due to indwelling urethral catheter, subsequent encounter; N39.0 - Urinary tract infection, site not specified Disposition: [facility] ([facility] under Dr. Joanna Woods currently diverting) Condition: Stable Departure-Patient Inst. Referrals: LAINEY BLUE MD (PCP/Family) Primary Care Physician LACIE KIM MD Jan 24, 2020 15:37
--- NOTE | 2020-01-24 15:48 | Diagnostic Imaging Report ---
INDICATION: Weakness. TECHNIQUE: Frontal chest obtained at 03:32 p.m. and compared to 12/29/2019. FINDINGS: There is cardiomegaly. Mediastinal silhouette is unremarkable. The lungs are clear. There is no pneumothorax or pleural fluid. IMPRESSION: Cardiomegaly with no acute process in the chest. Dictated by: Dictated on workstation # [id number]
[2020-01-24] MEDS ORDERED: VANCOMYCIN INJECTION 1,500 MG in NS IV 500 ML 500 ML IV ONE (16:15)
[2020-01-24] MEDS ORDERED: MEROPENEM 500 MG VIAL (MERREM) IV ONE (16:28)
[2020-01-24] MEDS ORDERED: WATER (STERILE) FOR INJECTION 40 ML ONE (16:29)
[2020-01-24] MEDS ORDERED: MEROPENEM 1,000 MG in WATER (STERILE) FOR INJECTION 20 ML IV ONE (16:30)
[2020-01-24] MEDS ORDERED: NS IV 1000 ML 1,000 ML IV SCH (16:30)
[2020-01-24 17:05] VITALS: BP 133/76
== END 2020-01-24 17:05 | disposition short-term general hospital (02) ==
LOC: EDUNIT# 14:54 → ER FS 14:56
DX: N39.0 Urinary tract infection, site not specified (principal); F32.9 Major depressive disorder, single episode, unspecified; N40.0 Benign prostatic hyperplasia without lower urinary tract symptoms; I10 Essential (primary) hypertension; E78.00 Pure hypercholesterolemia, unspecified; F17.210 Nicotine dependence, cigarettes, uncomplicated; Z79.82 Long term (current) use of aspirin
CPT/HCPCS: 36415; 71045; 80053; 81000; 83605; 85025; 87040; 87077; 87088; 87186; 93005; 93041

== ENCOUNTER → 2020-03-07 | Outpatient (CLI) | payer BC ==
[~2020-03-07] MED LIST changes: +AMLO-250 PO; -AMLO5TAB9 PO
[2020-03-07 14:05] LABS: CREATININE SERUM 1.79 MG/DL (0.60-1.30); POTASSIUM 4.2 MMOL/L (3.6-5.0)
== END ==
LOC: LAB FS 13:21
PROVIDERS: ATTEND Family Medicine
DX: A41.52 Sepsis due to Pseudomonas (principal); I12.9 Hypertensive chronic kidney disease with stage 1 through stage 4 chronic kidney disease, or unspecified chronic kidney disease; N18.9 Chronic kidney disease, unspecified
CPT/HCPCS: 36415; 80048

== ENCOUNTER 2020-03-09 10:47 | Outpatient (CLI) | payer MEDICARE, BC ==
[~2020-03-09] VITALS: Ht 180.3 cm; Wt 136.2 kg
[2020-03-09 11:45] VITALS: BP 160/92
--- NOTE | 2020-03-09 12:45 | Diagnostic Imaging Report ---
INDICATION: Right-sided PICC line placement. TIME OF EXAM: 12:14 p.m. COMPARISON: Correlation is made with prior chest from 01/24/2020. FINDINGS: Heart size is stable. A right upper extremity PICC line appears to have the tip overlying the SVC. No pneumothorax is seen. Lungs are clear. IMPRESSION: Satisfactory PICC line placement. Dictated by: Dictated on workstation # [id number]
== END 2020-03-09 12:30 | disposition home or self-care (01) ==
LOC: SDC 10:47
PROVIDERS: ATTEND Family Medicine
DX: N39.0 Urinary tract infection, site not specified (principal); A41.52 Sepsis due to Pseudomonas; Z79.2 Long term (current) use of antibiotics
CPT/HCPCS: 36569; 71045; 76937; C1751

== ENCOUNTER → 2020-03-10 | Outpatient (CLI) | payer MEDICARE, BC | LOC: LAB FS 08:52 | PROVIDERS: ATTEND Family Medicine | DX: A41.52 Sepsis due to Pseudomonas (principal) | CPT/HCPCS: 36415; 80170 ==

== ENCOUNTER → 2020-03-20 | Outpatient (CLI) | payer BC | LOC: LAB FS 12:55 | PROVIDERS: ATTEND Student in an Organized Health Care Education/Training Program | DX: A41.52 Sepsis due to Pseudomonas (principal) | CPT/HCPCS: 87077; 87088 ==

== ENCOUNTER 2020-04-06 17:12 | Emergency (ER) | payer BC, MEDICARE ==
[~2020-04-06] VITALS: Ht 172 cm; Wt 136.0 kg
[2020-04-06] MEDS ORDERED: PHENAZOPYRIDINE 100 MG (PYRIDIUM) TABLET PO ONE (17:45)
[2020-04-06 17:47] LABS: BILIRUBIN,URINE NEGATIVE (NEGATIVE); CLARITY,URINE CLEAR; COLOR,URINE YELLOW; GLUCOSE, URINE (UA) NEGATIVE (NEGATIVE); KETONES,URINE NEGATIVE (NEGATIVE); LEUKOCYTE ESTERASE ,URINE 1+ (NEGATIVE); NITRITE,URINE NEGATIVE (NEGATIVE); PH,URINE 5.5 (5-9); PROTEIN,URINE 1+ (NEGATIVE)
[2020-04-06 17:48] LABS: BASOPHILS # (AUTO) 0.1 10^3/uL (0.0-0.1); BASOPHILS % (AUTO) 1 % (0-10); EOSINOPHILS # (AUTO) 0.2 10^3/uL (0.0-0.3); EOSINOPHILS % (AUTO) 1 % (0-10); HEMATOCRIT 42 % (40-54); HEMOGLOBIN 12.8 g/dL (13.3-17.7); LYMPHOCYTES # (AUTO) 3.5 10^3/uL (1.0-4.0); LYMPHOCYTES % (AUTO) 29 % (12-44); MEAN CORPUSCULAR HEMOGLOBIN 27 pg (25-34); MEAN CORPUSCULAR HGB CONC 30 g/dL (32-36); MEAN CORPUSCULAR VOLUME 90 fL (80-99); MEAN PLATELET VOLUME 10.1 fL (9.0-12.2); MONOCYTES # (AUTO) 0.7 10^3/uL (0.0-1.0); MONOCYTES % (AUTO) 6 % (0-12); NEUTROPHILS # (AUTO) 7.5 10^3/uL (1.8-7.8); NEUTROPHILS % (AUTO) 63 % (42-75); PLATELET COUNT 245 10^3/uL (130-400); WHITE BLOOD COUNT 12.1 10^3/uL (4.3-11.0)
[2020-04-06] MEDS ORDERED: hydrALAZINE (APESOLINE) 20 MG/ML VIAL IV ONE (18:00)
[2020-04-06 18:03] LABS: AMORPHOUS SEDIMENT,UR MOD AMOR URATES /LPF; BACTERIA,URINE TRACE /HPF; RBC,URINE 0-2 /HPF
[2020-04-06 18:05] LABS: ALBUMIN 4.2 GM/DL (3.2-4.5)
--- NOTE | 2020-04-06 18:05 | ED GU-Male ---
General Stated Complaint: FEELS PRESSURE TO URINATE,BLADDER SPASMS History of Present Illness Date Seen by Provider: Apr 06, 2020 Time Seen by Provider: 17:20 Initial Comments 74-year-old male presents for dysuria. He has a Armstrong catheter and reports feeling that his bladder is full even though the catheter is draining. Patient lives in Assisted Living and has home care, catheter has not been changed in 3-4 weeks. He is scheduled to see Dr. Jenkins, urologist at [facility] tomorrow. He was concerned because of frequent urosepsis and admissions over the last few months. He denies any fever, shortness of air, nausea or vomiting. Timing/Duration: this afternoon Severity/Quality: moderate Location: suprapubic Radiation: none Associated Symptoms: abdominal pain, dysuria; No lower back pain, No nausea/vomiting Allergies and Home Medications Allergies Coded Allergies: No Known Drug Allergies (Unverified , 06/05/17) Home Medications Acetaminophen 325 Mg Tablet, 650 MG PO Q4H PRN for PAIN-MILD, (Reported) take 2 (325mg) tabs Albuterol Sulfate 1 Puff Puff, 2 PUFF IH Q6H PRN for WHEEZING, (Reported) Amlodipine Besylate 5 Mg Tablet, 5 MG PO DAILY Prescribed by: IDALIA NAILS on 01/14/20440 Aspirin 81 Mg Tab.chew, 81 MG PO DAILY, (Reported) Atorvastatin Calcium 20 Mg Tablet, 20 MG PO DAILY, (Reported) Bisacodyl 10 Mg Supp.rect, 10 MG RC DAILY PRN for CONSTIPATION-4TH LINE, (Reported) Bisacodyl 5 Mg Tablet.dr, 5 MG PO DAILY PRN for CONSTIPATION-4TH LINE, (Reported) Cholestyramine/Aspartame 4 Gm Powd.pack, 4 GM PO BID PRN for DIARRHEA Prescribed by: IDALIA NAILS on 01/14/20440 Cyanocobalamin (Vitamin B-12) 1,000 Mcg Tablet, 1,000 MCG PO 1700, (Reported) Fexofenadine HCl 180 Mg Tablet, 180 MG PO DAILY, (Reported) Finasteride 5 Mg Tablet, 5 MG PO DAILY, (Reported) Fluoxetine HCl 10 Mg Tablet, 10 MG PO DAILY, (Reported) Furosemide 40 Mg Tablet, 40 MG PO DAILY PRN for swelling Prescribed by: IDALIA NAILS on 01/14/20440 Gabapentin 300 Mg Capsule, 300 MG PO 0800,1200,1700, (Reported) Guaifenesin 600 Mg Tab.er.12h, 900 MG PO BID, (Reported) TAKES 1 & (600MG) TABS Hydralazine HCl 50 Mg Tablet, 50 MG PO TID, (Reported) Hyoscyamine Sulfate 0.125 Mg Tablet, 0.125 MG SL Q4H PRN for SPASMS, (Reported) Lubiprostone 24 Mcg Capsule, 24 MCG PO 0800,1700, (Reported) Melatonin 3 Mg Tablet, 3 MG PO HS PRN for SLEEP, (Reported) Ondansetron HCl 4 Mg Tab, 4 MG PO Q6H PRN for NAUSEA/VOMITING-1ST LINE, (Reported) Pantoprazole Sodium 40 Mg Tablet.dr, 40 MG PO DAILY Prescribed by: IDALIA NAILS on 01/14/20440 Polyethylene Glycol 3350 17 Gm Powd.pack, 17 GM PO BID, (Reported) Potassium Chloride 20 Meq Tab.er.prt, 40 MEQ PO TIDWM Prescribed by: IDALIA NAILS on 01/14/20440 Sennosides 8.6 Mg Tablet, 8.6 MG PO HS PRN for CONSTIPATION-6TH LINE, (Reported) Sennosides/Docusate Sodium 1 Each Tablet, 1 EACH PO BID, (Reported) Simethicone 80 Mg Tab.chew, 80 MG PO QID, (Reported) Spironolactone 25 Mg Tablet, 25 MG PO DAILY Prescribed by: IDALIA NAILS on 01/14/20440 Tamsulosin HCl 0.4 Mg Cap, 0.4 MG PO DAILY, (Reported) Patient Home Medication List Home Medication List Reviewed: Yes Review of Systems Review of Systems Constitutional: no symptoms reported, see HPI; No fever Genitourinary: see HPI, dysuria; denies hematuria; urgency All Other Systemes Reviewed Negative Unless Noted: Yes Past Gcccdph-Guyvtm-Cwwcxi Hx Past Med/Social Hx: Reviewed Nursing Past Med/Soc Hx Patient Social History Alcohol Beverage of Choice: Whiskey Type Used: Cigarettes 2nd Hand Smoke Exposure: No Recent Foreign Travel: No Contact w/Someone Who Travel: No Recent Hopitalizations: No Immunizations Up To Date Tetanus Booster (TDap): More than 5yrs PED Vaccines UTD: Yes Date of Pneumonia Vaccine: Jun 05, 2014 Date of Influenza Vaccine: Feb 04, 2017 Seasonal Allergies Seasonal Allergies: No Past Medical History Surgeries: Yes (bilat CTR, oral sx) Adenoidectomy, Eye Surgery, Tonsillectomy Respiratory: No Currently Using CPAP: Yes Currently Using BIPAP: No Cardiac: Yes High Cholesterol, Hypertension Neurological: No Reproductive Disorders: No Sexually Transmitted Disease: Yes (Hx of unknown STI) HIV/AIDS: No Benign Prostatic Hyperpl, Renal Failure Gastrointestinal: No Chronic Constipation Musculoskeletal: Yes (obese) Fractures Endocrine: Yes Diabetes, 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 0.0oz. 142.693837iq; 41.00 BMI Method: General Appearance: WD/WN, no apparent distress Neck: non-tender, full range of motion, supple, normal inspection Cardiovascular: normal peripheral pulses, regular rate, rhythm Respiratory: chest non-tender, lungs clear, normal breath sounds Gastrointestinal: non tender, soft, distended, tenderness (Trace suprapubic tenderness to palpation.) Male: normal genitalia; No erythema, No testicular tenderness; other (Armstrong catheter in place, no discharge from urethra. urine in armstrong, light yellow. No sedimentation. ) Extremities: normal range of motion, non-tender, normal inspection, no calf tenderness, pedal edema Neurologic/Psychiatric: no motor/sensory deficits, alert, normal mood/affect, oriented x 3 Skin: normal color, warm/dry Progress/Results/Core Measures Suspected Sepsis SIRS Temperature: Pulse: Respiratory Rate: Laboratory Tests 04/06/20 17:40: White Blood Count 12.1H Blood Pressure / Mean: Laboratory Tests 04/06/20 17:40: Creatinine 1.77H, Platelet Count 245, Total Bilirubin 0.3 Results/Orders Lab Results Laboratory Tests Test 04/06/20 17:40 Range/Units White Blood Count 12.1 H 4.3-11.0 10^3/uL Red Blood Count 4.72 4.30-5.52 10^6/uL Hemoglobin 12.8 L 13.3-17.7 g/dL Hematocrit 42 40-54 % Mean Corpuscular Volume 90 80-99 fL Mean Corpuscular Hemoglobin 27 25-34 pg Mean Corpuscular Hemoglobin Concent 30 L 32-36 g/dL Red Cell Distribution Width 14.3 10.0-14.5 % Platelet Count 245 130-400 10^3/uL Mean Platelet Volume 10.1 9.0-12.2 fL Immature Granulocyte % (Auto) 0 % Neutrophils (%) (Auto) 63 42-75 % Lymphocytes (%) (Auto) 29 12-44 % Monocytes (%) (Auto) 6 0-12 % Eosinophils (%) (Auto) 1 0-10 % Basophils (%) (Auto) 1 0-10 % Neutrophils # (Auto) 7.5 1.8-7.8 10^3/uL Lymphocytes # (Auto) 3.5 1.0-4.0 10^3/uL Monocytes # (Auto) 0.7 0.0-1.0 10^3/uL Eosinophils # (Auto) 0.2 0.0-0.3 10^3/uL Basophils # (Auto) 0.1 0.0-0.1 10^3/uL Immature Granulocyte # (Auto) 0.1 0.0-0.1 10^3/uL Urine Color YELLOW Urine Clarity CLEAR Urine pH 5.5 5-9 Urine Specific [place] 1.025 H 1.016-1.022 Urine Protein 1+ H NEGATIVE Urine Glucose (UA) NEGATIVE NEGATIVE Urine Ketones NEGATIVE NEGATIVE Urine Nitrite NEGATIVE NEGATIVE Urine Bilirubin NEGATIVE NEGATIVE Urine Urobilinogen 0.2 < = 1.0 MG/DL Urine Leukocyte Esterase 1+ H NEGATIVE Urine RBC (Auto) 1+ H NEGATIVE Urine RBC 0-2 /HPF Urine WBC 2-5 /HPF Urine Crystals PRESENT H /LPF Urine Amorphous Sediment MOD CAROL URATES H /LPF Urine Bacteria TRACE /HPF Urine Casts NONE /LPF Urine Mucus NEGATIVE /LPF Urine Culture Indicated NO Sodium Level 139 135-145 MMOL/L Potassium Level 3.9 3.6-5.0 MMOL/L Chloride Level 107 98-107 MMOL/L Carbon Dioxide Level 19 L 21-32 MMOL/L Anion Gap 13 5-14 MMOL/L Blood Urea Nitrogen 33 H 7-18 MG/DL Creatinine 1.77 H 0.60-1.30 MG/DL Estimat Glomerular Filtration Rate 38 BUN/Creatinine Ratio 19 Glucose Level 126 H 70-105 MG/DL Calcium Level 9.0 8.5-10.1 MG/DL Corrected Calcium 8.8 8.5-10.1 MG/DL Total Bilirubin 0.3 0.1-1.0 MG/DL Aspartate Amino Transf (AST/SGOT) 18 5-34 U/L Alanine Aminotransferase (ALT/SGPT) 18 0-55 U/L Alkaline Phosphatase 89 40-136 U/L C-Reactive Protein High Sensitivity 0.29 0.00-0.50 MG/DL Total Protein 8.2 6.4-8.2 GM/DL Albumin 4.2 3.2-4.5 GM/DL My Orders Orders - BJ SERRANO Ua Culture If Indicated (04/06/20 17:16) Phenazopyridine Tablet (Pyridium Tablet) (04/06/20 17:45) Cbc With Automated Diff (04/06/20 17:39) Comprehensive Metabolic Panel (04/06/20 17:39) Hs C Reactive Protein (04/06/20 17:39) Hydralazine Injection (Apresoline Inject (04/06/20 18:00) Ua Culture If Indicated (04/06/20 18:58) Medications Given in ED Current Medications Medications Dose Ordered Sig/Jacquie Route Start Time Stop Time Status Last Admin Dose Admin Hydralazine HCl 10 mg ONCE ONCE IV 04/06/20 18:00 04/06/20 18:01 DC 04/06/20 18:32 10 MG Phenazopyridine HCl 100 mg ONCE ONCE PO 04/06/20 17:45 04/06/20 17:46 DC 04/06/20 17:56 100 MG Vital Signs/I&O 04/06/20 17:45 Temp 36.9 Pulse 89 Resp 20 B/P (MAP) 205/110 (141) Pulse Ox 96 O2 Delivery Room Air Capillary Refill : Progress Note : Time: 17:20 Progress Note Patient seen and evaluated, will give Pyridium 100 mg. 1800 B/P 180/100, will give Hydralazine 10 mg IV and monitor B/P. Patient is on 3 medications for B/P, he is unsure when he takes them. He said most are given at one time daily 1844 Armstrong Catheter changed, difficult to remove, new catheter placed (coudet), immediate return of 1,200 ml of clear urine. Patient reports immediate relief of suprapubic pain. B/P 160/90 1920 2,400 ML of urine. Catheter clamped, instructed daughter to unclamp when they get to his assisted living. Spoke to daughter, updated on care. Discharge instructions and return precautions reviewed with the patient and his daughter. Armstrong catheter care explained. Departure Impression Primary Impression: Catheter (urine) change required Additional Impression: Armstrong catheter problem Qualified Codes: T83.9XXA - Unspecified complication of genitourinary prosthetic device, implant and graft, initial encounter Disposition: HOME, SELF-CARE Condition: Improved Departure-Patient Inst. Decision time for Depature: 19:05 Referrals: LAINEY BLUE MD (PCP/Family) Primary Care Physician Patient Instructions: How to Care for Your Armstrong Catheter, Male Add. Discharge Instructions: Change Armstrong catheter every 2 weeks. Continue to increase water intake. Keep your scheduled follow-up with urologist at [facility]. Return to the emergency department for new, urgent healthcare problems. Copy Copies To 1: LAINEY BLUE MD, AMY ARNP Apr 06, 2020 18:05
[2020-04-06 18:06] LABS: POTASSIUM 3.9 MMOL/L (3.6-5.0)
[2020-04-06 18:08] LABS: TOTAL PROTEIN 8.2 GM/DL (6.4-8.2)
[2020-04-06 18:10] LABS: BILIRUBIN,TOTAL 0.3 MG/DL (0.1-1.0)
[2020-04-06 18:12] LABS: CREATININE SERUM 1.77 MG/DL (0.60-1.30)
--- NOTE | 2020-04-06 18:45 | NUR ---
PATIENT ARRIVED BRAUN CATH IN PLACE. CURTIS STATES CATH HAS NOT BEEN REMOVED FOR OVER A MONTH. VERBAL ORDER FROM Pio SERRANO APRN TO CHANGE CATH.
--- NOTE | 2020-04-06 19:05 | NUR ---
BRAUN UNCLAMPED. URINE OUTPUT 1200. CATH RECLAMPED. PATIENT STATES ABDOMINAL PAIN BETTER.
[2020-04-06 19:25] VITALS: BP 189/100
--- NOTE | 2020-04-09 19:25 | NUR ---
CATH UNCLAMPED. STILL DRAINING. ANOTHER 1000 DRAINED. CATH RECLAMPED. INSTRUCTONS TO RECLAMPED, INSTRUCTIONS FOR PAIENT AND DAUGHTER TO UNCLAMP WHEN ARRIVES AT THE ASSISTED LIVING FACILITY.
== END 2020-04-06 19:25 | disposition home or self-care (01) ==
LOC: EDUNIT# 17:12 → ER 17:13
DX: T83.091A Other mechanical complication of indwelling urethral catheter, initial encounter (principal); E66.9 Obesity, unspecified; F32.9 Major depressive disorder, single episode, unspecified; E78.00 Pure hypercholesterolemia, unspecified; I10 Essential (primary) hypertension; N40.0 Benign prostatic hyperplasia without lower urinary tract symptoms; Z68.41 Body mass index [BMI] 40.0-44.9, adult; Z79.82 Long term (current) use of aspirin
CPT/HCPCS: 36415; 51702; 80053; 81000; 85025; 86141

== ENCOUNTER → 2020-04-11 | Outpatient (CLI) | payer BC, MEDICARE ==
[~2020-04-11] VITALS: Ht 180 cm; Wt 136.0 kg
[~2020-04-11] MED LIST changes: +REGADENOSON 0.4 MG/5 ML SYR (LEXISCAN) IV ONE
[2020-04-11] MEDS: CATHETER FLUSH 10 ML SYR IV PRN ×2 (11:43→12:55)
[2020-04-11 12:52] VITALS: BP 168/100
--- NOTE | 2020-04-12 10:46 | STRESS TEST ---
DATE OF SERVICE: 04/11/2020 RESTING AND POST REGADENOSON TECHNETIUM-99M TETROFOSMIN SPECT CT IMAGING ORDERING PHYSICIAN: Dr. Tellez. PRIMARY PHYSICIAN: Dr. Delarosa. CLINICAL DIAGNOSIS: Shortness of breath. Baseline images were carried out after injection of 10.44 mCi of technetium-99m Tetrofosmin. This was followed by 0.4 mg Regadenoson and 31.6 mCi of technetium-99m Tetrofosmin for stress imaging. The electrocardiogram showed sinus rhythm at baseline. It did not change significantly with the Regadenoson infusion. The patient tolerated the procedure well. Review of images at rest and following stress does not indicate any evidence of significant myocardial ischemia or infarction. Gated images show normal global left ventricular systolic function with normal regional wall motion. Left ventricular ejection fraction is calculated to be 65%. Left ventricular end diastolic volume is 109 mL. TID is absent (1.13). CONCLUSIONS: 1. No evidence of significant myocardial ischemia or infarction on this study. 2. Normal regional wall motion. 3. Normal global left ventricular systolic function with a calculated ejection fraction of 65%. 4. Mild cardiomegaly. Job ID: [id number] DocumentID: [id number] Dictated Date: 04/12/2020 09:59:22 [employer] Operations Officer Date: 04/12/2020 10:46:29 Dictated By: BAIRON TELLEZ MD, MA, FACP, FACC,
== END ==
LOC: CARD 11:30
PROVIDERS: ATTEND Internal Medicine Cardiovascular Disease
DX: I51.7 Cardiomegaly (principal); R06.02 Shortness of breath
CPT/HCPCS: 78452; 93017; 93306; A9502

== ENCOUNTER 2020-04-14 20:19 | Emergency (ER) | payer BC, MEDICARE ==
[~2020-04-14] VITALS: Ht 172 cm; Wt 136.0 kg
[~2020-04-14 20:19] MED LIST changes: -REGADENOSON 0.4 MG/5 ML SYR (LEXISCAN) IV ONE
--- NOTE | 2020-04-14 20:52 | ED GU-Male ---
General Chief Complaint: - Urinary Stated Complaint: NEED NEW CATH, CLOT Nursing Triage Note: unable to void after armstrong removed approx. 1930 Source: patient Exam Limitations: no limitations History of Present Illness Date Seen by Provider: Apr 14, 2020 Time Seen by Provider: 20:24 Initial Comments This is 74-year-old gentleman presents to the emergency room with urinary retention due to an obstructed catheter. Apparently he was not draining from his Armstrong and home health noted a blood clot in the catheter. They attempted to replace a Armstrong but this was not successful after 3 attempts. Patient was seen in this ER on the and had a catheter replacement at that time. A Armstrong was used at that time, but patient and family state that his urologist, Dr. Jenkins at [facility], specifically requests a coud catheter be used in the future. Patient has a PICC line in place and states he is receiving IV antibiotics for urinary tract infections. Allergies and Home Medications Allergies Coded Allergies: No Known Drug Allergies (Unverified , 06/05/17) Home Medications Acetaminophen 325 Mg Tablet, 650 MG PO Q4H PRN for PAIN-MILD, (Reported) take 2 (325mg) tabs Albuterol Sulfate 1 Puff Puff, 2 PUFF IH Q6H PRN for WHEEZING, (Reported) Amlodipine Besylate 5 Mg Tablet, 5 MG PO DAILY Prescribed by: IDALIA NAILS on 01/14/20440 Aspirin 81 Mg Tab.chew, 81 MG PO DAILY, (Reported) Atorvastatin Calcium 20 Mg Tablet, 20 MG PO DAILY, (Reported) Bisacodyl 10 Mg Supp.rect, 10 MG RC DAILY PRN for CONSTIPATION-4TH LINE, (Reported) Bisacodyl 5 Mg Tablet.dr, 5 MG PO DAILY PRN for CONSTIPATION-4TH LINE, (Reported) Cholestyramine/Aspartame 4 Gm Powd.pack, 4 GM PO BID PRN for DIARRHEA Prescribed by: IDALIA NAILS on 01/14/20440 Cyanocobalamin (Vitamin B-12) 1,000 Mcg Tablet, 1,000 MCG PO 1700, (Reported) Fexofenadine HCl 180 Mg Tablet, 180 MG PO DAILY, (Reported) Finasteride 5 Mg Tablet, 5 MG PO DAILY, (Reported) Fluoxetine HCl 10 Mg Tablet, 10 MG PO DAILY, (Reported) Furosemide 40 Mg Tablet, 40 MG PO DAILY PRN for swelling Prescribed by: IDALIA NAILS on 01/14/20440 Gabapentin 300 Mg Capsule, 300 MG PO 0800,1200,1700, (Reported) Guaifenesin 600 Mg Tab.er.12h, 900 MG PO BID, (Reported) TAKES 1 & (600MG) TABS Hydralazine HCl 50 Mg Tablet, 50 MG PO TID, (Reported) Hyoscyamine Sulfate 0.125 Mg Tablet, 0.125 MG SL Q4H PRN for SPASMS, (Reported) Lubiprostone 24 Mcg Capsule, 24 MCG PO 0800,1700, (Reported) Melatonin 3 Mg Tablet, 3 MG PO HS PRN for SLEEP, (Reported) Ondansetron HCl 4 Mg Tab, 4 MG PO Q6H PRN for NAUSEA/VOMITING-1ST LINE, (Reported) Pantoprazole Sodium 40 Mg Tablet.dr, 40 MG PO DAILY Prescribed by: IDALIA NAILS on 01/14/20440 Polyethylene Glycol 3350 17 Gm Powd.pack, 17 GM PO BID, (Reported) Potassium Chloride 20 Meq Tab.er.prt, 40 MEQ PO TIDWM Prescribed by: IDALIA NAILS on 01/14/20440 Sennosides 8.6 Mg Tablet, 8.6 MG PO HS PRN for CONSTIPATION-6TH LINE, (Reported) Sennosides/Docusate Sodium 1 Each Tablet, 1 EACH PO BID, (Reported) Simethicone 80 Mg Tab.chew, 80 MG PO QID, (Reported) Spironolactone 25 Mg Tablet, 25 MG PO DAILY Prescribed by: IDALIA NAILS on 01/14/20440 Tamsulosin HCl 0.4 Mg Cap, 0.4 MG PO DAILY, (Reported) Patient Home Medication List Home Medication List Reviewed: Yes Review of Systems Review of Systems Constitutional: no symptoms reported EENTM: no symptoms reported Respiratory: no symptoms reported Cardiovascular: no symptoms reported Gastrointestinal: no symptoms reported Genitourinary: see HPI Musculoskeletal: no symptoms reported Skin: no symptoms reported Psychiatric/Neurological: No Symptoms Reported Endocrine: No Symptoms Reported Hematologic/Lymphatic: No Symptoms Reported Past Qmmwoxs-Uleevj-Cacxzv Hx Past Med/Social Hx: Reviewed Nursing Past Med/Soc Hx Patient Social History Alcohol Use: Occasionally Uses Number of Drinks Today: GG Alcohol Beverage of Choice: [place]yey Recreational Drug Use: No Smoking Status: Current Everyday Smoker Type Used: Cigarettes 2nd Hand Smoke Exposure: No Recent Foreign Travel: No Contact w/Someone Who Travel: No Recent Infectious Disease Expo: No Recent Hopitalizations: No Immunizations Up To Date Tetanus Booster (TDap): More than 5yrs PED Vaccines UTD: Yes Date of Pneumonia Vaccine: Jun 05, 2014 Date of Influenza Vaccine: Feb 05, 2020 Seasonal Allergies Seasonal Allergies: No Past Medical History Surgeries: Yes (bilat CTR, oral sx) Adenoidectomy, Eye Surgery, Tonsillectomy Respiratory: No Currently Using CPAP: Yes Currently Using BIPAP: No Cardiac: Yes High Cholesterol, Hypertension Neurological: No Reproductive Disorders: No Sexually Transmitted Disease: Yes (Hx of unknown STI) HIV/AIDS: No Benign Prostatic Hyperpl, Prostate Problems, Renal Failure Gastrointestinal: No Chronic Constipation Musculoskeletal: Yes (obese) Fractures Endocrine: Yes Diabetes, Insulin dep HEENT: No Macular Degeneration Loss of Vision: Bilateral Hearing Impairment: Denies Cancer: No Psychosocial: Yes Depression Integumentary: No Blood Disorders: No Family Medical History No Pertinent Family Hx Denies significant family medical hx Physical Exam Vital Signs Vital Signs - First Documented 04/14/20 20:22 Temp 36.6 Pulse 87 Resp 16 B/P (MAP) 163/108 (126) Pulse Ox 96 O2 Delivery Room Air Capillary Refill : Less Than 3 Seconds Height, Weight, BMI Height: 5'11.00" Weight: 315lbs. 0.0oz. 142.567512aq; 45.00 BMI Method: General Appearance: WD/WN, no apparent distress, obese HEENT: PERRL/EOMI, normal ENT inspection Neck: normal inspection Cardiovascular: regular rate, rhythm, no edema, no murmur Respiratory: lungs clear, normal breath sounds, no respiratory distress Neurologic/Psychiatric: conservation assistant II-XII nml as tested, alert, normal mood/affect, oriented x 3 Skin: normal color, warm/dry Progress/Results/Core Measures Suspected Sepsis Recent Fever Within 48 Hours: No Infection Criteria Present: Documented Infection New/Unexplained Altered Menta: No Sepsis Screen: No Definite Risk SIRS Temperature: Pulse: 87 Respiratory Rate: 16 Blood Pressure 163 /108 Mean: 126 Results/Orders Lab Results Laboratory Tests Test 04/14/20 20:45 Range/Units My Orders Orders - PIERRE PEREYRA MD Ua Culture If Indicated (04/14/20 20:49) Catheter(Urinary) Insert & Ass 03,15 (04/14/20 20:49) Vital Signs/I&O 04/14/20 20:22 Temp 36.6 Pulse 87 Resp 16 B/P (MAP) 163/108 (126) Pulse Ox 96 O2 Delivery Room Air Capillary Refill : Less Than 3 Seconds Blood Pressure Mean: 126 Progress Note : Progress Note A 14 [place] coud catheter was placed with good urine return. Specimen was sent to lab. Patient was instructed to follow-up with his urologist. Departure Impression Primary Impression: Urinary retention Disposition: HOME, SELF-CARE Condition: Improved Departure-Patient Inst. Decision time for Depature: 20:51 Referrals: LAINEY BLUE MD (PCP/Family) Primary Care Physician Patient Instructions: Urinary Retention Add. Discharge Instructions: A 14 [place] coud catheter was placed. A urine specimen was sent to lab. Please follow-up with your urologist on Friday. Call or return to care if you have any problems or concerns. Empty your catheter bag often and try to keep the bag below the level of your bladder. Continue other instructions as previously directed. All discharge instructions reviewed with patient and/or family. Voiced understanding. Copy Copies To 1: LAINEY BLUE MD, JOSHUA T MD Apr 14, 2020 20:52
[2020-04-14 20:54] LABS: BILIRUBIN,URINE NEGATIVE (NEGATIVE); CLARITY,URINE CLEAR; COLOR,URINE YELLOW; GLUCOSE, URINE (UA) NEGATIVE (NEGATIVE); KETONES,URINE NEGATIVE (NEGATIVE); LEUKOCYTE ESTERASE ,URINE TRACE (NEGATIVE); NITRITE,URINE NEGATIVE (NEGATIVE); PROTEIN,URINE TRACE (NEGATIVE)
[2020-04-14 20:55] VITALS: BP 149/99
[2020-04-14 21:02] LABS: BACTERIA,URINE TRACE /HPF; SQUAMOUS EPITHELIAL CELL,UR RARE /HPF; WBC,URINE 0-2 /HPF
== END 2020-04-14 21:01 | disposition home or self-care (01) ==
LOC: EDUNIT# 20:19 → ER 20:21
DX: R33.9 Retention of urine, unspecified (principal); E66.9 Obesity, unspecified; I10 Essential (primary) hypertension; E78.00 Pure hypercholesterolemia, unspecified; F32.9 Major depressive disorder, single episode, unspecified; N40.0 Benign prostatic hyperplasia without lower urinary tract symptoms; F17.210 Nicotine dependence, cigarettes, uncomplicated; Z68.42 Body mass index [BMI] 45.0-49.9, adult; Z79.82 Long term (current) use of aspirin
CPT/HCPCS: 51702; 81000

== ENCOUNTER → 2020-05-15 | Outpatient (CLI) | payer MEDICARE, BC | LOC: LAB FS 18:18 | PROVIDERS: ATTEND Family Medicine | DX: A41.52 Sepsis due to Pseudomonas (principal) | CPT/HCPCS: 87088 ==

== ENCOUNTER → 2020-07-05 | Outpatient (CLI) | payer MEDICARE, BC | LOC: IHC 15:32 | PROVIDERS: ATTEND Urology | DX: N40.1 Benign prostatic hyperplasia with lower urinary tract symptoms (principal) | CPT/HCPCS: 87088 ==

== ENCOUNTER → 2020-08-08 | Outpatient (CLI) | payer BC ==
[2020-08-08 13:57] LABS: CLARITY,URINE CLOUDY; COLOR,URINE YELLOW; GLUCOSE, URINE (UA) 3+ (NEGATIVE); PROTEIN,URINE 2+ (NEGATIVE)
[2020-08-08 13:58] LABS: AMORPHOUS SEDIMENT,UR MOD AMOR URATES /LPF; BACTERIA,URINE LARGE /HPF; BILIRUBIN,URINE NEGATIVE (NEGATIVE); HEMATOCRIT 34 % (40-54); KETONES,URINE NEGATIVE (NEGATIVE); LEUKOCYTE ESTERASE ,URINE 2+ (NEGATIVE); MEAN CORPUSCULAR HEMOGLOBIN 28 PG (25-34); NITRITE,URINE POSITIVE (NEGATIVE); RBC,URINE 50-100 /HPF; WBC,URINE TNTC /HPF; WHITE BLOOD COUNT 9.8 10^3/uL (4.3-11.0)
[2020-08-08 13:59] LABS: BASOPHILS % (AUTO) 0 % (0-10); EOSINOPHILS # (AUTO) 0.3 10^3/uL (0.0-0.3); EOSINOPHILS % (AUTO) 3 % (0-10); LYMPHOCYTES # (AUTO) 2.3 X 10^3 (1.0-4.0); LYMPHOCYTES % (AUTO) 24 % (12-44); MEAN CORPUSCULAR HGB CONC 32 G/DL (32-36); MEAN CORPUSCULAR VOLUME 88 FL (80-99); MEAN PLATELET VOLUME 10.6 FL (7.4-10.4); MONOCYTES # (AUTO) 0.6 X 10^3 (0.0-1.0); MONOCYTES % (AUTO) 6 % (0-12); NEUTROPHILS # (AUTO) 6.6 X 10^3 (1.8-7.8); NEUTROPHILS % (AUTO) 67 % (42-75); PLATELET COUNT 271 10^3/uL (130-400)
[2020-08-08 14:09] LABS: ALANINE AMINOTRANSFERASE < 5 U/L (0-55); ALKALINE PHOSPHATASE 124 U/L (40-136); BILIRUBIN,TOTAL 0.3 MG/DL (0.1-1.0); BUN/CREATININE RATIO 14; CALCIUM 9.2 MG/DL (8.5-10.1); CARBON DIOXIDE 26 MMOL/L (21-32); CHLORIDE 97 MMOL/L (98-107); CREATININE SERUM 1.98 MG/DL (0.60-1.30); GFR ESTIMATED 33; GLUCOSE 372 MG/DL (70-105); SODIUM 134 MMOL/L (135-145)
[2020-08-08 14:10] LABS: ALBUMIN 3.6 GM/DL (3.2-4.5)
== END ==
LOC: IHC 13:25
PROVIDERS: ATTEND Family Medicine
DX: N39.0 Urinary tract infection, site not specified (principal); N40.1 Benign prostatic hyperplasia with lower urinary tract symptoms; N13.8 Other obstructive and reflux uropathy
CPT/HCPCS: 80053; 81000; 85025; 87077; 87088

== ENCOUNTER 2020-09-08 16:49 | Inpatient (IN) | payer BC, MEDICARE ==
[~2020-09-08] VITALS: Ht 180.3 cm; Wt 142.9 kg
--- NOTE | 2020-09-08 16:50 | ED Fever ---
History of Present Illness General Stated Complaint: FEVER History of Present Illness Date Seen by Provider: September 08, 2020 Time Seen by Provider: 16:50 Initial Comments 74-year-old male presents with fever, dark urine with blood. Some right shoulder pain. Patient reports that right shoulder pain started because he "slept wrong and happened after he was out smoking. Patient has an indwelling suprapubic catheter. Reports that for about the last 3 to 4 days it has been seemingly darker. He has a history of recurrent UTIs. Patient does not have any cough, minimal suprapubic pain. No nausea or vomiting. Patient was febrile when EMS arrived. Allergies and Home Medications Allergies Coded Allergies: No Known Drug Allergies (Unverified , 06/05/17) Home Medications Acetaminophen 325 Mg Tablet, 650 MG PO Q4H PRN for PAIN-MILD, (Reported) take 2 (325mg) tabs Albuterol Sulfate 1 Puff Puff, 2 PUFF IH Q6H PRN for WHEEZING, (Reported) Amlodipine Besylate 5 Mg Tablet, 5 MG PO DAILY Prescribed by: IDALIA NAILS on 01/14/20440 Aspirin 81 Mg Tab.chew, 81 MG PO DAILY, (Reported) Atorvastatin Calcium 20 Mg Tablet, 20 MG PO DAILY, (Reported) Bisacodyl 10 Mg Supp.rect, 10 MG RC DAILY PRN for CONSTIPATION-4TH LINE, (Reported) Bisacodyl 5 Mg Tablet.dr, 5 MG PO DAILY PRN for CONSTIPATION-4TH LINE, (Reported) Cholestyramine/Aspartame 4 Gm Powd.pack, 4 GM PO BID PRN for DIARRHEA Prescribed by: IDALIA NAILS on 01/14/20440 Cyanocobalamin (Vitamin B-12) 1,000 Mcg Tablet, 1,000 MCG PO 1700, (Reported) Fexofenadine HCl 180 Mg Tablet, 180 MG PO DAILY, (Reported) Finasteride 5 Mg Tablet, 5 MG PO DAILY, (Reported) Fluoxetine HCl 10 Mg Tablet, 10 MG PO DAILY, (Reported) Furosemide 40 Mg Tablet, 40 MG PO DAILY PRN for swelling Prescribed by: IDALIA NAILS on 01/14/20440 Gabapentin 300 Mg Capsule, 300 MG PO 0800,1200,1700, (Reported) Guaifenesin 600 Mg Tab.er.12h, 900 MG PO BID, (Reported) TAKES 1 & (600MG) TABS Hydralazine HCl 50 Mg Tablet, 50 MG PO TID, (Reported) Hyoscyamine Sulfate 0.125 Mg Tablet, 0.125 MG SL Q4H PRN for SPASMS, (Reported) Lubiprostone 24 Mcg Capsule, 24 MCG PO 0800,1700, (Reported) Melatonin 3 Mg Tablet, 3 MG PO HS PRN for SLEEP, (Reported) Ondansetron HCl 4 Mg Tab, 4 MG PO Q6H PRN for NAUSEA/VOMITING-1ST LINE, (Reported) Pantoprazole Sodium 40 Mg Tablet.dr, 40 MG PO DAILY Prescribed by: IDALIA NAILS on 01/14/20440 Polyethylene Glycol 3350 17 Gm Powd.pack, 17 GM PO BID, (Reported) Potassium Chloride 20 Meq Tab.er.prt, 40 MEQ PO TIDWM Prescribed by: IDALIA NAILS on 01/14/20440 Sennosides 8.6 Mg Tablet, 8.6 MG PO HS PRN for CONSTIPATION-6TH LINE, (Reported) Sennosides/Docusate Sodium 1 Each Tablet, 1 EACH PO BID, (Reported) Simethicone 80 Mg Tab.chew, 80 MG PO QID, (Reported) Spironolactone 25 Mg Tablet, 25 MG PO DAILY Prescribed by: IDALIA NAILS on 01/14/20440 Tamsulosin HCl 0.4 Mg Cap, 0.4 MG PO DAILY, (Reported) Patient Home Medication List Home Medication List Reviewed: Yes Review of Systems Review of Systems Constitutional: chills, fever, malaise Respiratory: No cough, No short of breath Cardiovascular: No chest pain, No palpitations Gastrointestinal: No abdominal pain, No nausea, No vomiting Genitourinary: see HPI Musculoskeletal: see HPI Skin: no symptoms reported Psychiatric/Neurological: No Symptoms Reported Hematologic/Lymphatic: No Symptoms Reported Immunological/Allergic: no symptoms reported Past Vzdxojr-Mgzjja-Bjwxki Hx Past Med/Social Hx: Reviewed Nursing Past Med/Soc Hx Physical Exam Vital Signs - First Documented 09/08/20 16:50 Temp 37.5 Pulse 85 Resp 17 B/P (MAP) 160/66 (97) Pulse Ox 97 O2 Delivery Room Air Capillary Refill : Height: '" Weight: lbs. oz. kg; BMI Method: General Appearance: obese, other (febrile ) HEENT: PERRL/EOMI Respiratory: lungs clear, normal breath sounds Cardiovascular: normal peripheral pulses, regular rate, rhythm Extremities: swelling (bilateral lower ext edema ), other (mild tenderness, generalized right shoulder ) Neurologic/Psychiatric: no motor/sensory deficits, alert, normal mood/affect Focused Exam Lactate Level 09/08/20 16:55: Lactic Acid Level 2.27*H Lactic Acid Level Laboratory Tests Test 09/08/20 16:55 Lactic Acid Level 2.27 MMOL/L (0.50-2.00) *H Progress/Results/Core Measures Suspected Sepsis SIRS Temperature: Pulse: Respiratory Rate: Laboratory Tests 09/08/20 16:55: White Blood Count 13.4H Blood Pressure / Mean: 09/08/20 16:55: Lactic Acid Level 2.27*H Laboratory Tests 09/08/20 16:55: Creatinine 2.56H, INR Comment 1.0, Platelet Count 290, Total Bilirubin 0.3 Results/Orders Lab Results Laboratory Tests Test 09/08/20 16:32 09/08/20 16:55 Range/Units Urine Color RED H Urine Clarity CLOUDY Urine pH 7.0 5-9 Urine Specific [place] 1.015 L 1.016-1.022 Urine Protein 3+ H NEGATIVE Urine Glucose (UA) 1+ H NEGATIVE Urine Ketones NEGATIVE NEGATIVE Urine Nitrite POSITIVE H NEGATIVE Urine Bilirubin 1+ H NEGATIVE Urine Urobilinogen 1.0 < = 1.0 MG/DL Urine Leukocyte Esterase 3+ H NEGATIVE Urine RBC (Auto) 3+ H NEGATIVE Urine RBC 50-100 H /HPF Urine WBC >100 H /HPF Urine Squamous Epithelial Cells NONE /HPF Urine Crystals NONE /LPF Urine Bacteria LARGE H /HPF Urine Casts NONE /LPF Urine Mucus NEGATIVE /LPF Urine Culture Indicated NO White Blood Count 13.4 H 4.3-11.0 10^3/uL Red Blood Count 3.95 L 4.35-5.85 10^6/uL Hemoglobin 11.0 L 13.3-17.7 G/DL Hematocrit 34 L 40-54 % Mean Corpuscular Volume 85 80-99 FL Mean Corpuscular Hemoglobin 28 25-34 PG Mean Corpuscular Hemoglobin Concent 33 32-36 G/DL Red Cell Distribution Width 15.7 H 10.0-14.5 % Platelet Count 290 130-400 10^3/uL Mean Platelet Volume 9.8 7.4-10.4 FL Immature Granulocyte % (Auto) 1 % Neutrophils (%) (Auto) 85 H 42-75 % Lymphocytes (%) (Auto) 8 L 12-44 % Monocytes (%) (Auto) 6 0-12 % Eosinophils (%) (Auto) 0 0-10 % Basophils (%) (Auto) 0 0-10 % Neutrophils # (Auto) 11.3 H 1.8-7.8 X 10^3 Lymphocytes # (Auto) 1.1 1.0-4.0 X 10^3 Monocytes # (Auto) 0.9 0.0-1.0 X 10^3 Eosinophils # (Auto) 0.0 0.0-0.3 10^3/uL Basophils # (Auto) 0.0 0.0-0.1 10^3/uL Immature Granulocyte # (Auto) 0.1 0.0-0.1 10^3/uL Neutrophils % (Manual) 87 % Lymphocytes % (Manual) 8 % Monocytes % (Manual) 5 % Prothrombin Time 13.9 12.2-14.7 SEC INR Comment 1.0 0.8-1.4 Activated Partial Thromboplast Time 31 24-35 SEC Sodium Level 137 135-145 MMOL/L Potassium Level 2.7 L 3.6-5.0 MMOL/L Chloride Level 100 98-107 MMOL/L Carbon Dioxide Level 23 21-32 MMOL/L Anion Gap 14 5-14 MMOL/L Blood Urea Nitrogen 30 H 7-18 MG/DL Creatinine 2.56 H 0.60-1.30 MG/DL Estimat Glomerular Filtration Rate 25 BUN/Creatinine Ratio 12 Glucose Level 216 H 70-105 MG/DL Lactic Acid Level 2.27 *H 0.50-2.00 MMOL/L Calcium Level 8.6 8.5-10.1 MG/DL Corrected Calcium 9.0 8.5-10.1 MG/DL Total Bilirubin 0.3 0.1-1.0 MG/DL Aspartate Amino Transf (AST/SGOT) 10 5-34 U/L Alanine Aminotransferase (ALT/SGPT) 5 0-55 U/L Alkaline Phosphatase 94 40-136 U/L Total Protein 7.2 6.4-8.2 GM/DL Albumin 3.5 3.2-4.5 GM/DL My Orders Orders - VALVERDE,ALYSSA L DO Cbc With Automated Diff (09/08/20 16:50) Comprehensive Metabolic Panel (09/08/20 16:50) Blood Culture (09/08/20 16:50) Urinalysis (09/08/20 16:50) Urine Culture (09/08/20 16:50) Protime With Inr (09/08/20 16:50) Partial Thromboplastin Time (09/08/20 16:50) Chest 1 View Ap/Pa Only (09/08/20 16:50) Ed Iv/Invasive Line Start (09/08/20 16:50) Vital Signs Adult Sepsis Patie Q15M (09/08/20 16:50) Remove Rings In Anticipation O (09/08/20 16:50) Lactic Acid Analyzer (09/08/20 16:50) Cefepime Injection (Maxipime Injection) (09/08/20 17:00) Ed Iv/Invasive Line Start (09/08/20 16:50) Ns Iv 1000 Ml (Sodium Chloride 0.9%) (09/08/20 17:00) Manual Differential (09/08/20 16:55) Vancomycin Injection (Vancomycin Injecti (09/08/20 18:00) Medications Given in ED Current Medications Medications Dose Ordered Sig/Jacquie Route Start Time Stop Time Status Last Admin Dose Admin Cefepime HCl 1000 mg/Sterile Water 10 ml @ 200 mls/hr ONCE ONCE IV 09/08/20 17:00 09/08/20 17:02 DC 09/08/20 17:11 200 MLS/HR Sodium Chloride 1,000 ml @ 250 mls/hr Q4H ONCE IV 09/08/20 17:00 09/08/20 20:59 09/08/20 17:11 250 MLS/HR Vancomycin HCl 1000 mg/Sodium Chloride 250 ml @ 250 mls/hr ONCE ONCE IV 09/08/20 18:00 09/08/20 18:59 09/08/20 17:54 250 MLS/HR Vital Signs/I&O 09/08/20 16:50 Temp 37.5 Pulse 85 Resp 17 B/P (MAP) 160/66 (97) Pulse Ox 97 O2 Delivery Room Air Capillary Refill : Progress Note : Time: 17:55 Progress Note Patient with UTI and likely early sepsis. Patient was treated with cefepime. Discussed with Dr. Nails. Patient accepted [facility], we will place him in cardiac stepdown due to his chronic medical conditions and difficult patient. Patient was stable upon transfer Departure Impression Primary Impression: Urinary tract infection Qualified Codes: T83.510A - Infection and inflammatory reaction due to cystostomy catheter, initial encounter; N39.0 - Urinary tract infection, site not specified Additional Impression: Severe sepsis Disposition: 30 STILL A PATIENT Condition: Stable Admissions Decision to Admit Reason: Admit from ER (General) Decision to Admit/Date: September 08, 2020 Time/Decision to Admit Time: 17:50 ALYSSA VALVERDE DO September 08, 2020 16:50
[2020-09-08] MEDS ORDERED: CEFEPIME INJECTION 1,000 MG in WATER (STERILE) FOR INJECTION 10 ML IV ONE (17:00)
[2020-09-08] MEDS ORDERED: NS IV 1000 ML 1,000 ML IV ONE (17:00)
[2020-09-08 17:11] LABS: BASOPHILS % (AUTO) 0 % (0-10); EOSINOPHILS % (AUTO) 0 % (0-10); HEMATOCRIT 34 % (40-54); LYMPHOCYTES # (AUTO) 1.1 X 10^3 (1.0-4.0); LYMPHOCYTES % (AUTO) 8 % (12-44); MEAN CORPUSCULAR HEMOGLOBIN 28 PG (25-34); MEAN CORPUSCULAR HGB CONC 33 G/DL (32-36); MEAN CORPUSCULAR VOLUME 85 FL (80-99); MEAN PLATELET VOLUME 9.8 FL (7.4-10.4); MONOCYTES # (AUTO) 0.9 X 10^3 (0.0-1.0); MONOCYTES % (AUTO) 6 % (0-12); NEUTROPHILS # (AUTO) 11.3 X 10^3 (1.8-7.8); NEUTROPHILS % (AUTO) 85 % (42-75); PLATELET COUNT 290 10^3/uL (130-400); WHITE BLOOD COUNT 13.4 10^3/uL (4.3-11.0)
[2020-09-08 17:12] LABS: BACTERIA,URINE LARGE /HPF; BILIRUBIN,URINE 1+ (NEGATIVE); CLARITY,URINE CLOUDY; COLOR,URINE RED; GLUCOSE, URINE (UA) 1+ (NEGATIVE); KETONES,URINE NEGATIVE (NEGATIVE); LEUKOCYTE ESTERASE ,URINE 3+ (NEGATIVE); NITRITE,URINE POSITIVE (NEGATIVE); PROTEIN,URINE 3+ (NEGATIVE); RBC,URINE 50-100 /HPF; WBC,URINE >100 /HPF
--- NOTE | 2020-09-08 17:17 | Diagnostic Imaging Report ---
INDICATION: Sepsis. COMPARISON: 03/09/2020. TECHNIQUE: Two radiographs of the chest dated September 08, 2020. FINDINGS: The cardiac silhouette is mildly enlarged, though stable. Mild central pulmonary vascular congestion. The right lung is clear. Mild left basilar interstitial opacities. No significant pleural effusion. No pneumothorax. No acute osseous abnormality. IMPRESSION: Mild left basilar atelectasis and/or pneumonitis. Mild cardiomegaly with mild central pulmonary vascular congestion. No significant pleural effusion. Dictated by: Dictated on workstation # [id number]
[2020-09-08 17:18] LABS: PROTHROMBIN TIME PATIENT 13.9 SEC (12.2-14.7)
[2020-09-08 17:21] LABS: CREATININE SERUM 2.56 MG/DL (0.60-1.30); POTASSIUM 2.7 MMOL/L (3.6-5.0)
[2020-09-08 17:22] LABS: ALBUMIN 3.5 GM/DL (3.2-4.5); BILIRUBIN,TOTAL 0.3 MG/DL (0.1-1.0); CALCIUM 8.6 MG/DL (8.5-10.1); TOTAL PROTEIN 7.2 GM/DL (6.4-8.2)
[2020-09-08 17:46] LABS: LYMPHOCYTES % (MANUAL) 8 %; MONOCYTES % (MANUAL) 5 %; NEUTROPHILS % (MANUAL) 87 %
[2020-09-08] MEDS ORDERED: VANCOMYCIN INJECTION 1,000 MG in NS (IVPB) 250 ML IV ONE (18:00)
[2020-09-08 19:45] VITALS: BP 142/81
[2020-09-08 20:00] VITALS: BP 142/81
[2020-09-08] MEDS: NS IV 1000 ML 1,000 ML IV SCH (20:00)
[2020-09-08] MEDS ORDERED: CALCIUM CARBONATE 500 MG (TUMS) TAB.CHEW PO PRN (21:45)
[2020-09-08] MEDS ORDERED: ONDANSETRON 4 MG/2 ML (SDV) Z0FRAN IVP PRN (21:45)
[2020-09-08] MEDS ORDERED: diphenhydrAMINE 25 MG TAB (BENADRYL) PO PRN (21:45)
[2020-09-08] MEDS ORDERED: DOCUSATE SODIUM 100 MG (COLACE) CAP PO PRN (21:45)
[2020-09-08] MEDS ORDERED: LOPERAMIDE 2 MG (IMODIUM) TABLET PO PRN (21:45)
[2020-09-08] MEDS ORDERED: MELATONIN 3 MG TABLET PO PRN (21:45)
[2020-09-08] MEDS ORDERED: ACETAMINOPHEN 500 MG TAB (TYLENOL) PO PRN (21:45)
[2020-09-08] MEDS ORDERED: amLODIPine 5 MG (NORVASC) TAB PO ONE (22:00)
[2020-09-08] MEDS: HYDROcodone/APAP 5 MG/325 MG (LORTAB) TAB PO PRN (22:58)
[2020-09-08] MEDS: TAMSULOSIN 0.4 MG (FLOMAX) CAP PO SCH (22:59)
[2020-09-08] MEDS: POTASSIUM CL 10MEQ/50ML IVPB 50 ML IV SCH (23:04)
[2020-09-08] MEDS: fentaNYL INJ 100 MCG/2 ML AMP IVP PRN (23:26)
[2020-09-09] VITALS (7 sets, daily range): BP systolic 127–172; BP diastolic 76–96
[2020-09-09] MEDS: CEFEPIME 1,000 MG/SWFI 10 ML IV PUSH IV SCH ×6 (02:56→17:28)
[2020-09-09 03:57] LABS: BASOPHILS % (AUTO) 0 % (0-10); EOSINOPHILS # (AUTO) 0.1 10^3/uL (0.0-0.3); EOSINOPHILS % (AUTO) 1 % (0-10); HEMATOCRIT 30 % (40-54); HEMOGLOBIN 9.8 g/dL (13.3-17.7); LYMPHOCYTES % (AUTO) 19 % (12-44); MEAN CORPUSCULAR HEMOGLOBIN 28 pg (25-34); MEAN CORPUSCULAR HGB CONC 32 g/dL (32-36); MEAN CORPUSCULAR VOLUME 86 fL (80-99); MEAN PLATELET VOLUME 9.7 fL (9.0-12.2); MONOCYTES # (AUTO) 0.9 10^3/uL (0.0-1.0); MONOCYTES % (AUTO) 8 % (0-12); NEUTROPHILS # (AUTO) 7.5 10^3/uL (1.8-7.8); NEUTROPHILS % (AUTO) 71 % (42-75); PLATELET COUNT 244 10^3/uL (130-400); WHITE BLOOD COUNT 10.6 10^3/uL (4.3-11.0)
[2020-09-09] MEDS: fentaNYL INJ 100 MCG/2 ML AMP IVP PRN ×4 (04:02→21:25)
[2020-09-09 04:10] LABS: ALBUMIN 3.2 GM/DL (3.2-4.5)
[2020-09-09 04:11] LABS: POTASSIUM 2.6 MMOL/L (3.6-5.0)
[2020-09-09 04:12] LABS: CALCIUM 8.5 MG/DL (8.5-10.1)
[2020-09-09 04:13] LABS: TOTAL PROTEIN 6.6 GM/DL (6.4-8.2)
[2020-09-09 04:15] LABS: BILIRUBIN,TOTAL 0.6 MG/DL (0.1-1.0)
[2020-09-09 04:17] LABS: CREATININE SERUM 2.93 MG/DL (0.60-1.30)
--- NOTE | 2020-09-09 06:38 | History & Physical-Hospitalist ---
History of Present Illness HPI/Chief Complaint CC: UTI with sepsis w/h/o septic shock HPI: This is a chronically ill 75yoWM who presented to the [facility] ER with feve r and chills and found to have UTI with sepsis. He had a long course last year of severe illness with septic shock and UTI and ESTHER but has been doing well since that time. He is currently complaining of right shoulder pain without injury and wearing his CPAP. Abx started and patient will be monitored closely. Source: patient, RN/MD, old records Exam Limitations: no limitations Date Seen 09/09/20 Time Seen by a Provider: 10:00 Attending Physician Becka Marshall DO PCP Self,Harmeet JONES Referring Physician Date of Admission September 08, 2020 at 19:35 Home Medications & Allergies Home Medications Reviewed patient Home Medication Reconciliation performed by pharmacy medication reconciliations game technician and/or nursing. Patients Allergies have been reviewed. Allergies Allergies Coded Allergies No Known Drug Allergies (Unverified06/05/17) Past Medical/Social/Family Hx Patient Social History Marrital Status: single Employed/Student: retired Tobacco Use?: Yes Tobacco type used: Cigarettes Smoking Status: Current Everyday Smoker Use of E-Cig and/or Vaping dev: No Substance use?: No Alcohol Use?: No Pt stated abuse/neglect: No Immunizations Up To Date Influenza Vaccine Up-to-Date: Yes; Up-to-Date Date of Pneumonia Vaccine: Jun 05, 2014 Current Status Communicates: Verbally Primary Language: Samoan Preferred Spoken Language: Samoan Is interpretation needed?: No Implanted or Applied Medical D: CPAP Past Medical History BPH with Suprapubic cath HTN NIDDM Obesity Septic shock from UTI 2019 Family Medical History Family Hx: Denies significant family medical hx Review of Systems Constitutional: see HPI, fever, malaise, weakness Musculoskeletal: joint pain Physical Exam Physical Exam Vital Signs Vital Signs - First Documented 09/08/20 09/09/20 16:50 04:06 Temp 37.5 Pulse 85 Resp 17 B/P (MAP) 160/66 (97) Pulse Ox 97 O2 Delivery Room Air O2 Flow Rate 21.00 Capillary Refill : Less Than 3 Seconds Height, Weight, BMI Height: 5'11.00" Weight: 315lbs. 0.0oz. 142.448804oh; 46.14 BMI Method: General Appearance: No Apparent Distress, Chronically ill, Obese Eyes: Right Eye Normal Inspection, Right Eye PERRL HEENT: PERRL/EOMI, Normal ENT Inspection, Pharynx Normal, Moist Mucous Membranes Neck: Full Range of Motion, Normal Inspection, Non Tender Respiratory: Chest Non Tender, Lungs Clear, Normal Breath Sounds, No Accessory Muscle Use, No Respiratory Distress Cardiovascular: Regular Rate, Rhythm, No Edema, No Gallop, No JVD, No Murmur, Normal Peripheral Pulses Gastrointestinal: Normal Bowel Sounds, No Organomegaly, No Pulsatile Mass, Non Tender, Soft Back: Normal Inspection, No CVA Tenderness, No Vertebral Tenderness Extremity: Normal Capillary Refill, Normal Inspection, Normal Range of Motion, Non Tender, No Calf Tenderness, No Pedal Edema Neurologic/Psychiatric: Alert, Oriented x3, No Motor/Sensory Deficits, Depressed Affect Skin: Normal Color, Warm/Dry Lymphatic: No Adenopathy Results Results/Procedures Labs Laboratory Tests 09/08/20 16:55 09/09/20 03:44 Patient resulted labs reviewed. 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 Plan: IV abx IVF Move to 4th floor Heparin Admission Status: Inpatient Order (span 2 midnights) Reason for Inpatient Admission: resistant UTI with sepsis Diagnosis/Problems Diagnosis/Problems (1) Urinary tract infection Status: Acute Qualifiers: Urinary tract infection type: catheter-associated UTI Indwelling urinary catheter type: cystostomy catheter Encounter type: initial encounter Qualified Codes: T83.510A - Infection and inflammatory reaction due to cystostomy catheter, initial encounter; N39.0 - Urinary tract infection, site not specified (2) Acute kidney injury Status: Acute (3) Sepsis Status: Acute BECKA MARSHALL DO September 09, 2020 06:38
[2020-09-09] MEDS ORDERED: MAGNESIUM 1 GM/100 ML IVPB 100 ML IV ONE (06:45)
[2020-09-09] MEDS ORDERED: CATHETER FLUSH 10 ML SYR IV PRN (07:15)
[2020-09-09] MEDS: POTASSIUM CL 10MEQ/50ML IVPB 50 ML IV SCH ×4 (08:20→09:36)
[2020-09-09] MEDS: NS IV 1000 ML 1,000 ML IV SCH ×3 (08:32→17:35)
[2020-09-09] MEDS: amLODIPine 5 MG (NORVASC) TAB PO SCH (08:35)
[2020-09-09] MEDS: FINASTERIDE (PROSCAR) 5 MG TAB PO SCH (08:35)
[2020-09-09] MEDS: SENNA W/DOCUSATE (SENOKOT S) TABLET PO SCH ×2 (08:35→21:17)
--- NOTE | 2020-09-09 09:15 | Diagnostic Imaging Report ---
HISTORY: Urinary tract infection, sepsis, atelectasis. COMPARISON: 09/08/2020 TECHNIQUE: Frontal view of the chest FINDINGS: Lung volumes are mildly low. No focal consolidation is seen. The left lung base appears better aerated than on the prior exam. There now appears to be mildly increased right basilar opacity which is likely atelectasis. There is no pleural effusion or pneumothorax. The cardiac silhouette is stable in size. IMPRESSION: 1. Right basilar atelectasis. Aeration in the left lung base appears improved. Dictated by: Dictated on workstation # [id number]
--- NOTE | 2020-09-09 09:39 | Occupational Therapy Eval ---
OT Evaluation-General/PLF Medical Diagnosis Admission Date September 08, 2020 at 19:35 Medical Diagnosis: UTI/ early sepsis Onset Date: September 08, 2020 Therapy Diagnosis Therapy Diagnosis: Debility Height/Weight Height (Feet): 5 Height (Inches): 11.00 Weight (Pounds): 315 Weight (Ounces): 0.0 Precautions Precautions/Isolations: Fall Prevention, Standard Precautions Referral Physician: Joanna Referral Reason: Activity Tolerance, Self Care, Evaluation/Treatment, Strengthening/ROM Medical History Pertinent Medical History: Alcoholism, HTN, Renal Insufficiency, Smoking Additional Medical History everyday smoker, BPH, HTN, NIDDM, obesity Current History fever with dark urine/ blood in urine. Likely UTI/ early sepsis per notes. Reviewed History: Yes Social History Home: Skilled Nursing Entry Into Home: Level Entry ADL-Prior Level of Function SCALE: Activities may be completed with or without assistive devices. 9-Deggzwvbkz-iorqzdl completes the activity by him/herself with no assistance from a helper. 5-Set-up or Clean-up Assistance-helper sets up or cleans up; patient completes activity. [place] assists only prior to or following the activity. 4-Supervision or Touching Assistance-helper provides verbal cues and/or touching/steadying and/or contact guard assistance as patient completes activity. Assistance may be provided throughout the activity or intermittently. 3-Partial/Moderate Assistance-helper does LESS THAN HALF the effort. [place] lifts, holds or supports trunk or limbs, but provides less than half the effort. 2-Substantial/Maximal Assistance-helper does MORE THAN HALF the effort. [place] lifts or holds trunk or limbs and provides more than half the effort. 9-Qjuyfueuz-ymqrdk does ALL the effort. Patient does none of the effort to complete the activity. Or, the assistance of 2 or more helpers is required for the patient to complete the activity. If activity was not attempted, code reason: 7-Patient Refused. 9-Not Applicable-not attempted and the patient did not perform the activity before the current illness, exacerbation or injury. 10-Not Attempted due to Environmental Limitations-(lack of equipment, weather restraints, etc.). 88-Not Attempted due to Medical Conditions or Safety Concerns. ADL PLOF Comments Pt expresses he "doesn't do much," and is "waiting to , eventually I'll just ," expresses chronic pain and limited RUE ROM that limits ADL abilities. Pt agrees to tx and is somewhat responsive to therapy suggestions. Expresses NH completes most of showering, all LB washing, he is typically able to complete dressing other than socks (has sock aide, utilizes at times.) does not feed self though LUE functional. Self Care: Needed Some Help Functional Cognition: Needed Some Help Drive Self: No OT Current Status Subjective Pt AxO, just got back to bed from bathroom. Nursing provides assist in pt's current LOF. Pt denies OOB as just got back. States chronic pain in neck/ R shoulder. Mental Status/Objective Patient Orientation: Person, Place, Situation Attachments: Sotelo Catheter Current Hand Dominance: Right Upper Extremity ROM R decreased shoulder flexion (trace, increased pain). L WFL all range. Upper Extremity Coordination WFL BUE Upper Extremity Sensation DNT Upper Extremity Strength WFL LUE, R shoulder limited, WFL R distal joints. ADL-Treatment Eating (QC): 3 (pt able to reach with LUE, requires OT assist to reach mouth.) Oral Hygiene (QC): 3 (likely mod A per clinical judgment.) Shower/Bathe Self (QC): 2 (max A per clinical judgment. at PLOF here.) On/Off Footwear (QC): 1 Toileting Hygiene (QC): 1 Other Treatments Pt and nursing express bed mob with increased assist, ambulates with walker to commode, assist with pant doffing and clean up. Pt back to bed, ROM/ MMT as outlined. Pt expresses he is in chronic pain and has limited interests/ abilities and states, "I will eventually," and smiles. Pt is encouraged through differetn adaptive tools (curved utensils to compensate from RUE shoulder flexion deficit, strengthening, etc). Pt expresses limited interest. Pt left in bed with all needs met, call light in reach. Education OT Patient Education: Correct positioning, Modified ADL techniques, Safety issues Teaching Recipient: Patient Teaching Methods: Demonstration, Discussion Response to Teaching: Verbalize Understanding, Return Demonstration OT [facility] Goals Investor Relations Associate Goals Time Frame: September 16, 2020 Eating (QC): 5 Oral Hygiene (QC): 5 Toileting Hygiene (QC): 2 Shower/Bathe Self (QC): 2 Upper Body Dressing (QC): 5 Lower Body Dressing (QC): 2 On/Off Footwear (QC): 6 (with use of sock aide which he has at SNF) Additional Goals: 1-Demonstrate ADL Tasks, 2-Verbalize Understanding, 3- ImproveStrength/Alondra 1=Demonstrate adherence to instructed precautions during ADL tasks. 2=Patient will verbalize/demonstrate understanding of assistive devices/modifications for ADL. 3=Patient will improve strength/tolerance for activity to enable patient to perform ADL's. OT Education/Plan Problem List/Assessment Assessment: Decreased Activ Tolerance, Decreased UE Strength, Dependent Transfers, Impaired Bed Mobility, Impaired Funct Balance, Impaired I ADL's, Impaired Self-Care Skills, Restricted Funct UE ROM Discharge Recommendations Plan/Recommendations: Continue POC Therapy Discharge Recommendati: 24 Hour Supervision, Post Acute OT Treatment Plan/Plan of Care Treatment,Training & Education: Yes Patient would benefit from OT for education, treatment and training to promote independence in ADL's, mobility, safety and/or upper extremity function for ADL's. Plan of Care: ADL Retraining, Functional Mobility, UE Funct Exercise/Act, W/C Management Training Treatment Duration: September 16, 2020 Frequency: 5 times per week Estimated Hrs Per Day: .25 hour per day Agreement: Yes Rehab Potential: Fair Time/GCodes Start Time: 09:16 Stop Time: 09:25 Total Time Billed (hr/min): 9 Billed Treatment Time JOHN Rapp (9) KAYLIE SIMONS OTR September 09, 2020 09:39
--- NOTE | 2020-09-09 09:49 | Physical Therapy Evaluation ---
PT Evaluation-General Medical Diagnosis Admission Date September 08, 2020 at 19:35 Medical Diagnosis: UTI/ early sepsis Onset Date: September 08, 2020 Therapy Diagnosis Therapy Diagnosis: debility/weakness Height/Weight Height (Feet): 5 Height (Inches): 11.00 Weight (Pounds): 315 Weight (Ounces): 0.0 Precautions Precautions/Isolations: Fall Prevention, Standard Precautions Referral Physician: Joanna Reason for Referral: Evaluation/Treatment Medical History Pertinent Medical History: Alcoholism, HTN, Renal Insufficiency, Smoking Current History ER secondary to dark urine Reviewed History: Yes Social History Home: Usp Entry Into Home: Level Entry Prior Prior Level of Function SCALE: Activities may be completed with or without assistive devices. 6-Xynqvpekfl-iinjxmx completes the activity by him/herself with no assistance from a helper. 5-Set-up or Clean-up Assistance-helper sets up or cleans up; patient completes activity. [place] assists only prior to or following the activity. 4-Supervision or Touching Assistance-helper provides verbal cues and/or touching/steadying and/or contact guard assistance as patient completes activity. Assistance may be provided throughout the activity or intermittently. 3-Partial/Moderate Assistance-helper does LESS THAN HALF the effort. [place] lifts, holds or supports trunk or limbs, but provides less than half the effort. 2-Substantial/Maximal Assistance-helper does MORE THAN HALF the effort. [place] lifts or holds trunk or limbs and provides more than half the effort. 1-Vixedjcaq-ryxqcm does ALL the effort. Patient does none of the effort to complete the activity. Or, the assistance of 2 or more helpers is required for the patient to complete the activity. If activity was not attempted, code reason: 7-Patient Refused. 9-Not Applicable-not attempted and the patient did not perform the activity before the current illness, exacerbation or injury. 10-Not Attempted due to Environmental Limitations-(lack of equipment, weather restraints, etc.). 88-Not Attempted due to Medical Conditions or Safety Concerns. Bed Mobility: 2 Transfers (B,C,W/C): 4 Gait: 4 Stairs: 9 Indoor Mobility (Ambulation): Independent Stairs: Not [place] Prior Devices Use: Walker PT Evaluation-Current Subjective Patient agrees to PT. Objective Patient Orientation: Person, Time, Situation Attachments: Suprapubic Catheter, IV ROM/Strength ROM Lower Extremities bilateral LE limited due to edema Strength Lower Extremities 3/5 grossly bilateral LE Integumentary/Posture Integumentary refer to nursing notes Posture WFL Neuromuscular (Tone, Coordination, Reflexes) diminished coordination due to inactivity (PLOF) Sensory Vision: Functional Hearing: Impaired Hand Dominance: Right Transfers Sit to Lying (QC): 2 Lying to Sitting/Side of Bed(Q: 2 Sit to Stand (QC): 3 Toilet Transfer (QC): 4 Gait Does the Patient Walk?: Yes Mode of Locomotion: Both Anticipated Mode of Locomotion: Both Walk 10 feet (QC): 4 Walk 50 ft with 2 Turns(QC): 4 Walk 150 ft (QC): 88 Distance: 50' Gait Assistive Device: FWW Comments/Gait Description slow, WBOS Balance Sitting Static: Fair Sitting Dynamic: Fair Standing Static: Fair Standing Dynamic: Fair Assessment/Needs 75 y.o. male, will be seen short term by skilled PT to address functional strength and mobility to improve current LOF to safely return to [place] at maximum LOF. Rehab Potential: Guarded PT Computational Biologist Goals Halfway Goals PT Computational Biologist Goals Time Frame: September 16, 2020 Roll Left & Right (QC): 3 Sit to Lying (QC): 3 Lying-Sitting on Side/Bed(QC): 3 Sit to Stand (QC): 4 Chair/Thq-iq-Hhter Xfer(QC): 4 Toilet Transfer (QC): 4 Does the Patient Walk: Yes Walk 10 feet (QC): 4 Walk 50ft with 2 Turns (QC): 4 PT Plan Problem List Problem List: Activity Tolerance, Functional Strength, Safety, Balance, Gait, Transfer, Bed Mobility Treatment/Plan Treatment Plan: Continue Plan of Care Treatment Plan: Bed Mobility, Education, Functional Activity Alondra, Functional Strength, Gait, Safety, Therapeutic Exercise, Transfers Treatment Duration: September 16, 2020 Frequency: 6 times per week Estimated Hrs Per Day: .25 hour per day Time/GCodes Time In: 850 Time Out: 900 Total Billed Treatment Time: 10 Total Billed Treatment 1 visit EVModC 10 min ABDULLAHI TAPIA PT September 09, 2020 09:49
[2020-09-09] MEDS: HYDROcodone/APAP 5 MG/325 MG (LORTAB) TAB PO PRN ×2 (10:38→17:36)
[2020-09-09] MEDS: LINEZOLID IVPB 300 ML IV SCH ×2 (12:20→21:16)
[2020-09-09] MEDS: TAMSULOSIN 0.4 MG (FLOMAX) CAP PO SCH (17:28)
[2020-09-10] VITALS (7 sets, daily range): BP systolic 155–179; BP diastolic 71–89
[2020-09-10] MEDS: CEFEPIME 1,000 MG/SWFI 10 ML IV PUSH IV SCH ×6 (02:16→16:36)
[2020-09-10 05:46] LABS: BASOPHILS # (AUTO) 0.1 10^3/uL (0.0-0.1); BASOPHILS % (AUTO) 1 % (0-10); EOSINOPHILS # (AUTO) 0.3 10^3/uL (0.0-0.3); EOSINOPHILS % (AUTO) 2 % (0-10); HEMATOCRIT 29 % (40-54); HEMOGLOBIN 9.4 g/dL (13.3-17.7); LYMPHOCYTES % (AUTO) 19 % (12-44); MEAN CORPUSCULAR HEMOGLOBIN 28 pg (25-34); MEAN CORPUSCULAR HGB CONC 32 g/dL (32-36); MEAN CORPUSCULAR VOLUME 87 fL (80-99); MEAN PLATELET VOLUME 9.5 fL (9.0-12.2); MONOCYTES # (AUTO) 0.7 10^3/uL (0.0-1.0); MONOCYTES % (AUTO) 6 % (0-12); NEUTROPHILS # (AUTO) 7.6 10^3/uL (1.8-7.8); NEUTROPHILS % (AUTO) 71 % (42-75); PLATELET COUNT 243 10^3/uL (130-400); WHITE BLOOD COUNT 10.6 10^3/uL (4.3-11.0)
[2020-09-10 06:07] LABS: BILIRUBIN,TOTAL 0.3 MG/DL (0.1-1.0); CALCIUM 8.3 MG/DL (8.5-10.1); CREATININE SERUM 2.98 MG/DL (0.60-1.30); TOTAL PROTEIN 6.5 GM/DL (6.4-8.2)
[2020-09-10 06:10] LABS: POTASSIUM 2.5 MMOL/L (3.6-5.0)
--- NOTE | 2020-09-10 06:36 | Progress Note - Hospitalist ---
Subjective HPI/CC On Admission Date Seen by Provider: September 10, 2020 Time Seen by Provider: 10:00 CC: UTI with sepsis w/h/o septic shock HPI: This is a chronically ill 75yoWM who presented to the [facility] ER with fever and chills and found to have UTI with sepsis. He had a long course last year of severe illness with septic shock and UTI and ESTHER but has been doing well since that time. He is currently complaining of right shoulder pain without injury and wearing his CPAP. Abx started and patient will be monitored closely. Subjective/Events-last exam Patient much improved No pain reported UCx reviewed only prelim Zyvox and Cefepime No issues Review of Systems General: Fatigue, Malaise Focused Exam Lactate Level 09/08/20 16:55: Lactic Acid Level 2.27*H 09/09/20 00:03: Lactic Acid Level 0.93 Objective Exam Vital Signs Vital Signs Date Time Temp Pulse Resp B/P (MAP) Pulse Ox O2 Delivery O2 Flow Rate FiO2 09/10/20 16:12 36.4 63 22 164/82 (109) 95 Room Air 09/10/20 06:42 21.00 Capillary Refill : Less Than 3 Seconds General Appearance: No Apparent Distress, WD/WN, Chronically ill Respiratory: Lungs Clear, Normal Breath Sounds Neurologic/Psychiatric: Alert, Oriented x3, No Motor/Sensory Deficits, Normal Mood/Affect Results/Procedures Lab Laboratory Tests 09/10/20 05:35 Patient resulted labs reviewed. 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
[2020-09-10] MEDS: POTASSIUM CL 10MEQ/50ML IVPB 50 ML IV SCH ×4 (07:13→13:34)
[2020-09-10] MEDS: HYDROcodone/APAP 5 MG/325 MG (LORTAB) TAB PO PRN ×2 (08:00→19:50)
[2020-09-10] MEDS: SENNA W/DOCUSATE (SENOKOT S) TABLET PO SCH ×2 (08:00→21:54)
[2020-09-10] MEDS: amLODIPine 5 MG (NORVASC) TAB PO SCH (08:00)
[2020-09-10] MEDS: FINASTERIDE (PROSCAR) 5 MG TAB PO SCH (08:00)
[2020-09-10] MEDS: KCL 10 MEQ TAB (MICRO K) PO SCH ×3 (08:01→17:07)
[2020-09-10] MEDS: NS IV 1000 ML 1,000 ML IV SCH (08:01)
[2020-09-10] MEDS: LINEZOLID IVPB 300 ML IV SCH ×2 (09:26→21:36)
[2020-09-10] MEDS: fentaNYL INJ 100 MCG/2 ML AMP IVP PRN ×2 (12:29→23:04)
[2020-09-10] MEDS: TAMSULOSIN 0.4 MG (FLOMAX) CAP PO SCH (17:07)
[2020-09-11] MEDS: CEFEPIME 1,000 MG/SWFI 10 ML IV PUSH IV SCH ×6 (01:53→17:07)
[2020-09-11] MEDS: NS IV 1000 ML 1,000 ML IV SCH ×2 (03:45→22:27)
[2020-09-11 04:09] VITALS: BP 171/78
[2020-09-11 05:20] LABS: BASOPHILS % (AUTO) 0 % (0-10); EOSINOPHILS # (AUTO) 0.3 10^3/uL (0.0-0.3); EOSINOPHILS % (AUTO) 4 % (0-10); HEMATOCRIT 29 % (40-54); HEMOGLOBIN 9.4 g/dL (13.3-17.7); LYMPHOCYTES # (AUTO) 1.6 10^3/uL (1.0-4.0); LYMPHOCYTES % (AUTO) 18 % (12-44); MEAN CORPUSCULAR HEMOGLOBIN 28 pg (25-34); MEAN CORPUSCULAR HGB CONC 33 g/dL (32-36); MEAN CORPUSCULAR VOLUME 87 fL (80-99); MEAN PLATELET VOLUME 9.3 fL (9.0-12.2); MONOCYTES # (AUTO) 0.5 10^3/uL (0.0-1.0); MONOCYTES % (AUTO) 6 % (0-12); NEUTROPHILS # (AUTO) 6.4 10^3/uL (1.8-7.8); NEUTROPHILS % (AUTO) 71 % (42-75); PLATELET COUNT 223 10^3/uL (130-400); WHITE BLOOD COUNT 8.9 10^3/uL (4.3-11.0)
[2020-09-11 05:37] LABS: ALBUMIN 3.2 GM/DL (3.2-4.5); BILIRUBIN,TOTAL 0.3 MG/DL (0.1-1.0); CALCIUM 8.4 MG/DL (8.5-10.1); CREATININE SERUM 3.03 MG/DL (0.60-1.30); POTASSIUM 2.7 MMOL/L (3.6-5.0); TOTAL PROTEIN 6.5 GM/DL (6.4-8.2)
[2020-09-11 07:40] VITALS: BP 191/111
[2020-09-11] MEDS: SENNA W/DOCUSATE (SENOKOT S) TABLET PO SCH ×2 (08:11→20:10)
[2020-09-11] MEDS: KCL 10 MEQ TAB (MICRO K) PO SCH ×3 (08:12→17:08)
[2020-09-11] MEDS: FINASTERIDE (PROSCAR) 5 MG TAB PO SCH (08:12)
[2020-09-11] MEDS: amLODIPine 5 MG (NORVASC) TAB PO SCH (08:12)
[2020-09-11] MEDS: LINEZOLID IVPB 300 ML IV SCH ×2 (08:16→20:21)
[2020-09-11] MEDS: POTASSIUM CL 10MEQ/50ML IVPB 50 ML IV SCH ×4 (10:18→13:44)
--- NOTE | 2020-09-11 10:33 | Physical Therapy Daily Note ---
PT Daily Note-Current Subjective Patient agrees to PT. Mental Status Patient Orientation: Normal For Age Attachments: Suprapubic Catheter, IV Transfers SCALE: Activities may be completed with or without assistive devices. 1-Kbjfkppcuf-kiqcjwt completes the activity by him/herself with no assistance from a helper. 5-Set-up or Clean-up Assistance-helper sets up or cleans up; patient completes activity. [place] assists only prior to or following the activity. 4-Supervision or Touching Assistance-helper provides verbal cues and/or touching/steadying and/or contact guard assistance as patient completes activity. Assistance may be provided throughout the activity or intermittently. 3-Partial/Moderate Assistance-helper does LESS THAN HALF the effort. [place] lifts, holds or supports trunk or limbs, but provides less than half the effort. 2-Substantial/Maximal Assistance-helper does MORE THAN HALF the effort. [place] lifts or holds trunk or limbs and provides more than half the effort. 4-Hmqrvrvma-jcwerg does ALL the effort. Patient does none of the effort to complete the activity. Or, the assistance of 2 or more helpers is required for the patient to complete the activity. If activity was not attempted, code reason: 7-Patient Refused. 9-Not Applicable-not attempted and the patient did not perform the activity before the current illness, exacerbation or injury. 10-Not Attempted due to Environmental Limitations-(lack of equipment, weather restraints, etc.). 88-Not Attempted due to Medical Conditions or Safety Concerns. Roll Left & Right (QC): 4 Lying to Sitting/Side of Bed(Q: 4 Sit to Stand (QC): 3 Chair/Hwa-ph-Pkpxg Xfer(QC): 3 Gait Training Does the Patient Walk?: Yes Distance: 50' x 2 Walk 10 feet (QC): 4 Walk 50 ft with 2 Turns(QC): 4 Walk 150 ft (QC): 7 Gait Assistive Device: FWW extended UE's with FWW use, slow, shuffle gait sequence Exercises Seated Therapy Exercises: Ankle pumps, Long arc quads, Hip flexion Seated Reps: 12 Assessment Patient up in recliner with needs met. Patient improving slowly with gross motor skills. PT Custodial Goals Digital Marketing Coordinator Goals PT Custodial Goals Time Frame: September 16, 2020 Roll Left & Right (QC): 3 Sit to Lying (QC): 3 Lying-Sitting on Side/Bed(QC): 3 Sit to Stand (QC): 4 Chair/Puw-ei-Fvsvx Xfer(QC): 4 Toilet Transfer (QC): 4 Does the Patient Walk: Yes Walk 10 feet (QC): 4 Walk 50ft with 2 Turns (QC): 4 PT Plan Treatment/Plan Treatment Plan: Continue Plan of Care Treatment Plan: Bed Mobility, Education, Functional Activity Alondra, Functional Strength, Gait, Safety, Therapeutic Exercise, Transfers Treatment Duration: September 16, 2020 Frequency: 6 times per week Estimated Hrs Per Day: .25 hour per day Time/GCodes Time In: 900 Time Out: 913 Total Billed Treatment Time: 13 Total Billed Treatment 1 visit FA 13 min ABDULLAHI TAPIA PT September 11, 2020 10:33
[2020-09-11 11:45] VITALS: BP 179/90
[2020-09-11] MEDS ORDERED: CHOL4PAC2 PO (14:06)
[2020-09-11] MEDS ORDERED: FURO40TA4 PO (14:06)
[2020-09-11] MEDS ORDERED: TMSL.4C PO (14:06)
[2020-09-11] MEDS ORDERED: MICO10PO TOP (14:06)
[2020-09-11] MEDS ORDERED: FLUO10CA31 PO (14:06)
[2020-09-11] MEDS ORDERED: GABA300C PO (14:06)
[2020-09-11] MEDS ORDERED: TIZA4TAB4 PO (14:06)
[2020-09-11] MEDS ORDERED: LUBI24CA8 PO (14:06)
--- NOTE | 2020-09-11 14:45 | Occupational Ther Daily Note ---
OT Current Status-Daily Note Subjective No pain reported. Mental Status/Objective Patient Orientation: Person, Place Attachments: Armstrong Catheter, IV ADL-Treatment Therapy Code Descriptions/Definitions Functional [place] Measure: 0=Not Assessed/NA 4=Minimal Assistance 1=Total Assistance 5=Supervision or Setup 2=Maximal Assistance 6=Modified [place] 3=Moderate Assistance 7=Complete IndependenceSCALE: Activities may be completed with or without assistive devices. 1-Etcxkazdnw-bvnisyk completes the activity by him/herself with no assistance from a helper. 5-Set-up or Clean-up Assistance-helper sets up or cleans up; patient completes activity. [place] assists only prior to or following the activity. 4-Supervision or Touching Assistance-helper provides verbal cues and/or touching/steadying and/or contact guard assistance as patient completes activity. Assistance may be provided throughout the activity or intermittently. 3-Partial/Moderate Assistance-helper does LESS THAN HALF the effort. [place] lifts, holds or supports trunk or limbs, but provides less than half the effort. 2-Substantial/Maximal Assistance-helper does MORE THAN HALF the effort. [place] lifts or holds trunk or limbs and provides more than half the effort. 8-Krqveoocc-qtneek does ALL the effort. Patient does none of the effort to comp lete the activity. Or, the assistance of 2 or more helpers is required for the patient to complete the activity. If activity was not attempted, code reason: 7-Patient Refused. 9-Not Applicable-not attempted and the patient did not perform the activity before the current illness, exacerbation or injury. 10-Not Attempted due to Environmental Limitations-(lack of equipment, weather restraints, etc.). 88-Not Attempted due to Medical Conditions or Safety Concerns. Eating (QC): 5 On/Off Footwear: 2 (Pt's slipper sock needed adjusted. Pt. unable to do so. OT did this for him.) Toileting Hygiene (QC): 2 (Pt. required assistance to doff shorts and brief. Clinical judgement suggests pt. will require assistance for rear lucas cleanse. Pt. has armstrong catheter.) Toilet Transfer (QC): 3 (Min assist.) Other Treatment Pt. sitting on side of bed when OT entered room. Pt. had just received sandwich. Pt. able to feed self, but does begin to choke, and requires increased time and cues to drink water. Pt. recovers with no difficulty. S tands at walker with min assist from bed, and ambulates with walker slowly to bathroom. Requires min assist to slowly sit on toilet after he requires assistance to pull down pants. Pt. has pull chord and nursing notified he is on toilet. All needs met. Education OT Patient Education: Correct positioning, Modified ADL techniques, Progress toward Goal/Update tx plan, Purpose of tx/functional activities, Reviewed precautions, Rehab process, Transfer techniques Teaching Recipient: Patient Teaching Methods: Demonstration, Discussion Response to Teaching: Verbalize Understanding, Return Demonstration, Reinforcement Needed OT Stockfeed Miller Goals Stockfeed Miller Goals Time Frame: September 16, 2020 Eating (QC): 5 Oral Hygiene (QC): 5 Toileting Hygiene (QC): 2 Shower/Bathe Self (QC): 2 Upper Body Dressing (QC): 5 Lower Body Dressing (QC): 2 On/Off Footwear (QC): 6 (with use of sock aide which he has at SNF) Additional Goals: 1-Demonstrate ADL Tasks, 2-Verbalize Understanding, 3- ImproveStrength/Alondra 1=Demonstrate adherence to instructed precautions during ADL tasks. 2=Patient will verbalize/demonstrate understanding of assistive devices/modifications for ADL. 3=Patient will improve strength/tolerance for activity to enable patient to perform ADL's. OT Education/Plan Problem List/Assessment Assessment: Decreased Activ Tolerance, Dependent Transfers, Impaired I ADL's, Impaired Self-Care Skills Discharge Recommendations Plan/Recommendations: Continue POC Treatment Plan/Plan of Care Patient would benefit from OT for education, treatment and training to promote independence in ADL's, mobility, safety and/or upper extremity function for ADL's. Plan of Care: ADL Retraining, Functional Mobility, UE Funct Exercise/Act Treatment Duration: September 16, 2020 Frequency: 5 times per week Estimated Hrs Per Day: .25 hour per day Agreement: Yes Rehab Potential: Fair Time/GCodes Start Time: 13:08 Stop Time: 13:20 Total Time Billed (hr/min): 12 Billed Treatment Time 1, ADL KARISSA SOLARES OT September 11, 2020 14:45
[2020-09-11] MEDS ORDERED: POTA10TA36 PO (15:05)
[2020-09-11 16:00] VITALS: BP 182/99
--- NOTE | 2020-09-11 16:29 | Progress Note ---
Subjective Subjective/Events-last exam Afebrile, no acute events. States he is feeling okay. Denies specific concerns. Focused Exam Lactate Level 09/08/20 16:55: Lactic Acid Level 2.27*H 09/09/20 00:03: Lactic Acid Level 0.93 Objective Exam Last Set of Vital Signs Vital Signs Date Time Temp Pulse Resp B/P (MAP) Pulse Ox O2 Delivery O2 Flow Rate FiO2 09/11/20 14:48 Room Air 09/11/20 11:45 36.7 64 18 179/90 (119) 94 09/11/20 02:26 21.00 Capillary Refill : Less Than 3 Seconds I&O Intake and Output 09/11/20 00:00 Intake Total 3270 ml Output Total 3725 ml Balance -455 ml Intake Oral 1770 ml IV Total 1500 ml Output Urine Total 3725 ml # Bowel Movements 6 General: Alert, No Acute Distress Lungs: Clear to Auscultation, Normal Air Movement Heart: Regular Rate, No Murmurs Abdomen: Normal Bowel Sounds, Soft Extremities: Other (pedal edema) Neuro: Normal Speech Psych/Mental Status: Mood NL Results/Procedures Lab Laboratory Tests 09/11/20 05:06: White Blood Count 8.9, Red Blood Count 3.32L, Hemoglobin 9.4L, Hematocrit 29L, Mean Corpuscular Volume 87, Mean Corpuscular Hemoglobin 28, Mean Corpuscular Hemoglobin Concent 33, Red Cell Distribution Width 15.4H, Platelet Count 223, Mean Platelet Volume 9.3, Immature Granulocyte % (Auto) 1, Neutrophils (%) (Auto) 71, Lymphocytes (%) (Auto) 18, Monocytes (%) (Auto) 6, Eosinophils (%) (Auto) 4, Basophils (%) (Auto) 0, Neutrophils # (Auto) 6.4, Lymphocytes # (Auto) 1.6, Monocytes # (Auto) 0.5, Eosinophils # (Auto) 0.3, Basophils # (Auto) 0.0, Immature Granulocyte # (Auto) 0.1, Sodium Level 139, Potassium Level 2.7L, Chloride Level 107, Carbon Dioxide Level 23, Anion Gap 9, Blood Urea Nitrogen 27H, Creatinine 3.03H, Estimat Glomerular Filtration Rate 20, BUN/Creatinine Ratio 9, Glucose Level 125H, Calcium Level 8.4L, Corrected Calcium 9.0, Total Bilirubin 0.3, Aspartate Amino Transf (AST/SGOT) 11, Alanine Aminotransferase (ALT/SGPT) 7, Alkaline Phosphatase 65, Total Protein 6.5, Albumin 3.2 Microbiology 09/08/20 Urine Culture - Preliminary, Resulted Staphylococcus aureus Pseudomonas putida 09/08/20 Blood Culture - Preliminary, Resulted Staph, 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 Leukocytosis resolved. On Zyvox and cefepime. Urine culture with pseudomonas putida and staph aureus. Qualifiers: Qualified Codes: A41.52 - Sepsis due to Pseudomonas; R65.20 - Severe sepsis without septic shock; N17.9 - Acute kidney failure, unspecified (2) Urinary tract infection Status: Acute Qualifiers: Qualified Codes: T83.510A - Infection and inflammatory reaction due to cystostomy catheter, initial encounter; N39.0 - Urinary tract infection, site not specified (3) HTN (hypertension) Status: Chronic Assessment & Plan: Worsening HTN since admit, increase amlodipine to 10 mg. Qualifiers: Qualified Codes: I10 - Essential (primary) hypertension (4) Non-insulin treated type 2 diabetes mellitus Status: Chronic Assessment & Plan: Diabetic diet. (5) Suprapubic catheter Status: Chronic (6) Acute renal insufficiency Status: Acute Assessment & Plan: Acute on chronic, cr has been this high more than once in last several months, and lowest has been 1.77 in March. Possibly due to sepsis/infection, but did also have stone in past and had stenting done. Consider repeat CT for obstruction concern if not improving. (7) Chronic renal insufficiency Status: Chronic Qualifiers: Qualified Codes: N18.9 - Chronic kidney disease, unspecified (8) Hypokalemia Status: Acute Assessment & Plan: Replace and monitor. (9) Urinary retention Status: Chronic Assessment & Plan: Continue finasteride and tamsulosin. (10) DVT prophylaxis Status: Acute Assessment & Plan: Heparin VALENTINA BOWIE MD September 11, 2020 16:29
[2020-09-11] MEDS ORDERED: amLODIPine 5 MG (NORVASC) TAB PO NR (16:45)
[2020-09-11] MEDS: TAMSULOSIN 0.4 MG (FLOMAX) CAP PO SCH (17:07)
[2020-09-11 19:40] VITALS: BP 188/100
[2020-09-11] MEDS ORDERED: KCL 20 MEQ TAB (K-DUR) PO ONE ×2 (20:30→20:53)
[2020-09-11] MEDS ORDERED: FUROSEMIDE 40 MG (LASIX) TAB PO ONE (20:30)
[2020-09-11 21:06] VITALS: BP 172/84
[2020-09-12] VITALS (7 sets, daily range): BP systolic 166–198; BP diastolic 78–91
[2020-09-12] MEDS: CEFEPIME 1,000 MG/SWFI 10 ML IV PUSH IV SCH ×6 (01:57→17:15)
[2020-09-12 06:01] LABS: HEMATOCRIT 33 % (40-54); HEMOGLOBIN 10.3 g/dL (13.3-17.7); MEAN CORPUSCULAR HEMOGLOBIN 27 pg (25-34); MEAN CORPUSCULAR HGB CONC 32 g/dL (32-36); MEAN CORPUSCULAR VOLUME 87 fL (80-99); MEAN PLATELET VOLUME 9.8 fL (9.0-12.2); PLATELET COUNT 268 10^3/uL (130-400); WHITE BLOOD COUNT 9.3 10^3/uL (4.3-11.0)
[2020-09-12 06:24] LABS: POTASSIUM 2.9 MMOL/L (3.6-5.0)
[2020-09-12 06:25] LABS: CALCIUM 9.1 MG/DL (8.5-10.1)
[2020-09-12 06:29] LABS: CREATININE SERUM 2.92 MG/DL (0.60-1.30)
[2020-09-12] MEDS: amLODIPine 10 MG (NORVASC) TAB PO SCH (08:47)
[2020-09-12] MEDS: LINEZOLID IVPB 300 ML IV SCH (08:47)
[2020-09-12] MEDS: FINASTERIDE (PROSCAR) 5 MG TAB PO SCH (08:47)
[2020-09-12] MEDS: ALPRAZolam 0.25 MG (XANAX) TAB PO PRN (08:48)
[2020-09-12] MEDS: KCL 10 MEQ TAB (MICRO K) PO SCH ×3 (08:48→17:15)
[2020-09-12] MEDS: POTASSIUM CL 10MEQ/50ML IVPB 50 ML IV SCH ×4 (08:53→15:15)
[2020-09-12] MEDS ORDERED: amLODIPine 5 MG (NORVASC) TAB PO SCH (09:00)
[2020-09-12] MEDS: SENNA W/DOCUSATE (SENOKOT S) TABLET PO SCH ×2 (09:50→20:48)
--- NOTE | 2020-09-12 09:52 | Physical Therapy Daily Note ---
PT Daily Note-Current Subjective Patient agrees to PT. Mental Status Patient Orientation: Person, Time, Situation Attachments: Suprapubic Catheter, IV Transfers SCALE: Activities may be completed with or without assistive devices. 9-Laxheboipm-yddntdq completes the activity by him/herself with no assistance from a helper. 5-Set-up or Clean-up Assistance-helper sets up or cleans up; patient completes activity. [place] assists only prior to or following the activity. 4-Supervision or Touching Assistance-helper provides verbal cues and/or touching/steadying and/or contact guard assistance as patient completes activity. Assistance may be provided throughout the activity or intermittently. 3-Partial/Moderate Assistance-helper does LESS THAN HALF the effort. [place] lifts, holds or supports trunk or limbs, but provides less than half the effort. 2-Substantial/Maximal Assistance-helper does MORE THAN HALF the effort. [place] lifts or holds trunk or limbs and provides more than half the effort. 2-Obwgkspbl-ijrzsa does ALL the effort. Patient does none of the effort to complete the activity. Or, the assistance of 2 or more helpers is required for the patient to complete the activity. If activity was not attempted, code reason: 7-Patient Refused. 9-Not Applicable-not attempted and the patient did not perform the activity before the current illness, exacerbation or injury. 10-Not Attempted due to Environmental Limitations-(lack of equipment, weather restraints, etc.). 88-Not Attempted due to Medical Conditions or Safety Concerns. Lying to Sitting/Side of Bed(Q: 4 (SBA) Sit to Stand (QC): 4 (CGA) Chair/Iwj-si-Apodl Xfer(QC): 4 (CGA) Gait Training Does the Patient Walk?: Yes Distance: 50' Walk 10 feet (QC): 4 (CGA) Walk 50 ft with 2 Turns(QC): 4 (CGA) Walk 150 ft (QC): 7 Gait Assistive Device: FWW slow, shuffle gait sequence Exercises Seated Therapy Exercises: Ankle pumps, Long arc quads, Hip flexion Seated Reps: 15 Assessment Patient is up in recliner with needs met. Patient voices during sessions he wants to go back to his facility. PT to increase activity as tolerated by patient. PT Intermediate Goals Intermediate Goals PT Intermediate Goals Time Frame: September 16, 2020 Roll Left & Right (QC): 3 Sit to Lying (QC): 3 Lying-Sitting on Side/Bed(QC): 3 Sit to Stand (QC): 4 Chair/Wbk-hs-Wnisw Xfer(QC): 4 Toilet Transfer (QC): 4 Does the Patient Walk: Yes Walk 10 feet (QC): 4 Walk 50ft with 2 Turns (QC): 4 PT Plan Treatment/Plan Treatment Plan: Continue Plan of Care Treatment Plan: Bed Mobility, Education, Functional Activity Alondra, Functional Strength, Gait, Safety, Therapeutic Exercise, Transfers Treatment Duration: September 16, 2020 Frequency: 6 times per week Estimated Hrs Per Day: .25 hour per day Time/GCodes Time In: 805 Time Out: 817 Total Billed Treatment Time: 12 Total Billed Treatment 1 visit FA 12 min ABDULLAHI TAPIA PT September 12, 2020 09:52
--- NOTE | 2020-09-12 10:29 | Occupational Ther Daily Note ---
OT Current Status-Daily Note Subjective Pt alert in chair. Pt requires increased time/ increased volume for responses. States he has been in chair "all morning". Agrees to tx. Denies pain in back/ neck this date. Mental Status/Objective Patient Orientation: Person, Place ADL-Treatment Therapy Code Descriptions/Definitions Functional [place] Measure: 0=Not Assessed/NA 4=Minimal Assistance 1=Total Assistance 5=Supervision or Setup 2=Maximal Assistance 6=Modified [place] 3=Moderate Assistance 7=Complete IndependenceSCALE: Activities may be completed with or without assistive devices. 3-Zxnpqdgfks-iwcsses completes the activity by him/herself with no assistance from a helper. 5-Set-up or Clean-up Assistance-helper sets up or cleans up; patient completes activity. [place] assists only prior to or following the activity. 4-Supervision or Touching Assistance-helper provides verbal cues and/or touching/steadying and/or contact guard assistance as patient completes activity. Assistance may be provided throughout the activity or intermittently. 3-Partial/Moderate Assistance-helper does LESS THAN HALF the effort. [place] lifts, holds or supports trunk or limbs, but provides less than half the effort. 2-Substantial/Maximal Assistance-helper does MORE THAN HALF the effort. [place] lifts or holds trunk or limbs and provides more than half the effort. 4-Xjxxznkoo-yjyozf does ALL the effort. Patient does none of the effort to complete the activity. Or, the assistance of 2 or more helpers is required for the patient to complete the activity. If activity was not attempted, code reason: 7-Patient Refused. 9-Not Applicable-not attempted and the patient did not perform the activity before the current illness, exacerbation or injury. 10-Not Attempted due to Environmental Limitations-(lack of equipment, weather restraints, etc.). 88-Not Attempted due to Medical Conditions or Safety Concerns. Eating (QC): 5 (requires s/u for opening banana) Oral Hygiene (QC): 7 Shower/Bathe Self (QC): 7 Toilet Transfer (QC): 7 Other Treatment Pt is educated on use of theraband for UE ex. Completes 10 reps of the followin g: bicep curls, abduction, ext rotation (completes on L side only, expresses pain in RUE). Pts plate then comes in. Pt requires s/u for banana(increased difficult with fine motor strength). Pt assists OT in phone call to dietary for additional fruit per pt request. Pt denies needs, call light in reach, pt's nurse aide present end of session. Education OT Patient Education: Exercise program, Home exercise program, Safety issues Teaching Recipient: Patient Teaching Methods: Demonstration, Discussion Response to Teaching: Verbalize Understanding, Return Demonstration, Reinforcement Needed OT Mcfp Goals Mcfp Goals Time Frame: September 16, 2020 Eating (QC): 5 Oral Hygiene (QC): 5 Toileting Hygiene (QC): 2 Shower/Bathe Self (QC): 2 Upper Body Dressing (QC): 5 Lower Body Dressing (QC): 2 On/Off Footwear (QC): 6 (with use of sock aide which he has at SNF) Additional Goals: 1-Demonstrate ADL Tasks, 2-Verbalize Understanding, 3-ImproveStrength/Alondra 1=Demonstrate adherence to instructed precautions during ADL tasks. 2=Patient will verbalize/demonstrate understanding of assistive devices/modifications for ADL. 3=Patient will improve strength/tolerance for activity to enable patient to perform ADL's. OT Education/Plan Problem List/Assessment Assessment: Decreased Activ Tolerance, Decreased UE Strength, Dependent Transfers, Impaired Bed Mobility, Impaired Cognition, Impaired Coordination, Impaired Funct Balance, Impaired I ADL's, Impaired Self-Care Skills, Restricted Funct UE ROM Discharge Recommendations Plan/Recommendations: Continue POC Therapy Discharge Recommendati: 24 Hour Supervision, Post Acute OT Treatment Plan/Plan of Care Treatment,Training & Education: Yes Patient would benefit from OT for education, treatment and training to promote independence in ADL's, mobility, safety and/or upper extremity function for AD L's. Plan of Care: ADL Retraining, Functional Mobility, UE Funct Exercise/Act Treatment Duration: September 16, 2020 Frequency: 5 times per week Estimated Hrs Per Day: .25 hour per day Agreement: Yes Rehab Potential: Fair Time/GCodes Start Time: 08:56 Stop Time: 09:09 Total Time Billed (hr/min): 13 Billed Treatment Time 1, EX (13) KAYLIE SIMONS OTR September 12, 2020 10:29
--- NOTE | 2020-09-12 10:42 | Progress Note ---
Subjective Subjective/Events-last exam Feeling okay, hoping to go home. Objective Exam Last Set of Vital Signs Vital Signs Date Time Temp Pulse Resp B/P (MAP) Pulse Ox O2 Delivery O2 Flow Rate FiO2 09/12/20 07:48 36.4 79 18 197/91 (126) 93 Room Air 09/12/20 02:27 21.00 Capillary Refill : Less Than 3 Seconds I&O Intake and Output 09/12/20 00:00 Intake Total 2534 ml Output Total 4650 ml Balance -2116 ml Intake Oral 2124 ml IV Total 410 ml Output Urine Total 4650 ml # Bowel Movements 3 General: Alert, No Acute Distress Lungs: Clear to Auscultation, Normal Air Movement Heart: Regular Rate, No Murmurs Abdomen: Normal Bowel Sounds, Soft Extremities: Other (1+ pedal edema) Psych/Mental Status: Mood NL Results/Procedures Lab Laboratory Tests 09/11/20 17:29: Potassium Level 3.2L 09/12/20 05:30: Potassium Level 2.9L, White Blood Count 9.3, Red Blood Count 3.78L, Hemoglobin 10.3L, Hematocrit 33L, Mean Corpuscular Volume 87, Mean Corpuscular Hemoglobin 27, Mean Corpuscular Hemoglobin Concent 32, Red Cell Distribution Width 15.3H, Platelet Count 268, Mean Platelet Volume 9.8, Sodium Level 140, Chloride Level 106, Carbon Dioxide Level 23, Anion Gap 11, Blood Urea Nitrogen 23H, Creatinine 2.92H, Estimat Glomerular Filtration Rate 21, BUN/Creatinine Ratio 8, Glucose Level 142H, Calcium Level 9.1 Microbiology 09/08/20 Urine Culture - Preliminary, Resulted Staphylococcus aureus Pseudomonas putida 09/08/20 Blood Culture - Preliminary, 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 Leukocytosis resolved. On Zyvox and cefepime. Urine culture with pseudomonas putida and staph aureus. Qualifiers: Qualified Codes: A41.52 - Sepsis due to Pseudomonas; R65.20 - Severe sepsis without septic shock; N17.9 - Acute kidney failure, unspecified (2) Urinary tract infection Status: Acute Qualifiers: Qualified Codes: T83.510A - Infection and inflammatory reaction due to cystostomy catheter, initial encounter; N39.0 - Urinary tract infection, site not specified (3) HTN (hypertension) Status: Chronic Assessment & Plan: Worsening HTN since admit, increase amlodipine to 10 mg. 09/12 still elevated, will start daily lasix Qualifiers: Qualified Codes: I10 - Essential (primary) hypertension (4) Non-insulin treated type 2 diabetes mellitus Status: Chronic Assessment & Plan: Diabetic diet. (5) Suprapubic catheter Status: Chronic (6) Acute renal insufficiency Status: Acute Assessment & Plan: Acute on chronic, cr has been this high more than once in last several months, and lowest has been 1.77 in March. Possibly due to sepsis/infection, but did also have stone in past and had stenting done. Consider repeat CT for obstruction concern if not improving. 09/12 creatinine down slightly today (7) Chronic renal insufficiency Status: Chronic Qualifiers: Qualified Codes: N18.9 - Chronic kidney disease, unspecified (8) Hypokalemia Status: Acute Assessment & Plan: Replace and monitor. (9) Urinary retention Status: Chronic Assessment & Plan: Continue finasteride and tamsulosin. (10) DVT prophylaxis Status: Acute Assessment & Plan: Heparin VALENTINA BOWIE MD September 12, 2020 10:42
[2020-09-12] MEDS: FUROSEMIDE 40 MG (LASIX) TAB PO SCH (12:23)
[2020-09-12] MEDS: NS IV 1000 ML 1,000 ML IV SCH ×2 (12:28→17:20)
[2020-09-12] MEDS: TAMSULOSIN 0.4 MG (FLOMAX) CAP PO SCH (17:15)
[2020-09-12] MEDS: LINEZOLID (ZYVOX) 600 MG TAB PO SCH (20:47)
[2020-09-12] MEDS ORDERED: meTOproloL SUCCINATE 50 MG (TOPROL XL) TAB PO SCH (22:30)
[2020-09-13] VITALS (7 sets, daily range): BP systolic 145–188; BP diastolic 65–94
[2020-09-13] MEDS: CEFEPIME 1,000 MG/SWFI 10 ML IV PUSH IV SCH ×2 (01:12)
[2020-09-13 05:11] LABS: HEMATOCRIT 33 % (40-54); HEMOGLOBIN 10.7 g/dL (13.3-17.7); MEAN CORPUSCULAR HEMOGLOBIN 28 pg (25-34); MEAN CORPUSCULAR HGB CONC 32 g/dL (32-36); MEAN CORPUSCULAR VOLUME 86 fL (80-99); MEAN PLATELET VOLUME 9.5 fL (9.0-12.2); PLATELET COUNT 295 10^3/uL (130-400); WHITE BLOOD COUNT 10.9 10^3/uL (4.3-11.0)
[2020-09-13 05:22] LABS: POTASSIUM 3.2 MMOL/L (3.6-5.0)
[2020-09-13 05:23] LABS: CALCIUM 9.3 MG/DL (8.5-10.1)
[2020-09-13 05:27] LABS: CREATININE SERUM 2.83 MG/DL (0.60-1.30)
[2020-09-13] MEDS ORDERED: KCL 20 MEQ TAB (K-DUR) PO ONE (08:00)
[2020-09-13] MEDS ORDERED: FUROSEMIDE 40 MG/4 ML INJ (LASIX) IVP ONE (08:15)
[2020-09-13] MEDS: FINASTERIDE (PROSCAR) 5 MG TAB PO SCH (08:21)
[2020-09-13] MEDS: amLODIPine 10 MG (NORVASC) TAB PO SCH (08:21)
[2020-09-13] MEDS: ALPRAZolam 0.25 MG (XANAX) TAB PO PRN (08:21)
[2020-09-13] MEDS: KCL 10 MEQ TAB (MICRO K) PO SCH ×2 (08:21→14:07)
[2020-09-13] MEDS: LINEZOLID (ZYVOX) 600 MG TAB PO SCH (08:21)
[2020-09-13] MEDS: SENNA W/DOCUSATE (SENOKOT S) TABLET PO SCH (09:49)
[2020-09-13] MEDS: FUROSEMIDE 40 MG (LASIX) TAB PO SCH (11:21)
--- NOTE | 2020-09-13 12:51 | Occupational Ther Daily Note ---
OT Current Status-Daily Note Subjective Pt alert, sitting in recliner. Pt agrees to therapy. No c/o pain at this time. Mental Status/Objective Patient Orientation: Person, Place, Time, Situation Attachments: [place] Catheter, IV ADL-Treatment Therapy Code Descriptions/Definitions Functional [place] Measure: 0=Not Assessed/NA 4=Minimal Assistance 1=Total Assistance 5=Supervision or Setup 2=Maximal Assistance 6=Modified [place] 3=Moderate Assistance 7=Complete IndependenceSCALE: Activities may be completed with or without assistive devices. 6-Jonhmnlxxy-geycqnw completes the activity by him/herself with no assistance from a helper. 5-Set-up or Clean-up Assistance-helper sets up or cleans up; patient completes activity. [place] assists only prior to or following the activity. 4-Supervision or Touching Assistance-helper provides verbal cues and/or touching/steadying and/or contact guard assistance as patient completes activity . Assistance may be provided throughout the activity or intermittently. 3-Partial/Moderate Assistance-helper does LESS THAN HALF the effort. [place] lifts, holds or supports trunk or limbs, but provides less than half the effort. 2-Substantial/Maximal Assistance-helper does MORE THAN HALF the effort. [place] lifts or holds trunk or limbs and provides more than half the effort. 5-Ppfrlisyd-vhvoer does ALL the effort. Patient does none of the effort to complete the activity. Or, the assistance of 2 or more helpers is required for the patient to complete the activity. If activity was not attempted, code reason: 7-Patient Refused. 9-Not Applicable-not attempted and the patient did not perform the activity before the current illness, exacerbation or injury. 10-Not Attempted due to Environmental Limitations-(lack of equipment, weather restraints, etc.). 88-Not Attempted due to Medical Conditions or Safety Concerns. Eating (QC): 5 Other Treatment Pt falling asleep throughout treatment. Assist given to open banana then pt able to grasp, hold and bring to mouth. Pt able to pull banana peelings down as needed. Pt then c/o pain at R shldr, stating that it started hurting a couple of days ago. Medium resistance theraband completed only with L UE due to R shldr pain. Pt completed 1 set 10 reps of 3 exercises before falling asleep. After session, pt sitting in recliner with feet elevated. Call light/phone in reach. All needs met in room. OT Correction Goals Correction Goals Time Frame: September 16, 2020 Eating (QC): 5 Oral Hygiene (QC): 5 Toileting Hygiene (QC): 2 Shower/Bathe Self (QC): 2 Upper Body Dressing (QC): 5 Lower Body Dressing (QC): 2 On/Off Footwear (QC): 6 (with use of sock aide which he has at SNF) Additional Goals: 1-Demonstrate ADL Tasks, 2-Verbalize Understanding, 3- ImproveStrength/Alondra 1=Demonstrate adherence to instructed precautions during ADL tasks. 2=Patient will verbalize/demonstrate understanding of assistive devices/modifications for ADL. 3=Patient will improve strength/tolerance for activity to enable patient to perform ADL's. OT Education/Plan Problem List/Assessment Assessment: Decreased Activ Tolerance, Decreased UE Strength, Impaired Self- Care Skills Discharge Recommendations Plan/Recommendations: Continue POC Treatment Plan/Plan of Care Patient would benefit from OT for education, treatment and training to promote independence in ADL's, mobility, safety and/or upper extremity function for ADL's. Plan of Care: ADL Retraining, Functional Mobility, UE Funct Exercise/Act Treatment Duration: September 16, 2020 Frequency: 5 times per week Estimated Hrs Per Day: .25 hour per day Agreement: Yes Rehab Potential: Fair Time/GCodes Start Time: 11:48 Stop Time: 12:01 Total Time Billed (hr/min): 13 Billed Treatment Time 1 visit-FA 1 (13 min) YANELIS GOODMAN September 13, 2020 12:51
[2020-09-13] MEDS ORDERED: AMLO-251 PO (14:48)
[2020-09-13] MEDS ORDERED: FURO40TA4 PO (14:48)
[2020-09-13] MEDS ORDERED: METO50TA7 PO (14:48)
--- NOTE | 2020-09-13 14:55 | Discharge Summary ---
Discharge Summary Instructions for Patient Assessment/Instructions Follow up with Dr. Valente on September 20 at 10 am. Physician to follow Patient: Harmeet Valente Discharge Diet for Home: ADA Diet Hospital Course Date of Admission: September 08, 2020 at 19:35 Admission Diagnosis : Family Physician/Provider: Harmeet Valente MD Date of Discharge: 09/13/20 Discharge Diagnosis: See problem list Hospital Course: See problem list Labs and Pending Lab Test: Laboratory Tests 09/12/20 16:43: Potassium Level 3.2L 09/13/20 04:40: Potassium Level 3.2L, White Blood Count 10.9, Red Blood Count 3.85L, Hemoglobin 10.7L, Hematocrit 33L, Mean Corpuscular Volume 86, Mean Corpuscular Hemoglobin 28, Mean Corpuscular Hemoglobin Concent 32, Red Cell Distribution Width 15.2H, Platelet Count 295, Mean Platelet Volume 9.5, Sodium Level 140, Chloride Level 105, Carbon Dioxide Level 22, Anion Gap 13, Blood Urea Nitrogen 22H, Creatinine 2.83H, Estimat Glomerular Filtration Rate 22, BUN/Creatinine Ratio 8, Glucose Level 142H, Calcium Level 9.3 Microbiology 09/08/20 Urine Culture - Final, Complete Staphylococcus aureus Pseudomonas putida 09/08/20 Blood Culture - Preliminary, 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, 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) Home Meds Active Amlodipine Besylate 10 Mg Tablet 10 Mg PO DAILY Metoprolol Succinate 50 Mg Tab.er.24h 50 Mg PO DAILY Furosemide 40 Mg Tablet 40 Mg PO DAILY Reported Potassium Chloride 10 Meq Tab.er.prt 10 Meq PO DAILY Miconazole Nitrate 10 Gm Powder 1 Applic TOP PRN PRN Cholestyramine Packet (Cholestyramine (with Sugar)) 4 Gm Powd.pack 4 Gm PO BID PRN Flomax (Tamsulosin HCl) 0.4 Mg Cap 0.4 Mg PO HS Neurontin (Gabapentin) 300 Mg Capsule 300 Mg PO 0800,1200,1700 Lubiprostone 24 Mcg Capsule 24 Mcg PO 0800,1700 Fluoxetine HCl 10 Mg Capsule 10 Mg PO DAILY Tizanidine HCl 4 Mg Tablet 4 Mg PO BID PRN Senna Lax (Sennosides) 8.6 Mg Tablet 8.6 Mg PO HS PRN Zofran (Ondansetron HCl) 4 Mg Tab 4 Mg PO Q6H PRN Melatonin 3 Mg Tablet 3 Mg PO HS PRN Simethicone 80 Mg Tab.chew 80 Mg PO QID PRN Miralax (Polyethylene Glycol 3350) 17 Gm Powd.pack 17 Gm PO DAILY PRN Fexofenadine HCl 180 Mg Tablet 180 Mg PO DAILY Finasteride 5 Mg Tablet 5 Mg PO DAILY Aspirin 81 Mg Tab.chew 81 Mg PO DAILY Proair Hfa (Albuterol Sulfate) 1 Puff Puff 2 Puff IH Q6H PRN Bisacodyl 5 Mg Tablet.dr 5 Mg PO DAILY PRN B-12 (Cyanocobalamin (Vitamin B-12)) 1,000 Mcg Tablet 1,000 Mcg PO 1700 Mucinex (Guaifenesin) 600 Mg Tab.er.12h 900 Mg PO BID TAKES 1 & (600MG) TABS Levsin (Hyoscyamine Sulfate) 0.125 Mg Tablet 0.125 Mg SL UD PRN Laxative Suppository (Bisacodyl) 10 Mg Supp.rect 10 Mg RC DAILY PRN Atorvastatin Calcium 20 Mg Tablet 20 Mg PO 1700 Acetaminophen 325 Mg Tablet 650 Mg PO Q4H PRN take 2 (325mg) tabs Patient Allergies: Coded Allergies: No Known Drug Allergies (Unverified , 06/05/17) Height (Feet): 5 Height (Inches): 11.00 Weight (Pounds): 315 Weight (Ounces): 0.0 Home Health Need/Face to Face Date of Face to Face: September 13, 2020 Clinical Findings: Generalized weakness and fatigue, Unsteady gait I have seen Pt [id number]: Yes Discharged To: Other (assisted living) Diagnosis/Conditions: See problem list Patient is Homebound due to: Muscle weakness Homebound Status Due to the above stated illness, injury or surgical procedure (medical condition or diagnosis) and associated clinical findings, the patient is homebound because of his/her inability to leave home except with aid of a supportive device and/or person AND leaving the home requires a considerable and taxing effort or is medically contraindicated. Pt req the following assistanc: [facility] Nursing Orders Home Health Services Order: Nursing Services, Physical Therapy-Evaluate & Treat Home Health Infusion Therapy Line Start Date: September 08, 2020 Therapy Orders Therapy Orders: Physical Therapy Certify Stmt I certify that this patient is under my care and that I, a nurse practitioner or a physician; a web assistant working with me, had a face to face encounter that - meets the physician face to face encounter requirements with this patient as dated. Discharge Physical Exam General: Alert, No Acute Distress Lungs: Clear to Auscultation, Normal Air Movement Heart: Regular Rate Extremities: Other (1+ pitting edema) Neuro: Normal Speech Diagnosis/Problems Problems/Diagonsis (1) HTN (hypertension) Status: Chronic Assessment & Plan: Added amlodipine and metoprolol due to persistently elevated BP, also made lasix scheduled. Qualifiers: Qualified Codes: I10 - Essential (primary) hypertension (2) Non-insulin treated type 2 diabetes mellitus Status: Chronic (3) Sepsis Status: Resolved Assessment & Plan: Secondary to UTI, completed 5 days of vancomycin and cefepime. Qualifiers: Qualified Codes: A41.52 - Sepsis due to Pseudomonas; R65.20 - Severe sepsis without septic shock; N17.9 - Acute kidney failure, unspecified (4) Suprapubic catheter Status: Chronic (5) Chronic renal insufficiency Status: Chronic Assessment & Plan: Improved slightly from above 3 to 2.82 with diuresis. Had over 9 liters out and discharged on scheduled lasix. Qualifiers: Qualified Codes: N18.4 - Chronic kidney disease, stage 4 (severe) (6) Urinary tract infection Status: Resolved Qualifiers: Qualified Codes: T83.510A - Infection and inflammatory reaction due to cystostomy catheter, initial encounter; N39.0 - Urinary tract infection, site not specified VALENTINA BOWIE MD September 13, 2020 14:54
== END 2020-09-13 16:55 | disposition home health service (06) | DRG 698 ==
LOC: EDUNIT# 16:49 → ER FS 16:50 → CSD 19:35 → 4TH 09-09 13:48
PROVIDERS: ADMIT Internal Medicine; ATTEND Family Medicine
DX: T83.510A Infection and inflammatory reaction due to cystostomy catheter, initial encounter (principal); A41.9 Sepsis, unspecified organism; A41.52 Sepsis due to Pseudomonas; A41.02 Sepsis due to Methicillin resistant Staphylococcus aureus; R65.20 Severe sepsis without septic shock; N39.0 Urinary tract infection, site not specified; N17.9 Acute kidney failure, unspecified; Z68.41 Body mass index [BMI] 40.0-44.9, adult; N40.1 Benign prostatic hyperplasia with lower urinary tract symptoms; R33.8 Other retention of urine; I12.9 Hypertensive chronic kidney disease with stage 1 through stage 4 chronic kidney disease, or unspecified chronic kidney disease; E11.22 Type 2 diabetes mellitus with diabetic chronic kidney disease; N18.9 Chronic kidney disease, unspecified; E87.6 Hypokalemia; G47.33 Obstructive sleep apnea (adult) (pediatric); E66.9 Obesity, unspecified; F17.210 Nicotine dependence, cigarettes, uncomplicated; M25.511 Pain in right shoulder; Z79.82 Long term (current) use of aspirin
CPT/HCPCS: 36415; 71045; 80048; 80053; 81000; 83605; 83735; 84132; 85007; 85025; 85027; 85610; 85730; 87040; 87077; 87088; 87186; 94660; 94760

== ENCOUNTER → 2020-09-29 | Outpatient (CLI) | payer BC ==
[~2020-09-29] MED LIST changes: +AMLO-251 PO; +CHOL4PAC2 PO; +FLUO10CA31 PO; +LUBI24CA8 PO; +METO50TA7 PO; +MICO10PO TOP; +POTA10TA36 PO
[2020-09-29 16:28] LABS: CALCIUM 9.1 MG/DL (8.5-10.1); CREATININE SERUM 3.12 MG/DL (0.60-1.30); POTASSIUM 3.8 MMOL/L (3.6-5.0)
== END ==
LOC: IHC 15:59
PROVIDERS: ATTEND Family Medicine
DX: A41.9 Sepsis, unspecified organism (principal); N39.0 Urinary tract infection, site not specified
CPT/HCPCS: 80048

== ENCOUNTER 2020-10-23 11:01 | Inpatient (IN) | payer BC, MEDICARE ==
[2020-10-22] MEDS: VANCOMYCIN 1500 MG/NS 500 ML IVPB IV NR ×2 (22:59)
[~2020-10-23] VITALS: Ht 182.8 cm; Wt 144.6 kg
[2020-10-23] MEDS ORDERED: NS IV 1000 ML 1,000 ML IV STA (11:10)
--- NOTE | 2020-10-23 11:28 | ED General ---
General Stated Complaint: WEAKNESS Source of Information: Patient, EMS History of Present Illness Date Seen by Provider: Oct 23, 2020 Time Seen by Provider: 11:03 Initial Comments 75 yo male presenting by EMS from [facility] assisted living [facility] with complaints of low grade fever, abdominal pain and armstrong catheter not draining. He reports it has been more than a month since the suprapubic catheter was changed out. He complains of not feeling well and having low abdominal pain and pressure. He has chronic diarrhea. He denies cough, congestion, sore throat, blood in diarrhea, nausea/vomiting. He has chronic sj ma to his legs. He gets around at [facility] using a walker. Timing/Duration: 2-3 Days Severity: Moderate Associated Systoms: No Chest Pain, No Cough, No Diaphoresis; Fever/Chills, Malaise; No Nausea/Vomiting, No Rash, No Seizure, No Shortness of Air, No Syncope; Weakness (general) Allergies and Home Medications Allergies Coded Allergies: No Known Drug Allergies (Unverified , 06/05/17) Home Medications Acetaminophen 325 Mg Tablet, 650 MG PO Q4H PRN for PAIN-MILD, (Reported) take 2 (325mg) tabs Last Action: Reviewed Albuterol Sulfate 1 Puff Puff, 2 PUFF IH Q6H PRN for WHEEZING, (Reported) Last Action: Reviewed Aspirin 81 Mg Tab.chew, 81 MG PO DAILY, (Reported) Last Action: Continued Atorvastatin Calcium 20 Mg Tablet, 20 MG PO 1700, (Reported) Last Action: Continued Bisacodyl 10 Mg Supp.rect, 10 MG RC DAILY PRN for CONSTIPATION-4TH LINE, (Reported) Last Action: Reviewed Bisacodyl 5 Mg Tablet.dr, 5 MG PO DAILY PRN for CONSTIPATION-4TH LINE, (Reported) Last Action: Reviewed Cholestyramine (with Sugar) 4 Gm Powd.pack, 4 GM PO BID PRN for DIARRHEA, (Reported) Last Action: Reviewed Cyanocobalamin (Vitamin B-12) 1,000 Mcg Tablet, 1,000 MCG PO 1700, (Reported) Last Action: Reviewed Fexofenadine HCl 180 Mg Tablet, 180 MG PO DAILY, (Reported) Last Action: Reviewed Finasteride 5 Mg Tablet, 5 MG PO DAILY, (Reported) Last Action: Continued Fluoxetine HCl 10 Mg Capsule, 10 MG PO DAILY, (Reported) Last Action: Continued Furosemide 40 Mg Tablet, 40 MG PO UD, (Reported) FUROSEMIDE 40MG TAB PO TWICE WEEKLY NEEDED FOR SWELLING AND EDEMA Last Action: Reviewed Gabapentin 300 Mg Capsule, 300 MG PO 0800,1200,1700, (Reported) Last Action: Continued Guaifenesin 600 Mg Tab.er.12h, 600 MG PO BID, (Reported) Last Action: Reviewed Lubiprostone 24 Mcg Capsule, 24 MCG PO BID, (Reported) Last Action: Continued Melatonin 10 Mg Tablet, 10 MG PO HS, (Reported) Last Action: Continued Metoprolol Succinate 50 Mg Tab.er.24h, 50 MG PO DAILY Prescribed by: VALENTINA BOWIE on 09/13/20 1448 Miconazole Nitrate 10 Gm Powder, 1 APPLIC TOP PRN PRN for RASH, (Reported) Last Action: Reviewed Ondansetron HCl 4 Mg Tab, 4 MG PO Q6H PRN for NAUSEA/VOMITING-1ST LINE, (Reported) Last Action: Reviewed Polyethylene Glycol 3350 17 Gm Powd.pack, 17 GM PO BID PRN for CONSTIPATION-2ND LINE, (Reported) Last Action: Reviewed Potassium Chloride 20 Meq Tablet.er, 20 MEQ PO BID, (Reported) Last Action: Reviewed Sennosides 8.6 Mg Tablet, 8.6 MG PO HS PRN for CONSTIPATION-6TH LINE, (Reported) Last Action: Reviewed Simethicone 80 Mg Tab.chew, 80 MG PO QID PRN for GAS, (Reported) Last Action: Reviewed Tamsulosin HCl 0.4 Mg Cap, 0.4 MG PO HS, (Reported) Last Action: Continued Tizanidine HCl 4 Mg Tablet, 4 MG PO BID PRN for BLADDER SPASMS, (Reported) Last Action: Continued Patient Home Medication List Home Medication List Reviewed: Yes Review of Systems Review of Systems Constitutional: chills, fever, malaise, weakness EENTM: no symptoms reported Respiratory: no symptoms reported Cardiovascular: no symptoms reported Gastrointestinal: see HPI Genitourinary: see HPI Musculoskeletal: no symptoms reported Skin: no symptoms reported Psychiatric/Neurological: Weakness (generalized) Past Kaicezw-Jivvfq-Qjuucc Hx Immunizations Up To Date Tetanus Booster (TDap): More than 5yrs PED Vaccines UTD: Yes Seasonal Allergies Seasonal Allergies: No Past Medical History Surgeries: Yes (bilat CTR, oral sx) Adenoidectomy, Bladder Surgery (suprapubic catheter), Eye Surgery, Tonsillectomy Respiratory: No Currently Using CPAP: Yes Currently Using BIPAP: No Cardiac: Yes Cardiomyopathy, Chronic Edema/Swelling, High Cholesterol, Hypertension Neurological: No Reproductive Disorders: No Sexually Transmitted Disease: Yes (Hx of unknown STI) HIV/AIDS: No Benign Prostatic Hyperpl, Prostate Problems, Renal Failure Gastrointestinal: Yes Chronic Constipation Musculoskeletal: Yes (obese) Fractures Endocrine: Yes Diabetes, Insulin dep HEENT: No Macular Degeneration Loss of Vision: Bilateral Hearing Impairment: Denies Cancer: No Psychosocial: Yes Depression Integumentary: No Blood Disorders: No Family Medical History No Pertinent Family Hx Denies significant family medical hx Physical Exam Vital Signs Vital Signs - First Documented 10/23/20 11:01 Temp 38.0 Pulse 84 Resp 20 B/P (MAP) 195/88 (123) Pulse Ox 98 O2 Delivery Room Air Capillary Refill : Height, Weight, BMI Height: 5'11.00" Weight: 315lbs. 0.0oz. 142.814477ms; 46.14 BMI Method: General Appearance: Chronically ill, Obese HEENT: PERRL/EOMI; No Moist Mucous Membranes (slightly dry mucous membranes) Respiratory: Chest Non Tender, Lungs Clear, Normal Breath Sounds Cardiovascular: Regular Rate, Rhythm, Normal Peripheral Pulses Gastrointestinal: Normal Bowel Sounds, No Pulsatile Mass, Soft; No Guarding, No Rebound; Tenderness (mild tenderness over suprapubic area) Rectal: Deferred Extremity: Normal Capillary Refill, Pedal Edema (2+ pitting edema bilateral LE up above his knees) Neurologic/Psychiatric: Alert, Oriented x3 Skin: Normal Color, Warm/Dry Focused Exam Lactate Level 10/23/20 11:00: Lactic Acid Level 1.97 Lactic Acid Level Laboratory Tests Test 10/23/20 11:00 Lactic Acid Level 1.97 MMOL/L (0.50-2.00) Progress/Results/Core Measures Suspected Sepsis SIRS Temperature: Pulse: Respiratory Rate: Laboratory Tests 10/23/20 11:00: White Blood Count 18.7H Blood Pressure / Mean: 10/23/20 11:00: Lactic Acid Level 1.97 Laboratory Tests 10/23/20 11:00: Creatinine 3.99H, Platelet Count 253, Total Bilirubin 0.4 Results/Orders Lab Results Laboratory Tests Test 10/23/20 11:00 Range/Units White Blood Count 18.7 H 4.3-11.0 10^3/uL Red Blood Count 3.96 L 4.35-5.85 10^6/uL Hemoglobin 11.2 L 13.3-17.7 G/DL Hematocrit 35 L 40-54 % Mean Corpuscular Volume 89 80-99 FL Mean Corpuscular Hemoglobin 28 25-34 PG Mean Corpuscular Hemoglobin Concent 32 32-36 G/DL Red Cell Distribution Width 16.1 H 10.0-14.5 % Platelet Count 253 130-400 10^3/uL Mean Platelet Volume 10.0 7.4-10.4 FL Immature Granulocyte % (Auto) 1 % Neutrophils (%) (Auto) 91 H 42-75 % Lymphocytes (%) (Auto) 4 L 12-44 % Monocytes (%) (Auto) 5 0-12 % Eosinophils (%) (Auto) 0 0-10 % Basophils (%) (Auto) 0 0-10 % Neutrophils # (Auto) 16.9 H 1.8-7.8 X 10^3 Lymphocytes # (Auto) 0.8 L 1.0-4.0 X 10^3 Monocytes # (Auto) 0.9 0.0-1.0 X 10^3 Eosinophils # (Auto) 0.0 0.0-0.3 10^3/uL Basophils # (Auto) 0.0 0.0-0.1 10^3/uL Immature Granulocyte # (Auto) 0.1 0.0-0.1 10^3/uL Neutrophils % (Manual) 70 % Lymphocytes % (Manual) 6 % Monocytes % (Manual) 3 % Band Neutrophils 21 % Macrocytosis 1+ Urine Color OTHER H Urine Clarity TURBID Urine pH 6.0 5-9 Urine Specific [place] 1.020 1.016-1.022 Urine Protein 4+ NEGATIVE Urine Glucose (UA) NEGATIVE NEGATIVE Urine Ketones NEGATIVE NEGATIVE Urine Nitrite POSITIVE H NEGATIVE Urine Bilirubin 1+ H NEGATIVE Urine Urobilinogen 0.2 < = 1.0 MG/DL Urine Leukocyte Esterase 3+ H NEGATIVE Urine RBC (Auto) 3+ H NEGATIVE Urine RBC 5-10 H /HPF Urine WBC TNTC H /HPF Urine Squamous Epithelial Cells NONE /HPF Urine Crystals NONE /LPF Urine Bacteria LARGE H /HPF Urine Casts NONE /LPF Urine Mucus NEGATIVE /LPF Urine Culture Indicated YES Sodium Level 139 135-145 MMOL/L Potassium Level 3.7 3.6-5.0 MMOL/L Chloride Level 107 98-107 MMOL/L Carbon Dioxide Level 17 L 21-32 MMOL/L Anion Gap 15 H 5-14 MMOL/L Blood Urea Nitrogen 40 H 7-18 MG/DL Creatinine 3.99 H 0.60-1.30 MG/DL Estimat Glomerular Filtration Rate 15 BUN/Creatinine Ratio 10 Glucose Level 212 H 70-105 MG/DL Lactic Acid Level 1.97 0.50-2.00 MMOL/L Calcium Level 8.9 8.5-10.1 MG/DL Corrected Calcium 9.1 8.5-10.1 MG/DL Total Bilirubin 0.4 0.1-1.0 MG/DL Aspartate Amino Transf (AST/SGOT) 9 5-34 U/L Alanine Aminotransferase (ALT/SGPT) 6 0-55 U/L Alkaline Phosphatase 94 40-136 U/L C-Reactive Protein 8.22 H <0.50 MG/DL Total Protein 7.6 6.4-8.2 GM/DL Albumin 3.8 3.2-4.5 GM/DL My Orders Orders - JAIR KNOTT MD Cbc With Automated Diff (10/23/20 11:09) Comprehensive Metabolic Panel (10/23/20 11:09) Blood Culture (10/23/20 11:09) Ua Culture If Indicated (10/23/20 11:09) Ed Iv/Invasive Line Start (10/23/20 11:09) Crp Fs (10/23/20 11:09) Lactic Acid Analyzer (10/23/20 11:09) Ns Iv 1000 Ml (Sodium Chloride 0.9%) (10/23/20 11:10) Manual Differential (10/23/20 11:00) Armstrong Cath (10/23/20 11:36) Cefepime Injection (Maxipime Injection) (10/23/20 11:51) Vancomycin Injection (Vancomycin Injecti (10/23/20 11:51) Urine Culture (10/23/20 11:00) Stool Culture (10/23/20 12:37) Fecal Wbc (10/23/20 12:37) C Difficile Ag + Toxin A/B. (10/23/20 12:37) Isolation Central Supply Req (10/23/20 12:37) Code/Resuscitation (10/23/20 12:37) Vital Signs/I&O 10/23/20 10/23/20 11:01 17:20 Temp 38.0 Pulse 84 78 Resp 20 18 B/P (MAP) 195/88 (123) 188/94 Pulse Ox 98 96 O2 Delivery Room Air Room Air 10/24/20 00:00 Intake Total 1000 ml Output Total 2000 ml Balance -1000 ml Capillary Refill : Progress Note #1: Progress Note obtain basic labs, urine and blood cultures with lactic acid. Changed out catheter in the suprapubic area and had immediate return of brownish red colored urine over 1300 mL. He had a diarrhea stool and states that is chronic for him. Differential diagnosis includes sepsis from UTI, colitis, diverticulitis, gastroenteritis, pyelonephritis, acute on chronic renal failure Progress Note #2: Progress Note CBC shows elevated WBC to 18.7 with left shift. Chemistry without elevation of lactic acid. He has continued finding of UTI and last urine culture shows MRSA and Pseudomonas. He has had some diarrhea so will order C diff and culture. Chemistry shows elevated Cr to 3.99 up from 3.12 when he was discharge at end of August. This has previously improved when his bladder was no longer obstructed. Once both sets of blood cultures are drawn will order Cefepime and Vancomycin like he had in August for similar infection. d/w Dr. Villaseñor and will admit for hydration and IV antibiotics. Monitor urine output and renal function Departure Communication (Admissions) Time/Spoke to Admitting Phy: 12:32 d/w Dr. Villaseñor for [facility] as pt follows with Dr. Valente. Will admit for IV antibiotics and hydration. He has recent urine culture showing pseudomonas and MRSA. He currently has a lactic acid less than 2. His Cr is slightly up to 3.99 from 3.12 when he was discharged at end of August. Impression Primary Impression: Urinary tract infection associated with indwelling urethral catheter Qualified Codes: T83.511A - Infection and inflammatory reaction due to indwelling urethral catheter, initial encounter; N39.0 - Urinary tract infe ction, site not specified Additional Impression: Ggalk-ln-ribwkav kidney injury Qualified Codes: N17.9 - Acute kidney failure, unspecified; N18.4 - Chronic kidney disease, stage 4 (severe) Disposition: 30 STILL A PATIENT Condition: Stable Admissions Decision to Admit Reason: Admit from ER (General) Decision to Admit/Date: Oct 23, 2020 Time/Decision to Admit Time: 12:32 Departure-Patient Inst. Referrals: LAINEY VALENTE MD (PCP/Family) Primary Care Physician JAIR KNOTT MD Oct 23, 2020 11:28
[2020-10-23 11:32] LABS: WHITE BLOOD COUNT 18.7 10^3/uL (4.3-11.0)
[2020-10-23 11:33] LABS: BASOPHILS % (AUTO) 0 % (0-10); EOSINOPHILS % (AUTO) 0 % (0-10); HEMATOCRIT 35 % (40-54); HEMOGLOBIN 11.2 G/DL (13.3-17.7); LYMPHOCYTES # (AUTO) 0.8 X 10^3 (1.0-4.0); LYMPHOCYTES % (AUTO) 4 % (12-44); MEAN CORPUSCULAR HEMOGLOBIN 28 PG (25-34); MEAN CORPUSCULAR HGB CONC 32 G/DL (32-36); MEAN CORPUSCULAR VOLUME 89 FL (80-99); MONOCYTES # (AUTO) 0.9 X 10^3 (0.0-1.0); MONOCYTES % (AUTO) 5 % (0-12); NEUTROPHILS # (AUTO) 16.9 X 10^3 (1.8-7.8); NEUTROPHILS % (AUTO) 91 % (42-75); PLATELET COUNT 253 10^3/uL (130-400)
[2020-10-23] MEDS ORDERED: VANCOMYCIN INJECTION 1,000 MG in NS (IVPB) 250 ML IV STA (11:51)
[2020-10-23] MEDS ORDERED: CEFEPIME INJECTION 1,000 MG in WATER (STERILE) FOR INJECTION 10 ML IV STA (11:51)
[2020-10-23 11:55] LABS: CLARITY,URINE TURBID; COLOR,URINE OTHER; GLUCOSE, URINE (UA) NEGATIVE (NEGATIVE); PROTEIN,URINE 4+ (NEGATIVE)
[2020-10-23 11:56] LABS: BILIRUBIN,URINE 1+ (NEGATIVE); KETONES,URINE NEGATIVE (NEGATIVE); NITRITE,URINE POSITIVE (NEGATIVE)
[2020-10-23 11:57] LABS: BACTERIA,URINE LARGE /HPF; LEUKOCYTE ESTERASE ,URINE 3+ (NEGATIVE); WBC,URINE TNTC /HPF
[2020-10-23 12:05] LABS: POTASSIUM 3.7 MMOL/L (3.6-5.0)
[2020-10-23 12:06] LABS: ALBUMIN 3.8 GM/DL (3.2-4.5); BILIRUBIN,TOTAL 0.4 MG/DL (0.1-1.0); CALCIUM 8.9 MG/DL (8.5-10.1); CREATININE SERUM 3.99 MG/DL (0.60-1.30); TOTAL PROTEIN 7.6 GM/DL (6.4-8.2)
[2020-10-23 12:07] LABS: BAND NEUTROPHILS 21 %; LYMPHOCYTES % (MANUAL) 6 %; MONOCYTES % (MANUAL) 3 %; NEUTROPHILS % (MANUAL) 70 %
[2020-10-23 19:06] VITALS: BP 188/94
[2020-10-23] MEDS ORDERED: LUBI24CA6 PO (19:42)
[2020-10-23] MEDS ORDERED: POTA-51 PO (19:42)
[2020-10-23] MEDS ORDERED: FURO40TA4 PO (19:42)
[2020-10-23] MEDS ORDERED: MELA10TA2 PO (19:42)
[2020-10-23] MEDS ORDERED: GUAI600T43 PO (19:42)
[2020-10-23] MEDS ORDERED: ACETAMINOPHEN 500 MG TAB (TYLENOL) PO PRN (19:45)
[2020-10-23 19:50] VITALS: BP 144/65
[2020-10-23] MEDS ORDERED: NS IV 1000 ML 1,000 ML ONE (20:52)
[2020-10-23] MEDS: NS IV 1000 ML 1,000 ML IV SCH (20:59)
[2020-10-23] MEDS ORDERED: LUBIPROSTONE 24 MCG CAP (AMITIZA) NON-FORMULARY PO SCH (21:00)
--- NOTE | 2020-10-23 21:07 | History & Physical ---
HPI History of Present Illness: 75 yo M with chronic indwelling catheter that was sent to ER after catheter stopped draining. Patient states that he has not been having much output over the weekend. States that he started having abdominal cramping over the last 2-3 days. He started having some chills this AM. He has had multiple recent admissions for similar problems. After catheter was flushed in the ER they got 2L of debris filled urine. Patient is having some fevers since arriving in ER. Source: patient, half-way records Exam Limitations: no limitations Date seen by provider: Oct 23, 2020 Time Seen by Provider: 19:00 Attending Physician Ronald Villaseñor MD PCP Self,Harmeet JONES Consult Date of Admission Oct 23, 2020 at 18:10 Home Medications Home Medications Reviewed patient Home Medication Reconciliation performed by pharmacy medication reconciliations rim technician and/or nursing. Patients Allergies have been reviewed. Allergies Coded Allergies: No Known Drug Allergies (Unverified , 06/05/17) KSL-Ucamvx-Khidch Hx Patient Social History Living Status: Living in SNF Smoking Status: Current Everyday Smoker 2nd Hand Smoke Exposure: No Recent Hopitalizations: No Alcohol Use?: Yes Substance type: Nicotine Tobacco type used: Cigarettes Have you traveled recently?: No Immunizations Up To Date Tetanus Booster (TDap): More than 5yrs Date of Pneumonia Vaccine: Jun 05, 2014 Date of Influenza Vaccine: Feb 05, 2020 Past Medical History BPH with Suprapubic cath HTN NIDDM CKD Obesity Septic shock from UTI 2019 Family Medical History Significant Family History: No Pertinent Family Hx Other Significan Family Hx: Denies significant family medical hx Review of Systems ([facility]) Constitutional: chills, fever, malaise EENTM: no symptoms reported; No mouth pain, No nose congestion, No throat pain Respiratory: no symptoms reported; No cough, No dyspnea on exertion, No short of breath Cardiovascular: no symptoms reported; No chest pain, No edema, No palpitations Gastrointestinal: abdominal pain, diarrhea; No loss of appetite, No nausea, No vomiting Genitourinary: decreased output, frequency Musculoskeletal: no symptoms reported; No back pain, No joint pain, No muscle pain Skin: no symptoms reported; No lesions, No rash Psychiatric/Neurological: No Symptoms Reported Reviewed Test Results Reviewed Test Results Lab Laboratory Tests Test 10/23/20 11:00 Range/Units White Blood Count 18.7 H 4.3-11.0 10^3/uL Red Blood Count 3.96 L 4.35-5.85 10^6/uL Hemoglobin 11.2 L 13.3-17.7 G/DL Hematocrit 35 L 40-54 % Mean Corpuscular Volume 89 80-99 FL Mean Corpuscular Hemoglobin 28 25-34 PG Mean Corpuscular Hemoglobin Concent 32 32-36 G/DL Red Cell Distribution Width 16.1 H 10.0-14.5 % Platelet Count 253 130-400 10^3/uL Mean Platelet Volume 10.0 7.4-10.4 FL Immature Granulocyte % (Auto) 1 % Neutrophils (%) (Auto) 91 H 42-75 % Lymphocytes (%) (Auto) 4 L 12-44 % Monocytes (%) (Auto) 5 0-12 % Eosinophils (%) (Auto) 0 0-10 % Basophils (%) (Auto) 0 0-10 % Neutrophils # (Auto) 16.9 H 1.8-7.8 X 10^3 Lymphocytes # (Auto) 0.8 L 1.0-4.0 X 10^3 Monocytes # (Auto) 0.9 0.0-1.0 X 10^3 Eosinophils # (Auto) 0.0 0.0-0.3 10^3/uL Basophils # (Auto) 0.0 0.0-0.1 10^3/uL Immature Granulocyte # (Auto) 0.1 0.0-0.1 10^3/uL Neutrophils % (Manual) 70 % Lymphocytes % (Manual) 6 % Monocytes % (Manual) 3 % Band Neutrophils 21 % Macrocytosis 1+ Urine Color OTHER H Urine Clarity TURBID Urine pH 6.0 5-9 Urine Specific [place] 1.020 1.016-1.022 Urine Protein 4+ NEGATIVE Urine Glucose (UA) NEGATIVE NEGATIVE Urine Ketones NEGATIVE NEGATIVE Urine Nitrite POSITIVE H NEGATIVE Urine Bilirubin 1+ H NEGATIVE Urine Urobilinogen 0.2 < = 1.0 MG/DL Urine Leukocyte Esterase 3+ H NEGATIVE Urine RBC (Auto) 3+ H NEGATIVE Urine RBC 5-10 H /HPF Urine WBC TNTC H /HPF Urine Squamous Epithelial Cells NONE /HPF Urine Crystals NONE /LPF Urine Bacteria LARGE H /HPF Urine Casts NONE /LPF Urine Mucus NEGATIVE /LPF Urine Culture Indicated YES Sodium Level 139 135-145 MMOL/L Potassium Level 3.7 3.6-5.0 MMOL/L Chloride Level 107 98-107 MMOL/L Carbon Dioxide Level 17 L 21-32 MMOL/L Anion Gap 15 H 5-14 MMOL/L Blood Urea Nitrogen 40 H 7-18 MG/DL Creatinine 3.99 H 0.60-1.30 MG/DL Estimat Glomerular Filtration Rate 15 BUN/Creatinine Ratio 10 Glucose Level 212 H 70-105 MG/DL Lactic Acid Level 1.97 0.50-2.00 MMOL/L Calcium Level 8.9 8.5-10.1 MG/DL Corrected Calcium 9.1 8.5-10.1 MG/DL Total Bilirubin 0.4 0.1-1.0 MG/DL Aspartate Amino Transf (AST/SGOT) 9 5-34 U/L Alanine Aminotransferase (ALT/SGPT) 6 0-55 U/L Alkaline Phosphatase 94 40-136 U/L C-Reactive Protein 8.22 H <0.50 MG/DL Total Protein 7.6 6.4-8.2 GM/DL Albumin 3.8 3.2-4.5 GM/DL Physical Exam-([facility]) Physical Exam Vital Signs VS - Last 72 Hours, by Label 10/23/20 10/23/20 10/23/20 10/23/20 11:01 17:20 18:34 19:06 Temp 38.0 38.0 Pulse 84 78 78 Resp 20 18 B/P (MAP) 195/88 (123) 188/94 Pulse Ox 98 96 96 96 O2 Delivery Room Air Room Air Room Air O2 Flow Rate 0.00 10/23/20 10/23/20 19:50 19:58 Temp 37.4 Pulse 84 85 Resp 16 B/P (MAP) 144/65 (91) Pulse Ox 97 O2 Delivery Room Air Capillary Refill : Less Than 3 Seconds General Appearance: WD/WN, no apparent distress, obese HEENT: PERRL/EOMI Neck: non-tender, full range of motion, supple Respiratory: chest non-tender, lungs clear, normal breath sounds, no respiratory distress, no accessory muscle use Cardiovascular: normal peripheral pulses, regular rate, rhythm, no edema, no murmur Gastrointestinal: normal bowel sounds, soft, tenderness (suprapubic pain) Back: no CVA tenderness, no vertebral tenderness Extremities: normal range of motion, non-tender, normal inspection, no pedal edema, no calf tenderness, normal capillary refill 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, no motor/sensory deficits, alert, normal mood/affect, oriented x 3 Skin: normal color, warm/dry Lymphatic: no adenopathy Assessment/Plan Assessment/Plan Admission Status: Inpatient Order (span 2 midnights) Reason for Inpatient Admission: Patient with sepsis and needing IVFs and frequent monitoring (1) Sepsis Status: Acute Assessment & Plan: - H/o multi resistant bacteria, continue Vanc/Cefepime, culture pending, catheter flushed and draining urine Qualifiers: Qualified Codes: A41.9 - Sepsis, unspecified organism (2) Urinary tract infection associated with indwelling urethral catheter Status: Acute Qualifiers: Qualified Codes: T83.511A - Infection and inflammatory reaction due to indwelling urethral catheter, initial encounter; N39.0 - Urinary tract infection, site not specified (3) Urinary retention Status: Chronic (4) Suprapubic catheter Status: Chronic Assessment & Plan: - Flush catheter and draining urine, pain improved (5) Kmynx-aa-mcvsaxh kidney injury Status: Acute Assessment & Plan: - Continue gentle IVFs at 75 cc/hr, will continue CMP daily Qualifiers: Qualified Codes: N17.9 - Acute kidney failure, unspecified; N18.4 - Chronic kidney disease, stage 4 (severe) (6) Diarrhea Status: Acute Assessment & Plan: - h/o C diff, C diff pending, isolation currently Qualifiers: Qualified Codes: R19.7 - Diarrhea, unspecified (7) Non-insulin treated type 2 diabetes mellitus Status: Chronic Assessment & Plan: - Accuchecks, will continue to monitor (8) HTN (hypertension) Status: Chronic Assessment & Plan: - Continue home meds Qualifiers: Qualified Codes: I10 - Essential (primary) hypertension (9) DVT prophylaxis Status: Acute Assessment & Plan: - Lovenox renally dosed for PPx Copy Copies To 1: SELF,HARMEET VILLASEÑOR,RONALD Chris MD Oct 23, 2020 21:07
[2020-10-23] MEDS: MELATONIN 10 MG TABLET PO SCH (22:18)
[2020-10-23] MEDS ORDERED: NS IV 500 ML 500 ML ONE (22:27)
[2020-10-23] MEDS: ENOXAPARIN 30 MG/0.3 ML (LOVENOX) SYR SC SCH (22:58)
[2020-10-23] MEDS: TAMSULOSIN 0.4 MG (FLOMAX) CAP PO SCH (22:58)
[2020-10-23] MEDS: VANCOMYCIN 1500 MG/NS 500 ML IVPB IV NR ×2 (22:59)
[2020-10-24] VITALS (7 sets, daily range): BP systolic 144–166; BP diastolic 73–86
[2020-10-24] MEDS: CEFEPIME 1,000 MG/SWFI 10 ML IV PUSH IV SCH ×6 (00:31→23:02)
[2020-10-24 06:36] LABS: BASOPHILS % (AUTO) 0 % (0-10); EOSINOPHILS # (AUTO) 0.1 10^3/uL (0.0-0.3); EOSINOPHILS % (AUTO) 1 % (0-10); HEMATOCRIT 28 % (40-54); HEMOGLOBIN 8.7 g/dL (13.3-17.7); LYMPHOCYTES # (AUTO) 1.8 10^3/uL (1.0-4.0); LYMPHOCYTES % (AUTO) 15 % (12-44); MEAN CORPUSCULAR HEMOGLOBIN 28 pg (25-34); MEAN CORPUSCULAR HGB CONC 31 g/dL (32-36); MEAN CORPUSCULAR VOLUME 91 fL (80-99); MEAN PLATELET VOLUME 9.8 fL (9.0-12.2); MONOCYTES # (AUTO) 0.7 10^3/uL (0.0-1.0); MONOCYTES % (AUTO) 6 % (0-12); NEUTROPHILS % (AUTO) 77 % (42-75); PLATELET COUNT 195 10^3/uL (130-400); WHITE BLOOD COUNT 11.6 10^3/uL (4.3-11.0)
[2020-10-24 06:49] LABS: ALBUMIN 3.1 GM/DL (3.2-4.5)
[2020-10-24 06:50] LABS: POTASSIUM 3.3 MMOL/L (3.6-5.0)
[2020-10-24 06:51] LABS: CALCIUM 8.2 MG/DL (8.5-10.1)
[2020-10-24 06:52] LABS: TOTAL PROTEIN 6.3 GM/DL (6.4-8.2)
[2020-10-24 06:54] LABS: BILIRUBIN,TOTAL 0.4 MG/DL (0.1-1.0)
[2020-10-24 06:56] LABS: CREATININE SERUM 4.59 MG/DL (0.60-1.30)
[2020-10-24] MEDS ORDERED: GABAPENTIN 300 MG (NEURONTIN) CAP PO SCH (08:00)
[2020-10-24] MEDS: ASPIRIN 81 MG CHEW (CHILDREN'S ASA) PO SCH (08:58)
[2020-10-24] MEDS: FINASTERIDE (PROSCAR) 5 MG TAB PO SCH (08:58)
[2020-10-24] MEDS: FLUoxetine HCL 10 MG (PROzac) CAPSULE/TABLET PO SCH (08:58)
[2020-10-24] MEDS: NS IV 1000 ML 1,000 ML IV SCH ×3 (09:24→23:02)
[2020-10-24] MEDS ORDERED: CHOL4PAC PO (09:25)
[2020-10-24] MEDS ORDERED: SEMA0.25 SC (09:25)
[2020-10-24] MEDS ORDERED: NS IV 500 ML 500 ML IV STA (09:53)
--- NOTE | 2020-10-24 11:21 | Progress Note ---
Subjective Subjective/Events-last exam Patient states that he still feels bad today. Some improvement in his belly pain. Still having loose stools. Urine is draining tea colored with less sediment. Tolerating PO diet without any troubles. Review of Systems General: Fatigue, Malaise Pulmonary: No Dyspnea, No Cough Cardiovascular: No: Chest Pain, Palpitations, Edema Gastrointestinal: Abdominal Pain, Diarrhea; No: Nausea, Vomiting, Hematochezia Genitourinary: Retention Neurological: Weakness Focused Exam Lactate Level 10/23/20 11:00: Lactic Acid Level 1.97 Objective Exam Last Set of Vital Signs Vital Signs Date Time Temp Pulse Resp B/P (MAP) Pulse Ox O2 Delivery O2 Flow Rate FiO2 10/24/20 08:00 36.6 79 20 144/77 (99) 96 Room Air 10/23/20 18:34 0.00 Capillary Refill : Less Than 3 Seconds I&O Intake and Output 10/23/20 23:59 Intake Total 1700 ml Output Total 2600 ml Balance -900 ml Intake Oral 500 ml IV Total 1200 ml Output Urine Total 2600 ml # Bowel Movements 1 Daily Weight Change No General: Alert, Cooperative, No Acute Distress HEENT: Mucous Memb Moist/[place] Lungs: Clear to Auscultation, Normal Air Movement Heart: Regular Rate, No Murmurs Abdomen: Normal Bowel Sounds, Soft, No Tenderness, No Masses Extremities: No Edema, No Tenderness/Swelling Skin: No Rashes, No Breakdown Psych/Mental Status: Mental Status NL, Mood NL Other physical findings Suprapubic cath draining tea colored urine, no gross hematuria Results/Procedures Lab Laboratory Tests 10/24/20 06:15: White Blood Count 11.6H, Red Blood Count 3.07L, Hemoglobin 8.7L, Hematocrit 28L, Mean Corpuscular Volume 91, Mean Corpuscular Hemoglobin 28, Mean Corpuscular Hemoglobin Concent 31L, Red Cell Distribution Width 16.3H, Platelet Count 195, Mean Platelet Volume 9.8, Immature Granulocyte % (Auto) 1, Neutrophils (%) (Auto) 77H, Lymphocytes (%) (Auto) 15, Monocytes (%) (Auto) 6, Eosinophils (%) (Auto) 1, Basophils (%) (Auto) 0, Neutrophils # (Auto) 9.0H, Lymphocytes # (Auto) 1.8, Monocytes # (Auto) 0.7, Eosinophils # (Auto) 0.1, Basophils # (Auto) 0.0, Immature Granulocyte # (Auto) 0.1, Sodium Level 142, Potassium Level 3.3L, Chloride Level 116H, Carbon Dioxide Level 15L, Anion Gap 11, Blood Urea Nitrogen 43H, Creatinine 4.59#H, Estimat Glomerular Filtration Rate 13, BUN/Creatinine Ratio 9, Glucose Level 97, Calcium Level 8.2L, Corrected Calcium 8.9, Total Bilirubin 0.4, Aspartate Amino Transf (AST/SGOT) 12, Alanine Aminotransferase (ALT/SGPT) 10, Alkaline Phosphatase 69, Total Protein 6.3L, Albumin 3.1L Assessment/Plan Assessment/Plan (1) Sepsis Status: Resolved Assessment & Plan: - H/o multi resistant bacteria, continue Vanc/Cefepime, culture pending, catheter flushed and draining urine 10/24: Cultured pending, isolation continued for h/o MRSA in urine Qualifiers: Qualified Codes: A41.9 - Sepsis, unspecified organism (2) Urinary tract infection associated with indwelling urethral catheter Status: Acute Qualifiers: Qualified Codes: T83.511A - Infection and inflammatory reaction due to indwelling urethral catheter, initial encounter; N39.0 - Urinary tract infection, site not specified (3) Urinary retention Status: Chronic (4) Suprapubic catheter Status: Chronic Assessment & Plan: - Flush catheter and draining urine, pain improved 10/24: Continues to have output, urine is starting to clear (5) Eamqg-ij-yhyvuiw kidney injury Status: Acute Assessment & Plan: - Continue gentle IVFs at 75 cc/hr, will continue CMP daily 10/24: Cr worsened today, likely 2/2 to post obstructive, Will given 500 cc bolus and continue 75 cc/hr, Repeat BMP 1300 Qualifiers: Qualified Codes: N17.9 - Acute kidney failure, unspecified; N18.4 - Chronic kidney disease, stage 4 (severe) (6) Diarrhea Status: Acute Assessment & Plan: - h/o C diff, C diff pending, isolation currently Qualifiers: Qualified Codes: R19.7 - Diarrhea, unspecified (7) Non-insulin treated type 2 diabetes mellitus Status: Chronic Assessment & Plan: - Accuchecks, will continue to monitor (8) HTN (hypertension) Status: Chronic Assessment & Plan: - Continue home meds Qualifiers: Qualified Codes: I10 - Essential (primary) hypertension (9) DVT prophylaxis Status: Acute Assessment & Plan: - Lovenox renally dosed for PPx RONALD LEON MD Oct 24, 2020 11:21
[2020-10-24] MEDS ORDERED: VANCOMYCIN 2000 MG/NS 500 ML IVPB IV SCH ×2 (12:00)
[2020-10-24 15:22] LABS: POTASSIUM 3.4 MMOL/L (3.6-5.0)
[2020-10-24 15:28] LABS: CREATININE SERUM 4.73 MG/DL (0.60-1.30)
[2020-10-24] MEDS: MELATONIN 10 MG TABLET PO SCH (20:44)
[2020-10-24] MEDS: TAMSULOSIN 0.4 MG (FLOMAX) CAP PO SCH (20:44)
[2020-10-24] MEDS: ENOXAPARIN 30 MG/0.3 ML (LOVENOX) SYR SC SCH (22:58)
[2020-10-25 03:42] VITALS: BP 148/80
[2020-10-25 06:48] LABS: BASOPHILS % (AUTO) 0 % (0-10); EOSINOPHILS # (AUTO) 0.4 10^3/uL (0.0-0.3); EOSINOPHILS % (AUTO) 4 % (0-10); HEMATOCRIT 27 % (40-54); HEMOGLOBIN 8.3 g/dL (13.3-17.7); LYMPHOCYTES # (AUTO) 1.5 10^3/uL (1.0-4.0); LYMPHOCYTES % (AUTO) 15 % (12-44); MEAN CORPUSCULAR HEMOGLOBIN 28 pg (25-34); MEAN CORPUSCULAR HGB CONC 31 g/dL (32-36); MEAN CORPUSCULAR VOLUME 91 fL (80-99); MONOCYTES # (AUTO) 0.5 10^3/uL (0.0-1.0); MONOCYTES % (AUTO) 5 % (0-12); NEUTROPHILS # (AUTO) 7.5 10^3/uL (1.8-7.8); NEUTROPHILS % (AUTO) 75 % (42-75); PLATELET COUNT 194 10^3/uL (130-400)
[2020-10-25 06:57] LABS: POTASSIUM 3.2 MMOL/L (3.6-5.0)
[2020-10-25 07:00] LABS: TOTAL PROTEIN 6.1 GM/DL (6.4-8.2)
[2020-10-25 07:01] LABS: BILIRUBIN,TOTAL 0.3 MG/DL (0.1-1.0)
[2020-10-25 07:03] LABS: CREATININE SERUM 4.97 MG/DL (0.60-1.30)
[2020-10-25 08:30] VITALS: BP 178/84
[2020-10-25] MEDS: FINASTERIDE (PROSCAR) 5 MG TAB PO SCH (09:18)
[2020-10-25] MEDS: ASPIRIN 81 MG CHEW (CHILDREN'S ASA) PO SCH (09:18)
[2020-10-25] MEDS: NS IV 1000 ML 1,000 ML IV SCH ×2 (09:20→19:46)
[2020-10-25] MEDS ORDERED: TROUGH ORDER-PHARMACY XX NR (11:00)
[2020-10-25] MEDS: FLUoxetine HCL 10 MG (PROzac) CAPSULE/TABLET PO SCH (11:30)
[2020-10-25] MEDS: CEFEPIME 1,000 MG/SWFI 10 ML IV PUSH IV SCH ×4 (11:33→23:45)
--- NOTE | 2020-10-25 12:23 | Progress Note ---
Subjective Subjective/Events-last exam States that he is feeling better. Tolerating PO diet and up in chair this AM. Draining clearer urine with less sediment Review of Systems Pulmonary: No Dyspnea, No Cough Cardiovascular: No: Chest Pain, Palpitations Gastrointestinal: No: Nausea, Vomiting, Abdominal Pain, Diarrhea, Constipation Genitourinary: No Dysuria, No Frequency Neurological: No: Weakness, Incoordination Focused Exam Lactate Level 10/23/20 11:00: Lactic Acid Level 1.97 Objective Exam Last Set of Vital Signs Vital Signs Date Time Temp Pulse Resp B/P (MAP) Pulse Ox O2 Delivery O2 Flow Rate FiO2 10/25/20 08:30 36.9 82 20 178/84 (115) 98 Room Air 10/24/20 20:00 0.00 Capillary Refill : Less Than 3 Seconds I&O Intake and Output 10/25/20 00:00 Intake Total 5455 ml Output Total 1650 ml Balance 3805 ml Intake Oral 3230 ml IV Total 2225 ml Output Urine Total 1650 ml # Bowel Movements 4 General: Alert, Oriented X3, Cooperative HEENT: Mucous Memb Moist/[place] Lungs: Clear to Auscultation, Normal Air Movement Heart: Regular Rate, No Murmurs Abdomen: Normal Bowel Sounds, Soft, No Tenderness, No Masses Extremities: Other (3+ pitting edema) Skin: No Rashes, No Breakdown Neuro: Normal Speech, Sensation Intact, Cranial Nerves 3-12 NL Psych/Mental Status: Mental Status NL, Mood NL Results/Procedures Lab Laboratory Tests 10/24/20 14:48: Sodium Level 140, Potassium Level 3.4L, Chloride Level 113H, Carbon Dioxide Level 16L, Anion Gap 11, Blood Urea Nitrogen 43H, Creatinine 4.73H, Estimat Glomerular Filtration Rate 12, BUN/Creatinine Ratio 9, Glucose Level 130H, Calcium Level 8.0L 10/25/20 06:32: Sodium Level 140, Potassium Level 3.2L, Chloride Level 115H, Carbon Dioxide Level 17L, Anion Gap 8, Blood Urea Nitrogen 48H, Creatinine 4.97H, Estimat Glomerular Filtration Rate 11, BUN/Creatinine Ratio 10, Glucose Level 104, Calcium Level 8.0L, White Blood Count 10.0, Red Blood Count 2.95L, Hemoglobin 8.3L, Hematocrit 27L, Mean Corpuscular Volume 91, Mean Corpuscular Hemoglobin 28, Mean Corpuscular Hemoglobin Concent 31L, Red Cell Distribution Width 16.0H, Platelet Count 194, Mean Platelet Volume 10.0, Immature Granulocyte % (Auto) 1, Neutrophils (%) (Auto) 75, Lymphocytes (%) (Auto) 15, Monocytes (%) (Auto) 5, Eosinophils (%) (Auto) 4, Basophils (%) (Auto) 0, Neutrophils # (Auto) 7.5, Lymphocytes # (Auto) 1.5, Monocytes # (Auto) 0.5, Eosinophils # (Auto) 0.4H, Basophils # (Auto) 0.0, Immature Granulocyte # (Auto) 0.1, Corrected Calcium 8.8, Total Bilirubin 0.3, Aspartate Amino Transf (AST/SGOT) 9, Alanine Aminotransferase (ALT/SGPT) 11, Alkaline Phosphatase 66, Total Protein 6.1L, Albumin 3.0L 10/25/20 11:09: Vancomycin Level Trough 26.6*H Microbiology 10/24/20 Fecal Leukocyte Stain - Final, Resulted 10/24/20 Stool Culture, Resulted Pending 10/23/20 Blood Culture - Preliminary, Resulted No growth 10/23/20 Urine Culture - Preliminary, Resulted Citrobacter freundii complex Enterobacter cloacae complex Assessment/Plan Assessment/Plan (1) Sepsis Status: Resolved Assessment & Plan: - H/o multi resistant bacteria, continue Vanc/Cefepime, culture pending, catheter flushed and draining urine 10/24: Cultured pending, isolation continued for h/o MRSA in urine 10/25: No staph in urine, will d/c Vanco, continue cefepime until culture and sensitivities are back Qualifiers: Qualified Codes: A41.9 - Sepsis, unspecified organism (2) Urinary tract infection associated with indwelling urethral catheter Status: Acute Qualifiers: Qualified Codes: T83.511A - Infection and inflammatory reaction due to indwelling urethral catheter, initial encounter; N39.0 - Urinary tract infection, site not specified (3) Urinary retention Status: Chronic (4) Suprapubic catheter Status: Chronic Assessment & Plan: - Flush catheter and draining urine, pain improved 10/24: Continues to have output, urine is starting to clear (5) Epzun-xm-musyslv kidney injury Status: Acute Assessment & Plan: - Continue gentle IVFs at 75 cc/hr, will continue CMP daily 10/24: Cr worsened today, likely 2/2 to post obstructive, Will given 500 cc bolus and continue 75 cc/hr, Repeat BMP 1300 10/25: Cr stable, Vanc d/c, will give dose of lasix to help with renal blood flow Qualifiers: Qualified Codes: N17.9 - Acute kidney failure, unspecified; N18.4 - Chronic kidney disease, stage 4 (severe) (6) Diarrhea Status: Acute Assessment & Plan: - h/o C diff, C diff pending, isolation currently 10/25: C diff neg Qualifiers: Qualified Codes: R19.7 - Diarrhea, unspecified (7) Non-insulin treated type 2 diabetes mellitus Status: Chronic Assessment & Plan: - Accuchecks, will continue to monitor (8) HTN (hypertension) Status: Chronic Assessment & Plan: - Continue home meds Qualifiers: Qualified Codes: I10 - Essential (primary) hypertension (9) DVT prophylaxis Status: Acute Assessment & Plan: - Lovenox renally dosed for PPx RONALD LEON MD Oct 25, 2020 12:23
[2020-10-25 12:30] VITALS: BP 174/82
[2020-10-25] MEDS: IRON SUCROSE 200 MG/10 ML (VENOFER) VIAL IV SCH (13:40)
[2020-10-25 16:28] VITALS: BP_SYST 138; BP_SYST 211; BP_DIAS 104; BP_DIAS 88
[2020-10-25 19:41] VITALS: BP 170/84
[2020-10-25] MEDS: RT-ALBUTEROL SULF 2.5 MG/3 ML PRE-MIX VIAL INH PRN (21:27)
[2020-10-25] MEDS ORDERED: FUROSEMIDE 40 MG/4 ML INJ (LASIX) ONE (21:27)
[2020-10-25] MEDS ORDERED: FUROSEMIDE 40 MG/4 ML INJ (LASIX) IVP ONE (21:30)
[2020-10-25] MEDS: TAMSULOSIN 0.4 MG (FLOMAX) CAP PO SCH (21:31)
[2020-10-25] MEDS: MELATONIN 10 MG TABLET PO SCH (21:31)
[2020-10-25] MEDS: ENOXAPARIN 30 MG/0.3 ML (LOVENOX) SYR SC SCH (23:17)
[2020-10-26] VITALS (9 sets, daily range): BP systolic 174–206; BP diastolic 89–107
[2020-10-26 05:59] LABS: BASOPHILS % (AUTO) 0 % (0-10); EOSINOPHILS # (AUTO) 0.3 10^3/uL (0.0-0.3); EOSINOPHILS % (AUTO) 2 % (0-10); HEMATOCRIT 29 % (40-54); LYMPHOCYTES # (AUTO) 1.4 10^3/uL (1.0-4.0); LYMPHOCYTES % (AUTO) 11 % (12-44); MEAN CORPUSCULAR HEMOGLOBIN 28 pg (25-34); MEAN CORPUSCULAR HGB CONC 31 g/dL (32-36); MEAN CORPUSCULAR VOLUME 90 fL (80-99); MEAN PLATELET VOLUME 10.1 fL (9.0-12.2); MONOCYTES # (AUTO) 0.6 10^3/uL (0.0-1.0); MONOCYTES % (AUTO) 5 % (0-12); NEUTROPHILS # (AUTO) 10.1 10^3/uL (1.8-7.8); NEUTROPHILS % (AUTO) 81 % (42-75); PLATELET COUNT 237 10^3/uL (130-400); WHITE BLOOD COUNT 12.5 10^3/uL (4.3-11.0)
[2020-10-26 06:18] LABS: ALBUMIN 3.4 GM/DL (3.2-4.5); POTASSIUM 3.2 MMOL/L (3.6-5.0)
[2020-10-26 06:19] LABS: CALCIUM 8.5 MG/DL (8.5-10.1)
[2020-10-26 06:21] LABS: TOTAL PROTEIN 6.9 GM/DL (6.4-8.2)
[2020-10-26 06:22] LABS: BILIRUBIN,TOTAL 0.3 MG/DL (0.1-1.0)
[2020-10-26 06:24] LABS: CREATININE SERUM 4.98 MG/DL (0.60-1.30); PHOSPHORUS 4.8 MG/DL (2.3-4.7)
[2020-10-26 06:27] LABS: MAGNESIUM 1.7 MG/DL (1.6-2.4)
[2020-10-26] MEDS ORDERED: FUROSEMIDE 40 MG/4 ML INJ (LASIX) IVP ONE (07:45)
[2020-10-26] MEDS: FINASTERIDE (PROSCAR) 5 MG TAB PO SCH (08:23)
[2020-10-26] MEDS: ASPIRIN 81 MG CHEW (CHILDREN'S ASA) PO SCH (08:23)
[2020-10-26] MEDS ORDERED: amLODIPine 5 MG (NORVASC) TAB PO SCH (09:00)
[2020-10-26] MEDS: FLUoxetine HCL 10 MG (PROzac) CAPSULE/TABLET PO SCH (10:37)
[2020-10-26] MEDS ORDERED: TROUGH ORDER-PHARMACY XX NR (11:00)
[2020-10-26] MEDS: CEFEPIME 1,000 MG/SWFI 10 ML IV PUSH IV SCH ×4 (12:21→23:40)
[2020-10-26] MEDS ORDERED: hydrALAZINE (APESOLINE) 20 MG/ML VIAL IV NR (20:00)
[2020-10-26] MEDS: MELATONIN 10 MG TABLET PO SCH (20:33)
[2020-10-26] MEDS: TAMSULOSIN 0.4 MG (FLOMAX) CAP PO SCH (20:33)
[2020-10-26] MEDS: ENOXAPARIN 30 MG/0.3 ML (LOVENOX) SYR SC SCH (20:37)
--- NOTE | 2020-10-26 20:53 | Progress Note ---
Subjective Subjective/Events-last exam Patient feeling much better this AM. Tolerating PO diet. stool is improving. Up sitting in chair this AM. Review of Systems General: No Chills; Malaise Pulmonary: No Dyspnea, No Cough Cardiovascular: Edema; No: Chest Pain, Palpitations Gastrointestinal: Diarrhea; No: Nausea, Vomiting, Abdominal Pain Genitourinary: No Dysuria, No Frequency Neurological: Weakness, Incoordination Objective Exam Last Set of Vital Signs Vital Signs Date Time Temp Pulse Resp B/P (MAP) Pulse Ox O2 Delivery O2 Flow Rate FiO2 10/26/20 19:29 37.2 87 20 206/103 (137) 100 Room Air 10/25/20 20:00 0.00 Capillary Refill : Less Than 3 Seconds I&O Intake and Output 10/26/20 00:00 Intake Total 4485 ml Output Total 3450 ml Balance 1035 ml Intake Oral 1965 ml IV Total 2520 ml Output Urine Total 3450 ml # Bowel Movements 8 General: Alert, Oriented X3, Cooperative, No Acute Distress HEENT: Mucous Memb Moist/[place] Lungs: Clear to Auscultation, Normal Air Movement Heart: Regular Rate, No Murmurs Abdomen: Normal Bowel Sounds, Soft, No Tenderness, No Masses, Other (superpubic cath draining clear urine) Extremities: Other (2+ edema ) Skin: No Rashes, No Breakdown Neuro: Normal Speech, Strength at 5/5 X4 Ext, Sensation Intact, Cranial Nerves 3-12 NL Psych/Mental Status: Mental Status NL, Mood NL Results/Procedures Lab Laboratory Tests 10/26/20 05:39: White Blood Count 12.5H, Red Blood Count 3.23L, Hemoglobin 9.0L, Hematocrit 29L, Mean Corpuscular Volume 90, Mean Corpuscular Hemoglobin 28, Mean Corpuscular Hemoglobin Concent 31L, Red Cell Distribution Width 15.8H, Platelet Count 237, Mean Platelet Volume 10.1, Immature Granulocyte % (Auto) 1, Neutrophils (%) (Auto) 81H, Lymphocytes (%) (Auto) 11L, Monocytes (%) (Auto) 5, Eosinophils (%) (Auto) 2, Basophils (%) (Auto) 0, Neutrophils # (Auto) 10.1H, Lymphocytes # (Auto) 1.4, Monocytes # (Auto) 0.6, Eosinophils # (Auto) 0.3, Basophils # (Auto) 0.0, Immature Granulocyte # (Auto) 0.1, Sodium Level 143, Potassium Level 3.2L, Chloride Level 114H, Carbon Dioxide Level 14L, Anion Gap 15H, Blood Urea Nitrogen 48H, Creatinine 4.98H, Estimat Glomerular Filtration Rate 11, BUN/Creatinine Ratio 10, Glucose Level 104, Calcium Level 8.5, Corrected Calcium 9.0, Phosphorus Level 4.8H, Magnesium Level 1.7, Total Bilirubin 0.3, Aspartate Amino Transf (AST/SGOT) 9, Alanine Aminotransferase (ALT/SGPT) 10, Alkaline Phosphatase 79, Total Protein 6.9, Albumin 3.4 Microbiology 10/24/20 Fecal Leukocyte Stain - Final, Complete 10/23/20 Blood Culture - Preliminary, Resulted No growth 10/23/20 Urine Culture - Final, Complete Citrobacter freundii complex Enterobacter cloacae complex Assessment/Plan Assessment/Plan (1) Urinary tract infection associated with indwelling urethral catheter Status: Acute Qualifiers: Qualified Codes: T83.511A - Infection and inflammatory reaction due to indwelling urethral catheter, initial encounter; N39.0 - Urinary tract infection, site not specified (2) Sepsis Status: Resolved Assessment & Plan: - H/o multi resistant bacteria, continue Vanc/Cefepime, culture pending, catheter flushed and draining urine 10/24: Cultured pending, isolation continued for h/o MRSA in urine 10/25: No staph in urine, will d/c Vanco, continue cefepime until culture and sensitivities are back Qualifiers: Qualified Codes: A41.9 - Sepsis, unspecified organism (3) Urinary retention Status: Chronic (4) Suprapubic catheter Status: Chronic Assessment & Plan: - Flush catheter and draining urine, pain improved 10/24: Continues to have output, urine is starting to clear (5) Jmaay-jd-ogcthtd kidney injury Status: Acute Assessment & Plan: - Continue gentle IVFs at 75 cc/hr, will continue CMP daily 10/24: Cr worsened today, likely 2/2 to post obstructive, Will given 500 cc bolus and continue 75 cc/hr, Repeat BMP 1300 10/25: Cr stable, Vanc d/c, will give dose of lasix to help with renal blood flow 10/26: Cr Stable, will continue to monitor Qualifiers: Qualified Codes: N17.9 - Acute kidney failure, unspecified; N18.4 - Chronic kidney disease, stage 4 (severe) (6) Anemia of chronic disease Status: Chronic Assessment & Plan: - Iron def with anemia of renal dz, continue with venofer (7) Diarrhea Status: Acute Assessment & Plan: - h/o C diff, C diff pending, isolation currently 10/25: C diff neg Qualifiers: Qualified Codes: R19.7 - Diarrhea, unspecified (8) Non-insulin treated type 2 diabetes mellitus Status: Chronic Assessment & Plan: - Accuchecks, will continue to monitor (9) HTN (hypertension) Status: Chronic Assessment & Plan: - Continue home meds Qualifiers: Qualified Codes: I10 - Essential (primary) hypertension (10) DVT prophylaxis Status: Acute Assessment & Plan: - Lovenox renally dosed for PPx RONALD LEON MD Oct 26, 2020 20:53
[2020-10-27] VITALS (8 sets, daily range): BP systolic 148–198; BP diastolic 72–90
[2020-10-27 04:56] LABS: BASOPHILS % (AUTO) 0 % (0-10); EOSINOPHILS # (AUTO) 0.2 10^3/uL (0.0-0.3); EOSINOPHILS % (AUTO) 2 % (0-10); HEMATOCRIT 29 % (40-54); HEMOGLOBIN 9.1 g/dL (13.3-17.7); LYMPHOCYTES # (AUTO) 1.1 10^3/uL (1.0-4.0); LYMPHOCYTES % (AUTO) 11 % (12-44); MEAN CORPUSCULAR HEMOGLOBIN 28 pg (25-34); MEAN CORPUSCULAR HGB CONC 32 g/dL (32-36); MEAN CORPUSCULAR VOLUME 89 fL (80-99); MONOCYTES # (AUTO) 0.7 10^3/uL (0.0-1.0); MONOCYTES % (AUTO) 7 % (0-12); NEUTROPHILS # (AUTO) 7.8 10^3/uL (1.8-7.8); NEUTROPHILS % (AUTO) 79 % (42-75); PLATELET COUNT 226 10^3/uL (130-400); WHITE BLOOD COUNT 9.9 10^3/uL (4.3-11.0)
[2020-10-27 05:13] LABS: POTASSIUM 2.6 MMOL/L (3.6-5.0)
[2020-10-27 05:14] LABS: CALCIUM 8.5 MG/DL (8.5-10.1)
[2020-10-27 05:19] LABS: CREATININE SERUM 4.71 MG/DL (0.60-1.30)
[2020-10-27] MEDS: amLODIPine 5 MG (NORVASC) TAB PO SCH (08:29)
[2020-10-27] MEDS: ASPIRIN 81 MG CHEW (CHILDREN'S ASA) PO SCH (08:29)
[2020-10-27] MEDS: FLUoxetine HCL 10 MG (PROzac) CAPSULE/TABLET PO SCH (08:29)
[2020-10-27] MEDS: FINASTERIDE (PROSCAR) 5 MG TAB PO SCH (08:29)
[2020-10-27] MEDS: IRON SUCROSE 200 MG/10 ML (VENOFER) VIAL IV SCH (08:29)
[2020-10-27] MEDS ORDERED: hydrALAZINE (APESOLINE) 20 MG/ML VIAL ONE (08:33)
[2020-10-27] MEDS ORDERED: hydrALAZINE (APESOLINE) 20 MG/ML VIAL IV ONE (08:45)
[2020-10-27] MEDS ORDERED: FUROSEMIDE 40 MG/4 ML INJ (LASIX) IVP ONE (09:15)
[2020-10-27] MEDS: CEFEPIME 1,000 MG/SWFI 10 ML IV PUSH IV SCH ×4 (11:59→23:31)
--- NOTE | 2020-10-27 15:13 | Physical Therapy Evaluation ---
PT Evaluation-General Medical Diagnosis Admission Date Oct 23, 2020 at 18:10 Medical Diagnosis: UTI, sepsis Onset Date: Oct 23, 2020 Therapy Diagnosis Therapy Diagnosis: impaired mobility, strength, endurance Height/Weight Height (Feet): 5 Height (Inches): 11.00 Weight (Pounds): 315 Weight (Ounces): 0.0 Precautions Precautions/Isolations: Contact Isolation, Fall Prevention Referral Physician: Charleen Reason for Referral: Evaluation/Treatment Medical History Pertinent Medical History: Alcoholism, HTN, Renal Insufficiency, Smoking Additional Medical History Past Medical History BPH with Suprapubic cath HTN NIDDM CKD Obesity Septic shock from UTI 2019 Reviewed History: Yes Social History Home: Assisted Living Current Living Status: Alone Entry Into Home: Level Entry Prior Prior Level of Function SCALE: Activities may be completed with or without assistive devices. 8-Nhuubwnfxn-jqtookr completes the activity by him/herself with no assistance from a helper. 5-Set-up or Clean-up Assistance-helper sets up or cleans up; patient completes activity. [place] assists only prior to or following the activity. 4-Supervision or Touching Assistance-helper provides verbal cues and/or touching/steadying and/or contact guard assistance as patient completes activity. Assistance may be provided throughout the activity or intermittently. 3-Partial/Moderate Assistance-helper does LESS THAN HALF the effort. [place] lifts, holds or supports trunk or limbs, but provides less than half the effort. 2-Substantial/Maximal Assistance-helper does MORE THAN HALF the effort. [place] lifts or holds trunk or limbs and provides more than half the effort. 5-Ubcpmirtq-iwxkwi does ALL the effort. Patient does none of the effort to complete the activity. Or, the assistance of 2 or more helpers is required for the patient to complete the activity. If activity was not attempted, code reason: 7-Patient Refused. 9-Not Applicable-not attempted and the patient did not perform the activity before the current illness, exacerbation or injury. 10-Not Attempted due to Environmental Limitations-(lack of equipment, weather restraints, etc.). 88-Not Attempted due to Medical Conditions or Safety Concerns. Bed Mobility: 6 Transfers (B,C,W/C): 6 Gait: 6 Indoor Mobility (Ambulation): Independent Prior Devices Use: Walker PT Evaluation-Current Subjective Patient in bed pre tx, agrees to PT, has no complaints of pain. Patient is very drowsy, says he is sleepy. Pt/Family Goals "to get stronger" Objective Patient Orientation: Person, Place, Situation ROM/Strength ROM Lower Extremities limited due to LE edema Strength Lower Extremities LLE (hip flexion 3-/5, knee flexion 4/5, knee extension 4/5, dorsiflexion 5/5), RLE (hip flexion 3-/5, knee flexion 4/5, knee extension 4/5, dorsiflexion 5/5) Sensory Hearing: Functional Sensation Right Lower Extremit: Intact Sensation Left Lower Extremity: Intact Transfers Roll Left to Right (QC): 3 Sit to Lying (QC): 3 Lying to Sitting/Side of Bed(Q: 3 Sit to Stand (QC): 3 Patient needs mod assist for supine <-> sit and sit <-> stand, cues for hand placement and positioning. Gait Does the Patient Walk?: Yes Mode of Locomotion: Walk Anticipated Mode of Locomotion: Walk Walk 10 feet (QC): 4 Walk 50 ft with 2 Turns(QC): 4 Distance: 100' Gait Assistive Device: FWW Comments/Gait Description CGA, slow but steady ambulation, patient did not get SOB but tends to breathe very audibly Balance Sitting Static: Good Sitting Dynamic: Good Standing Static: Good Standing Dynamic: Good Treatment BLE supine exercises x15 (AP, HS) Assessment/Needs Patient in bed post tx with nurse call, phone, tray, all needs met. Patient needs mod assist for supine <-> sit and sit <-> stand but once up he can ambulate with CGA. Patient has impaired mobility, strength, endurance. AFter tx patient sounded a little wheezy, nurse notified. Rehab Potential: Fair PT Anchorman Goals Intermediate Goals PT Intermediate Goals Time Frame: Nov 03, 2020 Roll Left & Right (QC): 6 Sit to Lying (QC): 3 (Ana Maria) Lying-Sitting on Side/Bed(QC): 3 (Ana Maria) Sit to Stand (QC): 3 (Ana Maria) Chair/Veo-tn-Qcfex Xfer(QC): 4 (SBA) Walk 10 feet (QC): 4 Walk 50ft with 2 Turns (QC): 4 Walk 150 ft (QC): 4 PT Plan Problem List Problem List: Activity Tolerance, Functional Strength, Safety, Balance, Gait, Transfer, Bed Mobility, ROM Treatment/Plan Treatment Plan: Continue Plan of Care Treatment Plan: Bed Mobility, Education, Functional Activity Alondra, Functional Strength, Gait, Safety, Therapeutic Exercise, Transfers Treatment Duration: Nov 03, 2020 Frequency: 6 times per week Estimated Hrs Per Day: .25 hour per day Patient and/or Family Agrees t: Yes Safety Risks/Education Patient Education: Gait Training, Transfer Techniques, Correct Positioning, Safety Issues Teaching Recipient: Patient Teaching Methods: Demonstration, Discussion Response to Teaching: Reinforcement Needed Discharge Recommendations Plan Patient will perform bed mobility and transfer training, balance and endurance training, functional strengthening, gait training, and education, to improve functional mobility and independence at home. Therapy Discharge Recommendati: Assisted Living, Post Acute PT Time/GCodes Time In: 1445 Time Out: 1502 Total Billed Treatment Time: 17 Total Billed Treatment 1 visit AUTUMN BEAL PT Oct 27, 2020 15:13
--- NOTE | 2020-10-27 15:16 | Progress Note ---
Subjective Subjective/Events-last exam Patient states that he is feeling much better this AM. Tolerating PO diet. Denies any pain. Review of Systems General: Fatigue Pulmonary: No Dyspnea, No Cough Cardiovascular: Edema; No: Chest Pain, Palpitations Gastrointestinal: No: Nausea, Vomiting, Abdominal Pain, Diarrhea, Constipation Genitourinary: Retention Neurological: Weakness, Incoordination Objective Exam Last Set of Vital Signs Vital Signs Date Time Temp Pulse Resp B/P (MAP) Pulse Ox O2 Delivery O2 Flow Rate FiO2 10/27/20 12:45 81 10/27/20 12:15 36.4 22 149/74 (99) 96 Room Air 10/25/20 20:00 0.00 Capillary Refill : Less Than 3 Seconds I&O Intake and Output 10/27/20 00:00 Intake Total 2940 ml Output Total 8150 ml Balance -5210 ml Intake Oral 2740 ml IV Total 200 ml Output Urine Total 8150 ml # Bowel Movements 6 General: Alert, Oriented X3, Cooperative, No Acute Distress HEENT: Mucous Memb Moist/[place] Lungs: Clear to Auscultation, Normal Air Movement Heart: Regular Rate, No Murmurs Abdomen: Normal Bowel Sounds, Soft, No Tenderness, No Masses Extremities: No Edema, Other Skin: No Rashes, No Breakdown Neuro: Sensation Intact, Cranial Nerves 3-12 NL Psych/Mental Status: Mental Status NL, Mood NL Results/Procedures Lab Laboratory Tests 10/27/20 04:25: White Blood Count 9.9, Red Blood Count 3.24L, Hemoglobin 9.1L, Hematocrit 29L, Mean Corpuscular Volume 89, Mean Corpuscular Hemoglobin 28, Mean Corpuscular Hemoglobin Concent 32, Red Cell Distribution Width 15.6H, Platelet Count 226, Mean Platelet Volume 10.0, Immature Granulocyte % (Auto) 1, Neutrophils (%) (Auto) 79H, Lymphocytes (%) (Auto) 11L, Monocytes (%) (Auto) 7, Eosinophils (%) (Auto) 2, Basophils (%) (Auto) 0, Neutrophils # (Auto) 7.8, Lymphocytes # (Auto) 1.1, Monocytes # (Auto) 0.7, Eosinophils # (Auto) 0.2, Basophils # (Auto) 0.0, Immature Granulocyte # (Auto) 0.1, Sodium Level 140, Potassium Level 2.6L, Chloride Level 110H, Carbon Dioxide Level 15L, Anion Gap 15H, Blood Urea Nitrogen 45H, Creatinine 4.71H, Estimat Glomerular Filtration Rate 12, BUN/Creatinine Ratio 10, Glucose Level 104, Calcium Level 8.5 Microbiology 10/24/20 Fecal Leukocyte Stain - Final, Complete 10/23/20 Blood Culture - Preliminary, Resulted No growth 10/23/20 Urine Culture - Final, Complete Citrobacter freundii complex Enterobacter cloacae complex Assessment/Plan Assessment/Plan (1) Urinary tract infection associated with indwelling urethral catheter Status: Acute Assessment & Plan: 10/27: - Continue IV antibiotics Qualifiers: Qualified Codes: T83.511A - Infection and inflammatory reaction due to indwelling urethral catheter, initial encounter; N39.0 - Urinary tract infection, site not specified (2) Sepsis Status: Resolved Assessment & Plan: - H/o multi resistant bacteria, continue Vanc/Cefepime, culture pending, catheter flushed and draining urine 10/24: Cultured pending, isolation continued for h/o MRSA in urine 10/25: No staph in urine, will d/c Vanco, continue cefepime until culture and sensitivities are back Qualifiers: Qualified Codes: A41.9 - Sepsis, unspecified organism (3) Urinary retention Status: Chronic (4) Suprapubic catheter Status: Chronic Assessment & Plan: - Flush catheter and draining urine, pain improved 10/24: Continues to have output, urine is starting to clear (5) Nutjn-gq-tfufmyl kidney injury Status: Acute Assessment & Plan: - Continue gentle IVFs at 75 cc/hr, will continue CMP daily 10/24: Cr worsened today, likely 2/2 to post obstructive, Will given 500 cc bolus and continue 75 cc/hr, Repeat BMP 1300 10/25: Cr stable, Vanc d/c, will give dose of lasix to help with renal blood flow 10/26: Cr Stable, will continue to monitor Qualifiers: Qualified Codes: N17.9 - Acute kidney failure, unspecified; N18.4 - Chronic kidney disease, stage 4 (severe) (6) Anemia of chronic disease Status: Chronic Assessment & Plan: - Iron def with anemia of renal dz, continue with venofer (7) Diarrhea Status: Acute Assessment & Plan: - h/o C diff, C diff pending, isolation currently 10/25: C diff neg Qualifiers: Qualified Codes: R19.7 - Diarrhea, unspecified (8) Non-insulin treated type 2 diabetes mellitus Status: Chronic Assessment & Plan: - Accuchecks, will continue to monitor (9) HTN (hypertension) Status: Chronic Assessment & Plan: - Continue home meds 10/27: Added Norvasc last night Qualifiers: Qualified Codes: I10 - Essential (primary) hypertension (10) DVT prophylaxis Status: Acute Assessment & Plan: - Lovenox renally dosed for PPx RONALD LEON MD Oct 27, 2020 15:16
[2020-10-27] MEDS: RT-ALBUTEROL SULF 2.5 MG/3 ML PRE-MIX VIAL INH PRN (15:18)
--- NOTE | 2020-10-27 15:23 | Occupational Therapy Eval ---
OT Evaluation-General/PLF Medical Diagnosis Admission Date Oct 23, 2020 at 18:10 Medical Diagnosis: UTI, sepsis Onset Date: Oct 23, 2020 Therapy Diagnosis Therapy Diagnosis: weakness, decreased ADL status Height/Weight Height (Feet): 5 Height (Inches): 11.00 Weight (Pounds): 315 Weight (Ounces): 0.0 Precautions Precautions/Isolations: Contact Isolation, Fall Prevention Referral Physician: Charleen Referral Reason: Evaluation/Treatment Medical History Pertinent Medical History: Alcoholism, HTN, Renal Insufficiency, Smoking Current History BPH with Suprapubic cath, HTN, NIDDM, CKD, Obesity, Septic shock from UTI 2019 Social History Home: Assisted Living Current Living Status: Alone Entry Into Home: Level Entry ADL-Prior Level of Function SCALE: Activities may be completed with or without assistive devices. 2-Opiwxdpypu-gnktola completes the activity by him/herself with no assistance from a helper. 5-Set-up or Clean-up Assistance-helper sets up or cleans up; patient completes activity. [place] assists only prior to or following the activity. 4-Supervision or Touching Assistance-helper provides verbal cues and/or touching/steadying and/or contact guard assistance as patient completes activity. Assistance may be provided throughout the activity or intermittently. 3-Partial/Moderate Assistance-helper does LESS THAN HALF the effort. [place] lifts, holds or supports trunk or limbs, but provides less than half the effort. 2-Substantial/Maximal Assistance-helper does MORE THAN HALF the effort. [place] lifts or holds trunk or limbs and provides more than half the effort. 4-Btqwhaltr-apqqdv does ALL the effort. Patient does none of the effort to complete the activity. Or, the assistance of 2 or more helpers is required for the patient to complete the activity. If activity was not attempted, code reason: 7-Patient Refused. 9-Not Applicable-not attempted and the patient did not perform the activity before the current illness, exacerbation or injury. 10-Not Attempted due to Environmental Limitations-(lack of equipment, weather restraints, etc.). 88-Not Attempted due to Medical Conditions or Safety Concerns. ADL PLOF Comments Pt requires assistance with ADLs at PLOF, uses walker for functional mobility (able to perform ~200' at PLOF). He has assistance with bathing and dressing, h as difficulty reaching below his knee. He is able to don/doff veneer puller shirt with set up assist. Self Care: Needed Some Help OT Current Status Subjective Pt in bed, states he is very tired. Mental Status/Objective Patient Orientation: Person, Place, Situation Attachments: [place] Catheter Current Upper Extremity ROM WFL, BUE shoulder flexion to approx 140 degrees Upper Extremity Coordination WFL Upper Extremity Sensation WFL Upper Extremity Strength grossly 4/5 ADL-Treatment Oral Hygiene (QC): 7 Shower/Bathe Self (QC): 7 On/Off Footwear (QC): 2 (Max A donning/doffing slip on shoes. ) Other Treatments Pt laying in bed, transferred supine to sit EOB, slip on shoes donned with max A. Pt stood at FWW, performed functional mobility around hallway (100' CGA). Pt required standing rest breaks, then returned to room, transferring back to bed. Pt SOB, slightly wheezing, nurse notified of pt's request for breathing tx. Pt declined further OT tx at this time requesting to rest. OT educated pt on purpose and benefit of UE exercise, instructing pt to complete shoulder flexion, elbow flexion/extension and finger flexion/extension throughout the day to improve pulmonary function and UE strength. Pt verbalized understanding, but did not perform UE exercise at this time as he is too tired. Post tx, pt laying in bed, call light in reach and all needs met. Mod A supine <-> sit, Mod A sit <-> stand with cues for UE placement/positioning. Education OT Patient Education: Correct positioning, Exercise program, Modified ADL techniques, Progress toward Goal/Update tx plan, Purpose of tx/functional activities, Rehab process Teaching Recipient: Patient Teaching Methods: Discussion Response to Teaching: Verbalize Understanding OT Social Contact Worker Goals [facility] Goals Time Frame: Nov 03, 2020 Eating (QC): 5 Oral Hygiene (QC): 5 Toileting Hygiene (QC): 4 Shower/Bathe Self (QC): 3 Upper Body Dressing (QC): 5 Lower Body Dressing (QC): 3 On/Off Footwear (QC): 2 Additional Goals: 1-Demonstrate ADL Tasks, 2-Verbalize Understanding, 3- ImproveStrength/Alondra 1=Demonstrate adherence to instructed precautions during ADL tasks. 2=Patient will verbalize/demonstrate understanding of assistive dev ices/modifications for ADL. 3=Patient will improve strength/tolerance for activity to enable patient to perform ADL's. OT Education/Plan Problem List/Assessment Assessment: Decreased Activ Tolerance, Decreased UE Strength, Impaired Funct Balance, Impaired I ADL's, Impaired Self-Care Skills Discharge Recommendations Plan/Recommendations: Continue POC Treatment Plan/Plan of Care Patient would benefit from OT for education, treatment and training to promote independence in ADL's, mobility, safety and/or upper extremity function for ADL 's. Plan of Care: ADL Retraining, Functional Mobility, UE Funct Exercise/Act Treatment Duration: Nov 03, 2020 Frequency: 5 times per week Estimated Hrs Per Day: .25 hour per day Rehab Potential: Fair Time/GCodes Start Time: 14:45 Stop Time: 15:02 Total Time Billed (hr/min): 17 Billed Treatment Time 1, ROMEO PIKE OT Oct 27, 2020 15:23
[2020-10-27] MEDS: MELATONIN 10 MG TABLET PO SCH (20:08)
[2020-10-27] MEDS: TAMSULOSIN 0.4 MG (FLOMAX) CAP PO SCH (20:08)
[2020-10-27] MEDS: ENOXAPARIN 30 MG/0.3 ML (LOVENOX) SYR SC SCH (20:19)
[2020-10-28 04:30] VITALS: BP 168/82
[2020-10-28 05:52] LABS: BASOPHILS # (AUTO) 0.1 10^3/uL (0.0-0.1); BASOPHILS % (AUTO) 1 % (0-10); EOSINOPHILS # (AUTO) 0.4 10^3/uL (0.0-0.3); EOSINOPHILS % (AUTO) 4 % (0-10); HEMATOCRIT 28 % (40-54); HEMOGLOBIN 8.9 g/dL (13.3-17.7); LYMPHOCYTES # (AUTO) 1.3 10^3/uL (1.0-4.0); LYMPHOCYTES % (AUTO) 14 % (12-44); MEAN CORPUSCULAR HEMOGLOBIN 28 pg (25-34); MEAN CORPUSCULAR HGB CONC 32 g/dL (32-36); MEAN CORPUSCULAR VOLUME 88 fL (80-99); MEAN PLATELET VOLUME 9.8 fL (9.0-12.2); MONOCYTES # (AUTO) 0.7 10^3/uL (0.0-1.0); MONOCYTES % (AUTO) 7 % (0-12); NEUTROPHILS # (AUTO) 7.1 10^3/uL (1.8-7.8); NEUTROPHILS % (AUTO) 74 % (42-75); PLATELET COUNT 231 10^3/uL (130-400); WHITE BLOOD COUNT 9.6 10^3/uL (4.3-11.0)
[2020-10-28 06:01] LABS: ALBUMIN 3.3 GM/DL (3.2-4.5); POTASSIUM 2.6 MMOL/L (3.6-5.0)
[2020-10-28 06:03] LABS: CALCIUM 8.6 MG/DL (8.5-10.1)
[2020-10-28 06:04] LABS: TOTAL PROTEIN 6.7 GM/DL (6.4-8.2)
[2020-10-28 06:06] LABS: BILIRUBIN,TOTAL 0.3 MG/DL (0.1-1.0)
[2020-10-28 06:07] LABS: CREATININE SERUM 4.65 MG/DL (0.60-1.30)
[2020-10-28 08:00] VITALS: BP 179/84
[2020-10-28] MEDS ORDERED: KCL 20 MEQ TAB (K-DUR) PO ONE ×2 (08:45→17:00)
[2020-10-28] MEDS: FINASTERIDE (PROSCAR) 5 MG TAB PO SCH (09:20)
[2020-10-28] MEDS: amLODIPine 5 MG (NORVASC) TAB PO SCH (09:21)
[2020-10-28] MEDS: ASPIRIN 81 MG CHEW (CHILDREN'S ASA) PO SCH (09:22)
[2020-10-28] MEDS: FLUoxetine HCL 10 MG (PROzac) CAPSULE/TABLET PO SCH (09:22)
[2020-10-28 09:33] LABS: BILIRUBIN,URINE NEGATIVE (NEGATIVE); CLARITY,URINE CLOUDY; COLOR,URINE YELLOW; GLUCOSE, URINE (UA) TRACE (NEGATIVE); KETONES,URINE NEGATIVE (NEGATIVE); LEUKOCYTE ESTERASE ,URINE 2+ (NEGATIVE); NITRITE,URINE NEGATIVE (NEGATIVE); PROTEIN,URINE 3+ (NEGATIVE)
[2020-10-28 09:47] LABS: BACTERIA,URINE LARGE /HPF; RBC,URINE >100 /HPF; WBC,URINE 50-100 /HPF
--- NOTE | 2020-10-28 10:57 | Progress Note - Hospitalist ---
Subjective HPI/CC On Admission Date Seen by Provider: Oct 28, 2020 Time Seen by Provider: 09:30 Subjective/Events-last exam Patient reports he feels about the way he normally does denied chills fever or any catheter related pain. He was requesting discharge. Objective Exam Vital Signs Vital Signs Date Time Temp Pulse Resp B/P (MAP) Pulse Ox O2 Delivery O2 Flow Rate FiO2 10/28/20 08:00 36.5 84 18 179/84 (115) 96 Room Air 10/25/20 20:00 0.00 Capillary Refill : Less Than 3 Seconds General Appearance: No Apparent Distress, Chronically ill, Obese Respiratory: Chest Non Tender, Lungs Clear, Normal Breath Sounds, No Accessory Muscle Use, No Respiratory Distress Cardiovascular: Regular Rate, Rhythm, No Edema, No Gallop, No JVD, Normal Peripheral Pulses, Systolic Murmur (Soft 1-2 over 6 heard best at the left lower sternal border) Gastrointestinal: Normal Bowel Sounds, No Organomegaly, No Pulsatile Mass, Non Tender, Soft, Other (Obese) Results/Procedures Lab Laboratory Tests 10/28/20 05:40 Patient resulted labs reviewed. Assessment/Plan Assessment and Plan Assess & Plan/Chief Complaint (1) Urinary tract infection associated with indwelling urethral catheter Status: Acute Assessment & Plan: 10/27: - Continue IV antibiotics Patient still significantly deconditioned according to PT notes he is hypokalemic level of 2.6 this morning currently on no medication that can contribute with stage IV bordering on 5 renal disease. I did repeat his UA which does not look any better 50-100 white cells large bacteria even though clinically he appears to be better. We will give an IV dose of Rocephin considering sensitivity panel and see how he does with physical therapy today repeating a basic metabolic panel in the morning. He will receive a total of 40 mEq of p.o. potassium in divided doses today. Qualifiers: Qualified Codes: T83.511A - Infection and inflammatory reaction due to indwelling urethral catheter, initial encounter; N39.0 - Urinary tract infection, site not specified (2) Sepsis Status: Resolved Assessment & Plan: - H/o multi resistant bacteria, continue Vanc/Cefepime, culture pending, catheter flushed and draining urine 10/24: Cultured pending, isolation continued for h/o MRSA in urine 10/25: No staph in urine, will d/c Vanco, continue cefepime until culture and sensitivities are back Qualifiers: Qualified Codes: A41.9 - Sepsis, unspecified organism (3) Urinary retention Status: Chronic (4) Suprapubic catheter Status: Chronic Assessment & Plan: - Flush catheter and draining urine, pain improved 10/24: Continues to have output, urine is starting to clear (5) Taprf-fn-luubxvi kidney injury Status: Acute Assessment & Plan: - Continue gentle IVFs at 75 cc/hr, will continue CMP daily 10/24: Cr worsened today, likely 2/2 to post obstructive, Will given 500 cc bolus and continue 75 cc/hr, Repeat BMP 1300 10/25: Cr stable, Vanc d/c, will give dose of lasix to help with renal blood flow 10/26: Cr Stable, will continue to monitor Qualifiers: Qualified Codes: N17.9 - Acute kidney failure, unspecified; N18.4 - Chronic kidney disease, stage 4 (severe) (6) Anemia of chronic disease Status: Chronic Assessment & Plan: - Iron def with anemia of renal dz, continue with venofer (7) Diarrhea Status: Acute Assessment & Plan: - h/o C diff, C diff pending, isolation currently 10/25: C diff neg Qualifiers: Qualified Codes: R19.7 - Diarrhea, unspecified (8) Non-insulin treated type 2 diabetes mellitus Status: Chronic Assessment & Plan: - Accuchecks, will continue to monitor (9) HTN (hypertension) Status: Chronic Assessment & Plan: - Continue home meds 10/27: Added Norvasc last night Qualifiers: Qualified Codes: I10 - Essential (primary) hypertension (10) DVT prophylaxis Status: Acute Assessment & Plan: - Lovenox renally dosed for PPx EBER VANG MD Oct 28, 2020 10:57
[2020-10-28] MEDS: cefTRIAXone 1,000 MG in WATER (STERILE) FOR INJECTION 10 ML IV SCH (11:53)
[2020-10-28 12:00] VITALS: BP 191/88
--- NOTE | 2020-10-28 13:56 | Physical Therapy Progress Note ---
Therapy Progress Note Pt refused therapy today because he had just returned to bed after being up in the restroom. Will resume on Friday. JANAY JETT PT Oct 28, 2020 13:56
[2020-10-28 15:35] VITALS: BP 185/84
[2020-10-28] MEDS: MELATONIN 10 MG TABLET PO SCH (20:07)
[2020-10-28] MEDS: TAMSULOSIN 0.4 MG (FLOMAX) CAP PO SCH (20:07)
[2020-10-28 21:00] VITALS: BP 182/87
[2020-10-28] MEDS: ENOXAPARIN 30 MG/0.3 ML (LOVENOX) SYR SC SCH (22:57)
[2020-10-28 23:47] VITALS: BP 173/83
[2020-10-29 04:11] VITALS: BP 178/96
[2020-10-29 06:49] LABS: POTASSIUM 2.9 MMOL/L (3.6-5.0)
[2020-10-29 06:50] LABS: CALCIUM 8.6 MG/DL (8.5-10.1)
[2020-10-29 06:54] LABS: CREATININE SERUM 4.49 MG/DL (0.60-1.30)
[2020-10-29 08:05] VITALS: BP 196/91
[2020-10-29] MEDS: FINASTERIDE (PROSCAR) 5 MG TAB PO SCH (09:42)
[2020-10-29] MEDS: ASPIRIN 81 MG CHEW (CHILDREN'S ASA) PO SCH (09:42)
[2020-10-29] MEDS: IRON SUCROSE 200 MG/10 ML (VENOFER) VIAL IV SCH (09:42)
[2020-10-29] MEDS: FLUoxetine HCL 10 MG (PROzac) CAPSULE/TABLET PO SCH (09:42)
[2020-10-29] MEDS: amLODIPine 5 MG (NORVASC) TAB PO SCH (09:43)
[2020-10-29] MEDS ORDERED: KCL 20 MEQ TAB (K-DUR) PO ONE (10:30)
[2020-10-29] MEDS: cefTRIAXone 1,000 MG in WATER (STERILE) FOR INJECTION 10 ML IV SCH (11:19)
--- NOTE | 2020-10-29 11:35 | Progress Note - Hospitalist ---
Subjective HPI/CC On Admission Date Seen by Provider: Oct 29, 2020 Time Seen by Provider: 11:28 Subjective/Events-last exam Patient voices no complaints. He does not think he is having that much difficulty getting to the bathroom and back he has been doing so independently this is the only activity however that he gets lays in bed intermittently napping for the rest of the day. Refuses physical therapy yesterday as apparently he just come back from the bathroom and felt that that was enough activity for him. Objective Exam Vital Signs Vital Signs Date Time Temp Pulse Resp B/P (MAP) Pulse Ox O2 Delivery O2 Flow Rate FiO2 10/29/20 08:05 36.6 72 20 196/91 (126) 96 Room Air 10/25/20 20:00 0.00 Capillary Refill : Less Than 3 Seconds General Appearance: No Apparent Distress, Chronically ill, Obese Respiratory: Chest Non Tender, Lungs Clear, Normal Breath Sounds, No Accessory Muscle Use, No Respiratory Distress Cardiovascular: Regular Rate, Rhythm, Systolic Murmur (2/6 systolic ejection murmur heard best over the aortic outflow tract unchanged without significant pulses parvus or tardus.) Gastrointestinal: Normal Bowel Sounds, Non Tender Results/Procedures Lab Laboratory Tests 10/29/20 06:10 Patient resulted labs reviewed. Assessment/Plan Assessment and Plan Assess & Plan/Chief Complaint (1) Urinary tract infection associated with indwelling urethral catheter Status: Acute Assessment & Plan: 10/27: - Continue IV antibiotics 10/28 Patient still significantly deconditioned according to PT notes he is hypokalemic level of 2.6 this morning currently on no medication that can contribute with stage IV bordering on 5 renal disease. I did repeat his UA which does not look any better 50-100 white cells large bacteria even though clinically he appears to be better. We will give an IV dose of Rocephin considering sensitivity panel and see how he does with physical therapy today repeating a basic metabolic panel in the morning. He will receive a total of 40 mEq of p.o. potassium in divided doses. 10/29 renal function very slowly improving creatinine down to 4.4 previous baseline appear to be in the upper 2 range no abdominal symptoms reported past history of left obstructing kidney stone in the distal ureter that required initial stenting and then apparent basketing. Continue Rocephin today he has no transportation back to assisted living in [place] today and it is not clear that they are going to accept him back due to current level of care. social services analyst have been involved and will need to make sure that he is a candidate for going back to assisted living if not assisted will be required. Discussed with the patient that he is likely going to have to address dialysis issues within the next year and the importance of medication compliance.Hypokalemia improving potassium up to 2.9 we will give another 40 mEq of potassium p.o. in divided doses today. Qualifiers: Qualified Codes: T83.511A - Infection and inflammatory reaction due to indwelling urethral catheter, initial encounter; N39.0 - Urinary tract infection , site not specified (2) Sepsis Status: Resolved Assessment & Plan: - H/o multi resistant bacteria, continue Vanc/Cefepime, culture pending, catheter flushed and draining urine 10/24: Cultured pending, isolation continued for h/o MRSA in urine 10/25: No staph in urine, will d/c Vanco, continue cefepime until culture and sensitivities are back Qualifiers: Qualified Codes: A41.9 - Sepsis, unspecified organism (3) Urinary retention Status: Chronic (4) Suprapubic catheter Status: Chronic Assessment & Plan: - Flush catheter and draining urine, pain improved 10/24: Continues to have output, urine is starting to clear (5) Mjfqj-lo-wlccabg kidney injury Status: Acute Assessment & Plan: - Continue gentle IVFs at 75 cc/hr, will continue CMP daily 10/24: Cr worsened today, likely 2/2 to post obstructive, Will given 500 cc bolus and continue 75 cc/hr, Repeat BMP 1300 10/25: Cr stable, Vanc d/c, will give dose of lasix to help with renal blood flow 10/26: Cr Stable, will continue to monitor Qualifiers: Qualified Codes: N17.9 - Acute kidney failure, unspecified; N18.4 - Chronic kidney disease, stage 4 (severe) (6) Anemia of chronic disease Status: Chronic Assessment & Plan: - Iron def with anemia of renal dz, continue with venofer (7) Diarrhea Status: Acute Assessment & Plan: - h/o C diff, C diff pending, isolation currently 10/25: C diff neg Qualifiers: Qualified Codes: R19.7 - Diarrhea, unspecified (8) Non-insulin treated type 2 diabetes mellitus Status: Chronic Assessment & Plan: - Accuchecks, will continue to monitor (9) HTN (hypertension) Status: Chronic Assessment & Plan: - Continue home meds 10/27: Added Norvasc last night Qualifiers: Qualified Codes: I10 - Essential (primary) hypertension (10) DVT prophylaxis Status: Acute Assessment & Plan: - Lovenox renally dosed for PPx EBER VANG MD Oct 29, 2020 11:35
[2020-10-29 12:23] VITALS: BP 202/93
[2020-10-29 16:00] VITALS: BP 151/70
[2020-10-29 20:00] VITALS: BP 188/88
[2020-10-29] MEDS: MELATONIN 10 MG TABLET PO SCH (20:54)
[2020-10-29] MEDS: TAMSULOSIN 0.4 MG (FLOMAX) CAP PO SCH (20:54)
[2020-10-29] MEDS: ENOXAPARIN 30 MG/0.3 ML (LOVENOX) SYR SC SCH (21:32)
[2020-10-29] MEDS: doxAzosin 2 MG (CARDURA) TAB PO SCH (21:32)
[2020-10-29 23:48] VITALS: BP 199/94
[2020-10-30 04:06] VITALS: BP 165/82
[2020-10-30] MEDS ORDERED: KCL 20 MEQ TAB (K-DUR) PO ONE (07:45)
[2020-10-30 08:46] VITALS: BP 165/84
[2020-10-30] MEDS: FINASTERIDE (PROSCAR) 5 MG TAB PO SCH (09:44)
[2020-10-30] MEDS: amLODIPine 5 MG (NORVASC) TAB PO SCH (09:44)
[2020-10-30] MEDS: ASPIRIN 81 MG CHEW (CHILDREN'S ASA) PO SCH (09:44)
[2020-10-30] MEDS: cefTRIAXone 1,000 MG in WATER (STERILE) FOR INJECTION 10 ML IV SCH (09:45)
[2020-10-30] MEDS: FLUoxetine HCL 10 MG (PROzac) CAPSULE/TABLET PO SCH (09:59)
--- NOTE | 2020-10-30 11:10 | Physical Therapy Daily Note ---
PT Daily Note-Current Subjective Patient requests toilet use for BM Transfers SCALE: Activities may be completed with or without assistive devices. 6-Xaazzpltiq-vtmyshp completes the activity by him/herself with no assistance from a helper. 5-Set-up or Clean-up Assistance-helper sets up or cleans up; patient completes activity. [place] assists only prior to or following the activity. 4-Supervision or Touching Assistance-helper provides verbal cues and/or touching/steadying and/or contact guard assistance as patient completes activity. Assistance may be provided throughout the activity or intermittently. 3-Partial/Moderate Assistance-helper does LESS THAN HALF the effort. [place] li fts, holds or supports trunk or limbs, but provides less than half the effort. 2-Substantial/Maximal Assistance-helper does MORE THAN HALF the effort. [place] lifts or holds trunk or limbs and provides more than half the effort. 9-Nmbzhqcwo-qrgplv does ALL the effort. Patient does none of the effort to complete the activity. Or, the assistance of 2 or more helpers is required for the patient to complete the activity. If activity was not attempted, code reason: 7-Patient Refused. 9-Not Applicable-not attempted and the patient did not perform the activity before the current illness, exacerbation or injury. 10-Not Attempted due to Environmental Limitations-(lack of equipment, weather restraints, etc.). 88-Not Attempted due to Medical Conditions or Safety Concerns. Sit to Lying (QC): 5 Lying to Sitting/Side of Bed(Q: 5 Sit to Stand (QC): 4 Toilet Transfer (QC): 4 assisted patient with cleansing after BM Gait Training Does the Patient Walk?: Yes Distance: 25' x 2 Walk 10 feet (QC): 4 (SBA) Assessment Patient declined to sit in recliner. Patient returned to bed with needs met. PT Social Services Analyst Goals Social Services Analyst Goals PT Care Home Goals Time Frame: Nov 03, 2020 Roll Left & Right (QC): 6 Sit to Lying (QC): 3 (Ana Maria) Lying-Sitting on Side/Bed(QC): 3 (Ana Maria) Sit to Stand (QC): 3 (Ana Maria) Chair/Cfb-qx-Zampl Xfer(QC): 4 (SBA) Walk 10 feet (QC): 4 Walk 50ft with 2 Turns (QC): 4 Walk 150 ft (QC): 4 PT Plan Treatment/Plan Treatment Plan: Continue Plan of Care Treatment Plan: Bed Mobility, Education, Functional Activity Alondra, Functional Strength, Gait, Safety, Therapeutic Exercise, Transfers Treatment Duration: Nov 03, 2020 Frequency: 6 times per week Estimated Hrs Per Day: .25 hour per day Patient and/or Family Agrees t: Yes Time/GCodes Time In: 1020 Time Out: 1036 Total Billed Treatment Time: 16 Total Billed Treatment 1 visit FA 16 min ABDULLAHI TAPIA PT Oct 30, 2020 11:10
[2020-10-30 12:42] VITALS: BP 178/87
--- NOTE | 2020-10-30 14:17 | Occupational Ther Daily Note ---
OT Current Status-Daily Note Subjective Pt sitting EOB eating this pm. Pt reluctantly agrees to tx, stating, "Depending on what we're doing." Pt agrees to UE ex but denies OOB/ getting to chair/ toileting. Alert Mental Status/Objective Patient Orientation: Person, Place ADL-Treatment Therapy Code Descriptions/Definitions Functional [place] Measure: 0=Not Assessed/NA 4=Minimal Assistance 1=Total Assistance 5=Supervision or Setup 2=Maximal Assistance 6=Modified [place] 3=Moderate Assistance 7=Complete IndependenceSCALE: Activities may be completed with or without assistive devices. 4-Xhgyoeigvg-heyjcmj completes the activity by him/herself with no assistance from a helper. 5-Set-up or Clean-up Assistance-helper sets up or cleans up; patient completes activity. [place] assists only prior to or following the activity. 4-Supervision or Touching Assistance-helper provides verbal cues and/or touching/steadying and/or contact guard assistance as patient completes activity. Assistance may be provided throughout the activity or intermittently. 3-Partial/Moderate Assistance-helper does LESS THAN HALF the effort. [place] lifts, holds or supports trunk or limbs, but provides less than half the effort. 2-Substantial/Maximal Assistance-helper does MORE THAN HALF the effort. [place] lifts or holds trunk or limbs and provides more than half the effort. 9-Skpuniqii-dwyifp does ALL the effort. Patient does none of the effort to complete the activity. Or, the assistance of 2 or more helpers is required for the patient to complete the activity. If activity was not attempted, code reason: 7-Patient Refused. 9-Not Applicable-not attempted and the patient did not perform the activity before the current illness, exacerbation or injury. 10-Not Attempted due to Environmental Limitations-(lack of equipment, weather restraints, etc.). 88-Not Attempted due to Medical Conditions or Safety Concerns. Eating (QC): 5 (s/u opening containers.) Oral Hygiene (QC): 7 Toileting Hygiene (QC): 7 Toilet Transfer (QC): 7 Other Treatment Pt completes 3 UE ex EOB with min cues for positioning: back flies, shoulder flexion, bicep curls with red theraband. Pt expresses need for salt and another pop. Pt's nurse gathers for pt, pt requires assist for opening containers and pouring due to decreased vision and decreased hand strength. Pt able to manage ketchup package and salt package IND. Pt left EOB with all needs met, call light in reach, pt's theraband on tray. Education OT Patient Education: Correct positioning, Exercise program, Home exercise program, Purpose of tx/functional activities Teaching Recipient: Patient Teaching Methods: Demonstration, Discussion Response to Teaching: Verbalize Understanding, Return Demonstration, Reinforcement Needed OT Clay Press Operator Goals Retirement Goals Time Frame: Nov 03, 2020 Eating (QC): 5 Oral Hygiene (QC): 5 Toileting Hygiene (QC): 4 Shower/Bathe Self (QC): 3 Upper Body Dressing (QC): 5 Lower Body Dressing (QC): 3 On/Off Footwear (QC): 2 Additional Goals: 1-Demonstrate ADL Tasks, 2-Verbalize Understanding, 3- ImproveStrength/Alondra 1=Demonstrate adherence to instructed precautions during ADL tasks. 2=Patient will verbalize/demonstrate understanding of assistive devices/modifications for ADL. 3=Patient will improve strength/tolerance for activity to enable patient to perform ADL's. OT Education/Plan Problem List/Assessment Assessment: Decreased Activ Tolerance, Decreased UE Strength, Impaired Cognition, Impaired Coordination, Impaired I ADL's, Impaired Self-Care Skills Discharge Recommendations Plan/Recommendations: Continue POC Therapy Discharge Recommendati: 24 Hour Supervision, Post Acute OT Treatment Plan/Plan of Care Treatment,Training & Education: Yes Patient would benefit from OT for education, treatment and training to promote independence in ADL's, mobility, safety and/or upper extremity function for ADL's. Plan of Care: ADL Retraining, Functional Mobility, UE Funct Exercise/Act Treatment Duration: Nov 03, 2020 Frequency: 5 times per week Estimated Hrs Per Day: .25 hour per day Rehab Potential: Fair Time/GCodes Start Time: 13:40 Stop Time: 13:50 Total Time Billed (hr/min): 10 Billed Treatment Time 1, EX (10) KAYLIE SIMONS OTR Oct 30, 2020 14:17
[2020-10-30 16:00] VITALS: BP 149/74
[2020-10-30 20:00] VITALS: BP 156/78
[2020-10-30] MEDS: TAMSULOSIN 0.4 MG (FLOMAX) CAP PO SCH (20:33)
[2020-10-30] MEDS: doxAzosin 2 MG (CARDURA) TAB PO SCH (20:33)
[2020-10-30] MEDS: MELATONIN 10 MG TABLET PO SCH (20:33)
[2020-10-30] MEDS: ENOXAPARIN 30 MG/0.3 ML (LOVENOX) SYR SC SCH (21:48)
[2020-10-31 00:05] VITALS: BP 160/81
[2020-10-31 04:45] VITALS: BP 160/82
[2020-10-31 07:13] LABS: CALCIUM 8.4 MG/DL (8.5-10.1)
[2020-10-31 07:18] LABS: CREATININE SERUM 4.47 MG/DL (0.60-1.30)
[2020-10-31] MEDS ORDERED: KCL 20 MEQ TAB (K-DUR) PO ONE (08:00)
[2020-10-31] MEDS: IRON SUCROSE 200 MG/10 ML (VENOFER) VIAL IV SCH (08:47)
[2020-10-31] MEDS: FINASTERIDE (PROSCAR) 5 MG TAB PO SCH (08:47)
[2020-10-31] MEDS: ASPIRIN 81 MG CHEW (CHILDREN'S ASA) PO SCH (08:47)
[2020-10-31] MEDS: amLODIPine 5 MG (NORVASC) TAB PO SCH (08:48)
[2020-10-31] MEDS: FLUoxetine HCL 10 MG (PROzac) CAPSULE/TABLET PO SCH (08:48)
[2020-10-31 09:00] VITALS: BP 169/82
[2020-10-31] MEDS: cefTRIAXone 1,000 MG in WATER (STERILE) FOR INJECTION 10 ML IV SCH (10:36)
[2020-10-31 12:00] VITALS: BP 157/80
--- NOTE | 2020-10-31 12:06 | Physical Therapy Daily Note ---
PT Daily Note-Current Subjective Patient states, "I don't feel good." Does agree to PT. Mental Status Patient Orientation: Person, Time, Situation Attachments: [place] Catheter Transfers SCALE: Activities may be completed with or without assistive devices. 3-Rpujvzyrue-cplzqsk completes the activity by him/herself with no assistance from a helper. 5-Set-up or Clean-up Assistance-helper sets up or cleans up; patient completes activity. [place] assists only prior to or following the activity. 4-Supervision or Touching Assistance-helper provides verbal cues and/or touching/steadying and/or contact guard assistance as patient completes a ctivity. Assistance may be provided throughout the activity or intermittently. 3-Partial/Moderate Assistance-helper does LESS THAN HALF the effort. [place] lifts, holds or supports trunk or limbs, but provides less than half the effort. 2-Substantial/Maximal Assistance-helper does MORE THAN HALF the effort. [place] lifts or holds trunk or limbs and provides more than half the effort. 8-Oxhlltwkk-huzypa does ALL the effort. Patient does none of the effort to complete the activity. Or, the assistance of 2 or more helpers is required for the patient to complete the activity. If activity was not attempted, code reason: 7-Patient Refused. 9-Not Applicable-not attempted and the patient did not perform the activity before the current illness, exacerbation or injury. 10-Not Attempted due to Environmental Limitations-(lack of equipment, weather restraints, etc.). 88-Not Attempted due to Medical Conditions or Safety Concerns. Lying to Sitting/Side of Bed(Q: 4 Sit to Stand (QC): 4 Chair/Yrm-lp-Qmzcj Xfer(QC): 4 SBA for safety Gait Training Does the Patient Walk?: Yes Distance: 50' Walk 10 feet (QC): 4 Walk 50 ft with 2 Turns(QC): 4 Gait Assistive Device: FWW SBA for safety/functional gait sequence/slow darnell Assessment Patient is up in recliner with needs met. Patient requires VC's for turns and safety on this date. PT Air Tank Assembler Goals Air Tank Assembler Goals PT [facility] Goals Time Frame: Nov 03, 2020 Roll Left & Right (QC): 6 Sit to Lying (QC): 3 (Ana Maria) Lying-Sitting on Side/Bed(QC): 3 (Ana Maria) Sit to Stand (QC): 3 (Ana Maria) Chair/Kxo-mr-Zcvcs Xfer(QC): 4 (SBA) Walk 10 feet (QC): 4 Walk 50ft with 2 Turns (QC): 4 Walk 150 ft (QC): 4 PT Plan Treatment/Plan Treatment Plan: Continue Plan of Care Treatment Plan: Bed Mobility, Education, Functional Activity Alondra, Functional Strength, Gait, Safety, Therapeutic Exercise, Transfers Treatment Duration: Nov 03, 2020 Frequency: 6 times per week Estimated Hrs Per Day: .25 hour per day Patient and/or Family Agrees t: Yes Time/GCodes Time In: 1145 Time Out: 1157 Total Billed Treatment Time: 12 Total Billed Treatment 1 visit GT 12 min ABDULLAHI TAPIA PT Oct 31, 2020 12:06
--- NOTE | 2020-10-31 13:09 | Progress Note - Hospitalist ---
Subjective HPI/CC On Admission Date Seen by Provider: Oct 30, 2020 Time Seen by Provider: 10:00 Subjective/Events-last exam He is feeling better. He has no complaints or concerns. Objective Exam Vital Signs Vital Signs Date Time Temp Pulse Resp B/P (MAP) Pulse Ox O2 Delivery O2 Flow Rate FiO2 10/31/20 12:00 36.6 74 16 157/80 (105) 95 Room Air 10/25/20 20:00 0.00 Capillary Refill : Less Than 3 Seconds General Appearance: No Apparent Distress, Obese Respiratory: Lungs Clear, Normal Breath Sounds, No Respiratory Distress Cardiovascular: Regular Rate, Rhythm, No Murmur Gastrointestinal: Normal Bowel Sounds, Soft, Other (Suprapubic catheter in pl tian) Extremity: Normal Inspection, Non Tender, Pedal Edema Neurologic/Psychiatric: Alert, Oriented x3, Motor Weakness, Other (Odd affect) Skin: Normal Color, Warm/Dry Results/Procedures Lab Laboratory Tests 10/31/20 06:10 Patient resulted labs reviewed. Assessment/Plan Assessment and Plan Assess & Plan/Chief Complaint Urinary tract infection Suprapubic catheter Urinary retention Acute kidney injury superimposed on chronic kidney disease Continue antibiotics Kidney function slowly improving Stable for discharge to [facility] pending approval Hypertension Type 2 diabetes mellitus Morbid obesity No acute management needs DVT prophylaxis: Lovenox Diagnosis/Problems Diagnosis/Problems (1) Urinary tract infection Status: Resolved Resolution Date/Time: 09/13/20 @ 14:54 (2) Urinary retention Status: Chronic (3) Suprapubic catheter Status: Chronic (4) Mepao-xz-nkmnudg kidney injury Status: Acute Qualifiers: Acute renal failure type: unspecified Chronic kidney disease stage: stage 4 (severe) Qualified Codes: N17.9 - Acute kidney failure, unspecified; N18.4 - Chronic kidney disease, stage 4 (severe) PEREZ GARCES MD Oct 31, 2020 13:09
--- NOTE | 2020-10-31 13:11 | Progress Note - Hospitalist ---
Subjective HPI/CC On Admission Date Seen by Provider: Oct 31, 2020 Time Seen by Provider: 10:05 Subjective/Events-last exam He is feeling about the same. He reports no issues. Objective Exam Vital Signs Vital Signs Date Time Temp Pulse Resp B/P (MAP) Pulse Ox O2 Delivery O2 Flow Rate FiO2 10/31/20 12:00 36.6 74 16 157/80 (105) 95 Room Air 10/25/20 20:00 0.00 Capillary Refill : Less Than 3 Seconds General Appearance: No Apparent Distress, Obese Respiratory: Lungs Clear, Normal Breath Sounds, No Respiratory Distress Cardiovascular: Regular Rate, Rhythm, No Murmur Gastrointestinal: Normal Bowel Sounds, Non Tender, Soft Extremity: Normal Inspection, Non Tender, Pedal Edema Neurologic/Psychiatric: Alert, Oriented x3, Motor Weakness, Other (Flat affect) Skin: Normal Color, Warm/Dry Results/Procedures Lab Laboratory Tests 10/31/20 06:10 Patient resulted labs reviewed. Assessment/Plan Assessment and Plan Assess & Plan/Chief Complaint Urinary tract infection Suprapubic catheter Urinary retention Acute kidney injury superimposed on chronic kidney disease Continue antibiotics Kidney function slowly improving Stable for discharge to [facility] pending approval Hypertension Type 2 diabetes mellitus Morbid obesity No acute management needs DVT prophylaxis: Lovenox Diagnosis/Problems Diagnosis/Problems (1) Urinary tract infection Status: Resolved Resolution Date/Time: 09/13/20 @ 14:54 (2) Urinary retention Status: Chronic (3) Suprapubic catheter Status: Chronic (4) Kifwp-mo-piwzvzu kidney injury Status: Acute Qualifiers: Acute renal failure type: unspecified Chronic kidney disease stage: stage 4 (severe) Qualified Codes: N17.9 - Acute kidney failure, unspecified; N18.4 - Chronic kidney disease, stage 4 (severe) PEREZ GARCES MD Oct 31, 2020 13:11
--- NOTE | 2020-10-31 14:09 | Occupational Ther Daily Note ---
OT Current Status-Daily Note Subjective Pt in bed, agreeable to OT tx with moderate encouragement. ADL-Treatment Therapy Code Descriptions/Definitions Functional [place] Measure: 0=Not Assessed/NA 4=Minimal Assistance 1=Total Assistance 5=Supervision or Setup 2=Maximal Assistance 6=Modified [place] 3=Moderate Assistance 7=Complete IndependenceSCALE: Activities may be completed with or without assistive devices. 4-Bfatwupbbc-xdhbseh completes the activity by him/herself with no assistance from a helper. 5-Set-up or Clean-up Assistance-helper sets up or cleans up; patient completes activity. [place] assists only prior to or following the activity. 4-Supervision or Touching Assistance-helper provides verbal cues and/or touching/steadying and/or contact guard assistance as patient completes activity. Assistance may be provided throughout the activity or intermittently. 3-Partial/Moderate Assistance-helper does LESS THAN HALF the effort. [place] lifts, holds or supports trunk or limbs, but provides less than half the effort. 2-Substantial/Maximal Assistance-helper does MORE THAN HALF the effort. [place] lifts or holds trunk or limbs and provides more than half the effort. 5-Rkblvdgty-gvnaoe does ALL the effort. Patient does none of the effort to complete the activity. Or, the assistance of 2 or more helpers is required for the patient to complete the activity. If activity was not attempted, code reason: 7-Patient Refused. 9-Not Applicable-not attempted and the patient did not perform the activity before the current illness, exacerbation or injury. 10-Not Attempted due to Environmental Limitations-(lack of equipment, weather restraints, etc.). 88-Not Attempted due to Medical Conditions or Safety Concerns. Toileting Hygiene (QC): 3 (Min A ) Toilet Transfer (QC): 4 (SBA) Other Treatment Pt laying in bed, agreeable to OT tx with moderate encouragement. Pt declines UE exercises, indicating he already used theraband earlier to do exercises. OT encouraged pt to complete again in order to get stronger, but he declined. OT encouraged pt to use bathroom, he agreed. Pt transferred supine to sit EOB by elevating HOB. Pt sat EOB for a couple mins, stating he hurt all over, did not provide pain rating. Sit to stand with SBA, then SBA using FWW into bathroom. Pt sat on toilet, completed toileting. Pt indicates he is unable to wip himself, OT encouraged him to try. Pt indicates he has already tried and unable to. OT asked if he was able to at home, which he replied "yes" but his toilet is a normal toilet and different than one in hospital. OT again encouraged pt to try in order to see how pt can be assisted to be more independent. Pt stood with GBs, able to complete hygiene with increased time, min A overall for thoroughness. Pt used FWW to recliner, SBA. Post tx, pt seated in recliner, call light in reach and all needs met. Education OT Patient Education: Correct positioning, Energy conservation, Modified ADL techniques, Progress toward Goal/Update tx plan, Purpose of tx/functional activities, Rehab process Teaching Recipient: Patient Teaching Methods: Discussion Response to Teaching: Verbalize Understanding, Reinforcement Needed OT Black Leather Buffer Goals Black Leather Buffer Goals Time Frame: Nov 03, 2020 Eating (QC): 5 Oral Hygiene (QC): 5 Toileting Hygiene (QC): 4 Shower/Bathe Self (QC): 3 Upper Body Dressing (QC): 5 Lower Body Dressing (QC): 3 On/Off Footwear (QC): 2 Additional Goals: 1-Demonstrate ADL Tasks, 2-Verbalize Understanding, 3- ImproveStrength/Alondra 1=Demonstrate adherence to instructed precautions during ADL tasks. 2=Patient will verbalize/demonstrate understanding of assistive devices/modifications for ADL. 3=Patient will improve strength/tolerance for activity to enable patient to perform ADL's. OT Education/Plan Problem List/Assessment Assessment: Decreased Activ Tolerance, Decreased UE Strength, Impaired Funct Balance, Impaired I ADL's, Impaired Self-Care Skills Discharge Recommendations Plan/Recommendations: Continue POC Treatment Plan/Plan of Care Patient would benefit from OT for education, treatment and training to promote independence in ADL's, mobility, safety and/or upper extremity function for ADL's. Plan of Care: ADL Retraining, Functional Mobility, UE Funct Exercise/Act Treatment Duration: Nov 03, 2020 Frequency: 5 times per week Estimated Hrs Per Day: .25 hour per day Rehab Potential: Fair Time/GCodes Start Time: 13:40 Stop Time: 14:00 Total Time Billed (hr/min): 20 Billed Treatment Time 1, ADL CRUMPACKER,ROMEO OT Oct 31, 2020 14:09
[2020-10-31 16:00] VITALS: BP 171/84
[2020-10-31 20:00] VITALS: BP 167/80
[2020-10-31] MEDS: TAMSULOSIN 0.4 MG (FLOMAX) CAP PO SCH (20:31)
[2020-10-31] MEDS: doxAzosin 2 MG (CARDURA) TAB PO SCH (20:31)
[2020-10-31] MEDS: MELATONIN 10 MG TABLET PO SCH (20:32)
[2020-10-31] MEDS: ENOXAPARIN 30 MG/0.3 ML (LOVENOX) SYR SC SCH (22:04)
[2020-11-01 00:10] VITALS: BP 187/90
[2020-11-01 04:17] VITALS: BP 171/84
[2020-11-01 08:47] VITALS: BP 187/86
[2020-11-01] MEDS: amLODIPine 5 MG (NORVASC) TAB PO SCH (09:07)
[2020-11-01] MEDS: FINASTERIDE (PROSCAR) 5 MG TAB PO SCH (09:07)
[2020-11-01] MEDS: ASPIRIN 81 MG CHEW (CHILDREN'S ASA) PO SCH (09:07)
[2020-11-01] MEDS: FLUoxetine HCL 10 MG (PROzac) CAPSULE/TABLET PO SCH (09:07)
--- NOTE | 2020-11-01 09:54 | Physical Therapy Daily Note ---
PT Daily Note-Current Subjective "Why do you guys keep bothering me?" "Just leave me be for now." Pt does agree to short PT visit and out of bed. Post treatment, pt smiling and thanked this therapist. Mental Status Patient Orientation: Person, Place, Time, Situation Transfers SCALE: Activities may be completed with or without assistive devices. 3-Wtxflejeko-lzyytaz completes the activity by him/herself with no assistance from a helper. 5-Set-up or Clean-up Assistance-helper sets up or cleans up; patient completes activity. [place] assists only prior to or following the activity. 4-Supervision or Touching Assistance-helper provides verbal cues and/or t ouching/steadying and/or contact guard assistance as patient completes activity. Assistance may be provided throughout the activity or intermittently. 3-Partial/Moderate Assistance-helper does LESS THAN HALF the effort. [place] lifts, holds or supports trunk or limbs, but provides less than half the effort. 2-Substantial/Maximal Assistance-helper does MORE THAN HALF the effort. [place] lifts or holds trunk or limbs and provides more than half the effort. 7-Khqnblvze-rmulwy does ALL the effort. Patient does none of the effort to complete the activity. Or, the assistance of 2 or more helpers is required for the patient to complete the activity. If activity was not attempted, code reason: 7-Patient Refused. 9-Not Applicable-not attempted and the patient did not perform the activity before the current illness, exacerbation or injury. 10-Not Attempted due to Environmental Limitations-(lack of equipment, weather restraints, etc.). 88-Not Attempted due to Medical Conditions or Safety Concerns. Lying to Sitting/Side of Bed(Q: 3 (mod assist to lift trunk; skilled cues to sequence and intitiate task) Sit to Stand (QC): 3 (CGA with cues for safety and hand placment; bed elevated slightly) Gait Training Walk 10 feet (QC): 3 Gait Assistive Device: FWW Pt walked x 30 ft with FWW with min - CGA ; declined walking further. Decreased step length and foot clearance with gait. Exercises Seated Therapy Exercises: Ankle pumps, Long arc quads, Hip flexion (right only) Seated Reps: 10 Assessment Current Status: Good Progress Needs encouragement to participate. Steady with gait but slow. Up in chair with breakfast and needs met with call light in reach. PT Piano Case Maker Goals Piano Case Maker Goals PT Nursing Home Goals Time Frame: Nov 03, 2020 Roll Left & Right (QC): 6 Sit to Lying (QC): 3 (Ana Maria) Lying-Sitting on Side/Bed(QC): 3 (Ana Maria) Sit to Stand (QC): 3 (Ana Maria) Chair/Dnu-ls-Hkmdw Xfer(QC): 4 (SBA) Walk 10 feet (QC): 4 Walk 50ft with 2 Turns (QC): 4 Walk 150 ft (QC): 4 PT Plan Problem List Problem List: Activity Tolerance, Functional Strength, Safety, Balance, Gait, Transfer, Bed Mobility Treatment/Plan Treatment Plan: Continue Plan of Care Treatment Plan: Bed Mobility, Education, Functional Activity Alondra, Functional Strength, Gait, Safety, Therapeutic Exercise, Transfers Treatment Duration: Nov 03, 2020 Frequency: 6 times per week Estimated Hrs Per Day: .25 hour per day Patient and/or Family Agrees t: Yes Safety Risks/Education Patient Education: Safety Issues Teaching Recipient: Patient Teaching Methods: Discussion Response to Teaching: Reinforcement Needed Eductated pt on importance of mobility and out of bed activity to reduce risk of pneumonia Time/GCodes Time In: 910 Time Out: 925 Total Billed Treatment Time: 15 Total Billed Treatment visit FA 15 YANELIS CARMEN PT Nov 01, 2020 09:54
[2020-11-01] MEDS: cefTRIAXone 1,000 MG in WATER (STERILE) FOR INJECTION 10 ML IV SCH (10:27)
[2020-11-01 10:44] LABS: CALCIUM 8.5 MG/DL (8.5-10.1); CREATININE SERUM 4.25 MG/DL (0.60-1.30); MAGNESIUM 1.5 MG/DL (1.6-2.4); POTASSIUM 3.2 MMOL/L (3.6-5.0)
[2020-11-01] MEDS ORDERED: KCL 20 MEQ TAB (K-DUR) PO ONE (11:15)
[2020-11-01] MEDS: MAGNESIUM 1 GM/100 ML IVPB 100 ML IV SCH ×3 (11:27→13:32)
--- NOTE | 2020-11-01 11:54 | Occupational Ther Daily Note ---
OT Current Status-Daily Note Subjective Pt agreeable to OT tx with focus on shaving and oral care. ADL-Treatment Therapy Code Descriptions/Definitions Functional [place] Measure: 0=Not Assessed/NA 4=Minimal Assistance 1=Total Assistance 5=Supervision or Setup 2=Maximal Assistance 6=Modified [place] 3=Moderate Assistance 7=Complete IndependenceSCALE: Activities may be completed with or without assistive devices. 7-Angizymgqe-mysdtod completes the activity by him/herself with no assistance from a helper. 5-Set-up or Clean-up Assistance-helper sets up or cleans up; patient completes activity. [place] assists only prior to or following the activity. 4-Supervision or Touching Assistance-helper provides verbal cues and/or touching/steadying and/or contact guard assistance as patient completes activity. Assistance may be provided throughout the activity or intermittently. 3-Partial/Moderate Assistance-helper does LESS THAN HALF the effort. [place] lifts, holds or supports trunk or limbs, but provides less than half the effort. 2-Substantial/Maximal Assistance-helper does MORE THAN HALF the effort. [place] lifts or holds trunk or limbs and provides more than half the effort. 0-Sccpubsdz-qqohgr does ALL the effort. Patient does none of the effort to complete the activity. Or, the assistance of 2 or more helpers is required for the patient to complete the activity. If activity was not attempted, code reason: 7-Patient Refused. 9-Not Applicable-not attempted and the patient did not perform the activity before the current illness, exacerbation or injury. 10-Not Attempted due to Environmental Limitations-(lack of equipment, weather restraints, etc.). 88-Not Attempted due to Medical Conditions or Safety Concerns. Eating (QC): 6 (Per pt report) Oral Hygiene (QC): 3 (Pt able to remove and place dentures, assist to clean ) Other Treatment Pt seated upright in recliner, agreeable to OT tx. Pt already completed theraband exercises, declines performing them at this time. OT assisted pt with cleaning dentures, min A (pt able to place and remove), pt washed face with set up assist. OT assisted pt with using electric razor to shave his face, there was no mirror available so OT completed task for pt due to safety. Pt declined further tx at this time. Post tx, pt seated in recliner, call light in reach and all needs met. Education OT Patient Education: Correct positioning, Modified ADL techniques, Progress toward Goal/Update tx plan, Purpose of tx/functional activities Teaching Recipient: Patient Teaching Methods: Discussion Response to Teaching: Verbalize Understanding OT Cotton Ginner Helper Goals Cotton Ginner Helper Goals Time Frame: Nov 03, 2020 Eating (QC): 5 Oral Hygiene (QC): 5 Toileting Hygiene (QC): 4 Shower/Bathe Self (QC): 3 Upper Body Dressing (QC): 5 Lower Body Dressing (QC): 3 On/Off Footwear (QC): 2 Additional Goals: 1-Demonstrate ADL Tasks, 2-Verbalize Understanding, 3-Impro veStrength/Alondra 1=Demonstrate adherence to instructed precautions during ADL tasks. 2=Patient will verbalize/demonstrate understanding of assistive devices/modifications for ADL. 3=Patient will improve strength/tolerance for activity to enable patient to perform ADL's. OT Education/Plan Problem List/Assessment Assessment: Decreased Activ Tolerance, Decreased UE Strength, Impaired Funct Balance, Impaired I ADL's, Impaired Self-Care Skills, Restricted Funct UE ROM Discharge Recommendations Plan/Recommendations: Continue POC Treatment Plan/Plan of Care Patient would benefit from OT for education, treatment and training to promote independence in ADL's, mobility, safety and/or upper extremity function for ADL's. Plan of Care: ADL Retraining, Functional Mobility, UE Funct Exercise/Act Treatment Duration: Nov 03, 2020 Frequency: 5 times per week Estimated Hrs Per Day: .25 hour per day Rehab Potential: Fair Time/GCodes Start Time: 10:35 Stop Time: 10:50 Total Time Billed (hr/min): 15 Billed Treatment Time 1, ADL ROMEO BASS OT Nov 01, 2020 11:54
[2020-11-01 12:28] VITALS: BP 172/90
[2020-11-01] MEDS ORDERED: AMLO-250 PO (13:58)
[2020-11-01] MEDS ORDERED: DOXA2TAB2 PO (13:58)
[2020-11-01] MEDS ORDERED: GABA300C PO (13:58)
[2020-11-01 15:30] VITALS: BP 172/90
== END 2020-11-01 15:30 | DRG 698 ==
LOC: EDUNIT# 11:01 → ER FS 11:02 → 4TH 18:10
PROVIDERS: ADMIT Family Medicine; ATTEND Internal Medicine
DX: T83.511A Infection and inflammatory reaction due to indwelling urethral catheter, initial encounter (principal); A41.89 Other specified sepsis; N17.9 Acute kidney failure, unspecified; I42.9 Cardiomyopathy, unspecified; Z68.41 Body mass index [BMI] 40.0-44.9, adult; N39.0 Urinary tract infection, site not specified; N18.9 Chronic kidney disease, unspecified; I12.9 Hypertensive chronic kidney disease with stage 1 through stage 4 chronic kidney disease, or unspecified chronic kidney disease; E11.22 Type 2 diabetes mellitus with diabetic chronic kidney disease; N40.1 Benign prostatic hyperplasia with lower urinary tract symptoms; R33.8 Other retention of urine; R19.7 Diarrhea, unspecified; E78.00 Pure hypercholesterolemia, unspecified; D63.8 Anemia in other chronic diseases classified elsewhere; K59.00 Constipation, unspecified; E66.01 Morbid (severe) obesity due to excess calories; H35.30 Unspecified macular degeneration; F32.9 Major depressive disorder, single episode, unspecified; F17.210 Nicotine dependence, cigarettes, uncomplicated
CPT/HCPCS: 36415; 51702; 80048; 80053; 80202; 81000; 82728; 83540; 83550; 83605; 83735; 84100; 85007; 85025; 85027; 86141; 87015; 87040; 87045; 87046; 87088; 87186; 87324; 87449; 87899; 89055; 94640; 94760; 96361; 96374; 96375

== ENCOUNTER 2020-11-07 09:00 | Inpatient (IN) | payer MEDICARE ==
[~2020-11-07] VITALS: Ht 180 cm; Wt 145.0 kg
[~2020-11-07 09:00] MED LIST changes: +CHOL4PAC PO; +DOXA2TAB2 PO; +MELA10TA2 PO; +SEMA0.25 SC
[2020-11-07] MEDS ORDERED: NS IV 1000 ML 1,000 ML IV SCH (09:15)
--- NOTE | 2020-11-07 09:20 | ED General ---
General Stated Complaint: LETHARGY Source of Information: Patient, Old Records History of Present Illness Date Seen by Provider: Nov 07, 2020 Time Seen by Provider: 09:03 Initial Comments PT ARRIVES VIA EMS FROM [facility] PT WITH GENERALIZED WEAKNESS TODAY [facility] REPORTS THAT PT IS HYPOTENSIVE WITH SYSTOLIC BP IN 70'S NO OTHER INFORMATION PROVIDED BY [facility] PT STATES HE IS JUST WEAK TODAY STATES HE FELT FINE YESTERDAY, AND NORMALLY AMBULATES WITH A WALKER AND WAS ABLE TO DO THAT YESTERDAY NO PAIN ANYWHERE NO NAUSEA/VOMITING/DIARRHEA NO FEVER/SWEATS/CHILLS NO SHORTNESS OF BREATH NO COUGH NO LOSS OF TASTE/SMELL NO HEADACHE NO PARESTHESIAS OR MOTOR DEFICITS PT WITH INDWELLING SUPRAPUBIC CATHETER, AND HISTORY OF UTI'S WITH SEPSIS AND SEPTIC SHOCK LAST ADMIT WAS 10/23-11/01/20 FOR UTI WITH SEPSIS, ACUTE ON CHRONIC RENAL FAILURE, AND WAS PLACED IN [facility] WHEN DISMISSED FROM HOSPITAL PCP: DR. BLUE Allergies and Home Medications Allergies Coded Allergies: No Known Drug Allergies (Unverified , 06/05/17) Home Medications Acetaminophen 325 Mg Tablet, 650 MG PO Q4H PRN for PAIN-MILD, (Reported) Albuterol Sulfate 1 Puff Puff, 2 PUFF IH Q6H PRN for WHEEZING, (Reported) Amlodipine Besylate 5 Mg Tablet, 10 MG PO DAILY Prescribed by: PEREZ GARCES on 11/01/20 1358 Aspirin 81 Mg Tab.chew, 81 MG PO DAILY, (Reported) Atorvastatin Calcium 20 Mg Tablet, 20 MG PO 1700, (Reported) Bisacodyl 10 Mg Supp.rect, 10 MG RC DAILY PRN for CONSTIPATION-4TH LINE, (Reported) Bisacodyl 5 Mg Tablet.dr, 5 MG PO DAILY PRN for CONSTIPATION-4TH LINE, (Reported) Cholestyramine/Aspartame 4 Gm Powd.pack, 4 GM PO BID PRN for DIARRHEA, (Reported) Cyanocobalamin (Vitamin B-12) 1,000 Mcg Tablet, 1,000 MCG PO 1700, (Reported) Doxazosin Mesylate 2 Mg Tablet, 2 MG PO HS Prescribed by: PEREZ GARCES on 11/01/20 1358 Fexofenadine HCl 180 Mg Tablet, 180 MG PO DAILY, (Reported) Finasteride 5 Mg Tablet, 5 MG PO DAILY, (Reported) Fluoxetine HCl 10 Mg Capsule, 10 MG PO DAILY, (Reported) Furosemide 40 Mg Tablet, 40 MG PO TWICE WEEKLY PRN for EDEMA/SWELLING, (Reported) Gabapentin 300 Mg Capsule, 300 MG PO BID Prescribed by: PEREZ GARCES on 11/01/20 1358 Guaifenesin 600 Mg Tab.er.12h, 600 MG PO BID, (Reported) Lubiprostone 24 Mcg Capsule, 24 MCG PO BID, (Reported) Melatonin 10 Mg Tablet, 10 MG PO HS, (Reported) Miconazole Nitrate 10 Gm Powder, 1 APPLIC TOP PRN PRN for RASH, (Reported) APPLY TO BUTTOCKS OR GROIN Ondansetron HCl 4 Mg Tab, 4 MG PO Q6H PRN for NAUSEA/VOMITING-1ST LINE, (Reported) Polyethylene Glycol 3350 17 Gm Powd.pack, 17 GM PO BID PRN for CONSTIPATION-2ND LINE, (Reported) Semaglutide 0.25 Mg/0.2 Ml Pen.injctr, 0.25 MG SC THUR, (Reported) Sennosides 8.6 Mg Tablet, 8.6 MG PO HS PRN for CONSTIPATION-6TH LINE, (Reported) Simethicone 80 Mg Tab.chew, 80 MG PO QID PRN for GAS, (Reported) Tamsulosin HCl 0.4 Mg Cap, 0.4 MG PO HS, (Reported) Tizanidine HCl 4 Mg Tablet, 4 MG PO BID PRN for BLADDER SPASMS, (Reported) Review of Systems Review of Systems Constitutional: see HPI; No chills, No diaphoresis, No dizziness, No fever; malaise, weakness EENTM: no symptoms reported; No nose congestion, No throat pain Respiratory: no symptoms reported; No cough, No short of breath Cardiovascular: no symptoms reported; No chest pain, No palpitations, No syncope, No vascular heart diseas Gastrointestinal: no symptoms reported; No abdominal pain, No diarrhea, No nausea, No vomiting Genitourinary: see HPI Musculoskeletal: no symptoms reported Skin: no symptoms reported Psychiatric/Neurological: No Symptoms Reported; Denies Headache, Denies Numbness, Denies Paresthesia, Denies Tingling Hematologic/Lymphatic: No Symptoms Reported Immunological/Allergic: no symptoms reported Past Ibbjzdn-Xczqyg-Vrjnsg Hx Patient Social History Tobacco Use?: Yes Tobacco type used: Cigarettes Smoking Status: Current Everyday Smoker Alcohol Use?: Yes Alcohol type: Hard Liquor Immunizations Up To Date Tetanus Booster (TDap): More than 5yrs PED Vaccines UTD: Yes Seasonal Allergies Seasonal Allergies: No Past Medical History Surgery/Hospitalization HX: BILATERAL CARPAL TUNNEL ORAL SURGERY SUPRAPUBIC CATHETER Surgeries: Yes (bilat CTR, oral sx) Adenoidectomy, Bladder Surgery, Eye Surgery, Orthopedic, Tonsillectomy Respiratory: No Currently Using CPAP: Yes Currently Using BIPAP: No Cardiac: Yes (RBBB) Cardiomyopathy, Chronic Edema/Swelling, High Cholesterol, Hypertension Neurological: No Reproductive Disorders: No Sexually Transmitted Disease: Yes (Hx of unknown STI) HIV/AIDS: No Genitourinary: Yes (SUPRAPUBIC CATHETER) Benign Prostatic Hyperpl, Prostate Problems, Renal Failure Gastrointestinal: Yes Chronic Constipation Musculoskeletal: Yes Fractures Endocrine: Yes (MORBID OBESITY) Diabetes, Insulin dep HEENT: Yes Macular Degeneration Loss of Vision: Bilateral Hearing Impairment: Denies Cancer: No Psychosocial: Yes Depression Integumentary: No Blood Disorders: No Family Medical History No Pertinent Family Hx Denies significant family medical hx Physical Exam Vital Signs Vital Signs - First Documented 11/07/20 09:00 Temp 35.3 Pulse 58 Resp 18 B/P (MAP) 118/76 (90) Pulse Ox 97 O2 Delivery Room Air Capillary Refill : Height, Weight, BMI Height: 5'11.00" Weight: 315lbs. 0.0oz. [id number]; 44.29 BMI Method: General Appearance: No Apparent Distress, WD/WN, Obese HEENT: Other (ORAL MUCOSA VERY DRY) Neck: Normal Inspection Respiratory: Normal Breath Sounds, No Accessory Muscle Use, No Respiratory Distress Cardiovascular: Regular Rate, Rhythm, No JVD, No Murmur Gastrointestinal: Non Tender, Soft, Other (ABDOMEN IS VERY LARGE AND ROTUND. 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, Other (FLAT AFFECT) Skin: Normal Color, Warm/Dry Focused Exam Lactate Level 11/07/20 09:05: Lactic Acid Level 0.59 Lactic Acid Level Laboratory Tests Test 11/07/20 09:05 Lactic Acid Level 0.59 MMOL/L (0.50-2.00) Progress/Results/Core Measures Suspected Sepsis SIRS Temperature: Pulse: Respiratory Rate: Laboratory Tests 11/07/20 09:05: White Blood Count 10.1 Blood Pressure / Mean: 11/07/20 09:05: Lactic Acid Level 0.59 Laboratory Tests 11/07/20 09:05: Creatinine 5.48#H, INR Comment 1.1, Platelet Count 215, Total Bilirubin 0.3 Results/Orders Lab Results Laboratory Tests Test 11/07/20 09:05 11/07/20 09:10 11/07/20 10:03 Range/Units White Blood Count 10.1 4.3-11.0 10^3/uL Red Blood Count 2.97 L 4.30-5.52 10^6/uL Hemoglobin 8.4 L 13.3-17.7 g/dL Hematocrit 27 L 40-54 % Mean Corpuscular Volume 91 80-99 fL Mean Corpuscular Hemoglobin 28 25-34 pg Mean Corpuscular Hemoglobin Concent 31 L 32-36 g/dL Red Cell Distribution Width 15.7 H 10.0-14.5 % Platelet Count 215 130-400 10^3/uL Mean Platelet Volume 9.6 9.0-12.2 fL Immature Granulocyte % (Auto) 1 % Neutrophils (%) (Auto) 77 H 42-75 % Lymphocytes (%) (Auto) 13 12-44 % Monocytes (%) (Auto) 6 0-12 % Eosinophils (%) (Auto) 3 0-10 % Basophils (%) (Auto) 0 0-10 % Neutrophils # (Auto) 7.8 1.8-7.8 10^3/uL Lymphocytes # (Auto) 1.3 1.0-4.0 10^3/uL Monocytes # (Auto) 0.6 0.0-1.0 10^3/uL Eosinophils # (Auto) 0.3 0.0-0.3 10^3/uL Basophils # (Auto) 0.0 0.0-0.1 10^3/uL Immature Granulocyte # (Auto) 0.1 0.0-0.1 10^3/uL Erythrocyte Sedimentation Rate > 140 H 0-30 MM/HR Prothrombin Time 15.0 H 12.2-14.7 SEC INR Comment 1.1 0.8-1.4 Activated Partial Thromboplast Time 40 H 24-35 SEC Sodium Level 141 135-145 MMOL/L Potassium Level 3.0 L 3.6-5.0 MMOL/L Chloride Level 110 H 98-107 MMOL/L Carbon Dioxide Level 19 L 21-32 MMOL/L Anion Gap 12 5-14 MMOL/L Blood Urea Nitrogen 54 H 7-18 MG/DL Creatinine 5.48 #H 0.60-1.30 MG/DL Estimat Glomerular Filtration Rate 10 BUN/Creatinine Ratio 10 Glucose Level 102 70-105 MG/DL Lactic Acid Level 0.59 0.50-2.00 MMOL/L Calcium Level 8.1 L 8.5-10.1 MG/DL Corrected Calcium 8.7 8.5-10.1 MG/DL Magnesium Level 2.1 1.6-2.4 MG/DL Total Bilirubin 0.3 0.1-1.0 MG/DL Aspartate Amino Transf (AST/SGOT) 11 5-34 U/L Alanine Aminotransferase (ALT/SGPT) 11 0-55 U/L Alkaline Phosphatase 66 40-136 U/L Lactate Dehydrogenase 170 125-220 U/L Troponin I < 0.028 <0.028 NG/ML C-Reactive Protein High Sensitivity 2.62 H 0.00-0.50 MG/DL Total Protein 6.6 6.4-8.2 GM/DL Albumin 3.3 3.2-4.5 GM/DL Influenza Type A (RT-PCR) Not Detected Not Detecte Influenza Type B (RT-PCR) Not Detected Not Detecte SARS-CoV-2 RNA (RT-PCR) Not Detected Not Detecte My Orders Orders - DONATO CARABALLO DO Ed Iv/Invasive Line Start (11/07/20 09:03) Ekg Tracing (11/07/20 09:03) O2 (11/07/20 09:03) Monitor-Rhythm Ecg Trace Only (11/07/20 09:03) Cbc With Automated Diff (11/07/20 09:03) Comprehensive Metabolic Panel (11/07/20 09:03) Hs C Reactive Protein (11/07/20 09:03) Erythrocyte Sedimentation Rate (11/07/20 09:03) Lactic Acid Analyzer (11/07/20 09:03) Magnesium (11/07/20 09:03) Ua Culture If Indicated (11/07/20 09:03) Blood Culture (11/07/20 09:03) Troponin I (11/07/20 09:03) Chest 1 View, Ap/Pa Only (11/07/20 09:03) Procalcitonin (Pct) (11/07/20 09:03) LDH (11/07/20 09:03) Covid 19 Inhouse Test (11/07/20 09:03) Sputum Culture (11/07/20 09:03) Urine Culture (11/07/20 09:03) Protime With Inr (11/07/20 09:03) Partial Thromboplastin Time (11/07/20 09:03) Vital Signs Adult Sepsis Patie Q15M (11/07/20 09:03) Remove Rings In Anticipation O (11/07/20 09:03) Influenza A And B By Pcr (11/07/20 09:03) Ed Iv/Invasive Line Start (11/07/20 09:06) Ns Iv 1000 Ml (Sodium Chloride 0.9%) (11/07/20 09:15) Vital Signs/I&O 11/07/20 09:00 Temp 35.3 Pulse 58 Resp 18 B/P (MAP) 118/76 (90) Pulse Ox 97 O2 Delivery Room Air Capillary Refill : Progress Note : Progress Note PLACED IN ISOLATION ROOM PPE WORN AT ALL TIMES COVID-19 TESTING PERFORMED REMOVED FROM PUI STATUS BASED ON NEGATIVE COVID TEST GIVEN IV FLUIDS--BP > 100 SYSTOLIC ECG Initial ECG Impression Date: Nov 07, 2020 Initial ECG Impression Time: 09:11 Initial ECG Rate: 58 Initial ECG Rhythm: Normal Sinus (RBBB) Initial ECG Comparisson: Unchanged Diagnostic Imaging Comments CXR--PER RADIOLOGIST REPORT AT 1015 There is cardiomegaly. There is no focal infiltrate or pneumothorax or pleural fluid. IMPRESSION: Cardiomegaly with no acute process in the chest. Reviewed: Reviewed by Me Departure Departure-Patient Inst. Referrals: SELF,LAINEY JONES (PCP/Family) Primary Care Physician DONATO CARABALLO DO Nov 07, 2020 09:20
[2020-11-07 09:24] LABS: BASOPHILS % (AUTO) 0 % (0-10); EOSINOPHILS # (AUTO) 0.3 10^3/uL (0.0-0.3); EOSINOPHILS % (AUTO) 3 % (0-10); HEMATOCRIT 27 % (40-54); HEMOGLOBIN 8.4 g/dL (13.3-17.7); LYMPHOCYTES # (AUTO) 1.3 10^3/uL (1.0-4.0); LYMPHOCYTES % (AUTO) 13 % (12-44); MEAN CORPUSCULAR HEMOGLOBIN 28 pg (25-34); MEAN CORPUSCULAR HGB CONC 31 g/dL (32-36); MEAN CORPUSCULAR VOLUME 91 fL (80-99); MEAN PLATELET VOLUME 9.6 fL (9.0-12.2); MONOCYTES # (AUTO) 0.6 10^3/uL (0.0-1.0); MONOCYTES % (AUTO) 6 % (0-12); NEUTROPHILS # (AUTO) 7.8 10^3/uL (1.8-7.8); NEUTROPHILS % (AUTO) 77 % (42-75); PLATELET COUNT 215 10^3/uL (130-400); WHITE BLOOD COUNT 10.1 10^3/uL (4.3-11.0)
[2020-11-07 09:37] LABS: ALBUMIN 3.3 GM/DL (3.2-4.5); CHLORIDE 110 MMOL/L (98-107); SODIUM 141 MMOL/L (135-145)
[2020-11-07 09:39] LABS: CALCIUM 8.1 MG/DL (8.5-10.1)
[2020-11-07 09:40] LABS: GLUCOSE 102 MG/DL (70-105); TOTAL PROTEIN 6.6 GM/DL (6.4-8.2)
[2020-11-07 09:41] LABS: CARBON DIOXIDE 19 MMOL/L (21-32); INR 1.1 (0.8-1.4)
[2020-11-07 09:42] LABS: BILIRUBIN,TOTAL 0.3 MG/DL (0.1-1.0)
[2020-11-07 09:43] LABS: ALKALINE PHOSPHATASE 66 U/L (40-136)
[2020-11-07 09:44] LABS: CREATININE SERUM 5.48 MG/DL (0.60-1.30); GFR ESTIMATED 10
[2020-11-07 09:45] LABS: BUN/CREATININE RATIO 10
[2020-11-07 09:46] LABS: ALANINE AMINOTRANSFERASE 11 U/L (0-55); ERYTHROCYTE SEDIMENTATION RATE > 140 MM/HR (0-30)
[2020-11-07 09:47] LABS: MAGNESIUM 2.1 MG/DL (1.6-2.4)
[2020-11-07 10:09] LABS: BILIRUBIN,URINE NEGATIVE (NEGATIVE); CLARITY,URINE CLEAR; COLOR,URINE YELLOW; GLUCOSE, URINE (UA) NEGATIVE (NEGATIVE); KETONES,URINE NEGATIVE (NEGATIVE); LEUKOCYTE ESTERASE ,URINE 2+ (NEGATIVE); NITRITE,URINE NEGATIVE (NEGATIVE); PH,URINE 5.5 (5-9); PROTEIN,URINE 2+ (NEGATIVE)
--- NOTE | 2020-11-07 10:13 | Diagnostic Imaging Report ---
INDICATION: Hypotension Frontal chest obtained at 10:12 a.m. and is compared to 09/09/2020. There is cardiomegaly. There is no focal infiltrate or pneumothorax or pleural fluid. IMPRESSION: Cardiomegaly with no acute process in the chest. Dictated by: Dictated on workstation # [id number]
[2020-11-07 10:18] LABS: BACTERIA,URINE MODERATE /HPF; RBC,URINE >100 /HPF; WBC,URINE 50-100 /HPF
[2020-11-07 10:19] LABS: AMORPHOUS SEDIMENT,UR MOD AMOR URATES /LPF
[2020-11-07] MEDS ORDERED: VANCOMYCIN INJECTION 1,000 MG in NS (IVPB) 250 ML IV SCH (10:30)
[2020-11-07] MEDS ORDERED: CEFEPIME INJECTION 2,000 MG in WATER (STERILE) FOR INJECTION 10 ML IV ONE (10:30)
[2020-11-07] MEDS ORDERED: VANCOMYCIN 2000 MG/NS 500 ML IVPB IV ONE ×2 (10:45)
--- NOTE | 2020-11-07 11:26 | History & Physical-Hospitalist ---
History of Present Illness HPI/Chief Complaint CC: Sepsis from UTI presumed resistant HPI: This is a 71yoWM clinic pt of [facility] known to me from multiple hospital stays all for the same thing of recurrent UTI and chronic kidney disease who was just discharged from the hospital and now comes back with fever, altered mental status and recurrent UTI. Pt has had significant decline in renal function with creatinine of 5.3 currently. I did talk to him about dialysis and that may be getting closer to time. His potassium level was 3.0 and his bicarbonate is 19 so there is no indication at this current time for dialysis. Source: patient, old records Exam Limitations: clinical condition Date Seen 11/07/20 Time Seen by a Provider: 11:00 Attending Physician Becka Marshall DO PCP Self,Harmeet JNOES Referring Physician Date of Admission Nov 07, 2020 at 10:30 Home Medications & Allergies Home Medications Reviewed patient Home Medication Reconciliation performed by pharmacy medication reconciliations registered respiratory technician and/or nursing. Patients Allergies have been reviewed. Allergies Allergies Coded Allergies No Known Drug Allergies (Unverified06/05/17) Past Hzepbth-Zichqr-Stelyr Hx Patient Social History Marrital Status: single Employed/Student: retired Tobacco Use?: Yes Tobacco type used: Cigarettes Smoking Status: Current Everyday Smoker Substance use?: No Alcohol Use?: Yes Alcohol type: Hard Liquor Pt feels they are or have been: No Immunizations Up To Date Date of Influenza Vaccine: Feb 05, 2020 First/Initial COVID19 Vaccinat: PT HAD BOTH VACCINES 2020 Tetanus Booster (TDap): Less Than 5 Years Hepatitis A: Yes Hepatitis B: Yes PED Vaccines UTD: Yes Date of Pneumonia Vaccine: Jun 05, 2014 Seasonal Allergies Seasonal Allergies: No Current Status Advance Directives: No Communicates: Verbally Primary Language: [place] Citizen Preferred Spoken Language: [place] Citizen Is interpretation needed?: No Past Medical History Surgeries: Adenoidectomy, Bladder Surgery, Eye Surgery, Orthopedic, Tonsillectomy Currently Using CPAP: Yes Currently Using BIPAP: No Cardiomyopathy, Chronic Edema/Swelling, High Cholesterol, Hypertension Sexually Transmitted Disease: Yes (Hx of unknown STI) HIV/AIDS: No Benign Prostatic Hyperpl, Prostate Problems, Renal Failure Chronic Constipation Fractures Diabetes, Insulin dep Macular Degeneration Loss of Vision: Bilateral Hearing Impairment: Denies Depression Blood Disorders: No BPH with Suprapubic cath HTN NIDDM CKD Obesity Septic shock from UTI 2019 Family Medical History No Pertinent Family Hx Denies significant family medical hx Review of Systems Constitutional: see HPI, dizziness, fever, malaise, weakness Physical Exam Physical Exam Vital Signs Vital Signs - First Documented 11/07/20 09:00 Temp 35.3 Pulse 58 Resp 18 B/P (MAP) 118/76 (90) Pulse Ox 97 O2 Delivery Room Air Capillary Refill : Less Than 3 Seconds Height, Weight, BMI Height: 5'11.00" Weight: 315lbs. 0.0oz. [id number]; 44.00 BMI Method: General Appearance: No Apparent Distress, Anxious, Chronically ill, Obese Respiratory: No Accessory Muscle Use, No Respiratory Distress, Decreased Breath Sounds Cardiovascular: Regular Rate, Rhythm Neurologic/Psychiatric: Alert, Oriented x3, Depressed Affect Results Results/Procedures Labs Laboratory Tests 11/07/20 09:05 Patient resulted labs reviewed. Assessment/Plan Admission Diagnosis Assessment: Sepsis Recurrent UTI presumed ESBL Acute on chronic kidney disease stage IV getting close to dialysis option Chronic debility remains in a usp Hypokalemia Anemia Plan: IV antibiotics IV fluids Poor prognosis Admission Status: Inpatient Order (span 2 midnights) Reason for Inpatient Admission: Sepsis BECKA MARSHALL DO Nov 07, 2020 11:26
[2020-11-07 12:00] VITALS: BP 130/62
[2020-11-07] MEDS ORDERED: ONDANSETRON 4 MG/2 ML (SDV) Z0FRAN IV PRN (12:45)
[2020-11-07] MEDS ORDERED: ACETAMINOPHEN 500 MG TAB (TYLENOL) PO PRN (12:45)
[2020-11-07] MEDS ORDERED: CATHETER FLUSH 10 ML SYR IV PRN (12:45)
[2020-11-07] MEDS: 1/2 NS IV SOLUTION 1,000 ML IV SCH ×2 (14:05→20:05)
[2020-11-07] MEDS: MEROPENEM 500 MG/SWFI 10 ML IV PUSH IV SCH ×2 (14:06)
[2020-11-07] MEDS ORDERED: AMLO-251 PO (15:30)
[2020-11-07] MEDS ORDERED: DOXA2TAB2 PO (15:30)
[2020-11-07] MEDS ORDERED: GABA300C PO (15:30)
[2020-11-07 16:00] VITALS: BP 118/67
[2020-11-07 20:10] VITALS: BP 112/56
[2020-11-07 23:16] VITALS: BP 144/66
[2020-11-08] MEDS: MEROPENEM 500 MG/SWFI 10 ML IV PUSH IV SCH ×4 (00:36→14:14)
[2020-11-08 03:14] VITALS: BP 146/66
[2020-11-08] MEDS: 1/2 NS IV SOLUTION 1,000 ML IV SCH ×4 (04:42→21:26)
--- NOTE | 2020-11-08 06:05 | Progress Note - Hospitalist ---
Subjective HPI/CC On Admission Date Seen by Provider: Nov 08, 2020 Time Seen by Provider: 10:00 CC: Sepsis from UTI presumed resistant HPI: This is a 71yoWM clinic pt of [facility] known to me from multiple hospital stays all for the same thing of recurrent UTI and chronic kidney disease who was just discharged from the hospital and now comes back with fever, altered mental status and recurrent UTI. Pt has had significant decline in renal function with creatinine of 5.3 currently. I did talk to him about dialysis and that may be getting closer to time. His potassium level was 3.0 and his bicarbonate is 19 so there is no indication at this current time for dialysis. Subjective/Events-last exam Pt doing a little better Improved overall Creatinine 5.08 down from 5.48 Potassium 2.9, will initiate 20 mEq with meals Will DC telemetry and initiate PT and OT Enterococcus on preliminary urine culture Review of Systems General: Fatigue, Malaise Focused Exam Lactate Level 11/07/20 09:05: Lactic Acid Level 0.59 Objective Exam Vital Signs Vital Signs Date Time Temp Pulse Resp B/P (MAP) Pulse Ox O2 Delivery O2 Flow Rate FiO2 11/09/20 03:54 36.6 69 20 112/71 (85) 99 Room Air 11/08/20 22:14 0.00 Capillary Refill : Less Than 3 Seconds General Appearance: No Apparent Distress, WD/WN, Chronically ill, Obese Respiratory: Lungs Clear, Normal Breath Sounds Cardiovascular: Regular Rate, Rhythm Neurologic/Psychiatric: Alert, Oriented x3, Depressed Affect Results/Procedures Lab Laboratory Tests 11/08/20 08:04 Patient resulted labs reviewed. Assessment/Plan Assessment and Plan Assess & Plan/Chief Complaint Assessment: Sepsis Recurrent UTI presumed ESBL Acute on chronic kidney disease stage IV getting close to dialysis option Chronic debility remains in a care home Hypokalemia Anemia Plan: IV antibiotics IV fluids Poor prognosis 11/08/2020: Gentle IV fluids Monitor creatinine IV antibiotics PT and OT IDALIA NAILS DO Nov 08, 2020 06:05
[2020-11-08] MEDS ORDERED: polyethylene glycoL POWDER 17 GM (MIRALAX) PACK PO PRN (06:45)
[2020-11-08] MEDS ORDERED: BISACODYL 5 MG (DULCOLAX) TABLET PO PRN (06:45)
[2020-11-08] MEDS ORDERED: FUROSEMIDE 40 MG (LASIX) TAB PO PRN (06:45)
[2020-11-08] MEDS ORDERED: SIMETHICONE 80 MG (MYLICON) CHEW PO PRN (06:45)
[2020-11-08] MEDS ORDERED: RT-ALBUTEROL SULF 2.5 MG/3 ML PRE-MIX VIAL IH PRN (06:45)
[2020-11-08] MEDS ORDERED: BISACODYL 10 MG SUPP (DULCOLAX) RC PRN (06:45)
[2020-11-08] MEDS ORDERED: ONDANSETRON 4 MG (ZOFRAN) ORAL DISSOLVE TAB PO PRN (06:45)
[2020-11-08] MEDS ORDERED: CHOLESTYRAMINE 4 GM (QUESTRAN LITE, PREVALITE) PKT PO PRN (06:45)
[2020-11-08] MEDS ORDERED: MICONAZOLE NITRATE 2% CRM 30 GM TP PRN (07:00)
[2020-11-08 08:15] LABS: BASOPHILS % (AUTO) 0 % (0-10); EOSINOPHILS # (AUTO) 0.3 10^3/uL (0.0-0.3); EOSINOPHILS % (AUTO) 3 % (0-10); HEMATOCRIT 28 % (40-54); HEMOGLOBIN 8.8 g/dL (13.3-17.7); LYMPHOCYTES # (AUTO) 1.1 10^3/uL (1.0-4.0); LYMPHOCYTES % (AUTO) 11 % (12-44); MEAN CORPUSCULAR HEMOGLOBIN 28 pg (25-34); MEAN CORPUSCULAR HGB CONC 31 g/dL (32-36); MEAN CORPUSCULAR VOLUME 91 fL (80-99); MEAN PLATELET VOLUME 10.2 fL (9.0-12.2); MONOCYTES # (AUTO) 0.6 10^3/uL (0.0-1.0); MONOCYTES % (AUTO) 6 % (0-12); NEUTROPHILS # (AUTO) 7.6 10^3/uL (1.8-7.8); NEUTROPHILS % (AUTO) 79 % (42-75); PLATELET COUNT 213 10^3/uL (130-400); WHITE BLOOD COUNT 9.6 10^3/uL (4.3-11.0)
[2020-11-08 08:16] VITALS: BP 156/75
[2020-11-08 08:34] LABS: ALBUMIN 3.3 GM/DL (3.2-4.5); BILIRUBIN,TOTAL 0.3 MG/DL (0.1-1.0); CALCIUM 7.8 MG/DL (8.5-10.1); CREATININE SERUM 5.09 MG/DL (0.60-1.30); POTASSIUM 2.9 MMOL/L (3.6-5.0); TOTAL PROTEIN 6.8 GM/DL (6.4-8.2)
[2020-11-08] MEDS: LORATADINE (CLARITIN) 10 MG TAB PO SCH (10:07)
[2020-11-08] MEDS: guaiFENesin (MUCINEX) 600 MG TAB PO SCH ×2 (10:07→21:25)
[2020-11-08] MEDS: ASPIRIN 81 MG CHEW (CHILDREN'S ASA) PO SCH (10:07)
[2020-11-08] MEDS: amLODIPine 10 MG (NORVASC) TAB PO SCH (10:07)
[2020-11-08] MEDS: GABAPENTIN 300 MG (NEURONTIN) CAP PO SCH ×2 (10:07→21:33)
[2020-11-08] MEDS: FLUoxetine HCL 10 MG (PROzac) CAPSULE/TABLET PO SCH (10:07)
[2020-11-08] MEDS: LUBIPROSTONE 24 MCG CAP (AMITIZA) NON-FORMULARY PO SCH ×2 (10:08→21:26)
[2020-11-08] MEDS: KCL 20 MEQ TAB (K-DUR) PO SCH ×3 (11:42→21:25)
[2020-11-08 11:58] VITALS: BP 146/70
--- NOTE | 2020-11-08 14:22 | Physical Therapy Evaluation ---
PT Evaluation-General Medical Diagnosis Admission Date Nov 07, 2020 at 10:30 Medical Diagnosis: UTI/sepsis Onset Date: Nov 07, 2020 Therapy Diagnosis Therapy Diagnosis: impaired mobility, strength, endurance Height/Weight Height (Feet): 5 Height (Inches): 11.00 Weight (Pounds): 315 Weight (Ounces): 0.0 Precautions Precautions/Isolations: Contact Isolation, Fall Prevention, Standard Precautions Referral Physician: Becka Marshall DO Reason for Referral: Evaluation/Treatment Medical History Pertinent Medical History: Alcoholism, HTN, Renal Insufficiency, Smoking Additional Medical History Past Medical History Surgeries: Adenoidectomy, Bladder Surgery, Eye Surgery, Orthopedic, Tonsillectomy Currently Using CPAP: Yes Currently Using BIPAP: No Cardiomyopathy, Chronic Edema/Swelling, High Cholesterol, Hypertension Sexually Transmitted Disease: Yes (Hx of unknown STI) HIV/AIDS: No Benign Prostatic Hyperpl, Prostate Problems, Renal Failure Chronic Constipation Fractures Diabetes, Insulin dep Macular Degeneration Loss of Vision: Bilateral Hearing Impairment: Denies Depression Reviewed History: Yes Social History Home: [facility] Prior Prior Level of Function SCALE: Activities may be completed with or without assistive devices. 9-Ahhsxkfchx-fvghjmv completes the activity by him/herself with no assistance from a helper. 5-Set-up or Clean-up Assistance-helper sets up or cleans up; patient completes activity. [place] assists only prior to or following the activity. 4-Supervision or Touching Assistance-helper provides verbal cues and/or touching/steadying and/or contact guard assistance as patient completes activity. Assistance may be provided throughout the activity or intermittently. 3-Partial/Moderate Assistance-helper does LESS THAN HALF the effort. [place] lifts, holds or supports trunk or limbs, but provides less than half the effort. 2-Substantial/Maximal Assistance-helper does MORE THAN HALF the effort. [place] lifts or holds trunk or limbs and provides more than half the effort. 5-Jltwbtjhc-sdvzcr does ALL the effort. Patient does none of the effort to complete the activity. Or, the assistance of 2 or more helpers is required for the patient to complete the activity. If activity was not attempted, code reason: 7-Patient Refused. 9-Not Applicable-not attempted and the patient did not perform the activity before the current illness, exacerbation or injury. 10-Not Attempted due to Environmental Limitations-(lack of equipment, weather restraints, etc.). 88-Not Attempted due to Medical Conditions or Safety Concerns. Bed Mobility: 6 Transfers (B,C,W/C): 6 Patient is not clear about how he is able to get around at the intermediate but he says he is able to get out of bed himself and transfer to a chair. PT Evaluation-Current Subjective Patient in bed pre tx, already working with OT, has no complaints of pain, agrees to PT. Pt/Family Goals "to get stronger" Objective Patient Orientation: Person, Place, Situation ROM/Strength ROM Lower Extremities limited Sensory Vision: Hearing: Functional Transfers Roll Left to Right (QC): 1 Sit to Lying (QC): 1 Lying to Sitting/Side of Bed(Q: 1 Sit to Stand (QC): 3 Patient is dependent for supine <-> sit but can stand with just min assist. Patient sits on the side of the bed for about 10 min working on core strength and eating his lunch. Gait Does the Patient Walk?: Yes Mode of Locomotion: Walk Anticipated Mode of Locomotion: Walk Distance: 3' Gait Assistive Device: FWW Comments/Gait Description After standing he is able to sidestep about 3' toward the head of the bed. Balance Sitting Static: Fair Sitting Dynamic: Poor Standing Static: Fair Standing Dynamic: Poor Assessment/Needs Patient in bed post tx with nurse call, phone, tray, all needs met. Patient has impaired mobility, strength, endurance. He is dependent for bed mobility and supine <-> sit. 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 Production Superintendent Goals Halfway Goals PT Drilling And Production Superintendent Goals Time Frame: Nov 15, 2020 Roll Left & Right (QC): 3 Sit to Lying (QC): 3 Lying-Sitting on Side/Bed(QC): 3 Sit to Stand (QC): 4 Chair/Res-wj-Vyscz Xfer(QC): 4 Walk 10 feet (QC): 4 PT Plan Problem List Problem List: Activity Tolerance, Functional Strength, Safety, Balance, Gait, Transfer, Bed Mobility, ROM Treatment/Plan Treatment Plan: Continue Plan of Care Treatment Plan: Bed Mobility, Education, Functional Activity Alondra, Functional Strength, Gait, Safety, Therapeutic Exercise, Transfers Treatment Duration: Nov 15, 2020 Frequency: 6 times per week Estimated Hrs Per Day: .25 hour per day Patient and/or Family Agrees t: Yes Safety Risks/Education Patient Education: Gait Training, Transfer Techniques, Correct Positioning, Safety Issues Teaching Recipient: Patient Teaching Methods: Demonstration, Discussion Response to Teaching: Reinforcement Needed Discharge Recommendations Plan Patient will perform bed mobility and transfer training, balance and endurance training, functional strengthening, gait training, and education, to improve functional mobility and independence at home. Therapy Discharge Recommendati: 24 Hour Supervision Time/GCodes Time In: 1329 Time Out: 1354 Total Billed Treatment Time: 23 Total Billed Treatment 1 visit JOHN 10' FA 13' AUTUMN AVENDANO PT Nov 08, 2020 14:22
--- NOTE | 2020-11-08 14:35 | Occupational Therapy Eval ---
OT Evaluation-General/PLF Medical Diagnosis Admission Date Nov 07, 2020 at 10:30 Medical Diagnosis: UTI/sepsis Onset Date: Nov 07, 2020 Therapy Diagnosis Therapy Diagnosis: Weakness Height/Weight Height (Feet): 5 Height (Inches): 11.00 Weight (Pounds): 315 Weight (Ounces): 0.0 Precautions Precautions/Isolations: Contact Isolation, Fall Prevention, Standard Precautions Weight Bear Status Weight Bearing Restriction: Weight Bearing/Tolerated Referral Physician: Becka Marshall DO Referral Reason: Activity Tolerance, Self Care, Evaluation/Treatment, Strengthening/ROM Medical History Pertinent Medical History: Alcoholism, HTN, Macular Degenertion, Renal Insufficiency, Smoking Additional Medical History Chronic kidney disease, Recurrent UTI, Bladder surgery, Multiple hospitalizations, decreased vision Reviewed History: Yes Social History Home: Jail ADL-Prior Level of Function SCALE: Activities may be completed with or without assistive devices. 4-Rmrcjqgjbh-vxaixzu completes the activity by him/herself with no assistance from a helper. 5-Set-up or Clean-up Assistance-helper sets up or cleans up; patient completes activity. [place] assists only prior to or following the activity. 4-Supervision or Touching Assistance-helper provides verbal cues and/or touching/steadying and/or contact guard assistance as patient completes activity. Assistance may be provided throughout the activity or intermittently. 3-Partial/Moderate Assistance-helper does LESS THAN HALF the effort. [place] lifts, holds or supports trunk or limbs, but provides less than half the effort. 2-Substantial/Maximal Assistance-helper does MORE THAN HALF the effort. [place] lifts or holds trunk or limbs and provides more than half the effort. 6-Eiczxycge-mbuzjt does ALL the effort. Patient does none of the effort to complete the activity. Or, the assistance of 2 or more helpers is required for the patient to complete the activity. If activity was not attempted, code reason: 7-Patient Refused. 9-Not Applicable-not attempted and the patient did not perform the activity before the current illness, exacerbation or injury. 10-Not Attempted due to Environmental Limitations-(lack of equipment, weather restraints, etc.). 88-Not Attempted due to Medical Conditions or Safety Concerns. ADL PLOF Comments Pt. is poor historian. He states that he lives in [place], but then states that he lives in [place] residential. Pt. reports that he is independent with daily tasks, but later states that he requires assistance. He states that he hasn't walked in a long time, but also reports that he takes himself to the dining area with his walker. Self Care: Unknown Functional Cognition: Unknown DME/Equipment Comments Walker OT Current Status Subjective No pain reported. Mental Status/Objective Patient Orientation: Confused Attachments: Sotelo Catheter, IV ADL-Treatment Eating (QC): 4 (SBA and cues for food placement. OT cut up food. Pt. told where each thing was due to decreased vision.) Lower Body Dressing (QC): 1 (Per clinical judgement.) On/Off Footwear (QC): 1 Toileting Hygiene (QC): 1 (Pt. has catheter. Pt. also slightly incontinent of bowel and required dependent assistance for lucas cleanse.) Other Treatments OT came into room. Pt. asleep but does wake up. Pt. very groggy and has diffic ulty arousing. Pt. confused. Does not know where he is but slowly comes around. Agrees to sit on EOB and eat his food tray, which is sitting on side table. OT attempts to assist him to EOB. Pt. keeps saying he can do it, but then does not initiate movement. PT came into room, and assisted with transfer supine-sit due to lethargy, decreased cognition, and increased need for physical assist. PT assisted with positioning pts LE over side of bed while OT brought UE to upright position. At first, pt. did not assist with transfer and therapy provided complete dependent assistance. Pt. able to stabilize on EOB. PT stood close for balance management while seated, while OT cut up food and oriented pt. to food tray. Pt. able to fork food and bring to mouth, chew, and swallow. Pt. stood with walker with min assist, and took multiple steps toward HOB. Noted pt. incontinent of stool. Dependent assistance with lucas cleanse. Pt. perched back on EOB, and required dependent assist for sit-supine. HOB elevated and all needs met. Education OT Patient Education: Correct positioning, Modified ADL techniques, Progress toward Goal/Update tx plan, Purpose of tx/functional activities, Reviewed precautions, Rehab process, Transfer techniques Teaching Recipient: Patient Teaching Methods: Demonstration, Discussion Response to Teaching: Verbalize Understanding, Return Demonstration OT Short Term Goals Short Term Goals Time Frame: Nov 15, 2020 Eatin Oral hygiene: 3 Toileting hygiene: 3 Upper body dressin OT Surgical Clinical Reviewer Goals Surgical Clinical Reviewer Goals Time Frame: Nov 22, 2020 Eating (QC): 5 Oral Hygiene (QC): 5 Toileting Hygiene (QC): 4 Upper Body Dressing (QC): 4 On/Off Footwear (QC): 3 Additional Goals: 1-Demonstrate ADL Tasks, 2-Verbalize Understanding, 3- ImproveStrength/Alondra 1=Demonstrate adherence to instructed precautions during ADL tasks. 2=Patient will verbalize/demonstrate understanding of assistive devices/modifications for ADL. 3=Patient will improve strength/tolerance for activity to enable patient to perform ADL's. OT Education/Plan Problem List/Assessment Assessment: Decreased Activ Tolerance, Decreased UE Strength, Dependent Transfers, Impaired Bed Mobility, Impaired Cognition, Impaired Funct Balance, Impaired I ADL's, Impaired Self-Care Skills Discharge Recommendations Plan/Recommendations: Continue POC Therapy Discharge Recommendati: 24 Hour Supervision Treatment Plan/Plan of Care Treatment,Training & Education: Yes Patient would benefit from OT for education, treatment and training to promote independence in ADL's, mobility, safety and/or upper extremity function for ADL's. Plan of Care: ADL Retraining, Functional Mobility, UE Funct Exercise/Act Treatment Duration: Nov 22, 2020 Frequency: 5 times per week Estimated Hrs Per Day: .25 hour per day Agreement: Yes Rehab Potential: Fair Time/GCodes Start Time: 13:20 Stop Time: 13:55 Total Time Billed (hr/min): 35 Billed Treatment Time 1, EVH x 9minutes ADL x 26minutes (Co-treatment with PT) (35minutes total- 2 units total billed) KARISSA SOLARES OT Nov 08, 2020 14:35
[2020-11-08 15:46] VITALS: BP 142/71
[2020-11-08] MEDS: TAMSULOSIN 0.4 MG (FLOMAX) CAP PO SCH (18:19)
[2020-11-08] MEDS: CYANOCOBALAMIN 1,000 MCG (VITAMIN B-12) TABLET PO SCH (18:19)
[2020-11-08] MEDS: FINASTERIDE (PROSCAR) 5 MG TAB PO SCH (18:19)
[2020-11-08] MEDS: doxAzosin 2 MG (CARDURA) TAB PO SCH (18:19)
[2020-11-08 19:40] VITALS: BP 143/76
[2020-11-08] MEDS ORDERED: GABAPENTIN 400 MG (NEURONTIN) CAP ONE (21:15)
[2020-11-08] MEDS: MELATONIN 10 MG TABLET PO SCH (21:25)
[2020-11-08] MEDS: SENNOSIDES 8.6 MG (SENOKOT) TAB PO SCH (21:27)
[2020-11-09] VITALS: BP 104/63
[2020-11-09] MEDS: MEROPENEM 500 MG/SWFI 10 ML IV PUSH IV SCH ×4 (00:39→12:43)
[2020-11-09 03:54] VITALS: BP 112/71
[2020-11-09] MEDS: 1/2 NS IV SOLUTION 1,000 ML IV SCH ×3 (06:04→17:01)
[2020-11-09 06:15] LABS: BASOPHILS # (AUTO) 0.1 10^3/uL (0.0-0.1); BASOPHILS % (AUTO) 1 % (0-10); EOSINOPHILS # (AUTO) 0.3 10^3/uL (0.0-0.3); EOSINOPHILS % (AUTO) 3 % (0-10); HEMATOCRIT 30 % (40-54); HEMOGLOBIN 9.2 g/dL (13.3-17.7); LYMPHOCYTES # (AUTO) 1.5 10^3/uL (1.0-4.0); LYMPHOCYTES % (AUTO) 17 % (12-44); MEAN CORPUSCULAR HEMOGLOBIN 29 pg (25-34); MEAN CORPUSCULAR HGB CONC 31 g/dL (32-36); MEAN CORPUSCULAR VOLUME 91 fL (80-99); MEAN PLATELET VOLUME 10.5 fL (9.0-12.2); MONOCYTES # (AUTO) 0.6 10^3/uL (0.0-1.0); MONOCYTES % (AUTO) 7 % (0-12); NEUTROPHILS # (AUTO) 6.4 10^3/uL (1.8-7.8); NEUTROPHILS % (AUTO) 73 % (42-75); PLATELET COUNT 228 10^3/uL (130-400); WHITE BLOOD COUNT 8.8 10^3/uL (4.3-11.0)
[2020-11-09 06:28] LABS: ALBUMIN 3.4 GM/DL (3.2-4.5); POTASSIUM 3.1 MMOL/L (3.6-5.0)
--- NOTE | 2020-11-09 06:28 | Progress Note - Hospitalist ---
Subjective HPI/CC On Admission Date Seen by Provider: Nov 09, 2020 Time Seen by Provider: 10:30 CC: Sepsis from UTI presumed resistant HPI: This is a 71yoWM clinic pt of [facility] known to me from multiple hospital stays all for the same thing of recurrent UTI and chronic kidney disease who was just discharged from the hospital and now comes back with fever, altered mental status and recurrent UTI. Pt has had significant decline in renal function with creatinine of 5.3 currently. I did talk to him about dialysis and that may be getting closer to time. His potassium level was 3.0 and his bicarbonate is 19 so there is no indication at this current time for dialysis. Subjective/Events-last exam Pt doing a lot better Sleeping soundly Creatinine down to 4.7 Potassium down to 3.1 will give 20 IV and 20 po TID Added TSH due to proptosis Review of Systems General: Fatigue, Malaise Focused Exam Lactate Level 11/07/20 09:05: Lactic Acid Level 0.59 Objective Exam Vital Signs Vital Signs Date Time Temp Pulse Resp B/P (MAP) Pulse Ox O2 Delivery O2 Flow Rate FiO2 11/10/20 04:07 36.6 70 18 102/63 (76) 95 Room Air 11/08/20 22:14 0.00 Capillary Refill : Less Than 3 Seconds General Appearance: No Apparent Distress, WD/WN, Chronically ill, Obese Respiratory: Lungs Clear, Normal Breath Sounds Cardiovascular: Regular Rate, Rhythm Neurologic/Psychiatric: Alert, Oriented x3 Results/Procedures Lab Laboratory Tests 11/09/20 05:55 11/10/20 04:50 Patient resulted labs reviewed. Assessment/Plan Assessment and Plan Assess & Plan/Chief Complaint Assessment: Sepsis Recurrent UTI presumed ESBL Acute on chronic kidney disease stage IV getting close to dialysis option Chronic debility remains in a fci Hypokalemia Anemia Plan: IV antibiotics IV fluids Poor prognosis 11/08/2020: Gentle IV fluids Monitor creatinine IV antibiotics PT and OT 11/09/2020: Supportive care Monitor creatinine IV antibiotics IDALIA NAILS DO Nov 09, 2020 06:28
[2020-11-09 06:29] LABS: CALCIUM 8.1 MG/DL (8.5-10.1)
[2020-11-09 06:30] LABS: TOTAL PROTEIN 7.3 GM/DL (6.4-8.2)
[2020-11-09 06:32] LABS: BILIRUBIN,TOTAL 0.3 MG/DL (0.1-1.0)
[2020-11-09 06:34] LABS: CREATININE SERUM 4.73 MG/DL (0.60-1.30)
[2020-11-09 06:43] LABS: VANCOMYCIN,TROUGH 12.9 UG/ML (10.0-20.0)
[2020-11-09 08:04] VITALS: BP 160/76
--- NOTE | 2020-11-09 08:58 | Physical Therapy Daily Note ---
PT Daily Note-Current Subjective Patient in bed pre tx, agrees reluctantly to PT, has no complaints of pain. Appearance Patient sitting EOB to eat breakfast per patient request, has nurse call and says will call nursing to help him lay down when done. Mental Status Patient Orientation: Person, Place, Situation Attachments: Sotelo Catheter, IV Transfers SCALE: Activities may be completed with or without assistive devices. 2-Zupiamkuky-kwrcton completes the activity by him/herself with no assistance from a helper. 5-Set-up or Clean-up Assistance-helper sets up or cleans up; patient completes activity. [place] assists only prior to or following the activity. 4-Supervision or Touching Assistance-helper provides verbal cues and/or touching/steadying and/or contact guard assistance as patient completes activity. Assistance may be provided throughout the activity or intermittently. 3-Partial/Moderate Assistance-helper does LESS THAN HALF the effort. [place] lifts, holds or supports trunk or limbs, but provides less than half the effort. 2-Substantial/Maximal Assistance-helper does MORE THAN HALF the effort. [place] lifts or holds trunk or limbs and provides more than half the effort. 6-Wletresmr-ztmbue does ALL the effort. Patient does none of the effort to complete the activity. Or, the assistance of 2 or more helpers is required for the patient to complete the activity. If activity was not attempted, code reason: 7-Patient Refused. 9-Not Applicable-not attempted and the patient did not perform the activity before the current illness, exacerbation or injury. 10-Not Attempted due to Environmental Limitations-(lack of equipment, weather restraints, etc.). 88-Not Attempted due to Medical Conditions or Safety Concerns. Roll Left & Right (QC): 1 Lying to Sitting/Side of Bed(Q: 2 Sit to Stand (QC): 4 max assist for supine to sit, CGA for sit to stand, after standing he was able to sidestep about 3' toward the head of the bed Gait Training Distance: 3' Gait Assistive Device: FWW CGA Exercises Seated Therapy Exercises: Ankle pumps, Long arc quads Seated Reps: 20 Treatments bed mobility, standing, ambulation, LE exercise Assessment Current Status: Poor Progress Patient has poor motivation, it was a struggle to encourage patient to participate PT Dial Refinisher Goals Dial Refinisher Goals PT Group Home Goals Time Frame: Nov 15, 2020 Roll Left & Right (QC): 3 Sit to Lying (QC): 3 Lying-Sitting on Side/Bed(QC): 3 Sit to Stand (QC): 4 Chair/Biy-wz-Piemi Xfer(QC): 4 Walk 10 feet (QC): 4 PT Plan Problem List Problem List: Activity Tolerance, Functional Strength, Safety, Balance, Gait, Transfer, Bed Mobility, ROM Treatment/Plan Treatment Plan: Continue Plan of Care Treatment Plan: Bed Mobility, Education, Functional Activity Alondra, Functional Strength, Gait, Safety, Therapeutic Exercise, Transfers Treatment Duration: Nov 15, 2020 Frequency: 6 times per week Estimated Hrs Per Day: .25 hour per day Patient and/or Family Agrees t: Yes Safety Risks/Education Patient Education: Gait Training, Transfer Techniques, Correct Positioning, Safety Issues Teaching Recipient: Patient Teaching Methods: Demonstration, Discussion Response to Teaching: Reinforcement Needed Time/GCodes Time In: 0810 Time Out: 0833 Total Billed Treatment Time: 23 Total Billed Treatment 1 visit FA AUTUMN CUELLAR PT Nov 09, 2020 08:58
[2020-11-09] MEDS: ASPIRIN 81 MG CHEW (CHILDREN'S ASA) PO SCH (09:10)
[2020-11-09] MEDS: amLODIPine 10 MG (NORVASC) TAB PO SCH (09:10)
[2020-11-09] MEDS: LORATADINE (CLARITIN) 10 MG TAB PO SCH (09:10)
[2020-11-09] MEDS: FLUoxetine HCL 10 MG (PROzac) CAPSULE/TABLET PO SCH (09:10)
[2020-11-09] MEDS: guaiFENesin (MUCINEX) 600 MG TAB PO SCH ×2 (09:10→20:55)
[2020-11-09] MEDS: KCL 20 MEQ TAB (K-DUR) PO SCH ×3 (09:10→20:57)
[2020-11-09] MEDS: GABAPENTIN 300 MG (NEURONTIN) CAP PO SCH ×2 (09:10→20:55)
[2020-11-09] MEDS: LUBIPROSTONE 24 MCG CAP (AMITIZA) NON-FORMULARY PO SCH ×2 (09:11→21:01)
--- NOTE | 2020-11-09 09:16 | Occupational Ther Daily Note ---
OT Current Status-Daily Note Subjective Pt laying in bed eating, agreeable to OT tx with moderate encouragement. Mental Status/Objective Patient Orientation: Person, Place, Situation Attachments: Sotelo Catheter, IV ADL-Treatment Therapy Code Descriptions/Definitions Functional [place] Measure: 0=Not Assessed/NA 4=Minimal Assistance 1=Total Assistance 5=Supervision or Setup 2=Maximal Assistance 6=Modified [place] 3=Moderate Assistance 7=Complete IndependenceSCALE: Activities may be completed with or without assistive devices. 0-Ihggrtzilg-uxursil completes the activity by him/herself with no assistance from a helper. 5-Set-up or Clean-up Assistance-helper sets up or cleans up; patient completes activity. [place] assists only prior to or following the activity. 4-Supervision or Touching Assistance-helper provides verbal cues and/or touching/steadying and/or contact guard assistance as patient completes activity. Assistance may be provided throughout the activity or intermittently. 3-Partial/Moderate Assistance-helper does LESS THAN HALF the effort. [place] lifts, holds or supports trunk or limbs, but provides less than half the effort. 2-Substantial/Maximal Assistance-helper does MORE THAN HALF the effort. [place] lifts or holds trunk or limbs and provides more than half the effort. 4-Oofrljmbt-ruzpck does ALL the effort. Patient does none of the effort to complete the activity. Or, the assistance of 2 or more helpers is required for the patient to complete the activity. If activity was not attempted, code reason: 7-Patient Refused. 9-Not Applicable-not attempted and the patient did not perform the activity before the current illness, exacerbation or injury. 10-Not Attempted due to Environmental Limitations-(lack of equipment, weather restraints, etc.). 88-Not Attempted due to Medical Conditions or Safety Concerns. Eating (QC): 6 Other Treatment Pt laying in bed, declined transfer to recliner. With encouragement agreeable to sit EOB in order to eat breakfast. Pt transferred supine to sit EOB, Max A, increased time due to very slow movements. Sat EOB in order to eat breakfast, IND with eating. Pt then transferred sit to stand, CGA, side stepping towards HOB about 3'. Pt requests to stay at EOB in order to finish meal. Pt instructed to use call light to notify nursing staff when he wants to lay back down, he verbalized understanding. Post tx, pt seated EOB, call light in reach and all needs met. Education OT Patient Education: Correct positioning, Modified ADL techniques, Progress toward Goal/Update tx plan, Purpose of tx/functional activities, Rehab process Teaching Recipient: Patient Teaching Methods: Discussion Response to Teaching: Verbalize Understanding OT Short Term Goals Short Term Goals Time Frame: Nov 15, 2020 Eatin Oral hygiene: 3 Toileting hygiene: 3 Upper body dressin OT Care Home Goals Dental Laboratory Manager Goals Time Frame: Nov 22, 2020 Eating (QC): 5 Oral Hygiene (QC): 5 Toileting Hygiene (QC): 4 Upper Body Dressing (QC): 4 On/Off Footwear (QC): 3 Additional Goals: 1-Demonstrate ADL Tasks, 2-Verbalize Understanding, 3- ImproveStrength/Alondra 1=Demonstrate adherence to instructed precautions during ADL tasks. 2=Patient will verbalize/demonstrate understanding of assistive devices/modifications for ADL. 3=Patient will improve strength/tolerance for activity to enable patient to perform ADL's. OT Education/Plan Problem List/Assessment Assessment: Decreased Activ Tolerance, Decreased UE Strength, Impaired Bed Mobility, Impaired Funct Balance, Impaired I ADL's, Impaired Self-Care Skills, Restricted Funct UE ROM Discharge Recommendations Plan/Recommendations: Continue POC Treatment Plan/Plan of Care Patient would benefit from OT for education, treatment and training to promote independence in ADL's, mobility, safety and/or upper extremity function for AD L's. Plan of Care: ADL Retraining, Functional Mobility, UE Funct Exercise/Act Treatment Duration: Nov 22, 2020 Frequency: 5 times per week Estimated Hrs Per Day: .25 hour per day Agreement: Yes Rehab Potential: Fair Time/GCodes Start Time: 08:10 Stop Time: 08:33 Total Time Billed (hr/min): 23 Billed Treatment Time 1, ADL 2 ROMEO BASS OT Nov 09, 2020 09:16
[2020-11-09] MEDS: POTASSIUM CL 10MEQ/50ML IVPB 50 ML IV SCH ×2 (11:38→12:43)
[2020-11-09 12:00] VITALS: BP 135/74
[2020-11-09] MEDS: VANCOMYCIN 125 MG CAPSULE PO SCH ×2 (15:08→20:55)
[2020-11-09 16:00] VITALS: BP 131/71
[2020-11-09] MEDS: TAMSULOSIN 0.4 MG (FLOMAX) CAP PO SCH (17:01)
[2020-11-09] MEDS: CYANOCOBALAMIN 1,000 MCG (VITAMIN B-12) TABLET PO SCH (17:02)
[2020-11-09] MEDS: FINASTERIDE (PROSCAR) 5 MG TAB PO SCH (17:02)
[2020-11-09] MEDS: doxAzosin 2 MG (CARDURA) TAB PO SCH (17:02)
--- NOTE | 2020-11-09 17:20 | Physician Query Clarification ---
Physician Query-General Query to Physician: The medical record reflects the following clinical scenario: The patient, in the setting of History/Risk factors, Recurrent UTI's. Suprapubic cath, Clinical Findings Urine culture with Enterococcus faecium, BC + with Staph, wears "diaper", having diarrhea, UA moderate bacteria, Altered mental status Treatment: Careful cleaning around catheter, IV fluids, IV vancomycin, and Meropenem Question: Can you specify if the Urinary tract infection is due to/associated with Supra pubic catheter? 1. Yes - Urinary Tract infection is due to/associated with supra pubic catheter 2. No - Urinary Tract infection is not due to/associated with supra pubic catheter 3. Other, with explanation of the clinical findings 4. Clinically undetermined, no explanation for the clinical findings Please clarify and document your clinical opinion in the Progress Notes and Discharge Summary including the definitive and/or presumptive diagnosis, (suspected or probable), related to the above clinical findings. Please include clinical findings supporting your diagnosis. In responding to this query, please exercise your independent professional judgment. The purpose of this communication is to more accurately reflect the complexity of your patients condition. The fact that a question is asked does not imply that any particular answer is desired or expected. Please remember a lack of response to the above will prompt a phone page by CDI/coding staff Thank you for timely response to this clarification. Yas Diop MSN, RN [phone] [email or web address] PHYSICIAN RESPONSE: Based on the clinical findings in the record, please respond to the query above on this document as an addendum. Physician Response: Physician Response 1 If you have questions please contact: Consumer Affairs Specialist: Ext: Thank you for your time and cooperation. Clinical Benefit Authorizer/Consumer Affairs Specialist This is a permanent part of the medical record YAS DIOP Nov 09, 2020 17:20 IDALIA NAILS DO Nov 09, 2020 19:09
--- NOTE | 2020-11-09 17:28 | Physician Query Clarification ---
Physician Query-General Query to Physician: The medical record reflects the following clinical evidence: Clinical Indicators: Admitted with Altered mental status that is occurs when patient has UTI, documentation of confusion this admission, CR up to 5.48 decreased to 4.73 Risk Factor(s): Recurrent UTI's. Stage 4 CKD "getting close to dialysis option" Treatment: IV vancomycin and Meropenem, IV fluids, 1. Metabolic encephalopathy, present on admission 2. Other explanation of clinical findings 3. Unable to determine (no explanation for clinical findings) Please clarify and document your clinical opinion in the progress notes and discharge summary including the definitive and/or presumptive diagnosis, (suspected or probable), related to the above clinical findings. Please include clinical findings supporting your diagnosis. Yas Sahni [phone] [email or web address] PHYSICIAN RESPONSE: Based on the clinical findings in the record, please respond to the query above on this document as an addendum. Physician Response: Physician Response 1 If you have questions please contact: Scanning Tech: Ext: Thank you for your time and cooperation. Clinical Pc Tech/Scanning Tech This is a permanent part of the medical record YAS SAHNI Nov 09, 2020 17:28 IDALIA NAILS DO Nov 09, 2020 19:09
[2020-11-09 20:00] VITALS: BP 136/74
[2020-11-09] MEDS: MELATONIN 10 MG TABLET PO SCH (20:55)
[2020-11-09] MEDS: SENNOSIDES 8.6 MG (SENOKOT) TAB PO SCH (20:55)
[2020-11-10] VITALS (7 sets, daily range): BP systolic 99–141; BP diastolic 53–74
[2020-11-10] MEDS: 1/2 NS IV SOLUTION 1,000 ML IV SCH ×2 (00:31→08:30)
[2020-11-10] MEDS: MEROPENEM 500 MG/SWFI 10 ML IV PUSH IV SCH ×4 (00:31→11:57)
[2020-11-10 05:06] LABS: BASOPHILS % (AUTO) 0 % (0-10); EOSINOPHILS # (AUTO) 0.2 10^3/uL (0.0-0.3); EOSINOPHILS % (AUTO) 2 % (0-10); HEMATOCRIT 28 % (40-54); HEMOGLOBIN 8.5 g/dL (13.3-17.7); LYMPHOCYTES # (AUTO) 1.1 10^3/uL (1.0-4.0); LYMPHOCYTES % (AUTO) 15 % (12-44); MEAN CORPUSCULAR HEMOGLOBIN 27 pg (25-34); MEAN CORPUSCULAR HGB CONC 30 g/dL (32-36); MEAN CORPUSCULAR VOLUME 90 fL (80-99); MEAN PLATELET VOLUME 10.2 fL (9.0-12.2); MONOCYTES # (AUTO) 0.6 10^3/uL (0.0-1.0); MONOCYTES % (AUTO) 8 % (0-12); NEUTROPHILS # (AUTO) 5.5 10^3/uL (1.8-7.8); NEUTROPHILS % (AUTO) 74 % (42-75); PLATELET COUNT 226 10^3/uL (130-400); WHITE BLOOD COUNT 7.4 10^3/uL (4.3-11.0)
[2020-11-10 05:22] LABS: ALBUMIN 3.2 GM/DL (3.2-4.5)
[2020-11-10 05:23] LABS: POTASSIUM 3.1 MMOL/L (3.6-5.0)
[2020-11-10 05:24] LABS: CALCIUM 8.1 MG/DL (8.5-10.1)
[2020-11-10 05:25] LABS: TOTAL PROTEIN 6.9 GM/DL (6.4-8.2)
[2020-11-10 05:27] LABS: BILIRUBIN,TOTAL 0.2 MG/DL (0.1-1.0)
[2020-11-10 05:28] LABS: CREATININE SERUM 4.33 MG/DL (0.60-1.30)
[2020-11-10] MEDS: VANCOMYCIN 125 MG CAPSULE PO SCH ×4 (05:51→20:39)
--- NOTE | 2020-11-10 06:13 | Progress Note - Hospitalist ---
Subjective HPI/CC On Admission Date Seen by Provider: Nov 10, 2020 Time Seen by Provider: 09:30 CC: Sepsis from UTI presumed resistant HPI: This is a 71yoWM clinic pt of [facility] known to me from multiple hospital stays all for the same thing of recurrent UTI and chronic kidney disease who was just discharged from the hospital and now comes back with fever, altered mental status and recurrent UTI. Pt has had significant decline in renal function with creatinine of 5.3 currently. I did talk to him about dialysis and that may be getting closer to time. His potassium level was 3.0 and his bicarbonate is 19 so there is no indication at this current time for dialysis. Subjective/Events-last exam Pt doing a lot better today Flat affect and slow response which is chronic Bowels moved today PT and OT ordered Creatinine 4.3 Will heplock IV fluid Potassium 3.1 on supplement Hgb 8.5 No falls or fever Review of Systems General: Fatigue, Malaise Focused Exam Lactate Level Objective Exam Vital Signs Vital Signs Date Time Temp Pulse Resp B/P (MAP) Pulse Ox O2 Delivery O2 Flow Rate FiO2 11/10/20 19:40 34.8 70 20 111/53 (72) 99 Room Air 11/08/20 22:14 0.00 Capillary Refill : Less Than 3 Seconds General Appearance: No Apparent Distress, WD/WN, Chronically ill, Obese Respiratory: Lungs Clear, Normal Breath Sounds Cardiovascular: Regular Rate, Rhythm Neurologic/Psychiatric: Alert, Oriented x3 Results/Procedures Lab Laboratory Tests 11/10/20 04:50 Patient resulted labs reviewed. Assessment/Plan Assessment and Plan Assess & Plan/Chief Complaint Assessment: Sepsis Recurrent UTI presumed ESBL Acute on chronic kidney disease stage IV getting close to dialysis option Chronic debility remains in a alf Hypokalemia Anemia Plan: IV antibiotics IV fluids Poor prognosis 11/08/2020: Gentle IV fluids Monitor creatinine IV antibiotics PT and OT 11/09/2020: Supportive care Monitor creatinine IV antibiotics 11/10/2020: IV antibiotics PT and OT Monitor creatinine IDALIA NAILS DO Nov 10, 2020 06:13
[2020-11-10] MEDS: FLUoxetine HCL 10 MG (PROzac) CAPSULE/TABLET PO SCH (08:27)
[2020-11-10] MEDS: LORATADINE (CLARITIN) 10 MG TAB PO SCH (08:27)
[2020-11-10] MEDS: KCL 20 MEQ TAB (K-DUR) PO SCH ×3 (08:27→20:39)
[2020-11-10] MEDS: GABAPENTIN 300 MG (NEURONTIN) CAP PO SCH ×2 (08:27→20:39)
[2020-11-10] MEDS: guaiFENesin (MUCINEX) 600 MG TAB PO SCH ×2 (08:28→20:39)
[2020-11-10] MEDS: amLODIPine 10 MG (NORVASC) TAB PO SCH (08:28)
[2020-11-10] MEDS: ASPIRIN 81 MG CHEW (CHILDREN'S ASA) PO SCH (08:30)
[2020-11-10] MEDS ORDERED: VANCOMYCIN 1500 MG/NS 500 ML IVPB IV SCH ×2 (09:00)
[2020-11-10] MEDS: LUBIPROSTONE 24 MCG CAP (AMITIZA) NON-FORMULARY PO SCH ×2 (10:52→20:39)
--- NOTE | 2020-11-10 11:28 | Physical Therapy Daily Note ---
PT Daily Note-Current Subjective Patient in bed pre tx, agrees to PT reluctantly, has no complaints of pain. Appearance Patient in bed post tx with nurse call, phone, tray, all needs met. Mental Status Patient Orientation: Person, Place Attachments: [place] Catheter, IV Transfers SCALE: Activities may be completed with or without assistive devices. 5-Eixmonqvhy-bhwiurr completes the activity by him/herself with no assistance from a helper. 5-Set-up or Clean-up Assistance-helper sets up or cleans up; patient completes activity. [place] assists only prior to or following the activity. 4-Supervision or Touching Assistance-helper provides verbal cues and/or touching/steadying and/or contact guard assistance as patient completes activity. Assistance may be provided throughout the activity or intermittently. 3-Partial/Moderate Assistance-helper does LESS THAN HALF the effort. [place] lifts, holds or supports trunk or limbs, but provides less than half the effort. 2-Substantial/Maximal Assistance-helper does MORE THAN HALF the effort. [place] lifts or holds trunk or limbs and provides more than half the effort. 6-Juvjrgvon-czjcsl does ALL the effort. Patient does none of the effort to complete the activity. Or, the assistance of 2 or more helpers is required for the patient to complete the activity. If activity was not attempted, code reason: 7-Patient Refused. 9-Not Applicable-not attempted and the patient did not perform the activity before the current illness, exacerbation or injury. 10-Not Attempted due to Environmental Limitations-(lack of equipment, weather restraints, etc.). 88-Not Attempted due to Medical Conditions or Safety Concerns. Roll Left & Right (QC): 2 Sit to Lying (QC): 2 Lying to Sitting/Side of Bed(Q: 2 Sit to Stand (QC): 4 Patient sits on the side of the bed with max assist, performs LE exercises, stands and then sidesteps toward the head of the bed, sits again and then max assist to lay back down. Patient refuses to sit in recliner and states he will be on the floor if he walks with the walker. He seems to be able to sidestep just fine though. Gait Training Distance: 3' Gait Persons Needed: 1 Gait Assistive Device: FWW CGA Exercises Seated Therapy Exercises: Ankle pumps, Long arc quads, Hip flexion Seated Reps: 20 Treatments bed mobility, ambulation, LE exercise Assessment Current Status: Poor Progress no change in mobility PT Lead Customer Service Representative Goals Skilled Nursing Goals PT Skilled Nursing Goals Time Frame: Nov 15, 2020 Roll Left & Right (QC): 3 Sit to Lying (QC): 3 Lying-Sitting on Side/Bed(QC): 3 Sit to Stand (QC): 4 Chair/Kcp-uu-Clfgu Xfer(QC): 4 Walk 10 feet (QC): 4 PT Plan Problem List Problem List: Activity Tolerance, Functional Strength, Safety, Balance, Gait, Transfer, Bed Mobility, ROM Treatment/Plan Treatment Plan: Continue Plan of Care Treatment Plan: Bed Mobility, Education, Functional Activity Alondra, Functional Strength, Gait, Safety, Therapeutic Exercise, Transfers Treatment Duration: Nov 15, 2020 Frequency: 6 times per week Estimated Hrs Per Day: .25 hour per day Patient and/or Family Agrees t: Yes Safety Risks/Education Patient Education: Gait Training, Transfer Techniques, Correct Positioning, Safety Issues Teaching Recipient: Patient Teaching Methods: Demonstration, Discussion Response to Teaching: Reinforcement Needed Time/GCodes Time In: 1100 Time Out: 1115 Total Billed Treatment Time: 15 Total Billed Treatment 1 visit FA 15' AUTUMN AVENDANO PT Nov 10, 2020 11:28
--- NOTE | 2020-11-10 13:35 | Occupational Ther Daily Note ---
OT Current Status-Daily Note Subjective Pt laying in bed, required moderate encouragement to participate in tx. Mental Status/Objective Patient Orientation: Person, Place, Situation ADL-Treatment Therapy Code Descriptions/Definitions Functional [place] Measure: 0=Not Assessed/NA 4=Minimal Assistance 1=Total Assistance 5=Supervision or Setup 2=Maximal Assistance 6=Modified [place] 3=Moderate Assistance 7=Complete IndependenceSCALE: Activities may be completed with or without assistive devices. 0-Azhedexrcs-bpxyued completes the activity by him/herself with no assistance from a helper. 5-Set-up or Clean-up Assistance-helper sets up or cleans up; patient completes activity. [place] assists only prior to or following the activity. 4-Supervision or Touching Assistance-helper provides verbal cues and/or touching/steadying and/or contact guard assistance as patient completes activity. Assistance may be provided throughout the activity or intermittently. 3-Partial/Moderate Assistance-helper does LESS THAN HALF the effort. [place] lifts, holds or supports trunk or limbs, but provides less than half the effort. 2-Substantial/Maximal Assistance-helper does MORE THAN HALF the effort. [place] lifts or holds trunk or limbs and provides more than half the effort. 4-Bfirafrqk-vpgljh does ALL the effort. Patient does none of the effort to complete the activity. Or, the assistance of 2 or more helpers is required for the patient to complete the activity. If activity was not attempted, code reason: 7-Patient Refused. 9-Not Applicable-not attempted and the patient did not perform the activity before the current illness, exacerbation or injury. 10-Not Attempted due to Environmental Limitations-(lack of equipment, weather restraints, etc.). 88-Not Attempted due to Medical Conditions or Safety Concerns. Toileting Hygiene (QC): 1 (Assist to wash buttocks) Other Treatment Pt laying in bed, transferred supine to sit EOB, Max A. Pt encouraged to sit up in recliner, but he adamantly declined.Pt completed x15 reps of the following BUE exercises in order to increase strength and activity tolerance: shoulder flexion, elbow flexion and elbow extension. Pt stood at EOB, CGA, and took a few side steps towards HOB. OT noticed slight BM on pt's buttocks, OT performed toilet hygiene for pt. Pt sat back on bed, then transferred supine, max A. Post tx, pt laying in bed, call light in reach and all need met. Education OT Patient Education: Correct positioning, Exercise program, Modified ADL techniques, Progress toward Goal/Update tx plan, Purpose of tx/functional activities, Rehab process Teaching Recipient: Patient Teaching Methods: Discussion Response to Teaching: Reinforcement Needed OT Short Term Goals Short Term Goals Time Frame: Nov 15, 2020 Eatin Oral hygiene: 3 Toileting hygiene: 3 Upper body dressin OT Correction Goals Correction Goals Time Frame: Nov 22, 2020 Eating (QC): 5 Oral Hygiene (QC): 5 Toileting Hygiene (QC): 4 Upper Body Dressing (QC): 4 On/Off Footwear (QC): 3 Additional Goals: 1-Demonstrate ADL Tasks, 2-Verbalize Understanding, 3- ImproveStrength/Alondra 1=Demonstrate adherence to instructed precautions during ADL tasks. 2=Patient will verbalize/demonstrate understanding of assistive devices/modifications for ADL. 3=Patient will improve strength/tolerance for activity to enable patient to perform ADL's. OT Education/Plan Problem List/Assessment Assessment: Decreased Activ Tolerance, Decreased UE Strength, Impaired I ADL's, Impaired Self-Care Skills Discharge Recommendations Plan/Recommendations: Continue POC Treatment Plan/Plan of Care Patient would benefit from OT for education, treatment and training to promote independence in ADL's, mobility, safety and/or upper extremity function for ADL's. Plan of Care: ADL Retraining, Functional Mobility, UE Funct Exercise/Act Treatment Duration: Nov 22, 2020 Frequency: 5 times per week Estimated Hrs Per Day: .25 hour per day Agreement: Yes Rehab Potential: Fair Time/GCodes Start Time: 11:00 Stop Time: 11:15 Total Time Billed (hr/min): 15 Billed Treatment Time 1, EX ROMEO BASS OT Nov 10, 2020 13:35
[2020-11-10] MEDS: CYANOCOBALAMIN 1,000 MCG (VITAMIN B-12) TABLET PO SCH (17:15)
[2020-11-10] MEDS: FINASTERIDE (PROSCAR) 5 MG TAB PO SCH (17:16)
[2020-11-10] MEDS: doxAzosin 2 MG (CARDURA) TAB PO SCH (17:16)
[2020-11-10] MEDS: TAMSULOSIN 0.4 MG (FLOMAX) CAP PO SCH (17:16)
[2020-11-10] MEDS: MELATONIN 10 MG TABLET PO SCH (20:39)
[2020-11-10] MEDS: SENNOSIDES 8.6 MG (SENOKOT) TAB PO SCH (20:39)
[2020-11-11] MEDS: MEROPENEM 500 MG/SWFI 10 ML IV PUSH IV SCH ×4 (00:07→13:28)
[2020-11-11] MEDS: VANCOMYCIN 125 MG CAPSULE PO SCH ×4 (05:43→21:23)
[2020-11-11 06:12] LABS: BASOPHILS % (AUTO) 1 % (0-10); EOSINOPHILS # (AUTO) 0.2 10^3/uL (0.0-0.3); EOSINOPHILS % (AUTO) 2 % (0-10); HEMATOCRIT 27 % (40-54); HEMOGLOBIN 8.3 g/dL (13.3-17.7); LYMPHOCYTES # (AUTO) 1.6 10^3/uL (1.0-4.0); LYMPHOCYTES % (AUTO) 20 % (12-44); MEAN CORPUSCULAR HEMOGLOBIN 28 pg (25-34); MEAN CORPUSCULAR HGB CONC 31 g/dL (32-36); MEAN CORPUSCULAR VOLUME 91 fL (80-99); MEAN PLATELET VOLUME 10.7 fL (9.0-12.2); MONOCYTES # (AUTO) 0.7 10^3/uL (0.0-1.0); MONOCYTES % (AUTO) 9 % (0-12); NEUTROPHILS # (AUTO) 5.3 10^3/uL (1.8-7.8); NEUTROPHILS % (AUTO) 68 % (42-75); PLATELET COUNT 235 10^3/uL (130-400); WHITE BLOOD COUNT 7.8 10^3/uL (4.3-11.0)
[2020-11-11 06:20] LABS: ALBUMIN 3.2 GM/DL (3.2-4.5); POTASSIUM 3.5 MMOL/L (3.6-5.0)
[2020-11-11 06:23] LABS: TOTAL PROTEIN 6.7 GM/DL (6.4-8.2)
[2020-11-11 06:24] LABS: BILIRUBIN,TOTAL 0.2 MG/DL (0.1-1.0)
[2020-11-11 06:26] LABS: CREATININE SERUM 4.24 MG/DL (0.60-1.30)
--- NOTE | 2020-11-11 06:57 | Progress Note - Hospitalist ---
Subjective HPI/CC On Admission Date Seen by Provider: Nov 11, 2020 Time Seen by Provider: 06:30 CC: Sepsis from UTI presumed resistant HPI: This is a 71yoWM clinic pt of [facility] known to me from multiple hospital stays all for the same thing of recurrent UTI and chronic kidney disease who was just discharged from the hospital and now comes back with fever, altered mental status and recurrent UTI. Pt has had significant decline in renal function with creatinine of 5.3 currently. I did talk to him about dialysis and that may be getting closer to time. His potassium level was 3.0 and his bicarbonate is 19 so there is no indication at this current time for dialysis. Subjective/Events-last exam Pt doing really well Up in a chair today Creatinine 4.24 Potassium 3.5 so given 40 mEq of IV potassium and initiating 20 mEq maintained Review of Systems General: Fatigue, Malaise Objective Exam Vital Signs Vital Signs Date Time Temp Pulse Resp B/P (MAP) Pulse Ox O2 Delivery O2 Flow Rate FiO2 11/11/20 23:30 36.0 85 18 130/58 (82) 98 Room Air 11/08/20 22:14 0.00 Capillary Refill : Less Than 3 Seconds General Appearance: No Apparent Distress, WD/WN, Chronically ill Respiratory: Lungs Clear, Normal Breath Sounds Cardiovascular: Regular Rate, Rhythm Neurologic/Psychiatric: Alert, Oriented x3, Depressed Affect Results/Procedures Lab Patient resulted labs reviewed. Assessment/Plan Assessment and Plan Assess & Plan/Chief Complaint Assessment: Sepsis Recurrent UTI presumed ESBL Acute on chronic kidney disease stage IV getting close to dialysis option Chronic debility remains in a [facility] Hypokalemia Anemia Plan: IV antibiotics IV fluids Poor prognosis 11/08/2020: Gentle IV fluids Monitor creatinine IV antibiotics PT and OT 11/09/2020: Supportive care Monitor creatinine IV antibiotics 11/10/2020: IV antibiotics PT and OT Monitor creatinine 11/11/2020: Continue IV antibiotics Monitor hemoglobin and creatinine IDALIA NAILS DO Nov 11, 2020 06:57
[2020-11-11 07:30] VITALS: BP 154/72
[2020-11-11] MEDS ORDERED: NS IV 500 ML 500 ML ONE (08:45)
[2020-11-11] MEDS: POTASSIUM CL 10MEQ/50ML IVPB 50 ML IV SCH ×4 (09:41→13:27)
[2020-11-11] MEDS: LORATADINE (CLARITIN) 10 MG TAB PO SCH (09:41)
[2020-11-11] MEDS: guaiFENesin (MUCINEX) 600 MG TAB PO SCH ×2 (09:41→21:23)
[2020-11-11] MEDS: ASPIRIN 81 MG CHEW (CHILDREN'S ASA) PO SCH (09:42)
[2020-11-11] MEDS: amLODIPine 10 MG (NORVASC) TAB PO SCH (09:42)
[2020-11-11] MEDS: GABAPENTIN 300 MG (NEURONTIN) CAP PO SCH ×2 (09:42→21:24)
[2020-11-11] MEDS: KCL 20 MEQ TAB (K-DUR) PO SCH ×3 (09:42→21:23)
[2020-11-11] MEDS: FLUoxetine HCL 10 MG (PROzac) CAPSULE/TABLET PO SCH (09:42)
[2020-11-11] MEDS: LUBIPROSTONE 24 MCG CAP (AMITIZA) NON-FORMULARY PO SCH ×2 (09:43→21:26)
--- NOTE | 2020-11-11 15:37 | Physical Therapy Daily Note ---
PT Daily Note-Current Subjective Patient sitting in chair upon PT arrival, initially refuses treatment. However he reports he needs to use the BR and he was agreeable to ambulate with PT. Pain Numeric Pain Scale: 0-No Pain Transfers SCALE: Activities may be completed with or without assistive devices. 8-Ysmycsrwyi-czddpud completes the activity by him/herself with no assistance from a helper. 5-Set-up or Clean-up Assistance-helper sets up or cleans up; patient completes activity. [place] assists only prior to or following the activity. 4-Supervision or Touching Assistance-helper provides verbal cues and/or touching/steadying and/or contact guard assistance as patient completes activity. Assistance may be provided throughout the activity or intermittently. 3-Partial/Moderate Assistance-helper does LESS THAN HALF the effort. [place] lifts, holds or supports trunk or limbs, but provides less than half the effort. 2-Substantial/Maximal Assistance-helper does MORE THAN HALF the effort. [place] lifts or holds trunk or limbs and provides more than half the effort. 6-Pmtyyywue-gfxnjd does ALL the effort. Patient does none of the effort to compl ete the activity. Or, the assistance of 2 or more helpers is required for the patient to complete the activity. If activity was not attempted, code reason: 7-Patient Refused. 9-Not Applicable-not attempted and the patient did not perform the activity before the current illness, exacerbation or injury. 10-Not Attempted due to Environmental Limitations-(lack of equipment, weather restraints, etc.). 88-Not Attempted due to Medical Conditions or Safety Concerns. Sit to Stand (QC): 4 Chair/Gzu-iy-Moeov Xfer(QC): 4 Toilet Transfer (QC): 4 Gait Training Does the Patient Walk?: Yes Distance: 20 Walk 10 feet (QC): 4 Gait Persons Needed: 2 Gait Assistive Device: FWW Patient ambulates 20 feet with FWW, with min A and 1 additional person for the IV. Patient ambulates with short stride length bilaterally and requires frequent verbal cues for progression and obstacles. Wheelchair Training Does the Pt Use a Wheelchair?: No Exercises Seated Therapy Exercises: Ankle pumps, Long arc quads, Hip flexion Seated Reps: 20 Treatments gait, therapeutic exercise Assessment Current Status: Fair Progress Patient sitting in chair upon PT arrival. Demonstrates improved gait pattern and tolerance to activity. He continues to require min A due to obstacles and safety issues with use of the FWW. Addressed those issues including distance and control of the FWW with patient, however did not seem to understand or care about the subject. PT Assisted Goals Assisted Goals PT Continuous Miner Goals Time Frame: Nov 15, 2020 Roll Left & Right (QC): 3 Sit to Lying (QC): 3 Lying-Sitting on Side/Bed(QC): 3 Sit to Stand (QC): 4 Chair/Yva-em-Gnvnp Xfer(QC): 4 Walk 10 feet (QC): 4 PT Plan Treatment/Plan Treatment Plan: Continue Plan of Care Treatment Plan: Bed Mobility, Education, Functional Activity Alondra, Functional Strength, Gait, Safety, Therapeutic Exercise, Transfers Treatment Duration: Nov 15, 2020 Frequency: 6 times per week Estimated Hrs Per Day: .25 hour per day Patient and/or Family Agrees t: Yes Safety Risks/Education Patient Education: Gait Training, Transfer Techniques, Reviewed Precautions Teaching Recipient: Patient Teaching Methods: Demonstration, Discussion Response to Teaching: Verbalize Understanding Time/GCodes Time In: 1340 Time Out: 1405 Total Billed Treatment Time: 25 Total Billed Treatment Visit, gait, exercise RENZO CALLAHAN PT Nov 11, 2020 15:37
[2020-11-11 16:30] VITALS: BP 128/60
[2020-11-11] MEDS: FINASTERIDE (PROSCAR) 5 MG TAB PO SCH (18:26)
[2020-11-11] MEDS: doxAzosin 2 MG (CARDURA) TAB PO SCH (18:26)
[2020-11-11] MEDS: TAMSULOSIN 0.4 MG (FLOMAX) CAP PO SCH (18:26)
[2020-11-11] MEDS: CYANOCOBALAMIN 1,000 MCG (VITAMIN B-12) TABLET PO SCH (18:26)
[2020-11-11] MEDS: MELATONIN 10 MG TABLET PO SCH (21:23)
[2020-11-11] MEDS: SENNOSIDES 8.6 MG (SENOKOT) TAB PO SCH (21:24)
[2020-11-11 23:30] VITALS: BP 130/58
[2020-11-12] MEDS: MEROPENEM 500 MG/SWFI 10 ML IV PUSH IV SCH ×4 (00:20→12:57)
[2020-11-12] MEDS: VANCOMYCIN 125 MG CAPSULE PO SCH ×4 (05:19→20:56)
[2020-11-12 06:23] LABS: BASOPHILS % (AUTO) 0 % (0-10); EOSINOPHILS # (AUTO) 0.2 10^3/uL (0.0-0.3); EOSINOPHILS % (AUTO) 2 % (0-10); HEMATOCRIT 26 % (40-54); HEMOGLOBIN 8.2 g/dL (13.3-17.7); LYMPHOCYTES # (AUTO) 1.6 10^3/uL (1.0-4.0); LYMPHOCYTES % (AUTO) 22 % (12-44); MEAN CORPUSCULAR HEMOGLOBIN 28 pg (25-34); MEAN CORPUSCULAR HGB CONC 31 g/dL (32-36); MEAN CORPUSCULAR VOLUME 91 fL (80-99); MEAN PLATELET VOLUME 10.6 fL (9.0-12.2); MONOCYTES # (AUTO) 0.6 10^3/uL (0.0-1.0); MONOCYTES % (AUTO) 8 % (0-12); NEUTROPHILS # (AUTO) 4.7 10^3/uL (1.8-7.8); NEUTROPHILS % (AUTO) 67 % (42-75); PLATELET COUNT 222 10^3/uL (130-400); WHITE BLOOD COUNT 7.1 10^3/uL (4.3-11.0)
[2020-11-12 06:39] LABS: ALBUMIN 3.2 GM/DL (3.2-4.5); POTASSIUM 3.5 MMOL/L (3.6-5.0)
[2020-11-12 06:40] LABS: CALCIUM 8.4 MG/DL (8.5-10.1)
[2020-11-12 06:41] LABS: TOTAL PROTEIN 6.6 GM/DL (6.4-8.2)
[2020-11-12 06:43] LABS: BILIRUBIN,TOTAL 0.2 MG/DL (0.1-1.0)
[2020-11-12 06:45] LABS: CREATININE SERUM 4.08 MG/DL (0.60-1.30)
--- NOTE | 2020-11-12 06:51 | Progress Note - Hospitalist ---
Subjective HPI/CC On Admission Date Seen by Provider: Nov 12, 2020 Time Seen by Provider: 11:00 CC: Sepsis from UTI presumed resistant HPI: This is a 71yoWM clinic pt of [facility] known to me from multiple hospital stays all for the same thing of recurrent UTI and chronic kidney disease who was just discharged from the hospital and now comes back with fever, altered mental status and recurrent UTI. Pt has had significant decline in renal function with creatinine of 5.3 currently. I did talk to him about dialysis and that may be getting closer to time. His potassium level was 3.0 and his bicarbonate is 19 so there is no indication at this current time for dialysis. Subjective/Events-last exam Patient about the same Eating lunch No major concerns Creatinine 4.08 Hemoglobin 8.2 Potassium 3.5 Review of Systems General: Fatigue, Malaise Objective Exam Vital Signs Vital Signs Date Time Temp Pulse Resp B/P (MAP) Pulse Ox O2 Delivery O2 Flow Rate FiO2 11/12/20 23:30 37.0 65 20 142/68 (92) 97 Room Air 11/08/20 22:14 0.00 Capillary Refill : Less Than 3 Seconds General Appearance: No Apparent Distress, WD/WN, Chronically ill, Obese Respiratory: Lungs Clear, Normal Breath Sounds Cardiovascular: Regular Rate, Rhythm Neurologic/Psychiatric: Alert, Oriented x3 Results/Procedures Lab Laboratory Tests 11/12/20 05:30 Patient resulted labs reviewed. Assessment/Plan Assessment and Plan Assess & Plan/Chief Complaint Assessment: Sepsis Recurrent UTI presumed ESBL Acute on chronic kidney disease stage IV getting close to dialysis option Chronic debility remains in a group home Hypokalemia Anemia Plan: IV antibiotics IV fluids Poor prognosis 11/08/2020: Gentle IV fluids Monitor creatinine IV antibiotics PT and OT 11/09/2020: Supportive care Monitor creatinine IV antibiotics 11/10/2020: IV antibiotics PT and OT Monitor creatinine 11/11/2020: Continue IV antibiotics Monitor hemoglobin and creatinine 11/12/2020: Supportive care Monitor closely IDALIA NAILS DO Nov 12, 2020 06:51
[2020-11-12 08:08] VITALS: BP 135/61
[2020-11-12] MEDS: ASPIRIN 81 MG CHEW (CHILDREN'S ASA) PO SCH (08:52)
[2020-11-12] MEDS: KCL 20 MEQ TAB (K-DUR) PO SCH ×3 (08:52→20:56)
[2020-11-12] MEDS: LUBIPROSTONE 24 MCG CAP (AMITIZA) NON-FORMULARY PO SCH ×2 (08:52→20:57)
[2020-11-12] MEDS: LORATADINE (CLARITIN) 10 MG TAB PO SCH (08:52)
[2020-11-12] MEDS: FLUoxetine HCL 10 MG (PROzac) CAPSULE/TABLET PO SCH (08:53)
[2020-11-12] MEDS: guaiFENesin (MUCINEX) 600 MG TAB PO SCH ×2 (08:53→20:56)
[2020-11-12] MEDS: GABAPENTIN 300 MG (NEURONTIN) CAP PO SCH ×2 (08:53→20:56)
[2020-11-12] MEDS: amLODIPine 10 MG (NORVASC) TAB PO SCH (08:53)
[2020-11-12 15:30] VITALS: BP 146/74
[2020-11-12] MEDS: FINASTERIDE (PROSCAR) 5 MG TAB PO SCH (16:39)
[2020-11-12] MEDS: doxAzosin 2 MG (CARDURA) TAB PO SCH (16:39)
[2020-11-12] MEDS: CYANOCOBALAMIN 1,000 MCG (VITAMIN B-12) TABLET PO SCH (16:40)
[2020-11-12] MEDS: TAMSULOSIN 0.4 MG (FLOMAX) CAP PO SCH (16:40)
[2020-11-12] MEDS: MELATONIN 10 MG TABLET PO SCH (20:55)
[2020-11-12] MEDS: SENNOSIDES 8.6 MG (SENOKOT) TAB PO SCH (20:56)
[2020-11-12 23:30] VITALS: BP 142/68
[2020-11-13] MEDS: MEROPENEM 500 MG/SWFI 10 ML IV PUSH IV SCH ×2 (01:06)
[2020-11-13] MEDS: VANCOMYCIN 125 MG CAPSULE PO SCH ×2 (05:25→12:09)
[2020-11-13 07:10] LABS: BASOPHILS % (AUTO) 1 % (0-10); EOSINOPHILS # (AUTO) 0.3 10^3/uL (0.0-0.3); EOSINOPHILS % (AUTO) 4 % (0-10); HEMATOCRIT 28 % (40-54); HEMOGLOBIN 8.8 g/dL (13.3-17.7); LYMPHOCYTES # (AUTO) 1.6 10^3/uL (1.0-4.0); LYMPHOCYTES % (AUTO) 20 % (12-44); MEAN CORPUSCULAR HEMOGLOBIN 28 pg (25-34); MEAN CORPUSCULAR HGB CONC 31 g/dL (32-36); MEAN CORPUSCULAR VOLUME 91 fL (80-99); MONOCYTES # (AUTO) 0.7 10^3/uL (0.0-1.0); MONOCYTES % (AUTO) 8 % (0-12); NEUTROPHILS # (AUTO) 5.1 10^3/uL (1.8-7.8); NEUTROPHILS % (AUTO) 66 % (42-75); PLATELET COUNT 222 10^3/uL (130-400); WHITE BLOOD COUNT 7.7 10^3/uL (4.3-11.0)
[2020-11-13 07:37] LABS: ALBUMIN 3.3 GM/DL (3.2-4.5); POTASSIUM 3.7 MMOL/L (3.6-5.0)
[2020-11-13 07:39] LABS: CALCIUM 8.4 MG/DL (8.5-10.1)
[2020-11-13 07:40] LABS: TOTAL PROTEIN 6.9 GM/DL (6.4-8.2)
[2020-11-13 07:42] LABS: BILIRUBIN,TOTAL 0.2 MG/DL (0.1-1.0)
[2020-11-13 07:44] LABS: CREATININE SERUM 3.91 MG/DL (0.60-1.30)
[2020-11-13 08:00] VITALS: BP 121/63
[2020-11-13] MEDS: GABAPENTIN 300 MG (NEURONTIN) CAP PO SCH (08:45)
[2020-11-13] MEDS: FLUoxetine HCL 10 MG (PROzac) CAPSULE/TABLET PO SCH (08:45)
[2020-11-13] MEDS: guaiFENesin (MUCINEX) 600 MG TAB PO SCH (08:45)
[2020-11-13] MEDS: amLODIPine 10 MG (NORVASC) TAB PO SCH (08:45)
[2020-11-13] MEDS: KCL 20 MEQ TAB (K-DUR) PO SCH ×2 (08:45→12:09)
[2020-11-13] MEDS: ASPIRIN 81 MG CHEW (CHILDREN'S ASA) PO SCH (08:45)
[2020-11-13] MEDS: LORATADINE (CLARITIN) 10 MG TAB PO SCH (08:45)
[2020-11-13] MEDS: LUBIPROSTONE 24 MCG CAP (AMITIZA) NON-FORMULARY PO SCH (08:46)
[2020-11-13] MEDS ORDERED: LINE600T12 PO (10:35)
[2020-11-13] MEDS ORDERED: VANC125C5 PO (10:35)
--- NOTE | 2020-11-13 10:36 | Discharge Inst-Skilled Nursing ---
Discharge Inst-Skilled NF Reconcile Patient Problems Problems Reviewed?: Yes Chief Complaint CC: Sepsis from UTI presumed resistant HPI: This is a 71yoWM clinic pt of [facility] known to me from multiple hospital stays all for the same thing of recurrent UTI and chronic kidney disease who was just discharged from the hospital and now comes back with fever, altered mental status and recurrent UTI. Pt has had significant decline in renal function with creatinine of 5.3 currently. I did talk to him about dialysis and that may be getting closer to time. His potassium level was 3.0 and his bicarbonate is 19 so there is no indication at this current time for dialysis. Patient Instructions Patient Problems: Kidney failure UTI C diff Consult/Follow Up/Orders Follow Up Appt.: [facility] NH rounds in 1 week Needs Nephrology appt Skilled NF Admit to: [facility] Certification (SNF) I certify that SNF services are required to be given on an inpatient basis because of the above named patient's need for alf care on a continuing basis for the conditions(s) for which he/she was receiving inpatient hospital services prior to his/her transfer to the SNF. [facility] Facility Order: Nursing Services, [employer]-Evaluate & Treat, Physical Therapy-Evaluate & Treat Oxygen Delivery Method: Room Air Discharge Diet: No Restrictions Resuscitation Status: Full Code New & Resume Previous Orders New Medications: Linezolid (Zyvox) 600 Mg Tablet 600 MG PO BID for 7 Days, TAB Vancomycin HCl (Vancomycin HCl) 125 Mg Capsule 125 MG PO QIDACHS for 7 Days, CAP Continued Medications: Acetaminophen (Acetaminophen) 325 Mg Tablet 650 MG PO Q4H PRN for PAIN-MILD, TAB Albuterol Sulfate (Proair Hfa) 1 Puff Puff 2 PUFF IH Q6H PRN for WHEEZING, PUFF Amlodipine Besylate (Amlodipine Besylate) 10 Mg Tablet 10 MG PO DAILY, TAB HOLD AND NOTIFY NURSE/PCP IF BP <80/50 OR >180/110 AND/OR PULSE <50 OR >110 Aspirin (Aspirin) 81 Mg Tab.chew 81 MG PO DAILY, TAB Atorvastatin Calcium (Atorvastatin Calcium) 20 Mg Tablet 20 MG PO 1800, TAB Bisacodyl (Laxative Suppository) 10 Mg Supp.rect 10 MG RC DAILY PRN for CONSTIPATION-4TH LINE, SUPP.RECT Bisacodyl (Bisacodyl) 5 Mg Tablet.dr 5 MG PO DAILY PRN for CONSTIPATION-4TH LINE, TAB Cholestyramine/Aspartame (Cholestyramine Light Packet) 4 Gm Powd.pack 4 GM PO Q12H PRN for DIARRHEA, PACKET Cyanocobalamin (Vitamin B-12) (B-12) 1,000 Mcg Tablet 1000 MCG PO 1800, TAB Doxazosin Mesylate (Doxazosin Mesylate) 2 Mg Tablet 2 MG PO 1800, TAB HOLD AND NOTIFY NURSE/PCP IF BP <80/50 OR >180/110 AND/OR PULSE <50 OR >110 Fexofenadine HCl (Fexofenadine HCl) 180 Mg Tablet 180 MG PO DAILY, TAB Finasteride (Finasteride) 5 Mg Tablet 5 MG PO 1800, TAB Fluoxetine HCl (Fluoxetine HCl) 10 Mg Capsule 10 MG PO DAILY, TAB Furosemide (Furosemide) 40 Mg Tablet 40 MG PO TWICE WEEKLY PRN for EDEMA/SWELLING, TAB Gabapentin (Neurontin) 300 Mg Capsule 300 MG PO BID, CAP Guaifenesin (Mucinex) 600 Mg Tab.er.12h 600 MG PO BID, TAB Lubiprostone (Amitiza) 24 Mcg Capsule 24 MCG PO BID, CAP Melatonin (Melatonin) 10 Mg Tablet 10 MG PO HS, TAB Miconazole Nitrate (Miconazole Nitrate) 10 Gm Powder 1 APPLIC TOP PRN PRN for RASH, EA APPLY TO BUTTOCKS OR GROIN Ondansetron HCl (Zofran) 4 Mg Tab 4 MG PO Q6H PRN for NAUSEA/VOMITING-1ST LINE, TAB Polyethylene Glycol 3350 (Miralax) 17 Gm Powd.pack 17 GM PO BID PRN for CONSTIPATION-2ND LINE, EACH Semaglutide (Ozempic) 0.25 Mg/0.2 Ml Pen.injctr 0.25 MG SC THUR, EACH Sennosides (Senna Lax) 8.6 Mg Tablet 8.6 MG PO HS, TAB Simethicone (Simethicone) 80 Mg Tab.chew 80 MG PO Q6H PRN for GAS, TAB Tamsulosin HCl (Flomax) 0.4 Mg Cap 0.4 MG PO 1800, CAP Tizanidine HCl (Tizanidine HCl) 4 Mg Tablet 4 MG PO BID PRN for SPASMS, TAB Becka Marshall Nov 13, 2020 10:35 BECKA MARSHALL DO Nov 13, 2020 10:36
--- NOTE | 2020-11-13 10:36 | Discharge Summary ---
Discharge Summary Hospital Course Was the Problem List Reviewed?: Yes Problems/Dx: (1) Urinary tract infection Status: Resolved (2) Urinary retention Status: Chronic (3) Mhqey-rr-fgafdjj kidney injury Status: Acute (4) Anemia of chronic disease Status: Chronic Hospital Course Date of Admission: Nov 07, 2020 at 10:30 Admission Diagnosis : Family Physician/Provider: Harmeet Valente MD Date of Discharge: 11/13/20 Discharge Diagnosis: Enterococcus UTI, acute on chronic renal failure stage IV close to stage V Hospital Course: Hospital Course: Pt had an uneventful seven day hospital course. He was admitted for UTI and acute on chronic renal failure with hypokalemia. Pt had not met with nephrology and it doesnt appear that he is a hemodialysis candidate given his comorbidities and halfway and chronic debility status but regardless potassium was replaced, gentle IV fluids given, Creatinine returned back to normal at 3.9 his baseline. Potassium was supplemented and UTI with enterococcus diagnosed, placed on Zyvox at DC and pt overall has a very poor prognosis and it would be reasonable to go back to halfway on hospice but will skill him and await for PCP to make that decision but we will get a nephrology appointment. Labs and Pending Lab Test: Laboratory Tests 11/13/20 07:05: White Blood Count 7.7, Red Blood Count 3.11L, Hemoglobin 8.8L, Hematocrit 28L, Mean Corpuscular Volume 91, Mean Corpuscular Hemoglobin 28, Mean Corpuscular Hemoglobin Concent 31L, Red Cell Distribution Width 15.7H, Platelet Count 222, Mean Platelet Volume 10.0, Immature Granulocyte % (Auto) 1, Neutrophils (%) (Auto) 66, Lymphocytes (%) (Auto) 20, Monocytes (%) (Auto) 8, Eosinophils (%) (Auto) 4, Basophils (%) (Auto) 1, Neutrophils # (Auto) 5.1, Lymphocytes # (Auto) 1.6, Monocytes # (Auto) 0.7, Eosinophils # (Auto) 0.3, Basophils # (Auto) 0.0, Immature Granulocyte # (Auto) 0.1, Sodium Level 143, Potassium Level 3.7, Chloride Level 115H, Carbon Dioxide Level 15L, Anion Gap 13, Blood Urea Nitrogen 33H, Creatinine 3.91H, Estimat Glomerular Filtration Rate 15, BUN/Creatinine Ratio 8, Glucose Level 81, Calcium Level 8.4L, Corrected Calcium 9.0, Total Bi lirubin 0.2, Aspartate Amino Transf (AST/SGOT) 12, Alanine Aminotransferase (ALT/SGPT) 10, Alkaline Phosphatase 71, Total Protein 6.9, Albumin 3.3 Microbiology 11/07/20 C. difficile DNA Amplification - Final, Complete 11/07/20 C. difficile GDH Antigen & Toxins - Final, Complete 11/07/20 Blood Culture - Final, Complete No growth 11/07/20 Urine Culture - Final, Complete Enterococcus faecium Home Meds Active Zyvox (Linezolid) 600 Mg Tablet 600 Mg PO BID 7 Days Vancomycin HCl 125 Mg Capsule 125 Mg PO QIDACHS 7 Days Reported Neurontin (Gabapentin) 300 Mg Capsule 300 Mg PO BID Doxazosin Mesylate 2 Mg Tablet 2 Mg PO 1800 HOLD AND NOTIFY NURSE/PCP IF BP <80/50 OR >180/110 AND/OR PULSE <50 OR >110 Amlodipine Besylate 10 Mg Tablet 10 Mg PO DAILY HOLD AND NOTIFY NURSE/PCP IF BP <80/50 OR >180/110 AND/OR PULSE <50 OR >110 Ozempic (Semaglutide) 0.25 Mg/0.2 Ml Pen.injctr 0.25 Mg SC THUR Cholestyramine Light Packet (Cholestyramine/Aspartame) 4 Gm Powd.pack 4 Gm PO Q12H PRN Melatonin 10 Mg Tablet 10 Mg PO HS Amitiza (Lubiprostone) 24 Mcg Capsule 24 Mcg PO BID Mucinex (Guaifenesin) 600 Mg Tab.er.12h 600 Mg PO BID Furosemide 40 Mg Tablet 40 Mg PO TWICE WEEKLY PRN Miconazole Nitrate 10 Gm Powder 1 Applic TOP PRN PRN APPLY TO BUTTOCKS OR GROIN Flomax (Tamsulosin HCl) 0.4 Mg Cap 0.4 Mg PO 1800 Fluoxetine HCl 10 Mg Capsule 10 Mg PO DAILY Tizanidine HCl 4 Mg Tablet 4 Mg PO BID PRN Senna Lax (Sennosides) 8.6 Mg Tablet 8.6 Mg PO HS Zofran (Ondansetron HCl) 4 Mg Tab 4 Mg PO Q6H PRN Simethicone 80 Mg Tab.chew 80 Mg PO Q6H PRN Miralax (Polyethylene Glycol 3350) 17 Gm Powd.pack 17 Gm PO BID PRN Fexofenadine HCl 180 Mg Tablet 180 Mg PO DAILY Finasteride 5 Mg Tablet 5 Mg PO 1800 Aspirin 81 Mg Tab.chew 81 Mg PO DAILY Proair Hfa (Albuterol Sulfate) 1 Puff Puff 2 Puff IH Q6H PRN Bisacodyl 5 Mg Tablet.dr 5 Mg PO DAILY PRN B-12 (Cyanocobalamin (Vitamin B-12)) 1,000 Mcg Tablet 1,000 Mcg PO 1800 Laxative Suppository (Bisacodyl) 10 Mg Supp.rect 10 Mg RC DAILY PRN Atorvastatin Calcium 20 Mg Tablet 20 Mg PO 1800 Acetaminophen 325 Mg Tablet 650 Mg PO Q4H PRN Assessment/Pt Instructions [facility] halfway rounds Discharge Planning: <30 minutes discharge planning Discharge Instructions Discharge Diet: No Restrictions Activity as Tolerated: Yes Discharge Physical Examination Vital Signs Vital Signs Date Time Temp Pulse Resp B/P (MAP) Pulse Ox O2 Delivery O2 Flow Rate FiO2 11/13/20 09:38 Room Air 11/13/20 08:00 37.0 72 20 121/63 (82) 91 11/08/20 22:14 0.00 General Appearance: No Apparent Distress, WD/WN, Chronically ill, Obese Respiratory: Lungs Clear Cardiovascular: Regular Rate, Rhythm Neurologic/Psychiatric: Alert, Oriented x3, Depressed Affect Allergies: Coded Allergies: No Known Drug Allergies (Unverified , 06/05/17) Discharge Summary Date of Admission Nov 07, 2020 at 10:30 Date of Discharge Discharge Date: Nov 13, 2020 Admission Diagnosis Assessment: Sepsis Recurrent UTI presumed ESBL Acute on chronic kidney disease stage IV getting close to dialysis option Chronic debility remains in a halfway Hypokalemia Anemia Plan: IV antibiotics IV fluids Poor prognosis Discharge Diagnosis Assessment: Sepsis Recurrent UTI presumed ESBL Acute on chronic kidney disease stage IV getting close to dialysis option Chronic debility remains in a halfway Hypokalemia Anemia Plan: IV antibiotics IV fluids Poor prognosis 11/08/2020: Gentle IV fluids Monitor creatinine IV antibiotics PT and OT 11/09/2020: Supportive care Monitor creatinine IV antibiotics 11/10/2020: IV antibiotics PT and OT Monitor creatinine 11/11/2020: Continue IV antibiotics Monitor hemoglobin and creatinine 11/12/2020: Supportive care Monitor closely IDALIA NAILS DO Nov 13, 2020 10:36
[2020-11-13] MEDS ORDERED: LINEZOLID (ZYVOX) 600 MG TAB PO ONE (10:45)
--- NOTE | 2020-11-13 13:44 | Physical Therapy Daily Note ---
PT Daily Note-Current Subjective Patient agreeable to treatment initially. He agrees to therapeutic exercise, then will not open his eyes to verbal and tactile stimuli. Rates pain initially at 0/10. Mental Status Patient Orientation: Person Attachments: Sotelo Catheter Transfers SCALE: Activities may be completed with or without assistive devices. 9-Dhmclvjmaq-brfymtm completes the activity by him/herself with no assistance from a helper. 5-Set-up or Clean-up Assistance-helper sets up or cleans up; patient completes activity. [place] assists only prior to or following the activity. 4-Supervision or Touching Assistance-helper provides verbal cues and/or touching/steadying and/or contact guard assistance as patient completes activity. Assistance may be provided throughout the activity or intermittently. 3-Partial/Moderate Assistance-helper does LESS THAN HALF the effort. [place] lifts, holds or supports trunk or limbs, but provides less than half the effort. 2-Substantial/Maximal Assistance-helper does MORE THAN HALF the effort. [place] lifts or holds trunk or limbs and provides more than half the effort. 9-Axlnskscg-jbbchs does ALL the effort. Patient does none of the effort to complete the activity. Or, the assistance of 2 or more helpers is required for the patient to complete the activity. If activity was not attempted, code reason: 7-Patient Refused. 9-Not Applicable-not attempted and the patient did not perform the activity before the current illness, exacerbation or injury. 10-Not Attempted due to Environmental Limitations-(lack of equipment, weather restraints, etc.). 88-Not Attempted due to Medical Conditions or Safety Concerns. Attempted to mobilize patient, however feigned sleeping and would not participate post therapeutic exercise. Gait Training Does the Patient Walk?: No and Walking Goal IS indicated Patient would not ambulate this visit. Exercises Supine Ex: Ankle pumps, Quad Set, Glut sets, Heel Slides, Short Arc Quads, Straight leg raise, Hip abd/add Supine Reps: 20 Assessment Current Status: Fair Progress Patient lying supine in bed upon PT arrival, agreeable to treatment. Patient performs LE therapeutic exercise with AAROM in the above listed motions. Patient performs LE exercises well with minimal assistance. Immediately after performing exercises, patient keeps his eyes closed and will not respond to verbal or tactile stimuli. Patient in bed post treatment with call light in hand, all needs met, nursing notified. PT Tennis Court Attendant Goals Tennis Court Attendant Goals PT Tennis Court Attendant Goals Time Frame: Nov 15, 2020 Roll Left & Right (QC): 3 Sit to Lying (QC): 3 Lying-Sitting on Side/Bed(QC): 3 Sit to Stand (QC): 4 Chair/Yds-ep-Tkxre Xfer(QC): 4 Walk 10 feet (QC): 4 PT Plan Problem List Problem List: Activity Tolerance, Functional Strength, Safety, Balance, Gait, Transfer Treatment/Plan Treatment Plan: Continue Plan of Care Treatment Plan: Bed Mobility, Education, Functional Activity Alondra, Functional Strength, Gait, Safety, Therapeutic Exercise, Transfers Treatment Duration: Nov 29, 2020 Frequency: 6 times per week Estimated Hrs Per Day: .25 hour per day Patient and/or Family Agrees t: Yes Safety Risks/Education Patient Education: Issued Written HEP Teaching Recipient: Patient Teaching Methods: Demonstration, Discussion Response to Teaching: Reinforcement Needed Time/GCodes Time In: 1315 Time Out: 1340 Total Billed Treatment Time: 25 Total Billed Treatment Exercise (2) RENZO CALLAHAN PT Nov 13, 2020 13:44
--- NOTE | 2020-11-13 14:28 | Occ Therapy Progress Note ---
Therapy Progress Note Pt laying in bed, upon OT entering the room, pt closed his eyes. OT offered pt ADLs and UE exercises, to which pt did not respond. OT provided tactile cues to pt, again asking pt to perform UE exercises. He responds that he is too tired. OT educated pt on purpose and benefit of OT, providing moderate encouragement to participate, he continued to lay in bed with eyes closed, not responding to therapist. OT will attempt tx again tomorrow. 1, refusal 1415 ROMEO BASS OT Nov 13, 2020 14:28
[2020-11-13 15:59] VITALS: BP 121/63
[2020-11-13] MEDS ORDERED: LINEZOLID (ZYVOX) 600 MG TAB PO SCH (21:00)
== END 2020-11-13 15:58 | DRG 698 ==
LOC: EDUNIT# 09:00 → ER 09:01 → 4TH 10:30
PROVIDERS: ADMIT Internal Medicine; ATTEND Internal Medicine
DX: T83.510A Infection and inflammatory reaction due to cystostomy catheter, initial encounter (principal); G93.41 Metabolic encephalopathy; A41.9 Sepsis, unspecified organism; N39.0 Urinary tract infection, site not specified; Z16.12 Extended spectrum beta lactamase (ESBL) resistance; I42.9 Cardiomyopathy, unspecified; N18.4 Chronic kidney disease, stage 4 (severe); N17.9 Acute kidney failure, unspecified; Z68.41 Body mass index [BMI] 40.0-44.9, adult; Z20.822 Contact with and (suspected) exposure to COVID-19; B95.2 Enterococcus as the cause of diseases classified elsewhere; I12.9 Hypertensive chronic kidney disease with stage 1 through stage 4 chronic kidney disease, or unspecified chronic kidney disease; E11.22 Type 2 diabetes mellitus with diabetic chronic kidney disease; E78.00 Pure hypercholesterolemia, unspecified; N40.1 Benign prostatic hyperplasia with lower urinary tract symptoms; R33.8 Other retention of urine; F17.210 Nicotine dependence, cigarettes, uncomplicated; E66.01 Morbid (severe) obesity due to excess calories; I87.8 Other specified disorders of veins; F32.9 Major depressive disorder, single episode, unspecified; E87.6 Hypokalemia; D63.8 Anemia in other chronic diseases classified elsewhere; H35.30 Unspecified macular degeneration; Z79.4 Long term (current) use of insulin; Z79.82 Long term (current) use of aspirin
CPT/HCPCS: 36415; 71045; 80053; 80202; 81000; 83605; 83615; 83735; 84145; 84443; 84484; 85025; 85610; 85652; 85730; 86141; 87040; 87077; 87088; 87186; 87324; 87449; 87493; 87636; 93005; 93041; 94760

== ENCOUNTER 2022-05-15 04:28 | Emergency (ER) | payer MEDICARE ==
[2022-05-15 04:28] VITALS: BP 184/103
[~2022-05-15 04:28] MED LIST changes: +ALBU8.5H6 IH; +BENA-3 PO; -BENA20TA7 PO; +BISA5TAB20 PO; -BISA5TAB8 PO; -CHOL4PAC PO; -CHOL4PAC2 PO; +CHOL4POW13 PO; +CHOL4POW4 PO; +FEXO-338 PO; -FEXO-45 PO; -FEXO-46 PO; -FLUO10CA31 PO; +FLUO10CA33 PO; +LINE600T12 PO; +NF-ALLE180 PO; +POTA-169 PO; +POTA-177 PO; -POTA10TA36 PO; -POTA20TA8 PO; -RT-ALBUINH IH; +TIZA-186 PO; -TIZA4TAB4 PO; +VANC125C5 PO
[2022-05-15] MEDS ORDERED: NS IV 1000 ML 1,000 ML IV SCH (04:45)
[2022-05-15] MEDS ORDERED: fentaNYL INJ 100 MCG/2 ML AMP IVP ONE ×2 (04:45→06:00)
--- NOTE | 2022-05-15 04:46 | ED Fall/Injury ---
General Chief Complaint: Trauma-Non Activation Stated Complaint: FALL-LEFT HIP PAIN Source: patient Exam Limitations: no limitations (BRANDY COLORADO MD) History of Present Illness Date Seen by Provider: May 15, 2022 Time Seen by Provider: 04:30 Initial Comments Patient is a 76-year-old male history of diabetes, morbid obesity presents to the emergency department with a chief complaint of left hip pain after a fall at shelter. Patient states that he was getting up to go to the bathroom and he tripped and fell. He denies antecedent chest pain shortness of breath d izziness or lightheadedness. He states he did not hit his head or have loss of consciousness. He rates his pain in his left hip at a "15" out of 10. He denies abdominal pain, nausea or vomiting. States that he has intact sensation to both feet. Is able to wiggle his toes. Occurred: just prior to arrival Severity: severe ("15"/10) Injuries/Pain Location: lower extremity (left hip) Context: tripped Loss of Consciousness: no loss of consciousness Modifying Factors: Improves With Immobilization; Worse With Movement Associated Symptoms (Fall): Denies Symptoms, Trouble Walking ((chronic)) (BRANDY COLORADO MD) Allergies and Home Medications Allergies Coded Allergies: No Known Drug Allergies (Unverified , 06/05/17) Patient Home Medication List Home Medication List Reviewed: Yes (BRANDY COLORADO MD) Acetaminophen (Acetaminophen) 325 Mg Tablet, 650 MG PO Q4H PRN for PAIN-MILD, (Reported) Entered as Reported by: KENA JACKSON on 06/05/17 1458 Albuterol Sulfate (Ventolin Hfa) 1 Puff Puff, 2 PUFF IH Q6H PRN for WHEEZING, (Reported) Entered as Reported by: KORIN THURSTON on 11/23/19 09 Amlodipine Besylate (Amlodipine Besylate) 10 Mg Tablet, 10 MG PO DAILY, (Reported) Entered as Reported by: KORIN THURSTON on 11/07/20 1530 Aspirin (Aspirin) 81 Mg Tab.chew, 81 MG PO DAILY, (Reported) Entered as Reported by: KORIN THURSTON on 11/23/19 0923 Atorvastatin Calcium (Atorvastatin Calcium) 20 Mg Tablet, 20 MG PO 1800, (Reported) Entered as Reported by: KENA JACKSON on 06/05/17 145 Bisacodyl (Laxative Suppository) 10 Mg Supp.rect, 10 MG RC DAILY PRN for CONSTIPATION-4TH LINE, (Reported) Entered as Reported by: KENA JACKSON on 06/05/17 145 Bisacodyl (Bisacodyl) 5 Mg Tablet.dr, 5 MG PO DAILY PRN for CONSTIPATION-4TH LINE, (Reported) Entered as Reported by: KORIN THURSTON on 11/23/19 09 Cholestyramine/Aspartame (Cholestyramine Light Packet) 4 Gm Powd.pack, 4 GM PO Q12H PRN for DIARRHEA, (Reported) Entered as Reported by: KORIN THURSTON on 10/24/20 09 Cyanocobalamin (Vitamin B-12) (B-12) 1,000 Mcg Tablet, 1,000 MCG PO 1800, (Reported) Entered as Reported by: KENA JACKSON on 06/05/17 145 Doxazosin Mesylate (Doxazosin Mesylate) 2 Mg Tablet, 2 MG PO 1800, (Reported) Entered as Reported by: KORIN THURSTON on 11/07/20 153 Fexofenadine HCl (Fexofenadine HCl) 180 Mg Tablet, 180 MG PO DAILY, (Reported) Entered as Reported by: KORIN THURSTON on 12/29/19 1128 Finasteride (Finasteride) 5 Mg Tablet, 5 MG PO 1800, (Reported) Entered as Reported by: KORIN THURSTON on 11/23/19 09 Fluoxetine HCl (Fluoxetine HCl) 10 Mg Capsule, 10 MG PO DAILY, (Reported) Entered as Reported by: KORIN THURSTON on 09/11/20 1406 Furosemide (Furosemide) 40 Mg Tablet, 40 MG PO TWICE WEEKLY PRN for EDEMA/SWELLING, (Reported) Entered as Reported by: NICK BASILIO on 10/23/201941 Gabapentin (Neurontin) 300 Mg Capsule, 300 MG PO BID, (Reported) Entered as Reported by: KORIN THURSTON on 11/07/20 153 Guaifenesin (Mucinex) 600 Mg Tab.er.12h, 600 MG PO BID, (Reported) Entered as Reported by: NICK BASILIO on 10/23/201941 Linezolid (Zyvox) 600 Mg Tablet, 600 MG PO BID Prescribed by: IDALIA NAILS on 11/13/20 1035 Lubiprostone (Amitiza) 24 Mcg Capsule, 24 MCG PO BID, (Reported) Entered as Reported by: NICK BASILIO on 10/23/201941 Melatonin (Melatonin) 10 Mg Tablet, 10 MG PO HS, (Reported) Entered as Reported by: NICK BASILIO on 10/23/201941 Miconazole Nitrate (Miconazole Nitrate) 10 Gm Powder, 1 APPLIC TOP PRN PRN for RASH, (Reported) Entered as Reported by: KORIN THURSTON on 09/11/20 140 Ondansetron HCl (Zofran) 4 Mg Tab, 4 MG PO Q6H PRN for NAUSEA/VOMITING-1ST LINE, (Reported) Entered as Reported by: KORIN THURSTON on 12/29/19 112 Polyethylene Glycol 3350 (Miralax) 17 Gm Powd.pack, 17 GM PO BID PRN for CONSTIPATION-2ND LINE, (Reported) Entered as Reported by: KORIN THURSTON on 12/29/19 112 Semaglutide (Ozempic) 0.25 Mg/0.2 Ml Pen.injctr, 0.25 MG SC THUR, (Reported) Entered as Reported by: KORIN THURSTON on 10/24/20 0925 Sennosides (Senna Lax) 8.6 Mg Tablet, 8.6 MG PO HS, (Reported) Entered as Reported by: KORIN THURSTON on 12/29/19 112 Simethicone (Simethicone) 80 Mg Tab.chew, 80 MG PO Q6H PRN for GAS, (Reported) Entered as Reported by: KORIN THURSTON on 12/29/19 112 Tamsulosin HCl (Flomax) 0.4 Mg Cap, 0.4 MG PO 1800, (Reported) Entered as Reported by: KORIN THURSTON on 09/11/20 140 Tizanidine HCl (Tizanidine HCl) 4 Mg Tablet, 4 MG PO BID PRN for SPASMS, (Reported) Entered as Reported by: KORIN THURSTON on 09/11/20 140 Vancomycin HCl (Vancomycin HCl) 125 Mg Capsule, 125 MG PO QIDACHS Prescribed by: IDALIA NAILS on 11/13/20 1035 Review of Systems Review of Systems Constitutional: see HPI Eyes: No Symptoms Reported Respiratory: no symptoms reported Cardiovascular: no symptoms reported Gastrointestinal: no symptoms reported Musculoskeletal: joint pain (left hip) (BRANDY COLORADO MD) All Other Systems Reviewed Negative Unless Noted: Yes (BRANDY COLORADO MD) Past Udtewde-Toyshp-Rmpybf Hx Immunizations Up To Date Tetanus Booster (TDap): More than 5yrs PED Vaccines UTD: Yes (BRANDY COLORADO MD) Seasonal Allergies Seasonal Allergies: No (BRANDY COLORADO MD) Past Medical History Surgery/Hospitalization HX: BILATERAL CARPAL TUNNEL ORAL SURGERY SUPRAPUBIC CATHETER Surgeries: Yes (bilat CTR, oral sx) Adenoidectomy, Bladder Surgery, Eye Surgery, Orthopedic, Tonsillectomy Respiratory: No Currently Using CPAP: Yes Currently Using BIPAP: No Cardiac: Yes (RBBB) Cardiomyopathy, Chronic Edema/Swelling, High Cholesterol, Hypertension Neurological: No Reproductive Disorders: No Sexually Transmitted Disease: Yes (Hx of unknown STI) HIV/AIDS: No Genitourinary: Yes (SUPRAPUBIC CATHETER) Benign Prostatic Hyperpl, Prostate Problems, Renal Failure Gastrointestinal: Yes Chronic Constipation Musculoskeletal: Yes Fractures Endocrine: Yes (MORBID OBESITY) Diabetes, Insulin dep HEENT: Yes Macular Degeneration Loss of Vision: Bilateral Hearing Impairment: Denies Cancer: No Psychosocial: Yes Depression Integumentary: No Blood Disorders: No (BRANDY COLORADO MD) Family Medical History No Pertinent Family Hx Denies significant family medical hx (BRANDY COLORADO MD) Physical Exam Vital Signs Vital Signs - First Documented 05/15/22 04:28 Temp 37.0 Pulse 82 Resp 16 B/P (MAP) 184/103 (130) Pulse Ox 95 O2 Delivery Room Air (RASHMI,DONATO K DO) Vital Signs Capillary Refill : (BRANDY COLORADO MD) Height, Weight, BMI Height: 5'11.00" Weight: 315lbs. 0.0oz. 142.871103qo; 44.75 BMI Method: General Appearance: WD/WN, obese (morbid obesity) Cardiovascular: regular rate, rhythm, systolic murmur Respiratory: lungs clear, normal breath sounds, no respiratory distress, no accessory muscle use Gastrointestinal: soft Extremities: pedal edema, other (tenderness to left lateral/posterior hip) Neurologic/Psychiatric: alert, normal mood/affect, oriented x 3 Skin: warm/dry, other (bright red erythema bilateral LE with 2-3+ PE) (BRANDY COLORADO MD) Jefferson Coma Score Best Eye Response: (4) Open Spontaneously Best Verbal Response: (5) Oriented Best Motor Response: (6) Obeys Commands (BRANDY COLORADO MD) Progress/Results/Core Measures Results/Orders Medications Given in ED (DONATO CARABALLO DO) Vital Signs/I&O 05/15/22 04:28 Temp 37.0 Pulse 82 Resp 16 B/P (MAP) 184/103 (130) Pulse Ox 95 O2 Delivery Room Air (DONATO CARABALLO DO) Progress Progress Note : Progress Note 1800--ASSUMED CARE FROM DR. COLORADO, CT OF PELVIS IS PENDING AT THIS TIME. PAIN MEDICATION HAS BEEN ORDERED. PT IS RESTING QUIETLY AT THIS TIME, (DONATO CARABALLO DO) Diagnostic Imaging Comments PELVIS/LEFT HIP XRAYS--PER RADIOLOGIST REPORT AT 0807 AP pelvis and two-view left hip performed. Radiographic sensitivity challenged by body habitus. No radiographically apparent fracture or dislocation. Gaseous distention of the partially visualized colon. IMPRESSION: Limited by body habitus. No appreciable displaced fracture deformity however owing to the clinical presentation and sensitivity limitations at this exam this has been further evaluated with separately performed pelvic CT dictated separately. CT PELVIS--PER RADIOLOGIST REPORT AT 0807 INDICATION: Fall with left hip pain. Its compared with CT abdomen pelvis performed 11/23/2019. There is a lower lumbar spondylosis, at L4-L5. Facet arthrosis, disc bulge and thickened ligamenta flava result in severe canal with at least moderate degrees of bi-foraminal stenosis. These are chronic. No acute lower lumbar pathology. There are degenerative changes to the bilateral SI joints without joint separation. Sacrococcygeal segments appeared intact. No presacral or pre-coccygeal pelvic hemorrhage. The innominate bones intact. The bilateral superior and inferior pubic rami were intact and symphyseal degenerative changes without diastases. The bilateral femoral heads, necks, trochanters and visualized subtrochanteric shafts appeared intact. No pelvic or hip fracture identified. No intra or extraperitoneal pelvic hemorrhage. No findings of muscular hematoma. Gluteal musculature appears symmetric. There is no joint effusion. No appreciable joint or bursal effusion. No subcutaneous hematoma. There is apparent suprapubic catheter versus a residual track site from prior catheterizations presumptively accounts for air within the visualized bladder lumen. Some mild ectasia of the partially visualized right renal pelvis however previous severe right hydroureteronephrosis has resolved. 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 No evidence for its rupture. This terminates prior to the aorta bifurcation. We note stool and air distends the partially visualized transverse colon and redundant sigmoid colon. Visualized small bowel nondilated. IMPRESSION: No pelvic or lower lumbar spinal fracture. Lumbar degenerative and pelvic degenerative disease are present but no acute osseous pathology. No findings of pelvic hemorrhage. A likely colonic obstipation partially visualized. Aneurysmal dilatation of the infrarenal aorta unruptured slightly increased in size from 2019. Probable suprapubic catheter accounting for bladder air. Resolution of prior severe right hydroureteronephrosis. No visualized radiopaque urinary tract calculi at this pelvic CT. Reviewed: Reviewed by Me (DONATO CARABALLO DO) Departure Impression Primary Impression: Fall from standing Additional Impression: Contusion of left hip Disposition: 03 XFER SNF Condition: Stable Departure-Patient Inst. Decision time for Depature: 08:09 (DONATO CARABALLO DO) Referrals: LAINEY BLUE MD (PCP/Family) Primary Care Physician Patient Instructions: Contusion (DC), Preventing Falls ED Add. Discharge Instructions: HOME, REST CONTINUE ALL CURRENT MEDICATIONS PRESCRIBED FOLLOW UP WITH DR. BLUE FOR FURTHER CARE All discharge instructions reviewed with patient and/or family. Voiced understanding. BRANDY COLORADO MD May 15, 2022 04:46 DONATO CARABALLO DO May 15, 2022 06:18
--- NOTE | 2022-05-15 07:19 | Diagnostic Imaging Report ---
PROCEDURE: CT pelvis without contrast. TECHNIQUE: Multiple contiguous axial images were obtained through the pelvis without the use of intravenous contrast. Sagittal and coronal reformations were performed. Auto Exposure Controls were utilized during the CT exam to meet ALARA standards for radiation dose reduction. INDICATION: Fall with left hip pain. Its compared with CT abdomen pelvis performed 11/23/2019. There is a lower lumbar spondylosis, at L4-L5. Facet arthrosis, disc bulge and thickened ligamenta flava result in severe canal with at least moderate degrees of bi-foraminal stenosis. These are chronic. No acute lower lumbar pathology. There are degenerative changes to the bilateral SI joints without joint separation. Sacrococcygeal segments appeared intact. No presacral or pre-coccygeal pelvic hemorrhage. The innominate bones intact. The bilateral superior and inferior pubic rami were intact and symphyseal degenerative changes without diastases. The bilateral femoral heads, necks, trochanters and visualized subtrochanteric shafts appeared intact. No pelvic or hip fracture identified. No intra or extraperitoneal pelvic hemorrhage. No findings of muscular hematoma. Gluteal musculature appears symmetric. There is no joint effusion. No appreciable joint or bursal effusion. No subcutaneous hematoma. There is apparent suprapubic catheter versus a residual track site from prior catheterizations presumptively accounts for air within the visualized bladder lumen. Some mild ectasia of the partially visualized right renal pelvis however previous severe right hydroureteronephrosis has resolved. 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 No evidence for its rupture. This terminates prior to the aorta bifurcation. We note stool and air distends the partially visualized transverse colon and redundant sigmoid colon. Visualized small bowel nondilated. IMPRESSION: No pelvic or lower lumbar spinal fracture. Lumbar degenerative and pelvic degenerative disease are present but no acute osseous pathology. No findings of pelvic hemorrhage. A likely colonic obstipation partially visualized. Aneurysmal dilatation of the infrarenal aorta unruptured slightly increased in size from 2019. Probable suprapubic catheter accounting for bladder air. Resolution of prior severe right hydroureteronephrosis. No visualized radiopaque urinary tract calculi at this pelvic CT. Dictated by: Dictated on workstation # [id number]
--- NOTE | 2022-05-15 07:37 | Diagnostic Imaging Report ---
INDICATION: Fall with hip pain. AP pelvis and two-view left hip performed. Radiographic sensitivity challenged by body habitus. No radiographically apparent fracture or dislocation. Gaseous distention of the partially visualized colon. IMPRESSION: Limited by body habitus. No appreciable displaced fracture deformity however owing to the clinical presentation and sensitivity limitations at this exam this has been further evaluated with separately performed pelvic CT dictated separately. Dictated by: Dictated on workstation # [id number]
== END 2022-05-15 09:31 ==
LOC: EDUNIT# 04:28 → ER 04:30
DX: S70.02XA Contusion of left hip, initial encounter (principal); E66.01 Morbid (severe) obesity due to excess calories; E11.9 Type 2 diabetes mellitus without complications; Z79.4 Long term (current) use of insulin; Z68.41 Body mass index [BMI] 40.0-44.9, adult; W01.0XXA Fall on same level from slipping, tripping and stumbling without subsequent striking against object, initial encounter; Y92.129 Unspecified place in nursing home as the place of occurrence of the external cause
CPT/HCPCS: 72192

== ENCOUNTER → 2022-09-11 | Outpatient (CLI) | payer MEDICARE, MEDICAID ==
[~2022-09-11] MED LIST changes: +ALBU5SOL IH; -ALBU5SOL6 IH; -CHOL4POW13 PO; +CHOL4POW14 PO; -FLUO10TA PO; +FLUO10TA28 PO
--- NOTE | 2022-09-11 08:36 | Diagnostic Imaging Report ---
INDICATION: CHRONIC KIDNEY DISEASE TECHNIQUE: Multiple real-time grayscale sonographic images were obtained of the kidneys. CORRELATION: CTA 08/09/2019 FINDINGS: RIGHT KIDNEY: 11.6 x 5.0 x 4.9 cm. LEFT KIDNEY: 11.1 x 6.5 x 6.0 cm. Multiple small echogenic foci of both kidneys are present. Largest on the right 0.8 cm and on the left 0.6 cm. Suggesting nonobstructing stones. No hydronephrosis. No definitive discrete mass. URINARY BLADDER: Decompressed around a suprapubic catheter. Retention is present. IMPRESSION: 1. Probable nonobstructing bilateral renal stones. Dictated by: Dictated on workstation # [id number]
== END ==
LOC: RAD 07:10
PROVIDERS: ATTEND Internal Medicine Nephrology
DX: N18.4 Chronic kidney disease, stage 4 (severe) (principal)
CPT/HCPCS: 76770